=== PATIENT | female | born 1955 | race Caucasian/White ===

== ENCOUNTER 2019-11-09 12:01 | Inpatient (IN) | payer MEDICAID, OTHER ==
[~2019-11-09] VITALS: Ht 165.1 cm; Wt 108.8 kg
[2019-11-09] VITALS (12 sets, daily range): BP systolic 91–147; BP diastolic 49–86
--- NOTE | 2019-11-09 12:04 | NUR ---
PT ARRIVED PER EMS PT INTUBATED BY EMS BEING BAGGED AT THIS X. PT HAS IO IN R TIBIA W NS INFUSING. PT HAS SL IN L CHEST AREA. PT FOUND UNRESPONSIVE BY AND EMS CALLED. EMS USED ETOMIDATE AND KETAMINE TO INUBATE PT. ET TUBE 7.5, 22CM AT GUMS. 1207 PT TO MONITOR, NO PULSE CPR STARTED. 1208 EPI 1 AMP GIVEN IVP 1210 PULSE CHECK DONE PULSE PRESENT. 1214 #16 OG INSERTED 1220 TORRES #16 FR INSERTED AND CLEAR YELLOW URINE RETURNED. 1225 VS 145/74,100%BMV,93PULSE 1226 CENTRAL LINE INSERTED IN R IJ BY DR WADSWORTH STOP TIME 1235,LABS DRAWN 1236 PROPOFOL 20MCG/KG/MIN 1238 PT MOVING AROUND, 20MG BOLUS PROPOFOL GIVEN BY DR WADSWORTH 1241 PT TO VENT BY RT 1242 DR EDDY HERE TO SEE PT 1242 PROPOFOL INCREASED TO 40MCG/KG/MIN 1245 COVID SWAB AND FLU SWAB COMPLETED 1246 CXR DONE. LEVOPHED STARTED AT 0.1MCG/KG/HR=33.75MLS/HR 1247 VERSED 5MG IV GIVEN FOR SEDATION 1247 ICE PACKS PLACED UNDER ARMS AND GROIN ORDERED 1256 LEVOPHED INCREASED TO 67.5ML/HR 1300 MONITOR CHANGE NOTED, PULSE CHECK, PEA CPR STARTED AND SWITCHED TO BMV O2 SAT DECREASING TO 70'S TO 75% BMV. 1301 EPI 1 AMP GIVEN CPR CONT 1303 PULSE CHECK, +PULSE, MONITOR READS WIDE COMPLEX TACHYCARDIA 1304 EKG DONE [address] [place] HERE TO SEE PT 1333 RECTAL TEMP PROBE INSERTED 36.3'C 1338 2ND BLOOD CULTURE DRAWN 1341 EPI 1/2 AMP PUSH ORDERED 1342 SAND BAG APPLIED TO L FEMORAL ABG SITE. 1344 TPA STARTED ORDERED AT 50MG/HR. ECHO BEING DONE BY TECH 1351 EPI GTT STARTED AT 13.5ML/HR 1400 PT HAS HAD TOTAL OF 300MLS OUT OF OG 1400 PT HAS HAD TOTAL OF 3000MLS OF NS INFUSED INCLUDES 1 LITER FROM EMS 1409 PT TRANSFERED TO ICU BY JIMMY RN , ADRIANA RN, RT AND KENIA FOUNTAIN AN [employer] OR [employer] AND V/S ECOT 41, 92% SAT ON VENT, 110/57, HR-73, 24RESP. PT HAS PROPOFOL, EPI GTT, NOREPPI GTT AND TPA CONT PER PUMPS PER IJ, PT HAS ET TUBE, OG, TORRES IN PLACE. PT HAS OI AND L CHEST SL IN PLACE.
[2019-11-09] MEDS ORDERED: NS IV 1000 ML 1,000 ML ONE ×3 (12:24→14:51)
[2019-11-09 12:38] LABS: BASOPHILS % (AUTO) 0 % (0-10); EOSINOPHILS % (AUTO) 0 % (0-10); HEMATOCRIT 38 % (35-52); HEMOGLOBIN 12.1 G/DL (11.5-16.0); LYMPHOCYTES # (AUTO) 1.1 X 10^3 (1.0-4.0); LYMPHOCYTES % (AUTO) 9 % (12-44); MEAN CORPUSCULAR HEMOGLOBIN 28 PG (25-34); MEAN CORPUSCULAR HGB CONC 32 G/DL (32-36); MEAN CORPUSCULAR VOLUME 89 FL (80-99); MEAN PLATELET VOLUME 10.1 FL (7.4-10.4); MONOCYTES # (AUTO) 0.7 X 10^3 (0.0-1.0); MONOCYTES % (AUTO) 6 % (0-12); NEUTROPHILS # (AUTO) 10.7 X 10^3 (1.8-7.8); NEUTROPHILS % (AUTO) 85 % (42-75); PLATELET COUNT 231 10^3/uL (130-400); RED CELL DISTRIBUTION WIDTH 14.2 % (10.0-14.5); WHITE BLOOD COUNT 12.5 10^3/uL (4.3-11.0)
[2019-11-09] MEDS ORDERED: MIDAZOLAM 5 MG/5 ML (VERSED) VIAL ONE ×2 (12:38→14:43)
[2019-11-09] MEDS: PROPOFOL DRIP (ICU) 100 ML IV ONE ×2 (12:39→14:03)
[2019-11-09 12:48] LABS: ALBUMIN 3.2 GM/DL (3.2-4.5); POTASSIUM 4.4 MMOL/L (3.6-5.0)
[2019-11-09 12:49] LABS: CALCIUM 8.2 MG/DL (8.5-10.1)
[2019-11-09 12:51] LABS: TOTAL PROTEIN 6.5 GM/DL (6.4-8.2)
[2019-11-09 12:52] LABS: BILIRUBIN,TOTAL 0.3 MG/DL (0.1-1.0); FIBRIN DEGRADATION PRODUCTS 3.89 UG/ML (0.00-0.49); PROTHROMBIN TIME PATIENT 13.8 SEC (12.2-14.7)
[2019-11-09 12:54] LABS: CREATININE SERUM 0.95 MG/DL (0.60-1.30)
[2019-11-09 12:57] LABS: MAGNESIUM 1.8 MG/DL (1.6-2.4)
[2019-11-09 13:00] LABS: AMPHETAMINE SCREEN, URINE NEGATIVE (NEGATIVE); BARBITURATE SCREEN URINE NEGATIVE (NEGATIVE); BENZODIAZEPINES SCREEN URINE NEGATIVE (NEGATIVE); CANNABINOID SCREEN, URINE NEGATIVE (NEGATIVE); COCAINE SCREEN URINE NEGATIVE (NEGATIVE); METHADONE STAT NEGATIVE (NEGATIVE); METHAMPHETAMINE SCREEN URINE S NEGATIVE (NEGATIVE); OPIATE SCREEN URINE NEGATIVE (NEGATIVE); OXYCODONE STAT NEGATIVE (NEGATIVE); PROPOXYPHENE STAT NEGATIVE (NEGATIVE); TRICYCLIC ANTIDEPRESSANTS SCRE NEGATIVE (NEGATIVE)
[2019-11-09 13:01] LABS: ABG BASE EXCESS 5.3 MMOL/L (-2.5-2.5); ABG OXYGEN SATURATION 92 % (94-100); ABG PCO2 62 MMHG (35-45); ABG PO2 67 MMHG (79-93); ABG TCO2 33.2 MMOL/L (21.0-31.0)
[2019-11-09 13:02] LABS: ABG PH 7.32 (7.37-7.43); ALLENS TEST POSITIVE; INSPIRED O2 10 L; PATIENT TEMP 96.9; VENTILATOR NO
--- NOTE | 2019-11-09 13:03 | ED CPR ---
HPI-CPR General Chief Complaint: Code Blue Stated Complaint: RESPIRATORY ARREST Source of Information: Patient, EMS Exam Limitations: Other (patient is orotracheally intubated) History of Present Illness Date Seen by Provider: November 09, 2019 Time Seen by Provider: 12:04 Initial Comments Patient arrives ER by EMS from her fall with her spouse who woke up to find her breathing very fast and shallow and unresponsive. EMS arrived and she had a pulse but they intubated her using RSI and a 7.5 ET tube at 22 at the teeth. They're able to get good oxygen sats 100% room air. She had no fever nor history of fever. Patient gives no meaningful history or review of systems secondary to being orotracheally intubated. Has been does not think she's been sick lately. Was not a good historian and was not able to relay much of the patient's history to EMS. Shortly after arrival the patient was discovered not to have a pulse and CPR was initiated. Dr. Alvarado was involved early on in the care of the patient and she was able to discuss with the primary care doctor and discover the patient have hypothyr oidism, hypertension, diabetes, hyperlipidemia and had been following every 3 months on routine basis. Allergies and Home Medications Allergies Coded Allergies: Penicillins (Unverified Allergy, Unknown, 11/09/19) Sulfa (Sulfonamide Antibiotics) (Unverified Allergy, Unknown, 11/09/19) adhesive tape (Unverified Allergy, Unknown, 11/09/19) azithromycin (Unverified Allergy, Unknown, 11/09/19) cephalexin (Unverified Allergy, Unknown, 11/09/19) Home Medications Albuterol Sulfate 1 Puff Puff, 2 PUFF PO Q6H PRN for SHORTNESS OF BREATH, (Reported) Aspirin 325 Mg Tablet.dr, 325 MG PO Q48H, (Reported) Atenolol 100 Mg Tablet, 100 MG PO DAILY, (Reported) Duloxetine HCl 60 Mg Capsule.dr, 60 MG PO DAILY, (Reported) Enalapril Maleate 20 Mg Tablet, 20 MG PO BID, (Reported) Fluticasone/Salmeterol 1 Each Blst.w.dev, 1 PUFF PO BID, (Reported) Furosemide 20 Mg Tablet, 20 MG PO DAILY, (Reported) Metformin HCl 500 Mg Tablet, 500 MG PO BID WITH MEALS, (Reported) Pantoprazole Sodium 40 Mg Tablet.dr, 40 MG PO DAILY, (Reported) Polyethylene Glycol 3350 17 Gm Powd.pack, 17 GM PO DAILY, (Reported) Rosuvastatin Calcium 20 Mg Tablet, 20 MG PO DAILY, (Reported) Sitagliptin Phosphate 100 Mg Tablet, 100 MG PO DAILY, (Reported) Tizanidine HCl 4 Mg Tablet, 4 MG PO TID, (Reported) Patient Home Medication List Home Medication List Reviewed: Yes Review of Systems Review of Systems Constitutional: see HPI (patient is unable to contribute any meaningful review of systems secondary to being orotracheally intubated.) Past Npitfsd-Uernvq-Nfbeqt Hx Patient Social History Alcohol Use: Denies Use Recreational Drug Use: No Smoking Status: Current Everyday Smoker Physical Exam Vital Signs Vital Signs - First Documented 11/09/19 12:04 Temp 35.4 Pulse 93 B/P (MAP) 145/74 (97) Pulse Ox 100 O2 Delivery Ambu Bag Capillary Refill : Height, Weight, BMI Height: '" Weight: lbs. oz. kg; BMI Method: General Appearance: Obese, Severe Distress HEENT: PERRL/EOMI, TMs Normal, Normal ENT Inspection, Pharynx Normal, Moist Mucous Membranes, Other (copious clear, thin secretions from the oropharynx) Neck: Full Range of Motion, Normal Inspection Respiratory: Respiratory Distress (severe, orotracheally intubated with a 7.5 ET tube at 22 at the gums), Rhonci (mild to moderate bilateral), Wheezing (mild expiratory) Cardiovascular: No Edema, Other (no pulse on arrival) Gastrointestinal: No Organomegaly, Soft, Other (ventral hernia) Extremity: Normal Capillary Refill, Normal Inspection Neurologic/Psychiatric: Other (intubated. Status post RSI meds.) Skin: Damp, Pallor Focused Exam Lactate Level 11/09/19 12:20: Lactic Acid Level 1.75 Lactic Acid Level Laboratory Tests Test 11/09/19 12:20 Lactic Acid Level 1.75 MMOL/L (0.50-2.00) Procedures/Interventions Lumen: triple (16 cm 7 Tu[place]uan) Central Line Procedure: betadine prep (chlorhexidine prep), sterile drapes applied, sterile dressing applied Position: internal jugular (R) Anesthesia: Lidocaine Volume Anesthetic (ccs): 2 Complications: none Post Position: sutured, good blood return, position confirmed w/ CXR Donned sterile gear and draped the patient on usual sterile fashion. We clean the surface with chlorhexidine prep and allowed to dry. We infiltrated the skin with 2 cc of 1% lidocaine. A triple lumen catheter was prepared and flushed. Using ultrasound guidance and the introducer needle we accessed the right internal jugular on first attempt and were able to easily pass a guidewire. We did experience some mild ectopy on the monitor which went away as soon as the guidewire was withdrawn. A small pedro luis in the skin was made using an 11 blade scalpel. The needle was removed and replaced with a dilator. The dilator was removed and the central lumen of the triple lumen catheter was threaded over the guidewire. It was stitched in place 2 different points at 15 cm. The supplied dressing with Biopatch was placed. Minimal blood loss. Patient tolerated procedure well. Consent was made off of emergent need. Chest x-ray demonstrated good position in the superior vena cava just above the right atria without crossing the midline. No evidence of pneumothorax. CPR: One round of CPR initiated at 1207 for pulseless electrical activity. Epinephrine was given at 1208. At 1210. Pulse check revealed a right femoral pulse palpable. Blood pressure and EKG showed sinus tachycardia and blood pressure around 115 systolic. 1300: PEA. Removed from the ventilator and bagged with a bag valve mask. Chest compressions were initiated. At 1301 1 mg of epinephrine was administered IV. 1303 patient had return of spontaneous circulation. Levophed was maxed and epinephrine was initiated. Rhythm: Sinus Tachycardia Progress/Results/Core Measures Results/Orders Lab Results Laboratory Tests Test 11/09/19 12:20 11/09/19 12:45 11/09/19 12:50 11/09/19 13:34 Range/Units White Blood Count 12.5 H 4.3-11.0 10^3/uL Red Blood Count 4.33 L 4.35-5.85 10^6/uL Hemoglobin 12.1 11.5-16.0 G/DL Hematocrit 38 35-52 % Mean Corpuscular Volume 89 80-99 FL Mean Corpuscular Hemoglobin 28 25-34 PG Mean Corpuscular Hemoglobin Concent 32 32-36 G/DL Red Cell Distribution Width 14.2 10.0-14.5 % Platelet Count 231 130-400 10^3/uL Mean Platelet Volume 10.1 7.4-10.4 FL Neutrophils (%) (Auto) 85 H 42-75 % Lymphocytes (%) (Auto) 9 L 12-44 % Monocytes (%) (Auto) 6 0-12 % Eosinophils (%) (Auto) 0 0-10 % Basophils (%) (Auto) 0 0-10 % Neutrophils # (Auto) 10.7 H 1.8-7.8 X 10^3 Lymphocytes # (Auto) 1.1 1.0-4.0 X 10^3 Monocytes # (Auto) 0.7 0.0-1.0 X 10^3 Eosinophils # (Auto) 0.0 0.0-0.3 10^3/uL Basophils # (Auto) 0.0 0.0-0.1 10^3/uL Prothrombin Time 13.8 12.2-14.7 SEC INR Comment 1.0 0.8-1.4 Activated Partial Thromboplast Time 22 L 24-35 SEC D-Dimer 3.89 H 0.00-0.49 UG/ML Sodium Level 129 L 135-145 MMOL/L Potassium Level 4.4 3.6-5.0 MMOL/L Chloride Level 89 L 98-107 MMOL/L Carbon Dioxide Level 32 21-32 MMOL/L Anion Gap 8 5-14 MMOL/L Blood Urea Nitrogen 14 7-18 MG/DL Creatinine 0.95 0.60-1.30 MG/DL Estimat Glomerular Filtration Rate 60 BUN/Creatinine Ratio 15 Glucose Level 166 H 70-105 MG/DL Lactic Acid Level 1.75 0.50-2.00 MMOL/L Calcium Level 8.2 L 8.5-10.1 MG/DL Corrected Calcium 8.8 8.5-10.1 MG/DL Magnesium Level 1.8 1.6-2.4 MG/DL Total Bilirubin 0.3 0.1-1.0 MG/DL Aspartate Amino Transf (AST/SGOT) 28 5-34 U/L Alanine Aminotransferase (ALT/SGPT) 17 0-55 U/L Alkaline Phosphatase 104 40-136 U/L Troponin I 0.085 H <0.028 NG/ML B-Type Natriuretic Peptide 634.0 H <100.0 PG/ML Total Protein 6.5 6.4-8.2 GM/DL Albumin 3.2 3.2-4.5 GM/DL Urine Opiates Screen NEGATIVE NEGATIVE Urine Oxycodone Screen NEGATIVE NEGATIVE Urine Methadone Screen NEGATIVE NEGATIVE Urine Propoxyphene Screen NEGATIVE NEGATIVE Urine Barbiturates Screen NEGATIVE NEGATIVE Ur Tricyclic Antidepressants Screen NEGATIVE NEGATIVE Urine Phencyclidine Screen NEGATIVE NEGATIVE Urine Amphetamines Screen NEGATIVE NEGATIVE Urine Methamphetamines Screen NEGATIVE NEGATIVE Urine Benzodiazepines Screen NEGATIVE NEGATIVE Urine Cocaine Screen NEGATIVE NEGATIVE Urine Cannabinoids Screen NEGATIVE NEGATIVE Blood Gas Puncture Site LEFT RADIAL LEFT FEMORAL Blood Gas Patient Temperature 96.9 36.3 Arterial Blood pH 7.32 *L 7.26 *L 7.37-7.43 Arterial Blood Partial Pressure CO2 62 H 61 H 35-45 MMHG Arterial Blood Partial Pressure O2 67 L 52 L 79-93 MMHG Arterial Blood HCO3 31 H 27 23-27 MMOL/L Arterial Blood Total CO2 33.2 H 29.1 21.0-31.0 MMOL/L Arterial Blood Oxygen Saturation 92 L 75 L 94-100 % Arterial Blood Base Excess 5.3 H 0.8 -2.5-2.5 MMOL/L Gustavo Test POSITIVE POSITIVE Blood Gas Ventilator Setting NO YES Blood Gas Inspired Oxygen 10 L 100 Micro Results Microbiology 11/09/19 Influenza Types A,B Antigen (GENOVEVA) - Final, Complete My Orders Orders - ZACARIAS WADSWORTH Norepinephrine 4 Mg/250 Ml (Norepinephri (11/09/19 12:05) Drug Screen Stat (Urine) (11/09/19 12:24) Chest 1 View, Ap/Pa Only (11/09/19 12:32) Ns Iv 1000 Ml (Sodium Chloride 0.9%) (11/09/19 12:24) Propofol Drip (Icu) (Diprivan Drip (Icu) (11/09/19 12:26) Midazolam Injection (Versed Injection) (11/09/19 12:38) Coronavirus Sars-Cov-2 So 2018 (11/09/19 12:48) Influenza A And B Antigens (11/09/19 12:48) Ns Iv 1000 Ml (Sodium Chloride 0.9%) (11/09/19 12:54) Alteplase (Activase) (Activase Injection (11/09/19 13:08) Type And Screen (11/09/19 13:32) Arterial Blood Gas (11/09/19 13:32) Epinephrine (Omnicell Drip Kit (Epinephr (11/09/19 13:34) Ns (Ivpb) (Sodium Chloride 0.9%) (11/09/19 13:34) Ns (Ivpb) (Sodium C... W/Epinephrine 1 (11/09/19 14:00) Alteplase (Activase) (Activase Injection (11/09/19 14:00) Post Thrombolytic Adminstratio (11/09/19 13:53) Propofol Drip (Icu) (Diprivan Drip (Icu) (11/09/19 12:39) Norepinephrine 4 Mg/250 Ml (Norepinephri (11/09/19 13:22) Medications Given in ED Current Medications Medications Dose Ordered Sig/Brandee Route Start Time Stop Time Status Last Admin Dose Admin Alteplase, Recombinant 100 mg ONCE ONCE IV 11/09/19 14:00 11/09/19 14:01 DC 11/09/19 13:44 100 MG Midazolam HCl 5 mg STK-MED ONCE .ROUTE 11/09/19 12:38 11/09/19 12:45 DC 11/09/19 12:47 5 MG Sodium Chloride 1,000 ml @ ud STK-MED ONCE .ROUTE 11/09/19 12:24 11/09/19 12:32 DC 11/09/19 12:41 999 MLS/HR Sodium Chloride 1,000 ml @ ud STK-MED ONCE .ROUTE 11/09/19 12:54 11/09/19 13:02 DC 11/09/19 13:23 999 MLS/HR Vital Signs/I&O 11/09/19 11/09/19 11/09/19 12:04 14:03 14:04 Temp 35.4 Pulse 93 93 65 B/P (MAP) 145/74 (97) 145/74 101/89 Pulse Ox 100 O2 Delivery Ambu Bag Blood Pressure Mean: 97 Progress Progress Note : Time: 13:15 Progress Note After we corrected the ventilation by increasing the rate to 24 breaths per minute at 550ml tidal volume PEEP of 7 to recruit more alveoli and FiO2 of 100% the patient's respiratory demand went down sats came up to 95% to 98% and heart rate back into the 80s and 90s. We obtained another EKG shortly after the 1304 EKG. This latest EKG demonstrated sinus rhythm in the 80s or 90s without ST changes however this EKG was not saved and we do not have a copy that I can find. Strongly suspect the patient had a pulmonary embolism and TPA was given. Patient was stable at the time she transferred to the ICU on TPA drip, Levophed, epinephrine, IV fluids and was given glucagon when she reached the ICU. Initial ECG Impression Date: November 09, 2019 Initial ECG Impression Time: 12:20 Initial ECG Rate: 93 Initial ECG Rhythm: Normal Sinus Initial ECG Intervals: QT (478) Initial ECG Impression: Normal, Nonspecific Changes Initial ECG Comparisson: No Previous ECG Available Comment Normal sinus rhythm without clinically relevant ST elevation or depression. EKG : EKG Time: 13:04 Rate: 120 Rhythm: S.Tach Intervals: QT (474) ECG Comparisson: Changed ECG Impression: Normal, Nonspecific Changes Comment Sinus tachycardia with early repolarization but no clinically relevant ST elevation or depression. Diagnostic Imaging Plain Films/CT/US/NM/MRI: chest Comments [facility], [place] NAME: VINICIUS HINES [facility] REC#: [id number] PT STATUS: ADM IN : 1955 PHYSICIAN: ZACARIAS WADSWORTH MD ADMIT DATE: 11/09/19/ICU Signed Date of Exam:11/09/19 CHEST 1 VIEW, AP/PA ONLY EXAMINATION: Portable supine AP chest at 12:46 p.m. INDICATION: Central line placement. FINDINGS: The heart size is within normal limits and stable when compared to 09/28/2010. The lungs are clear. There is no evidence for failure, pneumonia, or for pleural effusion. The mediastinum is not widened. The osseous structures are intact. In the interval since the prior exam, the patient has been intubated. The ET tube tip appears to be in good position overlying the midportion of the tracheal air shadow. An NG line has also been inserted. The tip of the line is not visualized but the line does extend below the diaphragm. There has also been insertion of a central venous catheter on the right. The tip of the catheter overlies the proximal superior vena cava. There is no sign of a pneumothorax on the right, although a small pneumothorax could be present yet undetected on a supine film such as this. There are external cardiac monitoring electrodes noted. IMPRESSION: 1. There is no evidence for an acute cardiopulmonary abnormality. 2. The supportive tubes and lines seem to be in good position, although the tip of the NG line is not well visualized. If further study is desired, then an abdomen exam would be recommended. Dictated by: Dictated on workstation # [id number] Dict: 11/09/19 1304 Trans: 11/09/19 1631 [id number] Interpreted by: NADIR HART MD Electronically signed by: NADIR HART MD 11/09/19 163 Reviewed: Reviewed by Co Diagonstic Imaging: Xray Plain Films/CT/US/NM/MRI: chest Comments [facility], [place] NAME: VINICIUS HINES [facility] REC#: [id number] PT STATUS: ADM IN : 1955 PHYSICIAN: SOL GONZALES MD ADMIT DATE: 11/09/19/ICU Signed Date of Exam:11/09/19 CHEST 1 VIEW, AP/PA ONLY EXAMINATION: CHEST 1 VIEW, AP/PA ONLY. INDICATION: Hypoxia. COMPARISON: 11/09/2019 at 12:46 PM. FINDINGS: The ET tube has its tip 6 cm above the eli. Stable enteric tube and right IJ central venous catheter. Stable enlargement of the cardiac silhouette. No pleural effusion or pneumothorax. No airspace consolidations in the visualized lungs. IMPRESSION: The ET tube has its tip 6 cm above the eli. Dictated by: Dictated on workstation # [id number] Dict: 11/09/19 1535 Trans: 11/09/19 1539 [id number] Interpreted by: SAMANTHA RAY MD Electronically signed by: SAMANTHA RAY MD 11/09/19 1539 Reviewed: Reviewed by Co Diagonstic Imaging: Xray Plain Films/CT/US/NM/MRI: chest (1v) Comments [facility] [place] NAME: VINICIUS HINES [facility] REC#: [id number] PT STATUS: ADM IN : 1955 PHYSICIAN: SOL GONZALES MD ADMIT DATE: 11/09/19/ICU Signed Date of Exam:11/09/19 CHEST 1 VIEW, AP/PA ONLY INDICATION: ET tube adjustment. TECHNIQUE: Single view chest at 3:18 PM. CORRELATION STUDY: 11/09/2019. FINDINGS: The endotracheal tube tip projects over the trachea projecting just below the level of the clavicles. A gastric tube passes below the left hemidiaphragm and area imaged. The right IJ central line tip is in the high right paramediastinal region, likely at the low aspect of the internal jugular vein. Overlying monitor leads and defibrillator pads are present. Opacification of the right lung base, likely atelectasis, over a large portion of the right middle lobe. The heart size is stable. The vasculature is overall within normal limits. IMPRESSION: 1. Support lines and tubes as above. 2. Likely development of significant atelectasis of the right middle lobe. Dictated by: Dictated on workstation # [id number] Dict: 11/09/19 1537 Trans: 11/09/19 1625 [id number] Interpreted by: EMI JONES DO Electronically signed by: EMI JONES DO 11/09/19 1625 Reviewed: Reviewed by Co Critical Care Note Critical Care Start Time: 12:04 Stop Time: 14:15 Total Time (minutes) 131 minutes Progress Patient arrived with no pulse and had one round of epinephrine and CPR which got ROSC. We initiated Levophed drip got a septic workup and she had an IV in her left mammary and a right tibial IO. Central line was initiated at 1226 and concluded at 1235. Ordonez catheter and OG tube were initiated. Chest x-ray was reviewed showing good placement of ET tube and central line as well as the OG tube. Labs were drawn off the central line. Levophed was initiated at 0.1 mcg/kg/m. Blood cultures were obtained. We initiated cooling with ice packs under the armpit and groin and using a rectal central temperature probe got her down to around 36-36.4. Patient began to wake up and have some movement and groaning with deep, pulmonary suctioning of her upper extremities and lower extremity's. Propofol was initiated and a 20 mg bolus was given. Propofol initiated at 20 mcg/kg/m. After suctioning was done the patient's lung sounds improved considerably still had some mild wheezing. We elected to initiate the ventilator after obtaining flu and Covid19 swabs. Ventilator was initiated at 20 respiratory rate, PEEP 5, FiO2 of 100, tidal volume of 500. ABG was obtained. Patient was given 5 mg Versed for sedation. At 1300 patient went back into PEA and compressions were started. Epinephrine was given 1 minute later. 13 03D had return of spontaneous circulation. Levophed was increased and epinephrine was ordered. EKG demonstrated sinus tachycardia without clinically relevant ST changes. End- tidal CO2 37-42. Repeat ABG was obtained which demonstrated similar, unimproved respiratory ac idosis and hypoxia. Dr. Clay was consulted and reviewed EKGs and made recommendations. TPA was elected after discussing the case with Dr. Jenny Clay and ordered 100 mg over 2 hours. Sandbag was placed over the right femoral artery where the second ABG was obtained. 1344 echocardiogram at the bedside was obtained. 1352 epinephrine drip was initiated at 0.02 mcg/kg/m and titrated up as necessary to maintain decent blood pressure. 300 cc out of the OG of brackish down are thin secretions. 3 L normal saline have been pushed. Patient's heart rate remained paradoxically low despite poor perfusion and hypotension on 2 pressors. Patient's on atenolol 100 mg and we elected to give 3 mg of glucagon in an attempt to reverse some of this effect. Departure Communication (Admissions) Time/Spoke to Admitting Phy: 13:00 Dr. Alvarado down to the ER to see the patient. She personally consulted Dr. Gonzales. Time/Spoke to Consulting Phy: 13:32 Dr. Clay down to the ER to examine patient and EKGs. He accepts consultation. Impression Primary Impression: Acute respiratory failure Qualified Codes: J96.01 - Acute respiratory failure with hypoxia Additional Impression: Cardiopulmonary arrest Disposition: ADMITTED INPATIENT Condition: Critical Admissions Decision to Admit Reason: Admit from ER (General) Decision to Admit/Date: November 09, 2019 Time/Decision to Admit Time: 13:40 ZACARIAS WADSWORTH November 09, 2019 13:03
[2019-11-09] MEDS: NOREPINEPHRINE 4 MG/250 ML 250 ML IV ONE ×2 (13:22→14:04)
[2019-11-09] MEDS: ALTEPLASE 100 MG/VIAL (ACTIVASE) ONE ×2 (13:25→13:56)
--- NOTE | 2019-11-09 13:27 | Diagnostic Imaging Report ---
EXAMINATION: Portable supine AP chest at 12:46 p.m. INDICATION: Central line placement. FINDINGS: The heart size is within normal limits and stable when compared to 09/28/2010. The lungs are clear. There is no evidence for failure, pneumonia, or for pleural effusion. The mediastinum is not widened. The osseous structures are intact. In the interval since the prior exam, the patient has been intubated. The ET tube tip appears to be in good position overlying the midportion of the tracheal air shadow. An NG line has also been inserted. The tip of the line is not visualized but the line does extend below the diaphragm. There has also been insertion of a central venous catheter on the right. The tip of the catheter overlies the proximal superior vena cava. There is no sign of a pneumothorax on the right, although a small pneumothorax could be present yet undetected on a supine film such as this. There are external cardiac monitoring electrodes noted. IMPRESSION: 1. There is no evidence for an acute cardiopulmonary abnormality. 2. The supportive tubes and lines seem to be in good position, although the tip of the NG line is not well visualized. If further study is desired, then an abdomen exam would be recommended. Dictated by: Dictated on workstation # [id number]
[2019-11-09 13:40] LABS: ABG BASE EXCESS 0.8 MMOL/L (-2.5-2.5); ABG OXYGEN SATURATION 75 % (94-100); ABG PCO2 61 MMHG (35-45); ABG PO2 52 MMHG (79-93); ABG TCO2 29.1 MMOL/L (21.0-31.0)
[2019-11-09 13:41] LABS: ABG PH 7.26 (7.37-7.43)
[2019-11-09 13:42] LABS: ALLENS TEST POSITIVE; INSPIRED O2 100; PATIENT TEMP 36.3; VENTILATOR YES
[2019-11-09] MEDS: EPINEPHrine (OMNICELL DRIP KIT ONLY) 1 MG/ML AMP ONE ×2 (13:48→13:56)
[2019-11-09] MEDS: NS (IVPB) 250 ML ONE ×2 (13:49→13:56)
[2019-11-09] MEDS ORDERED: ALTEPLASE 100 MG/VIAL (ACTIVASE) IV ONE (14:00)
[2019-11-09] MEDS ORDERED: EPINEPHrine 1 MG INJECTION 2 MG in NS (IVPB) 248 ML IV SCH (14:00)
--- NOTE | 2019-11-09 14:00 | History & Physical-Hospitalist ---
History of Present Illness HPI/Chief Complaint Pt is a 64yoCF with a PMH of HTN, NIDDMII, COPD, JODI, CAD with 3 stents who presented to the ER as a respiratory arrest. She was intubated in the field and no history is obtainable. I spoke with EMS and her who state she started feeling poorly yesterday. Her tried to get her to come to the ER yesterday but she refused. Today she would not wake up for him and he called EMS. She was unresponsive for them. I spoke with her PCP as well who states he last saw her on 10/18 and she was well. EMS also report very poorly living conditions. Shortly after arrival to the ER she lost a pulse and was coded brief ly. ROSC was obtained but roughly an hour later she lost a pulse again and this was accompanied by profound hypoxia with sats in the 40s. CXR was unremarkable and her labs were unrevealing for infection. EKG was nonischemic. D-Dimer was elevated at 3. TPA was given for presumed PE as she was unstable. She is now being admitted to the ICU. Source: patient Date Seen 11/09/19 Time Seen by a Provider: 13:49 Attending Physician PCP Referring Physician Date of Admission Home Medications & Allergies Home Medications Reviewed patient Home Medication Reconciliation performed by pharmacy medication reconciliations wireless field technician and/or nursing. Patients Allergies have been reviewed. Allergies Allergies Coded Allergies Penicillins (Unverified Allergy, Unknown, 11/09/19) Sulfa (Sulfonamide Antibiotics) (Unverified Allergy, Unknown, 11/09/19) adhesive tape (Unverified Allergy, Unknown, 11/09/19) azithromycin (Unverified Allergy, Unknown, 11/09/19) cephalexin (Unverified Allergy, Unknown, 11/09/19) Past Pgjakss-Zqhmdm-Shxwpv Hx Past Med/Social Hx: Reviewed Nursing Past Med/Soc Hx Patient Social History Marrital Status: Employed/Student: unemployed Smoking Status: Unknown if Ever Smoked Recent Foreign Travel: No Contact w/other who traveled: No Recent Infectious Disease Expo: No Past Medical History Surgeries: Section, Coronary Stent, Orthopedic, Tonsillectomy Respiratory: COPD, Sleep Apnea Cardiac: Coronary Artery Disease, Heart Attack, High Cholesterol, Hypertension Musculoskeletal: Degenerate Disk Disease, Chronic Back Pain Endocrine: Diabetes, Non-Insulin dep Family History Reviewed Nursing Family Hx (unable to be obtained) Review of Systems ROS-Unable to Obtain: intubated/sedated Constitutional: see HPI Physical Exam Physical Exam Vital Signs Vital Signs - First Documented 11/09/19 11/09/19 11/09/19 12:04 14:30 16:25 Temp 35.4 Pulse 93 Resp 38 B/P (MAP) 145/74 (97) Pulse Ox 100 O2 Delivery Ambu Bag O2 Flow Rate 100.00 FiO2 100 Capillary Refill : Greater Than 3 Seconds Height, Weight, BMI Height: '" Weight: lbs. oz. kg; 33.00 BMI Method: General Appearance: Chronically ill, Obese, Severe Distress HEENT: Other (nearly pinpoint pupils, equally reactive; ETT/OGT in place) Neck: Other (central line in place) Respiratory: Crackles, Respiratory Distress, Wheezing, Other (intubated) Cardiovascular: No JVD, No Murmur, Tachycardia Gastrointestinal: Normal Bowel Sounds, Other (soft, obese abdomen, ventra hernia noted) Genital/Rectal: Other (an in place with clear yellow urine noted) Extremity: Normal Capillary Refill, No Pedal Edema Neurologic/Psychiatric: Other (sedated, responds to noxious stimuli only) Skin: Normal Color, Warm/Dry; No Mottled Results Results/Procedures Labs Laboratory Tests 11/09/19 12:20 11/09/19 15:35 11/09/19 19:00 11/09/19 22:45 11/10/19 02:30 11/10/19 08:45 Patient resulted labs reviewed. Imaging: Reviewed Imaging Films, Reviewed Imaging Report Imaging Date of Exam:11/09/19 CHEST 1 VIEW, AP/PA ONLY EXAMINATION: Portable supine AP chest at 12:46 p.m. INDICATION: Central line placement. FINDINGS: The heart size is within normal limits and stable when compared to 09/28/2010. The lungs are clear. There is no evidence for failure, pneumonia, or for pleural effusion. The mediastinum is not widened. The osseous structures are intact. In the interval since the prior exam, the patient has been intubated. The ET tube tip appears to be in good position overlying the midportion of the tracheal air shadow. An NG line has also been inserted. The tip of the line is not visualized but the line does extend below the diaphragm. There has also been insertion of a central venous catheter on the right. The tip of the catheter overlies the proximal superior vena cava. There is no sign of a pneumothorax on the right, although a small pneumothorax could be present yet undetected on a supine film such as this. There are external cardiac monitoring electrodes noted. IMPRESSION: 1. There is no evidence for an acute cardiopulmonary abnormality. 2. The supportive tubes and lines seem to be in good position, although the tip of the NG line is not well visualized. If further study is desired, then an abdomen exam would be recommended. Assessment/Plan Admission Diagnosis Cardiac Arrest Admission Status: Inpatient Order (span 2 midnights) Reason for Inpatient Admission: see below Assessment and Plan Cardiac Arrest Acute Respiratory Failure with profound hypoxia Elevated D-dimer COPD Intubated, pulm consulted appreciate recs Hypoxic to the 40s in the ER TPA given in ER If remains stable on arrival to the ICU will start hypothermia Currently on levophed and epi gtt Stat echo pending COVID19 pending HTN CAD Hole home meds for hypotension and TPA admin Cardiology consulted, appreciate recs NIDDMII [facility] Critical Care Critically Ill Patient Diagnosis/Problems Diagnosis/Problems (1) Cardiac arrest Status: Acute (2) Acute respiratory failure Qualifiers: Respiratory failure complication: hypoxia Qualified Codes: J96.01 - Acute respiratory failure with hypoxia (3) COPD (chronic obstructive pulmonary disease) Qualifiers: COPD type: unspecified COPD Qualified Codes: J44.9 - Chronic obstructive pulmonary disease, unspecified (4) CAD (coronary artery disease) Status: Chronic Qualifiers: Coronary Disease-Associated Artery/Lesion type: [place] artery [place] vs. transplanted heart: [place] heart Associated angina: without angina Qualified Codes: I25.10 - Atherosclerotic heart disease of [place] coronary artery without angina pectoris (5) Non-insulin dependent type 2 diabetes mellitus Status: Chronic ASHLYN EDDY MD November 09, 2019 14:00
[2019-11-09] MEDS: PROPOFOL DRIP (ICU) 100 ML IV SCH ×4 (14:03→22:04)
[2019-11-09] MEDS: NOREPINEPHRINE 4 MG/250 ML 250 ML IV SCH ×4 (14:04→21:05)
[2019-11-09] MEDS ORDERED: GLUCAGON EMERGENCY 1 MG/KIT IV ONE (14:15)
[2019-11-09] MEDS ORDERED: fentaNYL INJECTION 100 MCG/2 ML AMP IV STA (14:34)
[2019-11-09] MEDS ORDERED: LORazepam INJ 2 MG/ML (ATIVAN) VIAL IV STA (14:34)
[2019-11-09] MEDS ORDERED: ROCURONIUM 10 MG/ML 5 ML SYRINGE IV STA (14:34)
[2019-11-09] MEDS ORDERED: CALCIUM CHLORIDE 10% INJECTION 1 GM in NS (IVPB) 100 ML IV PRN (14:45)
[2019-11-09] MEDS ORDERED: SODIUM PHOSPHATE INJ 30 MM in NS (IVPB) 250 ML IV PRN (14:45)
[2019-11-09] MEDS ORDERED: ROCURONIUM 50 MG/5 ML (ZEMURON) VIAL IV PRN (14:45)
[2019-11-09] MEDS ORDERED: ARTIFICIAL TEARS OINT (LACRI-LUBE) 3.5 GM TUBE OU PRN ×2 (14:45)
[2019-11-09] MEDS ORDERED: MIDAZOLAM 5 MG/5 ML (VERSED) VIAL IVP ONE (15:00)
[2019-11-09] MEDS ORDERED: MAG SULFATE 2 GM/50 ML IV PRE-MIX BAG IV NR (15:15)
--- NOTE | 2019-11-09 15:22 | Consultation-Cardiology ---
HPI-Cardiology Cardiology Consultation: Date of Consultation 11/09/19 Time Seen by a Provider: 13:40 Date of Admission Attending Physician Radha Alvarado MD Admitting Physician Consulting Physician RAFAT MONTANA MD, MA, FACP, FACC, [facility] [place], CCDS HPI: Chief Complaint: Reason for consultation: Resp arrest and cardiac arrest HPI 64 yo woman with h/o COPD and CAD (details unknown) who had been feeling unwell since yesterday, didn't come to hospital, was unresponsive today, called EMS, needed to be intubated in the field, lost pulse twice in ER (once with profound hypoxia despite being intubated). History unobtainable from pt. History obtained from ER records and speaking to Dr Alvarado Review of Systems-Cardiology Review of Systems Constitutional: other (She is currently unable to provide any history, is unreponsive and is on [facility] vent) VEZ-Sqisea-Jspnam Hx Patient Social History Marrital Status: Employed/Student: unemployed Smoking Status: Unknown if Ever Smoked Recent Foreign Travel: No Recent Infectious Disease Expo: No Past Medical History PMH As described under Assessment. Family Medical History Family Medical History: Family history is not obtainable from the patient Allergies and Home Medications Allergies Coded Allergies: Penicillins (Unverified Allergy, Unknown, 11/09/19) Sulfa (Sulfonamide Antibiotics) (Unverified Allergy, Unknown, 11/09/19) adhesive tape (Unverified Allergy, Unknown, 11/09/19) azithromycin (Unverified Allergy, Unknown, 11/09/19) cephalexin (Unverified Allergy, Unknown, 11/09/19) Patient Home Medication List Home Medication List Reviewed: Yes Physical Exam-Cardiology Physical Exam Vital Signs/I&O 11/09/19 11/09/19 11/09/19 11/09/19 12:04 14:03 14:04 14:30 Temp 35.4 36.5 Pulse 93 93 65 88 Resp 38 B/P (MAP) 145/74 (97) 145/74 101/89 127/73 (91) Pulse Ox 100 O2 Delivery Ambu Bag Mechanical Ventilator O2 Flow Rate 100.00 11/09/19 11/09/19 11/09/19 14:31 14:45 15:00 Temp 36.6 36.7 Pulse 90 85 95 Resp 42 24 B/P (MAP) 101/49 (66) 95/59 (71) Pulse Ox 100 100 O2 Delivery Mechanical Ventilator Mechanical Ventilator O2 Flow Rate 100.00 100.00 Capillary Refill : Greater Than 3 Seconds Constitutional: other (intubated and on mech vent) Respiratory: other (scattered rhonchi ) Cardiovascular: other (regular ) Gastrointestinal: soft Extremities: No clubbing, No significant edema Skin: other (unresponisve, on mech vent) Data Review Labs Laboratory Tests 11/09/19 12:20: White Blood Count 12.5H, Red Blood Count 4.33L, Hemoglobin 12.1, Hematocrit 38, Mean Corpuscular Volume 89, Mean Corpuscular Hemoglobin 28, Mean Corpuscular Hemoglobin Concent 32, Red Cell Distribution Width 14.2, Platelet Count 231, Mean Platelet Volume 10.1, Neutrophils (%) (Auto) 85H, Lymphocytes (%) (Auto) 9L , Monocytes (%) (Auto) 6, Eosinophils (%) (Auto) 0, Basophils (%) (Auto) 0, Neutrophils # (Auto) 10.7H, Lymphocytes # (Auto) 1.1, Monocytes # (Auto) 0.7, Eosinophils # (Auto) 0.0, Basophils # (Auto) 0.0, Prothrombin Time 13.8, INR Comment 1.0, Activated Partial Thromboplast Time 22L, D-Dimer 3.89H, Sodium Level 129L, Potassium Level 4.4, Chloride Level 89L, Carbon Dioxide Level 32, Anion Gap 8, Blood Urea Nitrogen 14, Creatinine 0.95, Estimat Glomerular Filtra tion Rate 60, BUN/Creatinine Ratio 15, Glucose Level 166H, Lactic Acid Level 1. 75, Calcium Level 8.2L, Corrected Calcium 8.8, Magnesium Level 1.8, Total Bilir ubin 0.3, Aspartate Amino Transf (AST/SGOT) 28, Alanine Aminotransferase (ALT/SGPT) 17, Alkaline Phosphatase 104, Troponin I 0.085H, B-Type Natriuretic Peptide 634.0H, Total Protein 6.5, Albumin 3.2, Urine Opiates Screen NEGATIVE, Urine Oxycodone Screen NEGATIVE, Urine Methadone Screen NEGATIVE, Urine Propoxyphene Screen NEGATIVE, Urine Barbiturates Screen NEGATIVE, Ur Tricyclic Antidepressants Screen NEGATIVE, Urine Phencyclidine Screen NEGATIVE, Urine Amphetamines Screen NEGATIVE, Urine Methamphetamines Screen NEGATIVE, Urine Benzodiazepines Screen NEGATIVE, Urine Cocaine Screen NEGATIVE, Urine Cannabinoids Screen NEGATIVE 11/09/19 12:45: 11/09/19 12:50: Blood Gas Puncture Site LEFT RADIAL, Blood Gas Patient Temperature 96.9, Arterial Blood pH 7.32*L, Arterial Blood Partial Pressure CO2 62H, Arterial Blood Partial Pressure O2 67L, Arterial Blood HCO3 31H, Arterial Blood Total CO2 33.2H, Arterial Blood Oxygen Saturation 92L, Arterial Blood Base Excess 5.3H, Gustavo Test POSITIVE, Blood Gas Ventilator Setting NO, Blood Gas Inspired Oxygen 10 L 11/09/19 13:34: Blood Gas Puncture Site LEFT FEMORAL, Blood Gas Patient Temperature 36.3, Arterial Blood pH 7.26*L, Arterial Blood Partial Pressure CO2 61H, Arterial Blood Partial Pressure O2 52L, Arterial Blood HCO3 27, Arterial Blood Total CO2 29.1, Arterial Blood Oxygen Saturation 75L, Arterial Blood Base Excess 0.8, Gustavo Test POSITIVE, Blood Gas Ventilator Setting YES, Blood Gas Inspired Oxygen 100 11/09/19 14:10: Glucometer 209H Microbiology 11/09/19 Influenza Types A,B Antigen (GENOVEVA) - Final, Complete Laboratory Tests 11/09/19 12:20 A/P-Cardiology Assessment/Admission Diagnosis Ac resp arrest and cardiac arrest (PEA) in setting of profound hypoxia and hypotension, PE suspected clinically and being treated by the Hospitalist service H/o CAD (reportedly has had 3 stents, none recent) details unknown Mild troponin elevation likely due to type 2 RI due to hypoxia Hyponatremia of unclear etiology Echo of 11/09/19: LVEF approx 50%, study difficult and not suitable for wall motion analysis, cannot exclude apical hypokinesis ECG: NSR, PACs, LAFB vs old IMI Discussion and Recomendations * Discussed case with Dr Alvarado of the Hospitalist [facility] * Agree with current measures * Support BP and respiration * Try to obtain cardiac records * Prognosis guarded Clinical Quality Measures DVT/VTE Risk/Contraindication: Risk Factor Score Per Nursin RFS Level Per Nursing on Admit: 4+=Very High RAFAT MONTANA MD FACP FAC CCDS November 09, 2019 15:22
[2019-11-09] MEDS ORDERED: DULO60CA59 PO (15:39)
[2019-11-09] MEDS ORDERED: ENAL20TA PO (15:39)
[2019-11-09] MEDS ORDERED: FURO20TA4 PO (15:39)
[2019-11-09] MEDS ORDERED: PANT40TA3 PO (15:39)
[2019-11-09] MEDS ORDERED: ROSU20TA32 PO (15:39)
[2019-11-09] MEDS ORDERED: RT-ALBUINH PO (15:39)
[2019-11-09] MEDS ORDERED: TIZA4TAB4 PO (15:39)
[2019-11-09] MEDS ORDERED: METF-397 PO (15:39)
[2019-11-09] MEDS ORDERED: SITA100T12 PO (15:39)
[2019-11-09] MEDS ORDERED: FLUT1DIS26 PO (15:39)
[2019-11-09] MEDS ORDERED: ATEN100T PO (15:39)
--- NOTE | 2019-11-09 15:39 | Diagnostic Imaging Report ---
EXAMINATION: CHEST 1 VIEW, AP/PA ONLY. INDICATION: Hypoxia. COMPARISON: 11/09/2019 at 12:46 PM. FINDINGS: The ET tube has its tip 6 cm above the eli. Stable enteric tube and right IJ central venous catheter. Stable enlargement of the cardiac silhouette. No pleural effusion or pneumothorax. No airspace consolidations in the visualized lungs. IMPRESSION: The ET tube has its tip 6 cm above the eli. Dictated by: Dictated on workstation # [id number]
[2019-11-09] MEDS ORDERED: ASPI325T32 PO (15:40)
[2019-11-09] MEDS ORDERED: POLY17PO6 PO (15:40)
--- NOTE | 2019-11-09 15:40 | NUR ---
I WAS UNABLE TO SPEAK WITH THE PT AT THIS TIME- I HAD HER PCP FAX A MED LIST AND I WENT THRU THE EXT MED HISTORY TO COMPLETE THE MED REC WHEN I AM ABLE TO SPEAK WITH THE PT I WILL UPDATE THE MED REC AND NOTES NEEDED LEVOTHYROXINE 25MCG IS LISTED ON THE MED LIST FROM DR. ESTRELLA BUT [facility] HAS NOT FILLED THIS SINCE JULY 2019 #30- I DID NOT INCLUDE THIS ON THE MED REC AT THIS TIME BUT I WILL LET THE HOSPITALIST KNOW. ALL OTHER MEDICATIONS ARE LISTED ON THE MED REC OTC MEDS: ASPIRIN 325 MIRALAX Addendum: 11/19/19 at 0833 by RASHID HATCH CPhT I WAS ABLE TO TALK WITH THE PATIENT ON 11-17-2019 -UNFORTUNATELY THE PATIENT WAS NOT ABLE TO TELL ME ANYTHING ABOUT HER MEDICATIONS. DURING OUR CONVERSATION I WOULD SAY THE NAMES OF SOME OF THE MEDS SHE HAS BEEN PRESCRIBED BUT SHE WAS UNSURE WHAT SHE TAKES.
--- NOTE | 2019-11-09 15:41 | Diagnostic Imaging Report ---
INDICATION: ET tube adjustment. TECHNIQUE: Single view chest at 3:18 PM. CORRELATION STUDY: 11/09/2019. FINDINGS: The endotracheal tube tip projects over the trachea projecting just below the level of the clavicles. A gastric tube passes below the left hemidiaphragm and area imaged. The right IJ central line tip is in the high right paramediastinal region, likely at the low aspect of the internal jugular vein. Overlying monitor leads and defibrillator pads are present. Opacification of the right lung base, likely atelectasis, over a large portion of the right middle lobe. The heart size is stable. The vasculature is overall within normal limits. IMPRESSION: 1. Support lines and tubes as above. 2. Likely development of significant atelectasis of the right middle lobe. Dictated by: Dictated on workstation # [id number]
[2019-11-09] MEDS ORDERED: HEParin 1000 UNIT/ML (10ML VIAL) FOR BOLUS IV PRN (15:45)
[2019-11-09 15:47] LABS: BASOPHILS % (AUTO) 0 % (0-10); EOSINOPHILS % (AUTO) 0 % (0-10); HEMATOCRIT 36 % (35-52); HEMOGLOBIN 11.5 G/DL (11.5-16.0); LYMPHOCYTES # (AUTO) 1.1 X 10^3 (1.0-4.0); LYMPHOCYTES % (AUTO) 4 % (12-44); MEAN CORPUSCULAR HEMOGLOBIN 28 PG (25-34); MEAN CORPUSCULAR HGB CONC 32 G/DL (32-36); MEAN CORPUSCULAR VOLUME 88 FL (80-99); MEAN PLATELET VOLUME 10.1 FL (7.4-10.4); MONOCYTES # (AUTO) 1.1 X 10^3 (0.0-1.0); MONOCYTES % (AUTO) 5 % (0-12); NEUTROPHILS # (AUTO) 22.6 X 10^3 (1.8-7.8); NEUTROPHILS % (AUTO) 91 % (42-75); PLATELET COUNT 290 10^3/uL (130-400); RED CELL DISTRIBUTION WIDTH 14.4 % (10.0-14.5); WHITE BLOOD COUNT 24.8 10^3/uL (4.3-11.0)
[2019-11-09] MEDS ORDERED: inSUlin ASPART (NovoLOG) 1 UNIT/0.01 ML (CHARGE PER UNIT) SC SCH (16:00)
[2019-11-09 16:02] LABS: POTASSIUM 4.3 MMOL/L (3.6-5.0)
[2019-11-09 16:03] LABS: CALCIUM 7.9 MG/DL (8.5-10.1)
[2019-11-09 16:06] LABS: BILIRUBIN,TOTAL 0.5 MG/DL (0.1-1.0)
[2019-11-09 16:08] LABS: PHOSPHORUS 4.6 MG/DL (2.3-4.7)
[2019-11-09 16:09] LABS: CREATININE SERUM 0.98 MG/DL (0.60-1.30)
[2019-11-09 16:10] LABS: BILIRUBIN,DIRECT 0.2 MG/DL (0.0-0.3); BILIRUBIN,INDIRECT 0.3 MG/DL
[2019-11-09 16:11] LABS: MAGNESIUM 1.3 MG/DL (1.6-2.4)
--- NOTE | 2019-11-09 16:15 | NUR ---
TIME LINE NOTE: 1420: PATIENT ARRIVED FROM ED 1440: EICU CONTACTED R/T PATIENT TV SET TO 550 GETTING 120 1445: INCREASED PROPOFOL TO 60 1452: 5 VERSED GIVEN PER EICU, OBTAIN STAT CXR 1509: PER EICU ET CXR REVIEW, ETT ADVANCED BY RT 3 CM, TO 25 AT TEETH, LEVO INCREASED TO .5 1520: ORDERS FOR ARTIC SUN PER DR. EDDY 1525: BP 71/47 P 76, LEVO INCREASE TO 0.6, NOTIFIED DR EDDY. DR STATED PATIENT STABLE BP X1 HOUR THEN INITIATE ARTIC SUN. 1623: ANESTHESIA IN ROOM TO PLACE ART LINE.
[2019-11-09 16:20] LABS: LYMPHOCYTES % (MANUAL) 3 %; MICROCYTOSIS SLIGHT; MONOCYTES % (MANUAL) 5 %; NEUTROPHILS % (MANUAL) 92 %
[2019-11-09] MEDS ORDERED: MAGNESIUM 1 GM/100 ML IVPB 0 ML IV ONE (16:30)
--- NOTE | 2019-11-09 16:40 | Anesthesia-Procedure Note ---
Procedures/Interventions Procedure Start/Stop/Diagnosis Date of Procedure: November 09, 2019 Start Time: 16:15 Referring Physician: Jenny Preprocedural Diagnosis: S/P Code Brief History Called by housecalls nurse to place A-line in post code blue pt that was also in isolation for PUI. Pt sedated on vent, no family present. Brief hx from RN. Rt wrist prepped with chlorhexidine and secured on towel roll. #20g Arrow A- line catheter placed easily x1 attempt. Good blood flow and wave form on monitor. Catheter secured with op site and tape. Left pt. in care of RN with report. Stop Time: 16:30 Postprocedural Diagnosis: S/P Code Arterial Line Arterial Line Catheter: 20G Type: Radial Location: Right Procedure: prepped, draped in sterile fashion, good wave-form was obtained, patient tolerated procedure well, no immediate complications, post procedure area cleaned, post procedure dressing applied MATTHIAS DING CRNA November 09, 2019 16:40
[2019-11-09] MEDS: EPINEPHrine 1 MG INJECTION 2 MG in NS (IVPB) 248 ML IV SCH ×2 (17:00→23:17)
[2019-11-09 17:04] LABS: FIBRINOGEN 208 MG/DL (221-496); INR 1.3 (0.8-1.4); PARTIAL THROMBOPLASTIN TIME 34 SEC (24-35); PROTHROMBIN TIME PATIENT 16.5 SEC (12.2-14.7)
[2019-11-09 17:08] LABS: FIBRIN DEGRADATION PRODUCTS > 20.00 UG/ML (0.00-0.49)
[2019-11-09] MEDS: fentaNYL INJECTION 1,250 MCG in NS (IVPB) 250 ML IV SCH (17:18)
[2019-11-09] MEDS: MAGNESIUM SULFATE DRIP 500 ML IV SCH (17:18)
[2019-11-09] MEDS: LORazepam INJECTION FOR DRIP 20 MG in D5W 100 ML IVPB 90 ML IV SCH (17:23)
[2019-11-09] MEDS: ARTIFICIAL TEARS OINT (LACRI-LUBE) 3.5 GM TUBE OU SCH ×2 (18:28→19:31)
[2019-11-09] MEDS: POTASSIUM CL 10MEQ/50ML IVPB 50 ML IV SCH ×2 (18:31→23:34)
[2019-11-09 19:23] LABS: BASOPHILS % (AUTO) 0 % (0-10); EOSINOPHILS % (AUTO) 0 % (0-10); HEMATOCRIT 38 % (35-52); HEMOGLOBIN 11.9 G/DL (11.5-16.0); LYMPHOCYTES # (AUTO) 1.2 X 10^3 (1.0-4.0); LYMPHOCYTES % (AUTO) 5 % (12-44); MEAN CORPUSCULAR HEMOGLOBIN 27 PG (25-34); MEAN CORPUSCULAR HGB CONC 32 G/DL (32-36); MEAN CORPUSCULAR VOLUME 85 FL (80-99); MEAN PLATELET VOLUME 10.4 FL (7.4-10.4); MONOCYTES % (AUTO) 8 % (0-12); NEUTROPHILS # (AUTO) 21.6 X 10^3 (1.8-7.8); NEUTROPHILS % (AUTO) 87 % (42-75); PLATELET COUNT 289 10^3/uL (130-400); RED CELL DISTRIBUTION WIDTH 14.4 % (10.0-14.5); WHITE BLOOD COUNT 24.7 10^3/uL (4.3-11.0)
[2019-11-09] MEDS: ACETAMINOPHEN 325 MG TABLET GT SCH ×2 (19:31→23:49)
[2019-11-09 19:32] LABS: POTASSIUM 3.6 MMOL/L (3.6-5.0)
[2019-11-09 19:33] LABS: CALCIUM 7.7 MG/DL (8.5-10.1)
[2019-11-09 19:37] LABS: CREATININE SERUM 1.05 MG/DL (0.60-1.30); PHOSPHORUS 4.9 MG/DL (2.3-4.7)
[2019-11-09 19:40] LABS: MAGNESIUM 2.4 MG/DL (1.6-2.4)
[2019-11-09] MEDS: HEParin DRIP 25000 UNIT/500ML 500 ML IV SCH (20:00)
[2019-11-09] MEDS: RT-ALBUTEROL HFA (PROAIR HFA) 8.5 GM IH PRN (21:14)
--- NOTE | 2019-11-09 21:26 | NUR ---
Reported critical lab to teleICU, awaiting orders. Also reported that patient's heart rate is dipping down to 49. Blood pressure 103/62 and is on 0.3 of levophed. Informed to turn up levophed as needed.
[2019-11-09] MEDS ORDERED: inSUlin (REGULAR) HUMAN 1 UNIT/0.01 ML (CHARGE PER UNIT) IV ONE (21:30)
[2019-11-09] MEDS: busPIRone 15 MG (BUSPAR) TABLET GT SCH (21:36)
[2019-11-09 23:03] LABS: ALBUMIN 2.9 GM/DL (3.2-4.5)
[2019-11-09 23:04] LABS: POTASSIUM 2.8 MMOL/L (3.6-5.0)
[2019-11-09 23:06] LABS: TOTAL PROTEIN 5.9 GM/DL (6.4-8.2)
[2019-11-09 23:08] LABS: BILIRUBIN,TOTAL 0.4 MG/DL (0.1-1.0)
[2019-11-09 23:10] LABS: CREATININE SERUM 1.16 MG/DL (0.60-1.30)
--- NOTE | 2019-11-09 23:15 | NUR ---
Reported blood sugar of 447 to teleICU. Orders received for insulin drip to be initiated.
[2019-11-09] MEDS ORDERED: NORMAL SALINE 250 ML ONE (23:19)
[2019-11-09] MEDS ORDERED: inSUlin REGULAR TPN/DRIP ONLY 250 UNITS in NORMAL SALINE 250 ML IV SCH (23:30)
[2019-11-10] VITALS (33 sets, daily range): BP systolic 96–135; BP diastolic 33–67
[2019-11-10] MEDS ORDERED: inSUlin ASPART (NovoLOG) 1 UNIT/0.01 ML (CHARGE PER UNIT) SC SCH
--- NOTE | 2019-11-10 | NUR ---
Discussed with [employer] that patient hit target temp at 2215 but she seems to be decreasing, sitting at 31.7. Did troubleshooting including making sure pads placed appropriately and increasing the water temperature to be able to go as high as 42 degrees celsius. Will continue to monitor.
[2019-11-10] MEDS: POTASSIUM CL 10MEQ/50ML IVPB 50 ML IV SCH ×11 (00:33→11:29)
[2019-11-10] MEDS: NOREPINEPHRINE 4 MG/250 ML 250 ML IV SCH (02:12)
[2019-11-10] MEDS: EPINEPHrine 1 MG INJECTION 2 MG in NS (IVPB) 248 ML IV SCH ×6 (02:13→20:50)
[2019-11-10] MEDS: ARTIFICIAL TEARS OINT (LACRI-LUBE) 3.5 GM TUBE OU SCH ×4 (02:13→20:49)
[2019-11-10 02:43] LABS: ABG BASE EXCESS -1.9 MMOL/L (-2.5-2.5); ABG OXYGEN SATURATION 100 % (94-100); ABG PCO2 29 MMHG (35-45); ABG PH 7.47 (7.37-7.43); ABG PO2 246 MMHG (79-93); ABG TCO2 22.9 MMOL/L (21.0-31.0); BASOPHILS % (AUTO) 0 % (0-10); EOSINOPHILS % (AUTO) 0 % (0-10); HEMATOCRIT 35 % (35-52); HEMOGLOBIN 11.7 G/DL (11.5-16.0); LYMPHOCYTES # (AUTO) 1.1 X 10^3 (1.0-4.0); LYMPHOCYTES % (AUTO) 6 % (12-44); MEAN CORPUSCULAR HEMOGLOBIN 28 PG (25-34); MEAN CORPUSCULAR HGB CONC 33 G/DL (32-36); MEAN CORPUSCULAR VOLUME 83 FL (80-99); MEAN PLATELET VOLUME 10.3 FL (7.4-10.4); MONOCYTES # (AUTO) 0.6 X 10^3 (0.0-1.0); MONOCYTES % (AUTO) 3 % (0-12); NEUTROPHILS # (AUTO) 16.9 X 10^3 (1.8-7.8); NEUTROPHILS % (AUTO) 91 % (42-75); PLATELET COUNT 252 10^3/uL (130-400); RED CELL DISTRIBUTION WIDTH 14.2 % (10.0-14.5); WHITE BLOOD COUNT 18.6 10^3/uL (4.3-11.0)
[2019-11-10 02:44] LABS: ALLENS TEST P; INSPIRED O2 AC; PATIENT TEMP 33.4; VENTILATOR YES
[2019-11-10 02:58] LABS: INR 1.4 (0.8-1.4); PROTHROMBIN TIME PATIENT 17.3 SEC (12.2-14.7)
[2019-11-10 03:09] LABS: ALBUMIN 2.7 GM/DL (3.2-4.5); BILIRUBIN,TOTAL 0.3 MG/DL (0.1-1.0); CALCIUM 7.8 MG/DL (8.5-10.1); CREATININE SERUM 1.3 MG/DL (0.60-1.30); MAGNESIUM 3.5 MG/DL (1.6-2.4); PHOSPHORUS 1.4 MG/DL (2.3-4.7); POTASSIUM 2.9 MMOL/L (3.6-5.0); TOTAL PROTEIN 5.4 GM/DL (6.4-8.2)
[2019-11-10] MEDS: PROPOFOL DRIP (ICU) 100 ML IV SCH ×5 (03:44→23:35)
--- NOTE | 2019-11-10 05:27 | Pulmonary Consultation ---
History of Present Illness History of Present Illness Date Seen by Provider: November 10, 2019 Time Seen by Provider: 05:22 Date of Admission History of Present Illness 64yo with hx of NIDDM, COPD, JODI, CAD with 3 stents placed presented to ED secondary to acute respiratory arrest. She was intubated per EMS. Her tried to get her to come to the ER yesterday but she refused. Today she would not wake up for him and he called EMS. She was unresponsive for them. Shortly after arrival to the ER she lost a pulse and was coded briefly. ROSC was obtained but roughly an hour later she lost a pulse again and this was accompanied by profound hypoxia with sats in the 40s. CXR was unremarkable and her labs were unrevealing for infection. EKG was nonischemic. D-Dimer was elevated at 3. TPA was given for presumed PE as she was unstable. Pt was started on artic sun protocol Allergies and Home Medications Allergies Coded Allergies: Penicillins (Unverified Allergy, Unknown, 11/09/19) Sulfa (Sulfonamide Antibiotics) (Unverified Allergy, Unknown, 11/09/19) adhesive tape (Unverified Allergy, Unknown, 11/09/19) azithromycin (Unverified Allergy, Unknown, 11/09/19) cephalexin (Unverified Allergy, Unknown, 11/09/19) Home Medications Albuterol Sulfate 1 Puff Puff, 2 PUFF PO Q6H PRN for SHORTNESS OF BREATH, (Reported) Aspirin 325 Mg Tablet.dr, 325 MG PO Q48H, (Reported) Atenolol 100 Mg Tablet, 100 MG PO DAILY, (Reported) Duloxetine HCl 60 Mg Capsule.dr, 60 MG PO DAILY, (Reported) Enalapril Maleate 20 Mg Tablet, 20 MG PO BID, (Reported) Fluticasone/Salmeterol 1 Each Blst.w.dev, 1 PUFF PO BID, (Reported) Furosemide 20 Mg Tablet, 20 MG PO DAILY, (Reported) Metformin HCl 500 Mg Tablet, 500 MG PO BID WITH MEALS, (Reported) Pantoprazole Sodium 40 Mg Tablet.dr, 40 MG PO DAILY, (Reported) Polyethylene Glycol 3350 17 Gm Powd.pack, 17 GM PO DAILY, (Reported) Rosuvastatin Calcium 20 Mg Tablet, 20 MG PO DAILY, (Reported) Sitagliptin Phosphate 100 Mg Tablet, 100 MG PO DAILY, (Reported) Tizanidine HCl 4 Mg Tablet, 4 MG PO TID, (Reported) Past Trnsiyk-Vglqbk-Mdgbvi Hx Past Med/Social Hx: Reviewed Nursing Past Med/Soc Hx Patient Social History Alcohol Use: Denies Use Recreational Drug Use: No Smoking Status: Current Everyday Smoker Recent Foreign Travel: No Contact w/Someone Who Travel: No Recent Infectious Disease Expo: No Recent Hopitalizations: No Physical Abuse: No Sexual Abuse: No Seasonal Allergies Seasonal Allergies: No Past Medical History Section, Coronary Stent, Orthopedic, Tonsillectomy Respiratory: Yes COPD Coronary Artery Disease, Heart Attack, High Cholesterol, Hypertension : No Degenerate Disk Disease, Chronic Back Pain Endocrine: Yes Diabetes, Non-Insulin dep Family Medical History Reviewed Nursing Family Hx (unable to be obtained) Review of Systems Time Seen by Provider: 09:07 Sepsis Event Evaluation Height, Weight, BMI Height: '" Weight: lbs. oz. kg; 33.00 BMI Method: Exam Exam Vital Signs Date Time Temp Pulse Resp B/P (MAP) Pulse Ox O2 Delivery O2 Flow Rate FiO2 11/10/19 05:11 32.3 50 22 114/51 (72) 99 Mechanical Ventilator 70.00 11/10/19 05:00 32.3 50 120/54 (76) 99 Mechanical Ventilator 80.00 11/10/19 05:00 33.2 11/10/19 04:19 37.0 11/10/19 04:00 33.6 11/10/19 04:00 32.8 54 24 113/52 (72) 99 Mechanical Ventilator 80.00 11/10/19 04:00 Mechanical Ventilator 100 11/10/19 03:44 114/56 11/10/19 03:00 33.7 11/10/19 03:00 33.0 57 23 99/50 (66) 98 Mechanical Ventilator 80.00 11/10/19 02:28 33.4 55 24 115/52 (73) 99 Mechanical Ventilator 80.00 11/10/19 02:27 89/46 11/10/19 02:25 58 24 99 80 11/10/19 02:12 124/54 11/10/19 02:00 33.2 58 24 111/52 (71) 99 Mechanical Ventilator 100.00 11/10/19 02:00 33.4 11/10/19 01:00 32.5 11/10/19 01:00 32.7 53 23 109/50 (69) 99 Mechanical Ventilator 100.00 11/10/19 01:00 53 11/10/19 00:00 31.1 48 22 114/53 (73) 99 Mechanical Ventilator 100.00 11/10/19 00:00 Mechanical Ventilator 100 11/09/19 23:59 31.7 11/09/19 23:00 32.0 11/09/19 23:00 30.8 45 24 122/57 (78) 99 Mechanical Ventilator 100.00 11/09/19 22:15 33.0 11/09/19 22:04 138/63 11/09/19 22:00 33.4 11/09/19 22:00 31.5 43 23 132/61 (84) 99 Mechanical Ventilator 100.00 11/09/19 21:45 33.7 11/09/19 21:32 49 24 99 100 11/09/19 21:30 33.9 11/09/19 21:15 34.2 11/09/19 21:05 83/50 11/09/19 21:00 34.5 11/09/19 21:00 32.8 50 24 91/52 (65) 98 Mechanical Ventilator 100.00 11/09/19 20:45 34.7 11/09/19 20:30 35.0 11/09/19 20:15 35.1 11/09/19 20:00 33.8 58 23 100/60 (73) 99 Mechanical Ventilator 100.00 11/09/19 20:00 35.3 11/09/19 19:53 35.5 58 24 100/60 (73) 99 Mechanical Ventilator 100.00 11/09/19 19:45 35.5 11/09/19 19:45 35.5 11/09/19 19:41 Mechanical Ventilator 100 11/09/19 19:30 35.5 11/09/19 19:30 35.5 11/09/19 19:15 35.7 11/09/19 19:15 35.7 11/09/19 19:06 36.0 11/09/19 19:06 63 100/60 11/09/19 19:00 64 11/09/19 19:00 34.7 64 95/57 (70) 99 Mechanical Ventilator 100.00 11/09/19 18:57 36.1 11/09/19 18:45 36.1 11/09/19 18:44 64 99/57 11/09/19 18:38 60 24 99 100 11/09/19 18:30 36.3 11/09/19 18:19 36.4 11/09/19 18:00 35.2 72 24 147/68 (94) 99 Mechanical Ventilator 100.00 11/09/19 17:59 36.6 11/09/19 17:40 36.6 11/09/19 17:23 75 113/82 11/09/19 17:00 35.6 75 102/86 (91) 99 Mechanical Ventilator 100.00 11/09/19 16:25 78 24 98 100 11/09/19 16:16 84 20 114/72 100 Mechanical Ventilator 11/09/19 16:05 100 Mechanical Ventilator 11/09/19 16:00 36.4 73 43 120/85 (97) 97 Mechanical Ventilator 100.00 11/09/19 16:00 36.5 11/09/19 15:57 72 120/87 11/09/19 15:56 72 99/65 11/09/19 15:00 36.7 95 24 95/59 (71) 100 Mechanical Ventilator 100.00 11/09/19 14:45 36.6 85 42 101/49 (66) 100 Mechanical Ventilator 100.00 11/09/19 14:31 90 11/09/19 14:30 36.5 88 38 127/73 (91) Mechanical Ventilator 100.00 11/09/19 14:04 65 101/89 11/09/19 14:03 93 145/74 11/09/19 12:04 35.4 93 145/74 (97) 100 Ambu Bag I & O 11/10/19 07:00 Intake Total 850 ml Output Total 950 ml Balance -100 ml Height & Weight Height: '" Weight: lbs. oz. kg; 33.00 BMI Method: General Appearance: Obese, Severe Distress HEENT: PERRL/EOMI, TMs Normal, Normal ENT Inspection, Pharynx Normal, Moist Mucous Membranes, Other (copious clear, thin secretions from the oropharynx) Neck: Full Range of Motion, Normal Inspection Respiratory: Respiratory Distress (severe, orotracheally intubated with a 7.5 ET tube at 22 at the gums), Rhonci (mild to moderate bilateral), Wheezing (mild expiratory) Cardiovascular: No Edema, Other (no pulse on arrival) Capillary Refill: Greater Than 3 Seconds Extremity: Normal Capillary Refill, Normal Inspection Neurologic/Psychiatric: Other (intubated. Status post RSI meds.) Skin: Damp, Pallor Results Lab Laboratory Tests 11/09/19 12:20 11/09/19 15:35 11/09/19 19:00 11/09/19 22:45 11/10/19 02:30 Assessment/Plan Assessment/Plan s/p cardiac arrest -Hypothermia Acute respiratory failure -Continue vent -- Decrease Vt to 450 and repeat ABG in 1hr. Titrate oxygen -Currently on Propofol, fentanyl, and Ativan -COVID is neg -Influenza is negative Leukocytosis -Gracia culture -CHeck UA -Start Merrem COPDAE -Duoneb - Hypotension septic shock vs cardiogenic shock -Start Solucortef -Levophed and epi currently influsing -Echo results pending Hypokalemia, hypophos -replace HTN CAD Hole home meds for hypotension and TPA admin Cardiology consulted, appreciate recs NIDDMII GORDON MCMANUS DO November 10, 2019 05:27
[2019-11-10] MEDS ORDERED: SODIUM PHOSPHATE INJ 30 MM in NS (IVPB) 250 ML IV ONE (05:30)
[2019-11-10] MEDS: MEROPENEM 1,000 MG in WATER (STERILE) FOR INJECTION 20 ML IV SCH ×3 (06:16→22:00)
[2019-11-10] MEDS: busPIRone 15 MG (BUSPAR) TABLET GT SCH ×3 (06:16→22:01)
[2019-11-10] MEDS: ACETAMINOPHEN 325 MG TABLET GT SCH ×3 (06:16→18:09)
[2019-11-10] MEDS: HYDROCORTISONE 100 MG/2 ML (Solu-CORTEF) VIAL IV SCH ×3 (06:16→22:01)
[2019-11-10] MEDS ORDERED: LACTATED RINGERS 1,000 ML IV ONE ×2 (06:29)
[2019-11-10 06:39] LABS: ABG BASE EXCESS -2.1 MMOL/L (-2.5-2.5); ABG OXYGEN SATURATION 97 % (94-100); ABG PCO2 33 MMHG (35-45); ABG PH 7.42 (7.37-7.43); ABG PO2 68 MMHG (79-93); ABG TCO2 23.7 MMOL/L (21.0-31.0)
[2019-11-10 06:43] LABS: ALLENS TEST P; INSPIRED O2 45%; PATIENT TEMP 32.5; VENTILATOR YES
[2019-11-10 06:59] LABS: BILIRUBIN,URINE NEGATIVE (NEGATIVE); CLARITY,URINE CLEAR; COLOR,URINE YELLOW; GLUCOSE, URINE (UA) 2+ (NEGATIVE); KETONES,URINE NEGATIVE (NEGATIVE); LEUKOCYTE ESTERASE ,URINE NEGATIVE (NEGATIVE); NITRITE,URINE NEGATIVE (NEGATIVE); PROTEIN,URINE NEGATIVE (NEGATIVE)
[2019-11-10] MEDS ORDERED: LACTATED RINGERS 1,000 ML IV SCH ×2 (07:00)
[2019-11-10] MEDS: RT-ALBUTEROL/IPRATROPIUM 3 ML (DUONEB) VIAL INH SCH ×5 (07:10→22:23)
[2019-11-10 07:13] LABS: BACTERIA,URINE NEGATIVE /HPF
[2019-11-10] MEDS ORDERED: VANCOMYCIN INJECTION 0.1 MG in NS (IVPB) 250 ML IV SCH (07:15)
--- NOTE | 2019-11-10 07:25 | NUR ---
VANCOMYCIN DOSING: ADJ BW 74.4 KG (ACTUAL 100.5 KG) SCr 1.3, CrCl 52.70 LOADING DOSE: 2000 MG MAIN DOSE: 1,500 MG Q24HR VANCOMYCIN TROUGH DUE 11/12/19 @ 07:00 IF TROUGH > 20 HOLD 11/12/19 08:00 DOSE
[2019-11-10] MEDS ORDERED: VANCOMYCIN 2000 MG/NS 500 ML IVPB IV SCH ×2 (08:00)
--- NOTE | 2019-11-10 08:08 | Diagnostic Imaging Report ---
INDICATION: Respiratory distress. Comparison with 11/09/2019. FINDINGS: ET tube, NG tube and right central line remain unchanged. There has been development of some bibasilar infiltrates bilaterally. The upper lungs remain clear. No pneumothorax. No pleural effusion. Heart is not enlarged. IMPRESSION: 1. Developing bibasilar infiltrate since previous exam. 2. Tubes and lines remain in good position. Dictated by: Dictated on workstation # [id number]
[2019-11-10] MEDS ORDERED: EPINEPHrine 0.1 MG/ML 10 ML (HOSPIRA) SYR IJ ONE (08:38)
--- NOTE | 2019-11-10 08:39 | NUR ---
DR EDDY AT BEDSIDE. DISCUSSED BLOOD SUGARS AND PROTOCOL MAXED AT 20 UNITS/HR OF INSULIN INFUSION. PER DR EDDY, LEAVE AT CURRENT DOSE. SPOKE WITH EICU (WHOM STATED THEY SPOKE WITH DR CONNOLLY) TO INCREASE COOLING TEMP TO 35-36 C. ARTIC SUN MACHINE ADJUSTED TO REFLECT THIS. TEMP CURRENTLY 32.8. US IN ROOM PERFORMING PERIPHERAL DOPPLER STUDY. WILL GET LABS AFTER US. MONITORING HER CLOSELY. DR [place] IN ROOM WITH NO NEW ORDERS RECEIVED.
--- NOTE | 2019-11-10 08:48 | Progress Note - Hospitalist ---
Subjective HPI/CC On Admission Date Seen by Provider: November 10, 2019 Time Seen by Provider: 08:40 Subjective/Events-last exam Pt is intubated and sedated. No ROS possible. Focused Exam Lactate Level 11/09/19 12:20: Lactic Acid Level 1.75 11/09/19 15:35: Lactic Acid Level 1.77 11/10/19 05:49: Lactic Acid Level 6.50*H Lactic Acid Level Laboratory Tests Test 11/10/19 05:49 Lactic Acid Level 6.50 MMOL/L (0.50-2.00) *H Objective Exam Vital Signs Vital Signs Date Time Temp Pulse Resp B/P (MAP) Pulse Ox O2 Delivery O2 Flow Rate FiO2 11/10/19 07:12 47 24 95 45 11/10/19 06:00 31.9 115/50 (71) Mechanical Ventilator 45.00 Capillary Refill : Greater Than 3 Seconds General Appearance: Other (sedated, on vent, ill appearing) Neck: Supple Respiratory: Decreased Breath Sounds, Other (on vent) Cardiovascular: No Murmur, Bradycardia Gastrointestinal: Normal Bowel Sounds, Non Tender, Soft Genital/Rectal: Other (an in place) Extremity: Pedal Edema Neurologic/Psychiatric: Other (sedated, unresponsive, appears comfortable) Skin: Normal Color, Warm/Dry Results/Procedures Lab Laboratory Tests 11/09/19 12:20 11/09/19 15:35 11/09/19 19:00 11/09/19 22:45 11/10/19 02:30 Patient resulted labs reviewed. Imaging: Reviewed Imaging Films, Reviewed Imaging Report Assessment/Plan Assessment and Plan Assess & Plan/Chief Complaint Cardiac Arrest- therapeutic hypothermia Shock Acute Respiratory Failure with profound hypoxia Elevated D-dimer COPD Intubated, pulm consulted appreciate recs Continue [facility] protocol s/p TPA in the ER for presumed PE on 11/08, now on heparin Currently on levophed and epi gtt- titrate as able COVID19 negative Cultures pending Vanc and Merrem added today Lactic acid 6.5 HTN CAD Hold home meds for hypotension and TPA admin Cardiology consulted, appreciate recs NIDDMII Now on insulin gtt Critical Care Critically Ill Patient Diagnosis/Problems Diagnosis/Problems (1) Cardiac arrest Status: Acute (2) Acute respiratory failure Qualifiers: Respiratory failure complication: hypoxia Qualified Codes: J96.01 - Acute respiratory failure with hypoxia (3) COPD (chronic obstructive pulmonary disease) Qualifiers: COPD type: unspecified COPD Qualified Codes: J44.9 - Chronic obstructive pulmonary disease, unspecified (4) CAD (coronary artery disease) Status: Chronic Qualifiers: Coronary Disease-Associated Artery/Lesion type: [place] artery [place] vs. transplanted heart: [place] heart Associated angina: without angina Qualified Codes: I25.10 - Atherosclerotic heart disease of [place] coronary artery without angina pectoris (5) Non-insulin dependent type 2 diabetes mellitus Status: Chronic Clinical Quality Measures DVT/VTE Risk/Contraindication: Risk Factor Score Per Nursin RFS Level Per Nursing on Admit: 4+=Very High ASHLYN EDDY MD November 10, 2019 08:48
--- NOTE | 2019-11-10 08:58 | Diagnostic Imaging Report ---
PROCEDURE: US Venous Lower Ext Toby. TECHNIQUE: Multiple Real-time grayscale images were obtained over the lower extremities in various projections, bilaterally. Additional duplex Doppler and color Doppler images were also obtained. INDICATION: Cardiopulmonary arrest. FINDINGS: The common femoral, femoral, popliteal veins and tibial veins demonstrate normal response to compression, augmentation and Valsalva. There are no abnormal lower extremity fluid collections or masses. IMPRESSION: No evidence of deep venous thrombosis in either lower extremity. Dictated by: Dictated on workstation # [id number]
[2019-11-10 08:59] LABS: BASOPHILS % (AUTO) 0 % (0-10); EOSINOPHILS % (AUTO) 0 % (0-10); HEMATOCRIT 33 % (35-52); LYMPHOCYTES # (AUTO) 0.6 X 10^3 (1.0-4.0); LYMPHOCYTES % (AUTO) 4 % (12-44); MEAN CORPUSCULAR HEMOGLOBIN 27 PG (25-34); MEAN CORPUSCULAR HGB CONC 33 G/DL (32-36); MEAN CORPUSCULAR VOLUME 82 FL (80-99); MEAN PLATELET VOLUME 10.3 FL (7.4-10.4); MONOCYTES # (AUTO) 0.5 X 10^3 (0.0-1.0); MONOCYTES % (AUTO) 3 % (0-12); NEUTROPHILS # (AUTO) 15.6 X 10^3 (1.8-7.8); NEUTROPHILS % (AUTO) 93 % (42-75); PLATELET COUNT 237 10^3/uL (130-400); RED CELL DISTRIBUTION WIDTH 14.2 % (10.0-14.5); WHITE BLOOD COUNT 16.7 10^3/uL (4.3-11.0)
[2019-11-10 09:11] LABS: ALBUMIN 2.6 GM/DL (3.2-4.5)
[2019-11-10 09:12] LABS: POTASSIUM 3.5 MMOL/L (3.6-5.0)
[2019-11-10 09:13] LABS: CALCIUM 7.6 MG/DL (8.5-10.1)
--- NOTE | 2019-11-10 09:13 | NUR ---
SPOKE WITH PATIENTS , UPDATED ON CONDITION AND ANSWERED ALL QUESTIONS. PT IS UNCLEAR ON PT CARDIAC HISTORY. 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 FEELS THAT SHE HAS NOT HAD ANY CARDIAC PROCEDURES FOR 15+ YEARS. STATES HER PCP IS DR ETSRELLA IN [place], WILL CALL FOR RECORDS.
[2019-11-10 09:14] LABS: INR 1.3 (0.8-1.4); PROTHROMBIN TIME PATIENT 16.9 SEC (12.2-14.7); TOTAL PROTEIN 5.2 GM/DL (6.4-8.2)
[2019-11-10 09:16] LABS: BILIRUBIN,TOTAL 0.3 MG/DL (0.1-1.0)
[2019-11-10 09:17] LABS: PHOSPHORUS 1.6 MG/DL (2.3-4.7)
[2019-11-10 09:18] LABS: CREATININE SERUM 1.07 MG/DL (0.60-1.30)
[2019-11-10 09:21] LABS: MAGNESIUM 3.3 MG/DL (1.6-2.4)
--- NOTE | 2019-11-10 09:28 | NUR ---
LM WITH DR ESTRELLA NURSE AT [phone].
[2019-11-10] MEDS: PANTOPRAZOLE 40 MG (PROTONIX) TAB PO SCH (10:01)
[2019-11-10] MEDS: LACTATED RINGERS 1,000 ML IV SCH ×3 (10:01→18:10)
--- NOTE | 2019-11-10 10:08 | Progress Note - Cardiology ---
Cardiology SOAP Progress Note Subjective: Intubated and on [facility] vent Not able to provide any history Objective: I&O/Vital Signs 11/09/19 11/09/19 11/09/19 11/09/19 22:04 22:15 23:00 23:00 Temp 33.0 30.8 32.0 Pulse 45 Resp 24 B/P (MAP) 138/63 122/57 (78) Pulse Ox 99 O2 Delivery Mechanical Ventilator O2 Flow Rate 100.00 11/09/19 11/10/19 11/10/19 11/10/19 23:59 00:00 00:00 01:00 Temp 31.7 31.1 Pulse 48 53 Resp 22 B/P (MAP) 114/53 (73) Pulse Ox 99 O2 Delivery Mechanical Ventilator Mechanical Ventilator O2 Flow Rate 100.00 FiO2 100 11/10/19 11/10/19 11/10/19 11/10/19 01:00 01:00 02:00 02:00 Temp 32.7 32.5 33.4 33.2 Pulse 53 58 Resp 24 B/P (MAP) 109/50 (69) 111/52 (71) Pulse Ox 99 99 O2 Delivery Mechanical Ventilator Mechanical Ventilator O2 Flow Rate 100.00 100.00 11/10/19 11/10/19 11/10/19 11/10/19 02:12 02:25 02:27 02:28 Temp 33.4 Pulse 58 55 Resp 24 B/P (MAP) 124/54 89/46 115/52 (73) Pulse Ox 99 99 O2 Delivery Mechanical Ventilator O2 Flow Rate 80.00 FiO2 80 11/10/19 11/10/19 11/10/19 11/10/19 03:00 03:00 03:44 04:00 Temp 33.0 33.7 Pulse 57 Resp 23 B/P (MAP) 99/50 (66) 114/56 Pulse Ox 98 O2 Delivery Mechanical Ventilator Mechanical Ventilator O2 Flow Rate 80.00 FiO2 100 11/10/19 11/10/19 11/10/19 11/10/19 04:00 04:00 04:19 05:00 Temp 32.8 33.6 37.0 33.2 Pulse 54 Resp 24 B/P (MAP) 113/52 (72) Pulse Ox 99 O2 Delivery Mechanical Ventilator O2 Flow Rate 80.00 5/6/20 11/10/19 11/10/19 11/10/19 05:00 05:11 05:30 06:00 Temp 32.3 32.3 32.0 32.6 Pulse 50 50 49 Resp 22 29 B/P (MAP) 120/54 (76) 114/51 (72) 119/51 (73) Pulse Ox 99 99 97 O2 Delivery Mechanical Ventilator Mechanical Ventilator Mechanical Ventilator O2 Flow Rate 80.00 70.00 45.00 11/10/19 11/10/19 11/10/19 11/10/19 06:00 06:42 07:12 08:37 Temp 31.9 Pulse 49 47 47 57 Resp 21 24 B/P (MAP) 115/50 (71) 112/47 Pulse Ox 95 95 O2 Delivery Mechanical Ventilator O2 Flow Rate 45.00 FiO2 45 11/09/19 23:59 Intake Total 250 ml Output Total 775 ml Balance -525 ml Constitutional: other (intubated and on mech vent) Respiratory: other (scattered rhonchi ) Cardiovascular: regular rate-rhythm, systolic murmur (soft SUREKHA at card base) Gastrointestional: soft, audible bowel sounds Extremities: other (mild edema); No clubbing, No cyanosis Neurologic/Psychiatric: other (unresponsive) Skin: warm/dry; No diaphoresis, No damp Results/Procedures: Labs Laboratory Tests 11/09/19 12:20: White Blood Count 12.5H, Red Blood Count 4.33L, Hemoglobin 12.1, Hematocrit 38, Mean Corpuscular Volume 89, Mean Corpuscular Hemoglobin 28, Mean Corpuscular Hemoglobin Concent 32, Red Cell Distribution Width 14.2, Platelet Count 231, Mean Platelet Volume 10.1, Neutrophils (%) (Auto) 85H, Lymphocytes (%) (Auto) 9L , Monocytes (%) (Auto) 6, Eosinophils (%) (Auto) 0, Basophils (%) (Auto) 0, Neutrophils # (Auto) 10.7H, Lymphocytes # (Auto) 1.1, Monocytes # (Auto) 0.7, Eosinophils # (Auto) 0.0, Basophils # (Auto) 0.0, Prothrombin Time 13.8, INR Comment 1.0, Activated Partial Thromboplast Time 22L, D-Dimer 3.89H, Sodium Level 129L, Potassium Level 4.4, Chloride Level 89L, Carbon Dioxide Level 32, Anion Gap 8, Blood Urea Nitrogen 14, Creatinine 0.95, Estimat Glomerular Filtration Rate 60, BUN/Creatinine Ratio 15, Glucose Level 166H, Lactic Acid Level 1.75, Calcium Level 8.2L, Corrected Calcium 8.8, Magnesium Level 1.8, Total Bilirubin 0.3, Aspartate Amino Transf (AST/SGOT) 28, Alanine Ami notransferase (ALT/SGPT) 17, Alkaline Phosphatase 104, Troponin I 0.085H, B-Type Natriuretic Peptide 634.0H, Total Protein 6.5, Albumin 3.2, Urine Opiates Screen NEGATIVE, Urine Oxycodone Screen NEGATIVE, Urine Methadone Screen NEGATIVE, Urine Propoxyphene Screen NEGATIVE, Urine Barbiturates Screen NEGATIVE, Ur Tricyclic Antidepressants Screen NEGATIVE, Urine Phencyclidine Screen NEGATIVE, Urine Amphetamines Screen NEGATIVE, Urine Methamphetamines Screen NEGATIVE, Urine Benzodiazepines Screen NEGATIVE, Urine Cocaine Screen NEGATIVE, Urine Cannabinoids Screen NEGATIVE 11/09/19 12:45: Coronavirus (COVID-19)(PCR) Negative 11/09/19 12:50: Blood Gas Puncture Site LEFT RADIAL, Blood Gas Patient Temperature 96.9, Arterial Blood pH 7.32*L, Arterial Blood Partial Pressure CO2 62H, Arterial Blood Partial Pressure O2 67L, Arterial Blood HCO3 31H, Arterial Blood Total CO2 33.2H, Arterial Blood Oxygen Saturation 92L, Arterial Blood Base Excess 5.3H, Gustavo Test POSITIVE, Blood Gas Ventilator Setting NO, Blood Gas Inspired Oxygen 10 L 11/09/19 13:34: Blood Gas Puncture Site LEFT FEMORAL, Blood Gas Patient Temperature 36.3, Arterial Blood pH 7.26*L, Arterial Blood Partial Pressure CO2 61H, Arterial Blood Partial Pressure O2 52L, Arterial Blood HCO3 27, Arterial Blood Total CO2 29.1, Arterial Blood Oxygen Saturation 75L, Arterial Blood Base Excess 0.8, Gustavo Test POSITIVE, Blood Gas Ventilator Setting YES, Blood Gas Inspired Oxygen 100 11/09/19 14:10: Glucometer 209H 11/09/19 15:35: White Blood Count 24.8H, Red Blood Count 4.15L, Hemoglobin 11.5, Hematocrit 36, Mean Corpuscular Volume 88, Mean Corpuscular Hemoglobin 28, Mean Corpuscular Hemoglobin Concent 32, Red Cell Distribution Width 14.4, Platelet Count 290, Mean Platelet Volume 10.1, Neutrophils (%) (Auto) 91H, Lymphocytes (%) (Auto) 4L , Monocytes (%) (Auto) 5, Eosinophils (%) (Auto) 0, Basophils (%) (Auto) 0, Neutrophils # (Auto) 22.6H, Lymphocytes # (Auto) 1.1, Monocytes # (Auto) 1.1H, Eosinophils # (Auto) 0.0, Basophils # (Auto) 0.0, Neutrophils % (Manual) 92, Lymphocytes % (Manual) 3, Monocytes % (Manual) 5, Microcytosis SLIGHT, Prothrombin Time 16.5H, INR Comment 1.3, Activated Partial Thromboplast Time 34, Fibrinogen 208L, D-Dimer > 20.00*H, Sodium Level 126L, Potassium Level 4.3, Chloride Level 89L, Carbon Dioxide Level 27, Anion Gap 10, Blood Urea Nitrogen 15, Creatinine 0.98, Estimat Glomerular Filtration Rate 58, BUN/Creatinine Ratio 15, Glucose Level 310H, Lactic Acid Level 1.77, Calcium Level 7.9L, Corrected Calcium 8.7, Phosphorus Level 4.6, Magnesium Level 1.3L, Total Bilirubin 0.5, Direct Bilirubin 0.2, Indirect Bilirubin 0.3, Aspartate Amino Transf (AST/SGOT) 36H, Alanine Aminotransferase (ALT/SGPT) 19, Alkaline Phosphatase 99, Total Creatine Kinase 205H, Troponin I 0.738*H, Total Protein 6.0L, Albumin 3.0L, Triglycerides Level 335H, Amylase Level 31, Lipase 41 11/09/19 17:56: Glucometer 362H 11/09/19 19:00: White Blood Count 24.7H, Red Blood Count 4.41, Hemoglobin 11.9, Hematocrit 38, Mean Corpuscular Volume 85, Mean Corpuscular Hemoglobin 27, Mean Corpuscular Hemoglobin Concent 32, Red Cell Distribution Width 14.4, Platelet Count 289, Mean Platelet Volume 10.4, Neutrophils (%) (Auto) 87H, Lymphocytes (%) (Auto) 5L , Monocytes (%) (Auto) 8, Eosinophils (%) (Auto) 0, Basophils (%) (Auto) 0, Neutrophils # (Auto) 21.6H, Lymphocytes # (Auto) 1.2, Monocytes # (Auto) 2.0H, Eosinophils # (Auto) 0.0, Basophils # (Auto) 0.0, Activated Partial Thromboplast Time 35, Sodium Level 125*L, Potassium Level 3.6, Chloride Level 89L, Carbon Dioxide Level 20L, Anion Gap 16H, Blood Urea Nitrogen 18, Creatinine 1.05, Estimat Glomerular Filtration Rate 53, BUN/Creatinine Ratio 17, Glucose Level 390H, Calcium Level 7.7L, Phosphorus Level 4.9H, Magnesium Level 2.4 11/09/19 20:20: Glucometer 374H 11/09/19 21:04: Glucometer 434*H 11/09/19 22:44: Glucometer 435*H 11/09/19 22:45: Sodium Level 124*L, Potassium Level 2.8L, Chloride Level 88L, Carbon Dioxide Level 19L, Anion Gap 17H, Blood Urea Nitrogen 18, Creatinine 1.16, Estimat Glomerular Filtration Rate 47, BUN/Creatinine Ratio 16, Glucose Level 447*H, Calcium Level 8.0L, Corrected Calcium 8.9, Total Bilirubin 0.4, Aspartate Amino Transf (AST/SGOT) 27, Alanine Aminotransferase (ALT/SGPT) 18, Alkaline Phosp hatase 98, Total Protein 5.9L, Albumin 2.9L 11/10/19 00:29: Glucometer 451*H 11/10/19 02:00: Glucometer 428*H 11/10/19 02:30: White Blood Count 18.6H, Red Blood Count 4.24L, Hemoglobin 11.7, Hematocrit 35, Mean Corpuscular Volume 83, Mean Corpuscular Hemoglobin 28, Mean Corpuscular Hemoglobin Concent 33, Red Cell Distribution Width 14.2, Platelet Count 252, Mean Platelet Volume 10.3, Neutrophils (%) (Auto) 91H, Lymphocytes (%) (Auto) 6L , Monocytes (%) (Auto) 3, Eosinophils (%) (Auto) 0, Basophils (%) (Auto) 0, Neutrophils # (Auto) 16.9H, Lymphocytes # (Auto) 1.1, Monocytes # (Auto) 0.6, Eosinophils # (Auto) 0.0, Basophils # (Auto) 0.0, Prothrombin Time 17.3H, INR Comment 1.4, Activated Partial Thromboplast Time 72H, Blood Gas Puncture Site RT RADIAL, Blood Gas Patient Temperature 33.4, Arterial Blood pH 7.47H, Arterial Blood Partial Pressure CO2 29L, Arterial Blood Partial Pressure O2 246H, Arterial Blood HCO3 22L, Arterial Blood Total CO2 22.9, Arterial Blood Oxygen Saturation 100, Arterial Blood Base Excess -1.9, Gustavo Test P, Blood Gas Ventilator Setting YES, Blood Gas Inspired Oxygen AC, Sodium Level 124*L, Potassium Level 2.9L, Chloride Level 89L, Carbon Dioxide Level 17L, Anion Gap 18H, Blood Urea Nitrogen 18, Creatinine 1.30, Estimat Glomerular Filtration Rate 42, BUN/Creatinine Ratio 14, Glucose Level 447*H, Calcium Level 7.8L, Corrected Calcium 8.8, Phosphorus Level 1.4L, Magnesium Level 3.5H, Total Bilirubin 0.3, Aspartate Amino Transf (AST/SGOT) 25, Alanine Aminotransferase (ALT/SGPT) 16, Alkaline Phosphatase 94, Total Protein 5.4L, Albumin 2.7L 11/10/19 03:40: Glucometer 447*H 11/10/19 05:02: Glucometer 383H 11/10/19 05:49: Lactic Acid Level 6.50*H 11/10/19 05:51: Glucometer 369H 11/10/19 06:30: Urine Color YELLOW, Urine Clarity CLEAR, Urine pH 5.0, Urine Specific [place] 1.025H, Urine Protein NEGATIVE, Urine Glucose (UA) 2+H, Urine Ketones NEGATIVE, Urine Nitrite NEGATIVE, Urine Bilirubin NEGATIVE, Urine Urobilinogen 0.2, Urine Leukocyte Esterase NEGATIVE, Urine RBC (Auto) NEGATIVE, Urine RBC NONE, Urine WBC NONE, Urine Squamous Epithelial Cells NONE, Urine Crystals NONE, Urine Bacteria NEGATIVE, Urine Casts PRESENT, Urine Hyaline Casts 2-5H, Urine Mucus NEGATIVE, Urine Culture Indicated NO, Blood Gas Puncture Site RT RADIAL, Blood Gas Patient Temperature 32.5, Arterial Blood pH 7.42, Arterial Blood Partial Pressure CO2 33L, Arterial Blood Partial Pressure O2 68L, Arterial Blood HCO3 23, Arterial Blood Total CO2 23.7, Arterial Blood Oxygen Saturation 97, Arterial Blood Base Excess -2.1, Gustavo Test P, Blood Gas Ventilator Setting YES, Blood Gas Inspired Oxygen 45% 11/10/19 06:33: Glucometer 351H 11/10/19 07:45: Glucometer 329H 11/10/19 08:45: White Blood Count 16.7H, Red Blood Count 4.04L, Hemoglobin 11.0L, Hematocrit 33L , Mean Corpuscular Volume 82, Mean Corpuscular Hemoglobin 27, Mean Corpuscular Hemoglobin Concent 33, Red Cell Distribution Width 14.2, Platelet Count 237, Mean Platelet Volume 10.3, Neutrophils (%) (Auto) 93H, Lymphocytes (%) (Auto) 4L , Monocytes (%) (Auto) 3, Eosinophils (%) (Auto) 0, Basophils (%) (Auto) 0, Neutrophils # (Auto) 15.6H, Lymphocytes # (Auto) 0.6L, Monocytes # (Auto) 0.5, Eosinophils # (Auto) 0.0, Basophils # (Auto) 0.0, Prothrombin Time 16.9H, INR Comment 1.3, Activated Partial Thromboplast Time 97H, Sodium Level 124*L, Potassium Level 3.5L, Chloride Level 91L, Carbon Dioxide Level 20L, Anion Gap 13, Blood Urea Nitrogen 17, Creatinine 1.07, Estimat Glomerular Filtration Rate 52, BUN/Creatinine Ratio 16, Glucose Level 312H, Lactic Acid Level 5.66*H, Calcium Level 7.6L, Corrected Calcium 8.7, Phosphorus Level 1.6L, Magnesium Level 3.3H, Total Bilirubin 0.3, Aspartate Amino Transf (AST/SGOT) 22, Alanine Aminotransferase (ALT/SGPT) 15, Alkaline Phosphatase 81, Total Protein 5.2L, Albumin 2.6L Microbiology 11/09/19 Influenza Types A,B Antigen (GENOVEVA) - Final, Complete Laboratory Tests 11/09/19 12:20 11/09/19 15:35 11/09/19 19:00 11/09/19 22:45 11/10/19 02:30 11/10/19 08:45 A/P: Assessment: Ac resp arrest and cardiac arrest (PEA) in setting of profound hypoxia and hypotension, PE suspected clinically and being treated by the Hospitalist service Mild, acute CHF, systolic (LV systolic function at lower limit of normal to mildly impaired) and diastolic Hyponatremia of unclear etiology, current clinical hypervolemia suggests that CHF is contributing H/o CAD (reportedly has had 3 stents, none recent) details unknown Mild troponin elevation likely due to type 2 [place] due to hypoxia Echo of 11/09/19: LVEF approx 50%, study difficult and not suitable for wall motion analysis, cannot exclude apical hypokinesis ECG: NSR, PACs, LAFB vs old IMI Plan: * Low-dose diuretic today, given low urine output and clinical hypervolemia * Replenish electrolytes * Support BP and respiration * Continue to try to obtain cardiac records * Prognosis guarded RAFAT MONTANA MD FACP FAC CCDS November 10, 2019 10:08
[2019-11-10] MEDS ORDERED: FUROSEMIDE 40 MG/4 ML INJ (LASIX) IVP NR (10:15)
[2019-11-10] MEDS: LORazepam INJECTION FOR DRIP 20 MG in D5W 100 ML IVPB 90 ML IV SCH ×2 (12:40→23:38)
--- NOTE | 2019-11-10 13:11 | NUR ---
CM/SS following patient to assess for discharge needs. The patient is currently intubated and sedated. CM/SS is following with patient to assess for any discharge needs. Per an EMR note, there is a concern that the patients living conditions are poor. CM/SS contacted the patients Ricky for introductions and assisting with any questions or concerns. Ricky stated that he did not have any questions at this time. CM/SS explained this ss role as a transportation planner. He verbalized understanding. CM/SS will assess home living conditions. Will continue to follow.
[2019-11-10 14:37] LABS: BASOPHILS % (AUTO) 0 % (0-10); EOSINOPHILS % (AUTO) 0 % (0-10); HEMATOCRIT 34 % (35-52); HEMOGLOBIN 10.9 G/DL (11.5-16.0); LYMPHOCYTES # (AUTO) 0.5 X 10^3 (1.0-4.0); LYMPHOCYTES % (AUTO) 4 % (12-44); MEAN CORPUSCULAR HEMOGLOBIN 27 PG (25-34); MEAN CORPUSCULAR HGB CONC 32 G/DL (32-36); MEAN CORPUSCULAR VOLUME 83 FL (80-99); MEAN PLATELET VOLUME 10.3 FL (7.4-10.4); MONOCYTES # (AUTO) 0.7 X 10^3 (0.0-1.0); MONOCYTES % (AUTO) 5 % (0-12); NEUTROPHILS # (AUTO) 12.6 X 10^3 (1.8-7.8); NEUTROPHILS % (AUTO) 92 % (42-75); PLATELET COUNT 199 10^3/uL (130-400); RED CELL DISTRIBUTION WIDTH 14.5 % (10.0-14.5); WHITE BLOOD COUNT 13.8 10^3/uL (4.3-11.0)
[2019-11-10 14:53] LABS: ALBUMIN 2.6 GM/DL (3.2-4.5); POTASSIUM 3.9 MMOL/L (3.6-5.0)
[2019-11-10 14:54] LABS: CALCIUM 7.6 MG/DL (8.5-10.1)
[2019-11-10 14:56] LABS: TOTAL PROTEIN 5.4 GM/DL (6.4-8.2)
[2019-11-10 14:57] LABS: BILIRUBIN,TOTAL 0.2 MG/DL (0.1-1.0)
[2019-11-10 14:59] LABS: CREATININE SERUM 0.95 MG/DL (0.60-1.30); PHOSPHORUS 4.7 MG/DL (2.3-4.7)
[2019-11-10 15:02] LABS: MAGNESIUM 2.6 MG/DL (1.6-2.4)
[2019-11-10 15:13] LABS: INR 1.2 (0.8-1.4); PROTHROMBIN TIME PATIENT 15.7 SEC (12.2-14.7)
[2019-11-10] MEDS: MAGNESIUM SULFATE DRIP 500 ML IV SCH (15:20)
[2019-11-10] MEDS ORDERED: DEXTROSE 50% 50 ML (IMS) SYR IV PRN ×2 (16:15)
[2019-11-10] MEDS: inSUlin REGULAR TPN/DRIP ONLY 250 UNITS in NORMAL SALINE 250 ML IV SCH ×2 (16:46→20:46)
[2019-11-10] MEDS: fentaNYL INJECTION 1,250 MCG in NS (IVPB) 250 ML IV SCH (16:50)
--- NOTE | 2019-11-10 17:54 | NUR ---
PT TEMPERATURE DECREASING. CURRENTLY 34.9 RECTAL AND 34.3 ESOPHAGEAL. TROUBLESHOOTING DONE WITH DEJON CHEEK VIA TELEPHONE WITH ONCALESSIO RN. ADVISED TO GIVE ATLEAST 1 HR POST TROUBLESHOOTING TO RETURN TEMP TO SETTING. TEMP STILL SET AT 35.5 PER ORDER. WILL MONITOR CLOSELY.
--- NOTE | 2019-11-10 19:24 | NUR ---
SPOKE WITH SHABNAM, PTS , AND UPDATED ON DAYS EVENTS. ALL QUESTIONS ANSWERED. PT STATES HE WILL JUST CALL IN THE AM AND WOUND NOT LIKE A CALL TONIGHT. NOC RN NOTIFIED.
[2019-11-10 20:40] LABS: BASOPHILS % (AUTO) 0 % (0-10); EOSINOPHILS % (AUTO) 0 % (0-10); HEMATOCRIT 32 % (35-52); HEMOGLOBIN 10.8 G/DL (11.5-16.0); LYMPHOCYTES # (AUTO) 0.5 X 10^3 (1.0-4.0); LYMPHOCYTES % (AUTO) 4 % (12-44); MEAN CORPUSCULAR HEMOGLOBIN 28 PG (25-34); MEAN CORPUSCULAR HGB CONC 34 G/DL (32-36); MEAN CORPUSCULAR VOLUME 82 FL (80-99); MEAN PLATELET VOLUME 10.5 FL (7.4-10.4); MONOCYTES # (AUTO) 0.6 X 10^3 (0.0-1.0); MONOCYTES % (AUTO) 5 % (0-12); NEUTROPHILS # (AUTO) 12.7 X 10^3 (1.8-7.8); NEUTROPHILS % (AUTO) 92 % (42-75); PLATELET COUNT 183 10^3/uL (130-400); RED CELL DISTRIBUTION WIDTH 14.5 % (10.0-14.5); WHITE BLOOD COUNT 13.8 10^3/uL (4.3-11.0)
[2019-11-10 20:51] LABS: INR 1.2 (0.8-1.4); PROTHROMBIN TIME PATIENT 15.6 SEC (12.2-14.7)
[2019-11-10 21:01] LABS: ALBUMIN 2.6 GM/DL (3.2-4.5); BILIRUBIN,TOTAL 0.2 MG/DL (0.1-1.0); CALCIUM 7.7 MG/DL (8.5-10.1); CREATININE SERUM 0.96 MG/DL (0.60-1.30); MAGNESIUM 2.4 MG/DL (1.6-2.4); PHOSPHORUS 4.9 MG/DL (2.3-4.7); POTASSIUM 3.9 MMOL/L (3.6-5.0); TOTAL PROTEIN 5.2 GM/DL (6.4-8.2)
[2019-11-10] MEDS: HEParin DRIP 25000 UNIT/500ML 500 ML IV SCH (21:07)
--- NOTE | 2019-11-10 22:57 | NUR ---
Rewarming phase started at 2215. Patient set to warm up to 37 degrees slowly.
[2019-11-11] VITALS (31 sets, daily range): BP systolic 113–171; BP diastolic 53–87
[2019-11-11] MEDS: ACETAMINOPHEN 325 MG TABLET GT SCH (00:35)
[2019-11-11] MEDS: POTASSIUM CL 10MEQ/50ML IVPB 50 ML IV SCH (00:38)
[2019-11-11] MEDS: EPINEPHrine 1 MG INJECTION 2 MG in NS (IVPB) 248 ML IV SCH (01:21)
[2019-11-11] MEDS: LACTATED RINGERS 1,000 ML IV SCH ×4 (01:30→23:55)
[2019-11-11] MEDS: NOREPINEPHRINE 4 MG/250 ML 250 ML IV SCH (02:32)
[2019-11-11 02:36] LABS: BASOPHILS % (AUTO) 0 % (0-10); EOSINOPHILS % (AUTO) 0 % (0-10); HEMATOCRIT 31 % (35-52); HEMOGLOBIN 10.2 G/DL (11.5-16.0); LYMPHOCYTES # (AUTO) 0.5 X 10^3 (1.0-4.0); LYMPHOCYTES % (AUTO) 4 % (12-44); MEAN CORPUSCULAR HEMOGLOBIN 27 PG (25-34); MEAN CORPUSCULAR HGB CONC 33 G/DL (32-36); MEAN CORPUSCULAR VOLUME 82 FL (80-99); MEAN PLATELET VOLUME 10.8 FL (7.4-10.4); MONOCYTES # (AUTO) 0.6 X 10^3 (0.0-1.0); MONOCYTES % (AUTO) 5 % (0-12); NEUTROPHILS % (AUTO) 92 % (42-75); PLATELET COUNT 165 10^3/uL (130-400); RED CELL DISTRIBUTION WIDTH 14.7 % (10.0-14.5)
[2019-11-11 02:38] LABS: ABG BASE EXCESS 4.8 MMOL/L (-2.5-2.5); ABG OXYGEN SATURATION 95 % (94-100); ABG PCO2 42 MMHG (35-45); ABG PH 7.45 (7.37-7.43); ABG PO2 71 MMHG (79-93); ABG TCO2 30.1 MMOL/L (21.0-31.0); ALLENS TEST P; VENTILATOR YES
[2019-11-11 02:39] LABS: INSPIRED O2 AC VENT; PATIENT TEMP 36.5
[2019-11-11] MEDS: RT-ALBUTEROL/IPRATROPIUM 3 ML (DUONEB) VIAL INH SCH ×6 (02:40→22:02)
[2019-11-11 02:56] LABS: INR 1.2 (0.8-1.4); PROTHROMBIN TIME PATIENT 15.2 SEC (12.2-14.7)
[2019-11-11 02:58] LABS: ALBUMIN 2.5 GM/DL (3.2-4.5); BILIRUBIN,TOTAL 0.2 MG/DL (0.1-1.0); CALCIUM 7.7 MG/DL (8.5-10.1); CREATININE SERUM 0.94 MG/DL (0.60-1.30); MAGNESIUM 2.3 MG/DL (1.6-2.4); PHOSPHORUS 5.2 MG/DL (2.3-4.7); POTASSIUM 4.1 MMOL/L (3.6-5.0); TOTAL PROTEIN 5.1 GM/DL (6.4-8.2)
[2019-11-11] MEDS: ARTIFICIAL TEARS OINT (LACRI-LUBE) 3.5 GM TUBE OU SCH (03:00)
[2019-11-11] MEDS: PROPOFOL DRIP (ICU) 100 ML IV SCH ×2 (04:12→20:32)
--- NOTE | 2019-11-11 04:34 | Pulmonary Progress Note ---
Subjective Time Seen by a Provider: 04:29 Subjective/Events-last exam sedated on vent. Sepsis Event Evaluation Height, Weight, BMI Height: '" Weight: lbs. oz. kg; 33.00 BMI Method: Focused Exam Lactate Level 11/10/19 11:05: Lactic Acid Level 3.21*H 11/10/19 14:20: Lactic Acid Level 2.24*H 11/10/19 17:30: Lactic Acid Level 1.12 Exam Exam Vital Signs Date Time Temp Pulse Resp B/P (MAP) Pulse Ox O2 Delivery O2 Flow Rate FiO2 11/11/19 04:12 133/62 11/11/19 04:11 36.1 90 133/61 (85) 91 Mechanical Ventilator 45.00 11/11/19 04:00 36.8 11/11/19 03:45 36.8 11/11/19 03:30 36.7 11/11/19 03:15 36.6 11/11/19 03:00 36.6 11/11/19 03:00 36.0 86 24 130/60 (83) 93 Mechanical Ventilator 50.00 11/11/19 02:45 36.5 11/11/19 02:32 124/59 11/11/19 02:30 36.5 11/11/19 02:15 36.4 11/11/19 02:00 36.1 85 24 126/57 (80) 92 Mechanical Ventilator 50.00 11/11/19 02:00 36.5 11/11/19 01:45 36.1 11/11/19 01:30 35.8 11/11/19 01:20 35.9 82 23 91 Mechanical Ventilator 50.00 11/11/19 01:15 35.6 11/11/19 01:00 35.3 80 23 113/53 (73) 90 Mechanical Ventilator 45.00 11/11/19 01:00 35.5 11/11/19 01:00 80 11/11/19 00:45 35.3 11/11/19 00:30 35.3 11/11/19 00:15 35.4 11/11/19 00:00 34.4 74 24 113/57 (75) 91 Mechanical Ventilator 45.00 11/11/19 00:00 35.2 11/10/19 23:56 93 Mechanical Ventilator 45 11/10/19 23:49 34.6 73 24 116/58 (77) 93 Mechanical Ventilator 45.00 11/10/19 23:45 35.3 11/10/19 23:38 76 23 122/59 11/10/19 23:35 130/62 11/10/19 23:30 35.4 11/10/19 23:15 35.5 11/10/19 23:00 34.8 81 22 132/64 (86) 93 Mechanical Ventilator 45.00 11/10/19 23:00 35.4 11/10/19 22:45 35.5 11/10/19 22:30 35.8 11/10/19 22:23 73 24 94 40 11/10/19 22:15 35.7 11/10/19 22:00 35.5 11/10/19 22:00 35.0 75 23 131/67 (88) 94 Mechanical Ventilator 45.00 11/10/19 21:00 35.7 11/10/19 20:52 35.2 77 24 119/61 (80) 94 Mechanical Ventilator 45.00 11/10/19 20:00 93 Mechanical Ventilator 45 11/10/19 20:00 35.9 11/10/19 20:00 35.3 75 23 115/59 (77) 92 Mechanical Ventilator 45.00 11/10/19 19:00 71 11/10/19 19:00 35.1 11/10/19 19:00 35.1 71 23 118/61 (80) 93 Mechanical Ventilator 45.00 11/10/19 18:50 67 24 93 45 11/10/19 18:40 34.9 11/10/19 18:29 34.8 11/10/19 18:10 61 112/57 11/10/19 18:09 34.8 11/10/19 18:03 34.8 11/10/19 18:00 34.3 60 24 111/57 (75) 94 Mechanical Ventilator 45.00 11/10/19 17:00 35.8 62 24 121/59 (79) 94 Mechanical Ventilator 40.00 11/10/19 17:00 35.1 11/10/19 16:31 45.00 11/10/19 16:31 92 Mechanical Ventilator 45 11/10/19 16:00 35.3 11/10/19 16:00 35.8 67 23 123/57 (79) 93 Mechanical Ventilator 40.00 11/10/19 15:00 35.7 20 15:00 35.8 70 23 135/59 (84) 91 Mechanical Ventilator 40.00 11/10/19 14:14 71 24 94 40 11/10/19 14:07 35.9 11/10/19 14:00 35.8 79 23 132/61 (84) 93 Mechanical Ventilator 40.00 11/10/19 13:23 69 126/55 11/10/19 13:05 35.9 11/10/19 13:00 35.8 70 24 130/57 (81) 93 Mechanical Ventilator 40.00 11/10/19 12:40 71 24 122/51 11/10/19 12:39 70 11/10/19 12:38 35.7 11/10/19 12:07 35.7 11/10/19 12:00 35.8 73 24 130/52 (78) 93 Mechanical Ventilator 40.00 11/10/19 11:53 92 Mechanical Ventilator 40 11/10/19 11:35 35.5 11/10/19 11:00 35.5 11/10/19 11:00 35.6 70 23 118/50 (72) 93 Mechanical Ventilator 40.00 11/10/19 10:56 72 24 93 40 11/10/19 10:01 40.00 11/10/19 10:00 31.9 64 24 124/50 (74) 93 Mechanical Ventilator 45.00 11/10/19 10:00 34.2 11/10/19 09:00 32.4 11/10/19 09:00 31.9 60 24 96/33 (54) 93 Mechanical Ventilator 45.00 11/10/19 08:37 57 112/47 11/10/19 08:00 32.1 11/10/19 08:00 31.9 53 23 120/50 (73) 94 Mechanical Ventilator 45.00 11/10/19 08:00 94 Mechanical Ventilator 45 11/10/19 07:12 47 24 95 45 11/10/19 07:00 32.2 11/10/19 07:00 31.9 46 35 112/48 (69) 95 Mechanical Ventilator 45.00 11/10/19 06:42 47 11/10/19 06:00 31.9 49 21 115/50 (71) 95 Mechanical Ventilator 45.00 11/10/19 06:00 32.6 11/10/19 05:30 32.0 49 29 119/51 (73) 97 Mechanical Ventilator 45.00 11/10/19 05:11 32.3 50 22 114/51 (72) 99 Mechanical Ventilator 70.00 11/10/19 05:00 32.3 50 120/54 (76) 99 Mechanical Ventilator 80.00 11/10/19 05:00 33.2 I & O 11/11/19 07:00 Intake Total 5195 ml Output Total 2700 ml Balance 2495 ml Height & Weight Height: '" Weight: lbs. oz. kg; 33.00 BMI Method: General Appearance: Chronically ill, Obese, Severe Distress HEENT: Other (nearly pinpoint pupils, equally reactive; ETT/OGT in place) Neck: Other (central line in place) Respiratory: Crackles, Respiratory Distress, Wheezing, Other (intubated) Cardiovascular: No JVD, No Murmur, Tachycardia Capillary Refill: Greater Than 3 Seconds Extremity: Normal Capillary Refill, No Pedal Edema Neurologic/Psychiatric: Other (sedated, responds to noxious stimuli only) Skin: Normal Color, Warm/Dry; No Mottled Results Lab Laboratory Tests 11/09/19 12:20 11/09/19 15:35 11/09/19 19:00 11/09/19 22:45 11/10/19 02:30 11/10/19 08:45 11/10/19 11:05 11/10/19 14:20 11/10/19 17:30 11/10/19 20:30 11/11/19 02:25 Assessment/Plan Assessment/Plan s/p cardiac arrest -pT is now euthermic -Hold sedation and see if pt wakes up/follows commands Acute respiratory failure -Continue vent -Currently on Propofol, fentanyl, and Ativan -Hold all sedation -COVID is neg -Influenza is negative Leukocytosis -Gracia culture -CHeck UA -Start Merrem COPDAE -Duoneb - Hypotension - Now resolved -Solucortef -Echo Hypokalemia, hypophos -replace CAD [place] home meds for hypotension and TPA admin Cardiology consulted, appreciate recs NIDDMII GORDON MCMANUS DO November 11, 2019 04:34
[2019-11-11] MEDS: MEROPENEM 1,000 MG in WATER (STERILE) FOR INJECTION 20 ML IV SCH ×3 (05:54→19:48)
[2019-11-11] MEDS: HYDROCORTISONE 100 MG/2 ML (Solu-CORTEF) VIAL IV SCH ×3 (06:55→21:32)
[2019-11-11] MEDS: inSUlin ASPART (NovoLOG) 1 UNIT/0.01 ML (CHARGE PER UNIT) SC SCH ×5 (06:55→19:47)
[2019-11-11] MEDS ORDERED: VANCOMYCIN 1500 MG/NS 500 ML IVPB IV SCH ×2 (08:00)
[2019-11-11] MEDS ORDERED: ARTIFICIAL TEARS OINT (LACRI-LUBE) 3.5 GM TUBE OU PRN (08:15)
[2019-11-11] MEDS: PANTOPRAZOLE 40 MG (PROTONIX) TAB PO SCH (08:33)
[2019-11-11] MEDS: VANCOMYCIN 1500 MG/NS 500 ML IVPB IV SCH ×2 (08:33)
--- NOTE | 2019-11-11 08:40 | Diagnostic Imaging Report ---
Portable semierect AP chest 0330 hours. INDICATION: Respiratory distress. FINDINGS: The heart size is stable when compared to the prior exam of 11/10/2019. There is still atelectasis/infiltrate in the right lung base. This finding is unchanged when compared to the prior exam. However, the density in the left infrahilar region and left retrocardiac region has increased since the prior exam. The upper lungs are generally clear. The mediastinum is not widened. The osseous structures are intact. The supportive tubes and lines remain in good position. IMPRESSION: The appearance of the chest has worsened since the prior exam as there is greater involvement of the left infrahilar region and left retrocardiac area by pneumonia/atelectasis. A followup study would be recommended for continued evaluation. Dictated by: Dictated on workstation # [id number]
[2019-11-11] MEDS ORDERED: hydrALAZINE (APESOLINE) 20 MG/ML VIAL IV PRN (08:45)
--- NOTE | 2019-11-11 09:17 | Progress Note - Hospitalist ---
Subjective HPI/CC On Admission Date Seen by Provider: November 11, 2019 Time Seen by Provider: 09:11 Subjective/Events-last exam Pt remains intubated. Off sedation. Responds to pain but does not follow commands. Focused Exam Lactate Level 11/10/19 11:05: Lactic Acid Level 3.21*H 11/10/19 14:20: Lactic Acid Level 2.24*H 11/10/19 17:30: Lactic Acid Level 1.12 Objective Exam Vital Signs Vital Signs Date Time Temp Pulse Resp B/P (MAP) Pulse Ox O2 Delivery O2 Flow Rate FiO2 11/11/19 08:05 36.5 11/11/19 08:05 91 Mechanical Ventilator 45 11/11/19 06:31 98 24 11/11/19 06:00 160/73 (102) 45.00 Capillary Refill : Greater Than 3 Seconds General Appearance: Other (on vent, ill appearing) Respiratory: Rhonci, Other (on vent) Cardiovascular: Regular Rate, Rhythm, No Murmur Gastrointestinal: Normal Bowel Sounds, Non Tender, Soft Genital/Rectal: Other (an in place) Extremity: Normal Capillary Refill, No Pedal Edema Neurologic/Psychiatric: Other (does not follow commands, did move foot to physical stimulus) Results/Procedures Lab Laboratory Tests 11/10/19 11:05 11/10/19 14:20 11/10/19 17:30 11/10/19 20:30 11/11/19 02:25 Patient resulted labs reviewed. Imaging: Reviewed Imaging Films, Reviewed Imaging Report Assessment/Plan Assessment and Plan Assess & Plan/Chief Complaint Cardiac Arrest- therapeutic hypothermia Shock- ? cardiogenic Acute Respiratory Failure with profound hypoxia Elevated D-dimer, presumed PE COPD Intubated, pulm consulted appreciate recs Continue [facility] protocol- in normothermia stage s/p TPA in the ER for presumed PE on 11/08, now on heparin Currently levophed and epi gtt on hold COVID19 negative Cultures- 1 tube with coag negative staph, likely contaminant Vanc and Merrem Lactic acidosis resolved Solu-Cortef HTN CAD Hold home meds for hypotension and TPA admin Cardiology consulted, appreciate recs NIDDMII Now on insulin gtt- BS much improved from yesterdat Hyponatremia Continue LR DVT ppx: Heparin gtt Critical Care Critically Ill Patient Diagnosis/Problems Diagnosis/Problems (1) Cardiac arrest Status: Acute (2) Acute respiratory failure Qualifiers: Respiratory failure complication: hypoxia Qualified Codes: J96.01 - Acute respiratory failure with hypoxia (3) COPD (chronic obstructive pulmonary disease) Qualifiers: COPD type: unspecified COPD Qualified Codes: J44.9 - Chronic obstructive pulmonary disease, unspecified (4) CAD (coronary artery disease) Status: Chronic Qualifiers: Coronary Disease-Associated Artery/Lesion type: [place] artery [place] vs. transplanted heart: [place] heart Associated angina: without angina Qualified Codes: I25.10 - Atherosclerotic heart disease of [place] coronary artery without angina pectoris (5) Non-insulin dependent type 2 diabetes mellitus Status: Chronic Clinical Quality Measures DVT/VTE Risk/Contraindication: Risk Factor Score Per Nursin RFS Level Per Nursing on Admit: 4+=Very High ASHLYN EDDY MD November 11, 2019 09:16
[2019-11-11] MEDS: meTOprolol TARTRATE 25 MG (LOPRESSOR) TABLET PO SCH ×2 (10:02→19:47)
--- NOTE | 2019-11-11 10:11 | Progress Note - Cardiology ---
Cardiology SOAP Progress Note Subjective: On mech vent Unresponsive Objective: I&O/Vital Signs 11/10/19 11/10/19 11/10/19 11/10/19 22:15 22:23 22:30 22:45 Temp 35.7 35.8 35.5 Pulse 73 Resp 24 Pulse Ox 94 FiO2 40 11/10/19 11/10/19 11/10/19 11/10/19 23:00 23:00 23:15 23:30 Temp 35.4 34.8 35.5 35.4 Pulse 81 Resp 22 B/P (MAP) 132/64 (86) Pulse Ox 93 O2 Delivery Mechanical Ventilator O2 Flow Rate 45.00 11/10/19 11/10/19 11/10/19 11/10/19 23:35 23:38 23:45 23:49 Temp 35.3 34.6 Pulse 76 73 Resp 23 24 B/P (MAP) 130/62 122/59 116/58 (77) Pulse Ox 93 O2 Delivery Mechanical Ventilator O2 Flow Rate 45.00 11/10/19 11/11/19 11/11/19 11/11/19 23:56 00:00 00:00 00:15 Temp 35.2 34.4 35.4 Pulse 74 Resp 24 B/P (MAP) 113/57 (75) Pulse Ox 93 91 O2 Delivery Mechanical Ventilator Mechanical Ventilator O2 Flow Rate 45.00 FiO2 45 11/11/19 11/11/19 11/11/19 11/11/19 00:30 00:45 01:00 01:00 Temp 35.3 35.3 35.5 Pulse 80 11/11/19 11/11/19 11/11/19 11/11/19 01:00 01:15 01:20 01:30 Temp 35.3 35.6 35.9 35.8 Pulse 80 82 Resp 23 23 B/P (MAP) 113/53 (73) Pulse Ox 90 91 O2 Delivery Mechanical Ventilator Mechanical Ventilator O2 Flow Rate 45.00 50.00 11/11/19 11/11/19 11/11/19 11/11/19 01:45 02:00 02:00 02:15 Temp 36.1 36.5 36.1 36.4 Pulse 85 Resp 24 B/P (MAP) 126/57 (80) Pulse Ox 92 O2 Delivery Mechanical Ventilator O2 Flow Rate 50.00 11/11/19 11/11/19 11/11/19 11/11/19 02:30 02:32 02:40 02:45 Temp 36.5 36.5 Pulse 84 Resp 24 B/P (MAP) 124/59 Pulse Ox 93 FiO2 50 11/11/19 11/11/19 11/11/19 11/11/19 03:00 03:00 03:15 03:30 Temp 36.0 36.6 36.6 36.7 Pulse 86 Resp 24 B/P (MAP) 130/60 (83) Pulse Ox 93 O2 Delivery Mechanical Ventilator O2 Flow Rate 50.00 11/11/19 11/11/19 11/11/19 11/11/19 03:45 04:00 04:00 04:00 Temp 36.8 36.2 36.8 Pulse 89 B/P (MAP) 127/60 (82) Pulse Ox 91 91 O2 Delivery Mechanical Ventilator Mechanical Ventilator O2 Flow Rate 50.00 FiO2 45 11/11/19 11/11/19 11/11/19 11/11/19 04:11 04:12 04:59 05:00 Temp 36.1 37.0 36.5 Pulse 90 98 Resp 30 B/P (MAP) 133/61 (85) 133/62 159/71 (100) Pulse Ox 91 91 O2 Delivery Mechanical Ventilator Mechanical Ventilator O2 Flow Rate 45.00 45.00 11/11/19 11/11/19 11/11/19 11/11/19 06:00 06:00 06:31 06:58 Temp 36.6 37.1 Pulse 98 98 98 Resp 24 24 B/P (MAP) 160/73 (102) Pulse Ox 93 91 O2 Delivery Mechanical Ventilator O2 Flow Rate 45.00 FiO2 45 11/11/19 11/11/19 11/11/19 11/11/19 07:00 08:01 08:05 08:05 Temp 37.2 37.2 36.5 Pulse Ox 91 O2 Delivery Mechanical Ventilator FiO2 45 11/11/19 11/11/19 09:00 10:00 Temp 37.1 37.0 11/11/19 00:00 Intake Total 2225 ml Output Total 2225 ml Balance 0 ml Constitutional: other (intubated and on mech vent) Respiratory: other (scattered rhonchi ) Cardiovascular: regular rate-rhythm, systolic murmur (soft SUREKHA at card base) Gastrointestional: soft, audible bowel sounds Extremities: other (mild edema); No clubbing, No cyanosis Neurologic/Psychiatric: other (unresponsive) Skin: warm/dry; No diaphoresis, No damp Results/Procedures: Labs Laboratory Tests 11/10/19 10:26: Glucometer 267H 11/10/19 11:05: Potassium Level 4.0, Lactic Acid Level 3.21*H 11/10/19 11:49: Glucometer 223H 11/10/19 12:53: Glucometer 196H 11/10/19 14:03: Glucometer 137H 11/10/19 14:20: White Blood Count 13.8H, Red Blood Count 4.06L, Hemoglobin 10.9L, Hematocrit 34L , Mean Corpuscular Volume 83, Mean Corpuscular Hemoglobin 27, Mean Corpuscular Hemoglobin Concent 32, Red Cell Distribution Width 14.5, Platelet Count 199, Mean Platelet Volume 10.3, Neutrophils (%) (Auto) 92H, Lymphocytes (%) (Auto) 4L , Monocytes (%) (Auto) 5, Eosinophils (%) (Auto) 0, Basophils (%) (Auto) 0, Neutrophils # (Auto) 12.6H, Lymphocytes # (Auto) 0.5L, Monocytes # (Auto) 0.7, Eosinophils # (Auto) 0.0, Basophils # (Auto) 0.0, Prothrombin Time 15.7H, INR Comment 1.2, Activated Partial Thromboplast Time 46H, Sodium Level 128L, Potassium Level 3.9, Chloride Level 95L, Carbon Dioxide Level 22, Anion Gap 11, Blood Urea Nitrogen 15, Creatinine 0.95, Estimat Glomerular Filtration Rate 60, BUN/Creatinine Ratio 16, Glucose Level 124H, Lactic Acid Level 2.24*H, Calcium Level 7.6L, Corrected Calcium 8.7, Phosphorus Level 4.7, Magnesium Level 2.6H, Total Bilirubin 0.2, Aspartate Amino Transf (AST/SGOT) 23, Alanine Aminotransferase (ALT/SGPT) 14, Alkaline Phosphatase 82, Total Protein 5.4L, Albumin 2.6L 11/10/19 15:14: Glucometer 107 11/10/19 16:21: Glucometer 85 11/10/19 17:30: Potassium Level 3.5L, Lactic Acid Level 1.12 11/10/19 17:31: Glucometer 72 11/10/19 18:27: Glucometer 77 11/10/19 19:33: Glucometer 73 11/10/19 20:30: White Blood Count 13.8H, Red Blood Count 3.92L, Hemoglobin 10.8L, Hematocrit 32L , Mean Corpuscular Volume 82, Mean Corpuscular Hemoglobin 28, Mean Corpuscular Hemoglobin Concent 34, Red Cell Distribution Width 14.5, Platelet Count 183, Mean Platelet Volume 10.5H, Neutrophils (%) (Auto) 92H, Lymphocytes (%) (Auto) 4L, Monocytes (%) (Auto) 5, Eosinophils (%) (Auto) 0, Basophils (%) (Auto) 0, Neutrophils # (Auto) 12.7H, Lymphocytes # (Auto) 0.5L, Monocytes # (Auto) 0.6, Eosinophils # (Auto) 0.0, Basophils # (Auto) 0.0, Neutrophils % (Manual) , Prothrombin Time 15.6H, INR Comment 1.2, Activated Partial Thromboplast Time 56H , Sodium Level 129L, Potassium Level 3.9, Chloride Level 93L, Carbon Dioxide Level 24, Anion Gap 12, Blood Urea Nitrogen 15, Creatinine 0.96, Estimat Glomerular Filtration Rate 59, BUN/Creatinine Ratio 16, Glucose Level 74, Glucometer 77, Calcium Level 7.7L, Corrected Calcium 8.8, Phosphorus Level 4.9H, Magnesium Level 2.4, Total Bilirubin 0.2, Aspartate Amino Transf (AST/SGOT) 26, Alanine Aminotransferase (ALT/SGPT) 15, Alkaline Phosphatase 78, Total Protein 5.2L, Albumin 2.6L 11/10/19 21:59: Glucometer 71 11/10/19 22:47: Glucometer 70 11/10/19 23:44: Glucometer 83 11/11/19 00:33: Glucometer 92 11/11/19 01:17: Glucometer 96 11/11/19 02:24: Glucometer 102 11/11/19 02:25: White Blood Count 13.0H, Red Blood Count 3.72L, Hemoglobin 10.2L, Hematocrit 31L , Mean Corpuscular Volume 82, Mean Corpuscular Hemoglobin 27, Mean Corpuscular Hemoglobin Concent 33, Red Cell Distribution Width 14.7H, Platelet Count 165, Mean Platelet Volume 10.8H, Neutrophils (%) (Auto) 92H, Lymphocytes (%) (Auto) 4L, Monocytes (%) (Auto) 5, Eosinophils (%) (Auto) 0, Basophils (%) (Auto) 0, Neutrophils # (Auto) 12.0H, Lymphocytes # (Auto) 0.5L, Monocytes # (Auto) 0.6, Eosinophils # (Auto) 0.0, Basophils # (Auto) 0.0, Prothrombin Time 15.2H, INR Comment 1.2, Activated Partial Thromboplast Time 71H, Blood Gas Puncture Site RT ART LINE, Blood Gas Patient Temperature 36.5, Arterial Blood pH 7.45H, Arterial Blood Partial Pressure CO2 42, Arterial Blood Partial Pressure O2 71L, Arterial Blood HCO3 29H, Arterial Blood Total CO2 30.1, Arterial Blood Oxygen Saturation 95, Arterial Blood Base Excess 4.8H, Gustavo Test P, Blood Gas Ventilator Setting YES, Blood Gas Inspired Oxygen AC VENT, Sodium Level 127L, Potassium Level 4.1, Chloride Level 92L, Carbon Dioxide Level 25, Anion Gap 10, Blood Urea Nitrogen 15, Creatinine 0.94, Estimat Glomerular Filtration Rate 60, BUN/Creatinine Ratio 16, Glucose Level 103, Calcium Level 7.7L, Corrected Calcium 8.9, Phosphorus Level 5.2H, Magnesium Level 2.3, Total Bilirubin 0.2, Aspartate Amino Transf (AST/SGOT) 37H, Alanine Aminotransferase (ALT/SGPT) 15, Alkaline Phosphatase 75, Total Protein 5.1L, Albumin 2.5L 11/11/19 03:29: Glucometer 116H 11/11/19 04:19: Glucometer 112H 11/11/19 05:12: Glucometer 111H 11/11/19 06:37: Glucometer 110 11/11/19 08:02: Glucometer 149H 11/11/19 08:45: Activated Partial Thromboplast Time 57H Microbiology 11/09/19 Blood Culture - Preliminary, Resulted Probable Coag Negative Staph See Comments 11/09/19 Influenza Types A,B Antigen (GENOVEVA) - Final, Complete Laboratory Tests 11/09/19 12:20 11/09/19 15:35 11/09/19 19:00 11/09/19 22:45 11/10/19 02:30 11/10/19 08:45 11/10/19 11:05 11/10/19 14:20 11/10/19 17:30 11/10/19 20:30 11/11/19 02:25 A/P: Assessment: Ac resp arrest and cardiac arrest (PEA) in setting of profound hypoxia and hypotension, PE suspected clinically and being treated by the Hospitalist service Mild, acute CHF, systolic (LV systolic function at lower limit of normal to mildly impaired) and diastolic Hyponatremia of unclear etiology, current clinical hypervolemia suggests that CHF is contributing H/o CAD (reportedly has had 3 stents, none recent) details unknown Mild troponin elevation likely due to type 2 NM due to hypoxia Echo of 11/09/19: LVEF approx 50%, study difficult and not suitable for wall motion analysis, cannot exclude apical hypokinesis ECG: NSR, PACs, LAFB vs old IMI Plan: * Repeat low-dose diuretic today * Monitor electrolytes * Support BP and respiration * Add ASA, given h/o CAD and cor stents (reportedly, in 2010) * Prognosis guarded RAFAT MONTANA MD FACP FAC CCDS November 11, 2019 10:11
[2019-11-11] MEDS ORDERED: ASPIRIN 81 MG CHEW (CHILDREN'S ASA) PO NR (10:15)
[2019-11-11] MEDS ORDERED: FUROSEMIDE 40 MG/4 ML INJ (LASIX) IVP NR (10:15)
[2019-11-11 15:29] LABS: OCCULT BLOOD,GASTRIC FLUID POSITIVE (NEGATIVE)
[2019-11-11 15:45] LABS: ALBUMIN 2.9 GM/DL (3.2-4.5); BILIRUBIN,TOTAL 0.3 MG/DL (0.1-1.0); PHOSPHORUS 5.9 MG/DL (2.3-4.7); POTASSIUM 4.9 MMOL/L (3.6-5.0)
[2019-11-11] MEDS: fentaNYL INJECTION 100 MCG/2 ML AMP IVP PRN ×3 (17:24→20:11)
[2019-11-11] MEDS: HEParin DRIP 25000 UNIT/500ML 500 ML IV SCH (19:55)
[2019-11-11] MEDS: LORazepam INJ 2 MG/ML (ATIVAN) VIAL IVP PRN (20:14)
[2019-11-11] MEDS ORDERED: PROPOFOL DRIP (ICU) 100 ML IV ONE (20:22)
[2019-11-11 20:44] LABS: BASOPHILS % (AUTO) 0 % (0-10); EOSINOPHILS % (AUTO) 0 % (0-10); HEMATOCRIT 32 % (35-52); HEMOGLOBIN 10.4 G/DL (11.5-16.0); LYMPHOCYTES # (AUTO) 0.6 X 10^3 (1.0-4.0); LYMPHOCYTES % (AUTO) 3 % (12-44); MEAN CORPUSCULAR HEMOGLOBIN 28 PG (25-34); MEAN CORPUSCULAR HGB CONC 33 G/DL (32-36); MEAN CORPUSCULAR VOLUME 85 FL (80-99); MEAN PLATELET VOLUME 10.6 FL (7.4-10.4); MONOCYTES # (AUTO) 0.9 X 10^3 (0.0-1.0); MONOCYTES % (AUTO) 5 % (0-12); NEUTROPHILS # (AUTO) 15.8 X 10^3 (1.8-7.8); NEUTROPHILS % (AUTO) 92 % (42-75); PLATELET COUNT 195 10^3/uL (130-400); RED CELL DISTRIBUTION WIDTH 15.3 % (10.0-14.5); WHITE BLOOD COUNT 17.3 10^3/uL (4.3-11.0)
[2019-11-11 20:53] LABS: ALBUMIN 2.8 GM/DL (3.2-4.5); POTASSIUM 5.3 MMOL/L (3.6-5.0)
[2019-11-11 20:55] LABS: CALCIUM 7.9 MG/DL (8.5-10.1)
[2019-11-11 20:56] LABS: TOTAL PROTEIN 5.8 GM/DL (6.4-8.2)
[2019-11-11 20:58] LABS: BILIRUBIN,TOTAL 0.3 MG/DL (0.1-1.0)
[2019-11-11 20:59] LABS: BAND NEUTROPHILS 1 %; EOSINOPHILS % (MANUAL) 0 %; INR 1.1 (0.8-1.4); LYMPHOCYTES % (MANUAL) 5 %; MONOCYTES % (MANUAL) 3 %; NEUTROPHILS % (MANUAL) 90 %; PROTHROMBIN TIME PATIENT 14.2 SEC (12.2-14.7)
[2019-11-11 21:00] LABS: ANISOCYTOSIS SLIGHT; BASOPHILS % (MANUAL) 0 %; CREATININE SERUM 0.97 MG/DL (0.60-1.30); REACTIVE LYMPHOCYTES 1 %
[2019-11-12] VITALS (29 sets, daily range): BP systolic 103–170; BP diastolic 44–79
[2019-11-12] MEDS: inSUlin ASPART (NovoLOG) 1 UNIT/0.01 ML (CHARGE PER UNIT) SC SCH ×7 (00:28→23:36)
[2019-11-12] MEDS: RT-ALBUTEROL/IPRATROPIUM 3 ML (DUONEB) VIAL INH SCH ×6 (01:58→21:58)
[2019-11-12 02:39] LABS: ABG BASE EXCESS 8.1 MMOL/L (-2.5-2.5); ABG OXYGEN SATURATION 94 % (94-100); ABG PCO2 52 MMHG (35-45); ABG PH 7.42 (7.37-7.43); ABG PO2 77 MMHG (79-93); ABG TCO2 34.4 MMOL/L (21.0-31.0); ALLENS TEST POSITIVE; BASOPHILS % (AUTO) 0 % (0-10); EOSINOPHILS % (AUTO) 0 % (0-10); HEMATOCRIT 30 % (35-52); HEMOGLOBIN 9.7 G/DL (11.5-16.0); INSPIRED O2 45; LYMPHOCYTES # (AUTO) 0.6 X 10^3 (1.0-4.0); LYMPHOCYTES % (AUTO) 4 % (12-44); MEAN CORPUSCULAR HEMOGLOBIN 27 PG (25-34); MEAN CORPUSCULAR HGB CONC 32 G/DL (32-36); MEAN CORPUSCULAR VOLUME 85 FL (80-99); MEAN PLATELET VOLUME 10.2 FL (7.4-10.4); MONOCYTES # (AUTO) 0.7 X 10^3 (0.0-1.0); MONOCYTES % (AUTO) 5 % (0-12); NEUTROPHILS # (AUTO) 14.3 X 10^3 (1.8-7.8); NEUTROPHILS % (AUTO) 92 % (42-75); PLATELET COUNT 177 10^3/uL (130-400); RED CELL DISTRIBUTION WIDTH 15.1 % (10.0-14.5); VENTILATOR YES; WHITE BLOOD COUNT 15.5 10^3/uL (4.3-11.0)
[2019-11-12 02:45] LABS: ALBUMIN 2.7 GM/DL (3.2-4.5); CHLORIDE 91 MMOL/L (98-107); POTASSIUM 5.1 MMOL/L (3.6-5.0); SODIUM 130 MMOL/L (135-145)
[2019-11-12 02:46] LABS: CALCIUM 7.9 MG/DL (8.5-10.1)
[2019-11-12 02:48] LABS: GLUCOSE 141 MG/DL (70-105); TOTAL PROTEIN 5.6 GM/DL (6.4-8.2)
[2019-11-12 02:49] LABS: CARBON DIOXIDE 29 MMOL/L (21-32)
[2019-11-12 02:50] LABS: BILIRUBIN,TOTAL 0.3 MG/DL (0.1-1.0)
[2019-11-12 02:51] LABS: ALKALINE PHOSPHATASE 71 U/L (40-136); PHOSPHORUS 4.8 MG/DL (2.3-4.7)
[2019-11-12 02:52] LABS: CREATININE SERUM 0.87 MG/DL (0.60-1.30); GFR ESTIMATED > 60
[2019-11-12 02:53] LABS: BUN/CREATININE RATIO 21
[2019-11-12 02:54] LABS: ALANINE AMINOTRANSFERASE 16 U/L (0-55)
[2019-11-12] MEDS: PROPOFOL DRIP (ICU) 100 ML IV SCH ×3 (04:17→20:09)
--- NOTE | 2019-11-12 05:28 | Pulmonary Progress Note ---
Subjective Time Seen by a Provider: 05:23 Subjective/Events-last exam Pt is sedated on vent currently. Sepsis Event Evaluation Height, Weight, BMI Height: '" Weight: lbs. oz. kg; 33.00 BMI Method: Focused Exam Lactate Level 11/10/19 11:05: Lactic Acid Level 3.21*H 11/10/19 14:20: Lactic Acid Level 2.24*H 11/10/19 17:30: Lactic Acid Level 1.12 Exam Exam Vital Signs Date Time Temp Pulse Resp B/P (MAP) Pulse Ox O2 Delivery O2 Flow Rate FiO2 11/12/19 05:00 37.2 96 18 150/70 (96) 93 Mechanical Ventilator 45.00 11/12/19 05:00 37.3 11/12/19 04:00 37.2 11/12/19 04:00 37.1 94 18 145/67 (93) 92 Mechanical Ventilator 45.00 11/12/19 03:06 93 Mechanical Ventilator 45 11/12/19 03:00 37.1 93 14 151/71 (97) 92 Mechanical Ventilator 45.00 11/12/19 02:51 37.0 11/12/19 02:00 36.9 86 18 133/64 (87) 93 Mechanical Ventilator 45.00 11/12/19 01:58 87 24 93 45 11/12/19 01:44 36.9 11/12/19 01:00 86 11/12/19 01:00 36.7 11/12/19 01:00 36.7 84 18 140/69 (92) 93 Mechanical Ventilator 45.00 11/12/19 00:00 36.7 82 13 121/60 (80) 93 Mechanical Ventilator 45.00 11/11/19 23:59 36.9 11/11/19 23:21 91 Mechanical Ventilator 45 11/11/19 23:00 37.0 86 13 131/64 (86) 94 Mechanical Ventilator 45.00 11/11/19 23:00 36.9 11/11/19 22:02 88 24 94 45 11/11/19 22:00 37.1 89 12 142/68 (92) 94 Mechanical Ventilator 45.00 11/11/19 22:00 37.0 11/11/19 21:00 36.1 90 14 140/66 (90) 95 Mechanical Ventilator 45.00 11/11/19 21:00 37.1 5/7/20 20:32 147/69 11/11/19 20:00 37.0 11/11/19 20:00 91 Mechanical Ventilator 45 11/11/19 20:00 36.1 92 20 143/70 (94) 94 Mechanical Ventilator 45.00 11/11/19 19:00 36.0 93 19 149/67 (94) 97 Mechanical Ventilator 45.00 11/11/19 19:00 93 11/11/19 18:51 92 24 95 45 11/11/19 18:00 37.0 11/11/19 18:00 36.6 94 24 143/69 (93) 94 Mechanical Ventilator 45.00 11/11/19 18:00 37.0 11/11/19 17:00 36.6 101 23 170/79 (109) 92 Mechanical Ventilator 45.00 11/11/19 17:00 37.1 11/11/19 16:06 37.3 11/11/19 16:05 91 Mechanical Ventilator 45 11/11/19 16:00 36.6 98 19 164/76 (105) 91 Mechanical Ventilator 45.00 11/11/19 15:00 36.6 97 26 166/86 (112) 93 Mechanical Ventilator 45.00 11/11/19 15:00 37.2 11/11/19 14:57 96 27 92 45 11/11/19 14:00 36.6 89 23 163/71 (101) 93 Mechanical Ventilator 45.00 11/11/19 14:00 37.3 11/11/19 13:00 36.6 92 24 163/73 (103) 94 Mechanical Ventilator 45.00 11/11/19 13:00 37.3 11/11/19 12:40 90 11/11/19 12:37 94 Mechanical Ventilator 45 11/11/19 12:00 36.6 87 11 153/71 (98) 95 Mechanical Ventilator 45.00 11/11/19 12:00 37.2 11/11/19 11:00 37.2 11/11/19 11:00 36.6 91 11 171/87 (115) 95 Mechanical Ventilator 45.00 11/11/19 10:08 101 24 92 45 11/11/19 10:00 37.0 11/11/19 10:00 36.6 98 13 163/76 (105) 93 Mechanical Ventilator 45.00 11/11/19 09:00 36.6 100 155/73 (100) 91 Mechanical Ventilator 45.00 11/11/19 09:00 37.1 11/11/19 08:05 36.5 11/11/19 08:05 91 Mechanical Ventilator 45 11/11/19 08:01 37.2 11/11/19 08:00 36.6 105 24 162/72 (102) 91 Mechanical Ventilator 45.00 11/11/19 07:00 37.2 11/11/19 07:00 36.6 103 31 158/72 (100) 91 Mechanical Ventilator 45.00 11/11/19 06:58 98 11/11/19 06:31 98 24 91 45 11/11/19 06:00 37.1 11/11/19 06:00 36.6 98 24 160/73 (102) 93 Mechanical Ventilator 45.00 I & O 11/12/19 07:00 Intake Total 1120 ml Output Total 2575 ml Balance -1455 ml Height & Weight Height: '" Weight: lbs. oz. kg; 33.00 BMI Method: General Appearance: No Apparent Distress, WD/WN, Other (on vent, ill appearing) HEENT: PERRL/EOMI, TMs Normal, Other (nearly pinpoint pupils, equally reactive; ETT/OGT in place) Neck: Full Range of Motion, Supple, Other (central line in place) Respiratory: Chest Non Tender, Lungs Clear, Rhonci, Other (on vent) Cardiovascular: Regular Rate, Rhythm, No Murmur Capillary Refill: Greater Than 3 Seconds Gastrointestinal: normal bowel sounds, non tender, soft Extremity: Normal Capillary Refill, No Pedal Edema Neurologic/Psychiatric: Other (does not follow commands, did move foot to physi gerardo stimulus) Skin: Normal Color, Warm/Dry; No Mottled Results Lab Laboratory Tests 11/10/19 08:45 11/10/19 11:05 11/10/19 14:20 11/10/19 17:30 11/10/19 20:30 11/11/19 02:25 11/11/19 15:10 11/11/19 20:37 11/12/19 02:28 Assessment/Plan Assessment/Plan s/p cardiac arrest -pT is now euthermic -Sedation resumed last night secondary to increased agitation however pt never followed commands Unresponsive secondary to sedation and hypoxic encephalopathy vs other -Check CT of head with and without contrast -HOLD all sedation after head CT Acute respiratory failure -Check CT A of chest -Continue vent -Currently on Propofol gtt, fentanyl, and Ativan pushes -COVID is neg -Influenza is negative Leukocytosis -Gracia culture -CHeck UA -Start Merrem COPDAE -Duoneb - Hypotension - Now resolved -Solucortef -Echo Hypokalemia, hypophos -replace CAD Hole home meds for hypotension and TPA admin Cardiology consulted, appreciate recs NIDDMII GORDON MCMANUS DO November 12, 2019 05:28
[2019-11-12] MEDS: MEROPENEM 1,000 MG in WATER (STERILE) FOR INJECTION 20 ML IV SCH (05:45)
[2019-11-12] MEDS: LACTATED RINGERS 1,000 ML IV SCH ×3 (05:47→18:27)
--- NOTE | 2019-11-12 06:23 | Diagnostic Imaging Report ---
Indication: Respiratory failure Portable chest 3:21 AM ET tube projects over the trachea. NG tube enters the stomach. Right IJ central line tip projects over the SVC. There is left basilar atelectasis. Heart size and pulmonary vascularity are normal. There are no effusions or pneumothoraces. IMPRESSION: No appreciable change in the chest compared to the previous day. Dictated by: Dictated on workstation # [id number]
[2019-11-12] MEDS ORDERED: TROUGH ORDER-PHARMACY XX NR (07:00)
--- NOTE | 2019-11-12 07:15 | NUR ---
pt normothermic for 24 hours at 0445. artic sun removed. rectal temp 37.2.
[2019-11-12] MEDS: ASPIRIN 81 MG CHEW (CHILDREN'S ASA) PO SCH (07:45)
--- NOTE | 2019-11-12 07:45 | NUR ---
OK TO HOLD ASA PER DR EDDY.
--- NOTE | 2019-11-12 08:27 | Progress Note - Hospitalist ---
Subjective HPI/CC On Admission Date Seen by Provider: November 12, 2019 Time Seen by Provider: 08:20 Subjective/Events-last exam Pt remains intubated and sedated. No new concerns per RN. Focused Exam Lactate Level 11/10/19 11:05: Lactic Acid Level 3.21*H 11/10/19 14:20: Lactic Acid Level 2.24*H 11/10/19 17:30: Lactic Acid Level 1.12 Objective Exam Vital Signs Vital Signs Date Time Temp Pulse Resp B/P (MAP) Pulse Ox O2 Delivery O2 Flow Rate FiO2 11/12/19 08:00 37.0 94 24 136/53 (80) 91 Mechanical Ventilator 45.00 11/12/19 07:09 45 Capillary Refill : Greater Than 3 Seconds General Appearance: Obese, Other (inttubated, sedated) Respiratory: Other (on vent, bilateral breath sounds, rhonchi noted) Cardiovascular: Regular Rate, Rhythm, No Murmur Gastrointestinal: Normal Bowel Sounds, Non Tender, Soft Genital/Rectal: Other (an in place) Neurologic/Psychiatric: Other (sedated, appears comfortable) Results/Procedures Lab Laboratory Tests 11/11/19 15:10 11/11/19 20:37 11/12/19 02:28 Patient resulted labs reviewed. Imaging: Reviewed Imaging Films, Reviewed Imaging Report Assessment/Plan Assessment and Plan Assess & Plan/Chief Complaint Cardiac Arrest- therapeutic hypothermia Shock- ? cardiogenic Acute Respiratory Failure with profound hypoxia Elevated D-dimer, presumed PE COPD Intubated, pulm consulted appreciate recs Completed hypothermia protocol and rewarming s/p TPA in the ER for presumed PE on 11/08, now on heparin gtt COVID19 negative Cultures- 1 tube with coag negative staph, likely contaminant Continue Merrem Lactic acidosis resolved [facility] DC-ed last night AMS ?anoxic brain injury vs sedation Plan for CT head today then wean sedation Anemia Mild and relatively stable OG content + for occult blood Hemodynamically stable and likely due to trauma from OGT Continue heparin for now given high probability of PE HTN CAD Hold home meds for hypotension and TPA admin Cardiology consulted, appreciate recs NIDDMII BS control much better Hyponatremia Continue LR, improving DVT ppx: Heparin gtt Critical Care Critically Ill Patient Diagnosis/Problems Diagnosis/Problems (1) Cardiac arrest Status: Acute (2) Acute respiratory failure Qualifiers: Respiratory failure complication: hypoxia Qualified Codes: J96.01 - Acute respiratory failure with hypoxia (3) COPD (chronic obstructive pulmonary disease) Qualifiers: COPD type: unspecified COPD Qualified Codes: J44.9 - Chronic obstructive pulmonary disease, unspecified (4) CAD (coronary artery disease) Status: Chronic Qualifiers: Coronary Disease-Associated Artery/Lesion type: [place] artery [place] vs. transplanted heart: [place] heart Associated angina: without angina Qualified Codes: I25.10 - Atherosclerotic heart disease of [place] coronary artery without angina pectoris (5) Non-insulin dependent type 2 diabetes mellitus Status: Chronic Clinical Quality Measures DVT/VTE Risk/Contraindication: Risk Factor Score Per Nursin RFS Level Per Nursing on Admit: 4+=Very High ASHLYN EDDY MD November 12, 2019 08:27
[2019-11-12] MEDS: meTOprolol TARTRATE 25 MG (LOPRESSOR) TABLET PO SCH ×2 (08:28→20:09)
[2019-11-12] MEDS: PANTOPRAZOLE 40 MG (PROTONIX) VIAL IV SCH (08:28)
[2019-11-12] MEDS: VANCOMYCIN 1500 MG/NS 500 ML IVPB IV SCH ×2 (08:29)
--- NOTE | 2019-11-12 09:00 | NUR ---
PT HAS NOT HAD A CARDIAC PROCEDURE DONE IN ABOUT 15 YRS PER PT'S , PT'S DOES NOT KNOW THE NAME OF THE DR OR THE HOSPITAL IT WAS DONE AT.
--- NOTE | 2019-11-12 09:07 | Progress Note - Cardiology ---
Cardiology SOAP Progress Note Subjective: Unresponsive On mech vent Objective: I&O/Vital Signs 11/11/19 11/11/19 11/11/19 11/11/19 22:00 22:00 22:02 23:00 Temp 37.0 37.1 36.9 Pulse 89 88 Resp 12 24 B/P (MAP) 142/68 (92) Pulse Ox 94 94 O2 Delivery Mechanical Ventilator O2 Flow Rate 45.00 FiO2 45 11/11/19 11/11/19 11/11/19 11/12/19 23:00 23:21 23:59 00:00 Temp 37.0 36.9 36.7 Pulse 86 82 Resp 13 13 B/P (MAP) 131/64 (86) 121/60 (80) Pulse Ox 94 91 93 O2 Delivery Mechanical Ventilator Mechanical Ventilator Mechanical Ventilator O2 Flow Rate 45.00 45.00 FiO2 45 11/12/19 11/12/19 11/12/19 11/12/19 01:00 01:00 01:00 01:44 Temp 36.7 36.7 36.9 Pulse 84 86 Resp 18 B/P (MAP) 140/69 (92) Pulse Ox 93 O2 Delivery Mechanical Ventilator O2 Flow Rate 45.00 11/12/19 11/12/19 11/12/19 11/12/19 01:58 02:00 02:51 03:00 Temp 36.9 37.0 37.1 Pulse 87 86 93 Resp 24 18 14 B/P (MAP) 133/64 (87) 151/71 (97) Pulse Ox 93 93 92 O2 Delivery Mechanical Ventilator Mechanical Ventilator O2 Flow Rate 45.00 45.00 FiO2 45 11/12/19 11/12/19 11/12/19 11/12/19 03:06 04:00 04:00 05:00 Temp 37.1 37.2 37.3 Pulse 94 Resp 18 B/P (MAP) 145/67 (93) Pulse Ox 93 92 O2 Delivery Mechanical Ventilator Mechanical Ventilator O2 Flow Rate 45.00 FiO2 45 11/12/19 11/12/19 11/12/19 11/12/19 05:00 05:54 06:00 07:00 Temp 37.2 37.2 37.2 Pulse 96 92 92 Resp 18 17 B/P (MAP) 150/70 (96) 139/63 (88) Pulse Ox 93 94 O2 Delivery Mechanical Ventilator Mechanical Ventilator O2 Flow Rate 45.00 45.00 11/12/19 11/12/19 11/12/19 11/12/19 07:00 07:09 07:31 07:44 Temp 37.2 37.2 Pulse 92 91 93 Resp 16 24 B/P (MAP) 157/74 (101) 149/58 Pulse Ox 93 93 O2 Delivery Mechanical Ventilator O2 Flow Rate 45.00 FiO2 45 11/12/19 08:00 Temp 37.0 Pulse 94 Resp 24 B/P (MAP) 136/53 (80) Pulse Ox 91 O2 Delivery Mechanical Ventilator O2 Flow Rate 45.00 11/12/19 00:00 Intake Total 1000 ml Output Total 2250 ml Balance -1250 ml Constitutional: other (intubated and on mech vent) Respiratory: other (scattered rhonchi ) Cardiovascular: regular rate-rhythm, systolic murmur (soft SUREKHA at card base) Gastrointestional: soft, audible bowel sounds Extremities: other (mild edema); No clubbing, No cyanosis Neurologic/Psychiatric: other (unresponsive) Skin: warm/dry; No diaphoresis, No damp Results/Procedures: Labs Laboratory Tests 11/11/19 11:28: Glucometer 182H 11/11/19 15:10: Hemoglobin 11.0L, Hematocrit 33L, Activated Partial Thromboplast Time 52H, Gastric Fluid Occult Blood POSITIVEH, Sodium Level 129L, Potassium Level 4.9, Chloride Level 90L, Carbon Dioxide Level 29, Anion Gap 10, Blood Urea Nitrogen 15, Creatinine 1.00, Estimat Glomerular Filtration Rate 56, BUN/Creatinine Ratio 15, Glucose Level 128H, Calcium Level 8.0L, Corrected Calcium 8.9, Phosphorus Level 5.9H, Magnesium Level 2.0, Total Bilirubin 0.3, Aspartate Amino Transf (AST/SGOT) 59H, Alanine Aminotransferase (ALT/SGPT) 19, Alkaline Phosphatase 87, Total Protein 6.0L, Albumin 2.9L, Triglycerides Level 97 11/11/19 19:47: Glucometer 144H 11/11/19 20:37: Hemoglobin 10.4L, Hematocrit 32L, Activated Partial Thromboplast Time 57H, Sodium Level 129L, Potassium Level 5.3H, Chloride Level 90L, Carbon Dioxide Level 29, Anion Gap 10, Blood Urea Nitrogen 16, Creatinine 0.97, Estimat Glomerular Filtration Rate 58, BUN/Creatinine Ratio 16, Glucose Level 135H, Calcium Level 7.9L, Corrected Calcium 8.9, Phosphorus Level 6.0H, Magnesium Level 2.0, Total Bilirubin 0.3, Aspartate Amino Transf (AST/SGOT) 54H, Alanine Aminotransferase (ALT/SGPT) 17, Alkaline Phosphatase 77, Total Protein 5.8L, Albumin 2.8L, Triglycerides Level 102, White Blood Count 17.3H, Red Blood Count 3.78L, Mean Corpuscular Volume 85, Mean Corpuscular Hemoglobin 28, Mean Corpuscular Hemoglobin Concent 33, Red Cell Distribution Width 15.3H, Platelet Count 195, Mean Platelet Volume 10.6H, Neutrophils (%) (Auto) 92H, Lymphocytes (%) (Auto) 3L, Monocytes (%) (Auto) 5, Eosinophils (%) (Auto) 0, Basophils (%) (Auto) 0, Neutrophils # (Auto) 15.8H, Lymphocytes # (Auto) 0.6L, Monocytes # (Auto) 0.9, Eosinophils # (Auto) 0.0, Basophils # (Auto) 0.0, Neutrophils % (Manual) 90, Lymphocytes % (Manual) 5, Monocytes % (Manual) 3, Eosinophils % (Manual) 0, Basophils % (Manual) 0, Band Neutrophils 1, Reactive Lymphocytes 1, Anisocytosis SLIGHT, Prothrombin Time 14.2, INR Comment 1.1 11/11/19 23:29: Glucometer 135H 11/12/19 02:28: White Blood Count 15.5H, Red Blood Count 3.54L, Hemoglobin 9.7L, Hematocrit 30L, Mean Corpuscular Volume 85, Mean Corpuscular Hemoglobin 27, Mean Corpuscular Hemoglobin Concent 32, Red Cell Distribution Width 15.1H, Platelet Count 177, Mean Platelet Volume 10.2, Neutrophils (%) (Auto) 92H, Lymphocytes (%) (Auto) 4L , Monocytes (%) (Auto) 5, Eosinophils (%) (Auto) 0, Basophils (%) (Auto) 0, Neutrophils # (Auto) 14.3H, Lymphocytes # (Auto) 0.6L, Monocytes # (Auto) 0.7, Eosinophils # (Auto) 0.0, Basophils # (Auto) 0.0, Activated Partial Thromboplast Time 113H, Blood Gas Puncture Site RIGHT RADIAL ART MADIE, Blood Gas Patient Temperature 37.0, Arterial Blood pH 7.42, Arterial Blood Partial Pressure CO2 52H, Arterial Blood Partial Pressure O2 77L, Arterial Blood HCO3 33H, Arterial Blood Total CO2 34.4H, Arterial Blood Oxygen Saturation 94, Arterial Blood Base Excess 8.1H, Gustavo Test POSITIVE, Blood Gas Ventilator Setting YES, Blood Gas Inspired Oxygen 45, Sodium Level 130L, Potassium Level 5.1H, Chloride Level 91L, Carbon Dioxide Level 29, Anion Gap 10, Blood Urea Nitrogen 18, Creatinine 0.87, Estimat Glomerular Filtration Rate > 60, BUN/Creatinine Ratio 21, Glucose Level 141H, Calcium Level 7.9L, Corrected Calcium 8.9, Phosphorus Level 4.8H, Magnes ium Level 2.0, Total Bilirubin 0.3, Aspartate Amino Transf (AST/SGOT) 50H, Rodney ine Aminotransferase (ALT/SGPT) 16, Alkaline Phosphatase 71, Total Protein 5.6L, Albumin 2.7L, Vancomycin Level Trough 17.0 11/12/19 06:35: Vancomycin Level Trough 14.3 11/12/19 08:27: Glucometer 108 Microbiology 11/10/19 MRSA Screen - Final, Complete MRSA not isolated 11/09/19 Blood Culture - Preliminary, Resulted Staphylococcus hominis See Comments Laboratory Tests 11/10/19 11:05 11/10/19 14:20 11/10/19 17:30 11/10/19 20:30 11/11/19 02:25 11/11/19 15:10 11/11/19 20:37 11/12/19 02:28 A/P: Assessment: Ac resp arrest and cardiac arrest (PEA) in setting of profound hypoxia and hypotension, PE suspected clinically and being treated by the Hospitalist service Mild, acute CHF, systolic (LV systolic function at lower limit of normal to mildly impaired) and diastolic Hyponatremia of unclear etiology, current clinical hypervolemia suggests that CHF is contributing H/o CAD (reportedly has had 3 stents, none recent) details unknown Mild troponin elevation likely due to type 2 AL due to hypoxia Echo of 11/09/19: LVEF approx 50%, study difficult and not suitable for wall motion analysis, cannot exclude apical hypokinesis ECG: NSR, PACs, LAFB vs old IMI Plan: * Repeat low-dose diuretic again today * Monitor electrolytes * Support BP and respiration * Continue efforts to get old cardiac records * Prognosis guarded RAFAT MONTANA MD FACP FAC CCDS November 12, 2019 09:07
[2019-11-12] MEDS ORDERED: FUROSEMIDE 40 MG/4 ML INJ (LASIX) IVP NR (09:17)
[2019-11-12] MEDS: HEParin DRIP 25000 UNIT/500ML 500 ML IV SCH (09:32)
--- NOTE | 2019-11-12 11:49 | NUR ---
CM/SS following. They are attempting to wean patient off today. CM/SS spoke with physician who stated she could be a possible candidate for [place] next week. Will continue to follow.
[2019-11-12] MEDS ORDERED: HOLD METFORMIN - RECEIVED CONTRAST 20 ML VIAL IV SCH (12:15)
[2019-11-12] MEDS ORDERED: CATHETER FLUSH 10 ML SYR IV PRN (12:15)
[2019-11-12] MEDS ORDERED: IOHEXOL 350 MG/ML 100 ML (OMNIPAQUE 350) VIAL IV ONE (12:15)
[2019-11-12] MEDS ORDERED: NS 100 ML (IVPB) BAG IV ONE (12:15)
--- NOTE | 2019-11-12 12:43 | Diagnostic Imaging Report ---
PROCEDURE: CT head with and without contrast. TECHNIQUE: Multiple contiguous axial images were obtained through the brain before and after the administration of intravenous contrast. Auto Exposure Controls were utilized during the CT exam to meet ALARA standards for radiation dose reduction. INDICATION: Unresponsiveness. FINDINGS: The ventricles and sulci are within normal limits. There is no hydrocephalus. There is no midline shift. There is no mass, hemorrhage or extra-axial fluid collection. There are no abnormal areas of contrast enhancement. The calvarium is intact. There is fluid in the maxillary sinuses and sphenoid sinuses. Mastoid air cells are clear. IMPRESSION: No acute intracranial abnormality. Sinusitis. Dictated by: Dictated on workstation # [id number]
--- NOTE | 2019-11-12 12:50 | NUR ---
PT BACK FROM CT, SEDATION TURNED OFF PER DR CONNOLLY.
--- NOTE | 2019-11-12 13:04 | Diagnostic Imaging Report ---
EXAMINATION: CT angiography of the chest. TECHNIQUE: Contrast enhanced thin section helical images were obtained through the chest with intravenous contrast timed for the optimal opacification of the arterial structures per CTA protocol. Post-processing, reconstructions and interpretation of angiographic images of the vessels was performed. 3D MIP reconstructions were performed and reviewed. All CT scans use one or more of the following dose optimizing techniques: automated exposure control, MA and/or KvP adjustment based on a patient size and exam type, or iterative reconstruction. HISTORY: Cardiac arrest. COMPARISON: 04/07/2008. FINDINGS: There is no pulmonary embolism. There are small bilateral pleural effusions with bibasilar atelectasis. The patient is intubated and a gastric tube is present. There are patchy areas of groundglass. There is a small left pneumothorax. The groundglass is mild in severity. Heart size is normal. There are moderate coronary artery calcifications. No pericardial effusion. Aorta is normal in caliber. There is no axillary or supraclavicular lymphadenopathy. There is no mediastinal lymphadenopathy. Limited views of the upper abdomen show bilateral adrenal nodules which are calcified on the right. These are indeterminate on this scan but likely represent adenomas. They have increased in size from 2007. There are no suspicious osseus lesions. There is a nondisplaced superior sternal fracture. An apparent fracture in the lower portion of the sternum is likely motion artifact. No rib fractures are seen. IMPRESSION: 1. No pulmonary embolism. 2. Small bilateral pleural effusions with right lower lobe collapse and atelectasis of the left lower lobe. 3. Scattered areas of groundglass which are mild in severity, suggestive of inflammatory or infectious process. 4. Small left pneumothorax and nondisplaced sternal fracture. No rib fractures are seen. Dictated by: Dictated on workstation # [id number]
--- NOTE | 2019-11-12 13:10 | NUR ---
CT HEAD AND CTA RESULTS GIVEN TO DR CONNOLLY.
[2019-11-12] MEDS: MEROPENEM 500 MG/SWFI 10 ML IV PUSH IV SCH ×4 (13:32→20:08)
--- NOTE | 2019-11-12 14:22 | NUR ---
VINICIUS HINES admitted to room CU1-1, with an admitting diagnosis of HTN, HYPOXIA, on 11/09/19 from ER via WC, accompanied by STAFF.VINICIUS HINES introduced to surroundings, call light, bed controls, phone, TV, temperature control, lights, meal times, smoking policy, visitor policy, side rail policy, bathrooms and showers. Patient Rights given to patient in the handbook. VINICIUS HINES verbalizes understanding that [facility] is not responsible for the loss or damage to any personal effects or valuables that are kept in the patients posession during their hospitalization. The following Patient Care Plans were discussed with the PT: Discharge Planning, FLUID VOLUME EXCESS,KNOWLEDGE DEFICIT HTN, and NUTRITION MORE THAN BODY REQUIREMENTS. VINICIUS HINES verbalizes understanding of Interdisciplinary Patient Education. Patient and family were informed about the Rapid Response Team and its purpose. Addendum: 11/12/19 at 1513 by SAHIL LONDON RN WRONG PT.
[2019-11-12 18:32] LABS: BASOPHILS % (AUTO) 0 % (0-10); EOSINOPHILS % (AUTO) 0 % (0-10); HEMATOCRIT 28 % (35-52); HEMOGLOBIN 8.9 G/DL (11.5-16.0); LYMPHOCYTES # (AUTO) 0.9 X 10^3 (1.0-4.0); LYMPHOCYTES % (AUTO) 7 % (12-44); MEAN CORPUSCULAR HEMOGLOBIN 27 PG (25-34); MEAN CORPUSCULAR HGB CONC 32 G/DL (32-36); MEAN CORPUSCULAR VOLUME 86 FL (80-99); MEAN PLATELET VOLUME 10.5 FL (7.4-10.4); MONOCYTES # (AUTO) 0.8 X 10^3 (0.0-1.0); MONOCYTES % (AUTO) 6 % (0-12); NEUTROPHILS # (AUTO) 11.6 X 10^3 (1.8-7.8); NEUTROPHILS % (AUTO) 87 % (42-75); PLATELET COUNT 162 10^3/uL (130-400); WHITE BLOOD COUNT 13.2 10^3/uL (4.3-11.0)
[2019-11-12 18:46] LABS: INR 1.1 (0.8-1.4); PROTHROMBIN TIME PATIENT 14.5 SEC (12.2-14.7)
[2019-11-12 18:50] LABS: ALANINE AMINOTRANSFERASE 18 U/L (0-55); ALBUMIN 2.6 GM/DL (3.2-4.5); ALKALINE PHOSPHATASE 62 U/L (40-136); BILIRUBIN,TOTAL 0.4 MG/DL (0.1-1.0); BUN/CREATININE RATIO 20; CARBON DIOXIDE 29 MMOL/L (21-32); CHLORIDE 88 MMOL/L (98-107); CREATININE SERUM 0.79 MG/DL (0.60-1.30); GFR ESTIMATED > 60; GLUCOSE 125 MG/DL (70-105); MAGNESIUM 1.6 MG/DL (1.6-2.4); PHOSPHORUS 2.8 MG/DL (2.3-4.7); POTASSIUM 3.7 MMOL/L (3.6-5.0); SODIUM 129 MMOL/L (135-145); TOTAL PROTEIN 5.4 GM/DL (6.4-8.2)
[2019-11-12] MEDS: fentaNYL INJECTION 100 MCG/2 ML AMP IVP PRN ×2 (20:09→23:30)
[2019-11-13] VITALS (30 sets, daily range): BP systolic 94–142; BP diastolic 42–56
[2019-11-13] MEDS: LORazepam INJ 2 MG/ML (ATIVAN) VIAL IVP PRN (00:24)
[2019-11-13] MEDS: HEParin DRIP 25000 UNIT/500ML 500 ML IV SCH (01:34)
[2019-11-13] MEDS: LACTATED RINGERS 1,000 ML IV SCH (01:40)
[2019-11-13] MEDS: MEROPENEM 500 MG/SWFI 10 ML IV PUSH IV SCH ×8 (01:40→21:11)
[2019-11-13] MEDS: fentaNYL INJECTION 100 MCG/2 ML AMP IVP PRN ×4 (01:47→23:29)
[2019-11-13] MEDS: RT-ALBUTEROL/IPRATROPIUM 3 ML (DUONEB) VIAL INH SCH ×6 (02:12→22:17)
[2019-11-13 03:01] LABS: ABG BASE EXCESS 10.2 MMOL/L (-2.5-2.5); ABG OXYGEN SATURATION 99 % (94-100); ABG PCO2 43 MMHG (35-45); ABG PH 7.51 (7.37-7.43); ABG PO2 101 MMHG (79-93); ABG TCO2 35.1 MMOL/L (21.0-31.0); BASOPHILS % (AUTO) 0 % (0-10); EOSINOPHILS % (AUTO) 0 % (0-10); HEMATOCRIT 26 % (35-52); HEMOGLOBIN 8.4 G/DL (11.5-16.0); LYMPHOCYTES # (AUTO) 0.9 X 10^3 (1.0-4.0); LYMPHOCYTES % (AUTO) 8 % (12-44); MEAN CORPUSCULAR HEMOGLOBIN 28 PG (25-34); MEAN CORPUSCULAR HGB CONC 32 G/DL (32-36); MEAN CORPUSCULAR VOLUME 86 FL (80-99); MEAN PLATELET VOLUME 10.6 FL (7.4-10.4); MONOCYTES # (AUTO) 0.7 X 10^3 (0.0-1.0); MONOCYTES % (AUTO) 6 % (0-12); NEUTROPHILS # (AUTO) 9.6 X 10^3 (1.8-7.8); NEUTROPHILS % (AUTO) 85 % (42-75); PLATELET COUNT 164 10^3/uL (130-400); WHITE BLOOD COUNT 11.2 10^3/uL (4.3-11.0)
[2019-11-13 03:04] LABS: ALLENS TEST POSITIVE; INSPIRED O2 40; PATIENT TEMP 37.7; VENTILATOR YES
[2019-11-13 03:20] LABS: INR 1.1 (0.8-1.4); PROTHROMBIN TIME PATIENT 14.5 SEC (12.2-14.7)
[2019-11-13 03:28] LABS: ALANINE AMINOTRANSFERASE 18 U/L (0-55); ALBUMIN 2.4 GM/DL (3.2-4.5); ALKALINE PHOSPHATASE 58 U/L (40-136); BILIRUBIN,TOTAL 0.4 MG/DL (0.1-1.0); BUN/CREATININE RATIO 18; CALCIUM 7.9 MG/DL (8.5-10.1); CARBON DIOXIDE 27 MMOL/L (21-32); CHLORIDE 92 MMOL/L (98-107); CREATININE SERUM 0.78 MG/DL (0.60-1.30); GFR ESTIMATED > 60; GLUCOSE 104 MG/DL (70-105); MAGNESIUM 1.6 MG/DL (1.6-2.4); PHOSPHORUS 2.3 MG/DL (2.3-4.7); POTASSIUM 3.6 MMOL/L (3.6-5.0); SODIUM 131 MMOL/L (135-145); TRIGLYCERIDES 115 MG/DL (<150)
[2019-11-13] MEDS: PROPOFOL DRIP (ICU) 100 ML IV SCH (03:33)
[2019-11-13] MEDS: MAGNESIUM 1 GM/100 ML IVPB 100 ML IV SCH ×2 (03:41→04:31)
[2019-11-13] MEDS: POTASSIUM CL 10MEQ/50ML IVPB 50 ML IV SCH ×2 (03:41→04:31)
[2019-11-13] MEDS: inSUlin ASPART (NovoLOG) 1 UNIT/0.01 ML (CHARGE PER UNIT) SC SCH ×5 (03:42→20:00)
[2019-11-13] MEDS ORDERED: POTASSIUM PHOSPHATE INJ 30 MM in NS (IVPB) 250 ML IV ONE (05:00)
--- NOTE | 2019-11-13 05:10 | Pulmonary Progress Note ---
Subjective Time Seen by a Provider: 05:05 Subjective/Events-last exam Sedated on vent Sepsis Event Evaluation Height, Weight, BMI Height: '" Weight: lbs. oz. kg; 33.00 BMI Method: Focused Exam Lactate Level 11/10/19 11:05: Lactic Acid Level 3.21*H 11/10/19 14:20: Lactic Acid Level 2.24*H 11/10/19 17:30: Lactic Acid Level 1.12 Exam Exam Vital Signs Date Time Temp Pulse Resp B/P (MAP) Pulse Ox O2 Delivery O2 Flow Rate FiO2 11/13/19 04:00 91 Mechanical Ventilator 30 11/13/19 03:19 Mechanical Ventilator 30.00 11/13/19 03:00 37.7 89 19 126/51 (76) 97 Mechanical Ventilator 40.00 11/13/19 02:12 90 24 98 40 11/13/19 02:00 37.7 87 24 125/53 (77) 97 Mechanical Ventilator 40.00 11/13/19 01:00 93 11/13/19 01:00 37.7 90 19 121/49 (73) 98 Mechanical Ventilator 40.00 11/13/19 00:00 97 Mechanical Ventilator 40 11/13/19 00:00 37.8 92 15 103/51 (68) 97 Mechanical Ventilator 40.00 11/12/19 23:00 37.9 91 24 119/50 (73) 98 Mechanical Ventilator 40.00 11/12/19 22:00 37.9 87 24 103/44 (63) 98 Mechanical Ventilator 40.00 11/12/19 22:00 87 24 98 40 11/12/19 21:00 37.9 99 24 110/46 (67) 97 Mechanical Ventilator 40.00 11/12/19 20:00 97 Mechanical Ventilator 40 11/12/19 20:00 38.0 99 24 115/46 (69) 96 Mechanical Ventilator 40.00 11/12/19 19:00 38.0 106 24 104/44 (64) 94 Mechanical Ventilator 40.00 11/12/19 19:00 107 11/12/19 18:03 99 24 95 40 11/12/19 18:00 37.8 100 23 105/45 (65) 95 Mechanical Ventilator 40.00 11/12/19 17:00 36.1 101 23 170/79 (109) 92 Mechanical Ventilator 40.00 11/12/19 16:33 95 Mechanical Ventilator 40 11/12/19 16:00 36.2 98 19 164/76 (105) 91 Mechanical Ventilator 40.00 11/12/19 15:00 37.3 99 24 114/46 (68) 95 Mechanical Ventilator 40.00 11/12/19 14:49 Mechanical Ventilator 40.00 11/12/19 14:40 101 25 97 45 11/12/19 14:00 37.2 92 23 126/56 (79) 97 Mechanical Ventilator 45.00 11/12/19 13:00 37.2 94 23 124/56 (78) 96 Mechanical Ventilator 45.00 11/12/19 12:36 88 11/12/19 12:00 96 Mechanical Ventilator 45 11/12/19 12:00 37.2 94 23 118/64 (82) 95 Mechanical Ventilator 45.00 11/12/19 11:00 37.2 87 23 126/52 (76) 97 Mechanical Ventilator 45.00 11/12/19 10:25 84 24 98 45 11/12/19 10:00 36.9 80 23 123/49 (73) 93 Mechanical Ventilator 45.00 11/12/19 09:00 36.9 89 23 130/51 (77) 91 Mechanical Ventilator 45.00 11/12/19 08:00 90 Mechanical Ventilator 45 11/12/19 08:00 37.0 94 24 136/53 (80) 91 Mechanical Ventilator 45.00 11/12/19 07:44 93 149/58 11/12/19 07:31 37.2 11/12/19 07:09 91 24 93 45 11/12/19 07:00 37.2 92 16 157/74 (101) 93 Mechanical Ventilator 45.00 11/12/19 07:00 92 11/12/19 06:00 37.2 92 17 139/63 (88) 94 Mechanical Ventilator 45.00 11/12/19 05:54 37.2 I & O 11/13/19 07:00 Intake Total 3145 ml Output Total 2880 ml Balance 265 ml Height & Weight Height: '" Weight: lbs. oz. kg; 33.00 BMI Method: General Appearance: Obese, Other (inttubated, sedated) HEENT: PERRL/EOMI, TMs Normal, Other (nearly pinpoint pupils, equally reactive; ETT/OGT in place) Neck: Full Range of Motion, Supple, Other (central line in place) Respiratory: Other (on vent, bilateral breath sounds, rhonchi noted) Cardiovascular: Regular Rate, Rhythm, No Murmur Capillary Refill: Greater Than 3 Seconds Gastrointestinal: normal bowel sounds, non tender, soft Extremity: Normal Capillary Refill, No Pedal Edema Neurologic/Psychiatric: Other (sedated, appears comfortable) Skin: Normal Color, Warm/Dry; No Mottled Results Lab Laboratory Tests 11/11/19 15:10 11/11/19 20:37 11/12/19 02:28 11/12/19 18:25 11/13/19 02:50 Assessment/Plan Assessment/Plan s/p cardiac arrest -pT is now euthermic -Sedation resumed last night secondary to increased agitation however pt never followed commands Unresponsive secondary to sedation and hypoxic encephalopathy vs other -Decrease sedation -Check ammonia level -Pt does withdrawal to painful stimuli -She does not follow commands Acute respiratory failure -Start TF with Jevity 1.5 at 15cc/hr -Continue vent -Currently on Propofol gtt, fentanyl, and Ativan pushes -COVID is neg -Influenza is negative Probable PE on admission - s/p TPA -Currently on Hep -Change to lovenox BID -Will plan on treating with anticogulation for at least 3mo if pt survives. PTX per CT -- is very small and appears to be stable despite being on vent. -Continue to monitor Sternal fracture Leukocytosis -Gracia culture -Continue Merrem for now COPDAE -Duoneb - Hypotension - Now resolved Hypokalemia, hypophos -replace CAD [place] home meds for hypotension and TPA admin Cardiology consulted, appreciate recs NIDDMII GORDON MCMANUS DO November 13, 2019 05:10
[2019-11-13] MEDS: ENOXAPARIN 100 MG/1 ML (LOVENOX) SYR SC SCH ×2 (05:38→15:42)
[2019-11-13 06:20] LABS: ABG BASE EXCESS 8.9 MMOL/L (-2.5-2.5); ABG OXYGEN SATURATION 94 % (94-100); ABG PCO2 48 MMHG (35-45); ABG PH 7.46 (7.37-7.43); ABG PO2 70 MMHG (79-93); ABG TCO2 34.5 MMOL/L (21.0-31.0)
[2019-11-13 06:25] LABS: ALLENS TEST POSITIVE; INSPIRED O2 30; PATIENT TEMP 37.7; VENTILATOR YES
[2019-11-13] MEDS: meTOprolol TARTRATE 25 MG (LOPRESSOR) TABLET PO SCH ×2 (08:15→21:11)
[2019-11-13] MEDS: ASPIRIN 81 MG CHEW (CHILDREN'S ASA) PO SCH (08:15)
[2019-11-13] MEDS: PANTOPRAZOLE 40 MG (PROTONIX) VIAL IV SCH (08:15)
--- NOTE | 2019-11-13 09:17 | Progress Note - Hospitalist ---
Subjective HPI/CC On Admission Date Seen by Provider: November 13, 2019 Time Seen by Provider: 09:13 Subjective/Events-last exam Pt remains intubated. Off sedation since yesterday. Focused Exam Lactate Level 11/10/19 11:05: Lactic Acid Level 3.21*H 11/10/19 14:20: Lactic Acid Level 2.24*H 11/10/19 17:30: Lactic Acid Level 1.12 Objective Exam Vital Signs Vital Signs Date Time Temp Pulse Resp B/P (MAP) Pulse Ox O2 Delivery O2 Flow Rate FiO2 11/13/19 08:00 95 Mechanical Ventilator 30 11/13/19 06:44 93 23 11/13/19 06:00 37.7 108/44 (65) 30.00 Capillary Refill : Greater Than 3 Seconds General Appearance: Chronically ill, Obese, Other Respiratory: Other (intubatred) Cardiovascular: Regular Rate, Rhythm, No Murmur Gastrointestinal: Normal Bowel Sounds, Non Tender, Soft Extremity: Normal Capillary Refill, Pedal Edema Neurologic/Psychiatric: Other (does not follow commands, appears comfortable) Results/Procedures Lab Laboratory Tests 11/12/19 18:25 11/13/19 02:50 Patient resulted labs reviewed. Imaging: Reviewed Imaging Films, Reviewed Imaging Report Assessment/Plan Assessment and Plan Assess & Plan/Chief Complaint Cardiac Arrest- therapeutic hypothermia Shock- ? cardiogenic Acute Respiratory Failure with profound hypoxia Elevated D-dimer, presumed PE COPD Small left pneumothorax and sternal and rib fracture Intubated, pulm consulted appreciate recs Completed hypothermia protocol and rewarming s/p TPA in the ER for presumed PE on 11/08, now on Lovenox BID COVID19 negative Cultures- 1 tube with coag negative staph, likely contaminant Continue Merrem Lactic acidosis resolved Lasix X1 today AMS ?anoxic brain injury vs sedation CT head negative Anemia Mild and relatively stable OG content + for occult blood Hemodynamically stable and likely due to trauma from OGT Continue Lovenox for now given high probability of PE Hgb trending down but remains HDS so will just trend HTN CAD Hold home meds for hypotension and TPA admin Cardiology consulted, appreciate recs NIDDMII BS control much better Hyponatremia Continue LR, improving DVT ppx: Lovenox Critical Care Critically Ill Patient Diagnosis/Problems Diagnosis/Problems (1) Cardiac arrest Status: Acute (2) Acute respiratory failure Qualifiers: Respiratory failure complication: hypoxia Qualified Codes: J96.01 - Acute respiratory failure with hypoxia (3) COPD (chronic obstructive pulmonary disease) Qualifiers: COPD type: unspecified COPD Qualified Codes: J44.9 - Chronic obstructive pulmonary disease, unspecified (4) CAD (coronary artery disease) Status: Chronic Qualifiers: Coronary Disease-Associated Artery/Lesion type: [place] artery [place] vs. transplanted heart: [place] heart Associated angina: without angina Qualified Codes: I25.10 - Atherosclerotic heart disease of [place] coronary artery without angina pectoris (5) Non-insulin dependent type 2 diabetes mellitus Status: Chronic Clinical Quality Measures DVT/VTE Risk/Contraindication: Risk Factor Score Per Nursin RFS Level Per Nursing on Admit: 4+=Very High ASHLYN EDDY MD November 13, 2019 09:17
--- NOTE | 2019-11-13 09:18 | Diagnostic Imaging Report ---
Clinical indication: Patient post code, follow-up. Patient on ventilator ICU management. Exam: Portable chest x-ray upright view. Comparisons: Portable chest x-ray dated 11/12/2019. Findings: Cardiac silhouette is within normal limits for portable projection. There is no significant pulmonary vascular congestion. There is stable groundglass opacification involving both lower lung field regions which may represent atelectasis versus infiltrates. There is no definite pleural effusion. No pneumothorax. ET tube again seen in good stable position. Right IJ central line seen in stable good position in the proximal superior vena cava region. Feeding tube is again noted, but its distal portion incompletely imaged, but is below level of the diaphragm. The remainder of this exam shows no significant interval change compared to the prior study of comparison. IMPRESSION: 1: Stable chest x-ray exam with continued bibasilar atelectasis versus infiltrate. 2: Stable lines and tubes, as described above. Dictated by: Dictated on workstation # [id number]
[2019-11-13] MEDS ORDERED: FUROSEMIDE 40 MG/4 ML INJ (LASIX) IVP NR (09:45)
--- NOTE | 2019-11-13 12:24 | Physical Therapy Progress Note ---
Therapy Progress Note Pt currently on the ventilator and non-responsive. Will attempt therapy again Friday. STEFANY ALMODOVAR PT November 13, 2019 12:24
--- NOTE | 2019-11-13 13:04 | Progress Note - Cardiology ---
Cardiology SOAP Progress Note Subjective: Unresponsive On mech vent Objective: I&O/Vital Signs 11/13/19 11/13/19 11/13/19 11/13/19 02:00 02:12 03:00 03:19 Temp 37.7 37.7 Pulse 87 90 89 Resp 19 B/P (MAP) 125/53 (77) 126/51 (76) Pulse Ox 97 98 97 O2 Delivery Mechanical Ventilator Mechanical Ventilator Mechanical Ventilator O2 Flow Rate 40.00 40.00 30.00 FiO2 40 11/13/19 11/13/19 11/13/19 11/13/19 04:00 04:00 05:00 06:00 Temp 37.7 37.7 37.7 Pulse 89 92 93 Resp 23 B/P (MAP) 128/46 (73) 112/45 (67) 108/44 (65) Pulse Ox 93 91 93 94 O2 Delivery Mechanical Ventilator Mechanical Ventilator Mechanical Ventilator Mechanical Ventilator O2 Flow Rate 30.00 30.00 30.00 FiO2 30 11/13/19 11/13/19 11/13/19 11/13/19 06:43 06:44 07:00 08:00 Temp 37.8 Pulse 96 93 99 Resp 28 B/P (MAP) 125/50 (75) Pulse Ox 94 94 95 O2 Delivery Mechanical Ventilator Mechanical Ventilator O2 Flow Rate 30.00 FiO2 30 30 11/13/19 11/13/19 11/13/19 11/13/19 08:00 09:00 10:00 10:14 Temp 37.8 37.9 38.0 Pulse 99 98 85 86 Resp 22 B/P (MAP) 114/45 (68) 115/45 (68) 111/43 (65) Pulse Ox 94 95 95 95 O2 Delivery Mechanical Ventilator Mechanical Ventilator Mechanical Ventilator O2 Flow Rate 30.00 30.00 30.00 FiO2 30 11/13/19 11/13/19 11/13/19 11:00 12:00 12:00 Temp 38.1 38.0 Pulse 89 93 Resp 22 B/P (MAP) 112/46 (68) 118/48 (71) Pulse Ox 95 95 94 O2 Delivery Mechanical Ventilator Mechanical Ventilator Mechanical Ventilator O2 Flow Rate 30.00 30.00 FiO2 30 11/13/19 00:00 Intake Total 2020 ml Output Total 2430 ml Balance -410 ml Constitutional: other (intubated and on mech vent) Respiratory: other (scattered rhonchi ) Cardiovascular: regular rate-rhythm, systolic murmur (soft SUREKHA at card base) Gastrointestional: soft, audible bowel sounds Extremities: other (mild edema); No clubbing, No cyanosis Neurologic/Psychiatric: other (unresponsive) Skin: warm/dry; No diaphoresis, No damp Results/Procedures: Labs Laboratory Tests 11/12/19 15:24: Glucometer 133H 11/12/19 15:25: Activated Partial Thromboplast Time 77H 11/12/19 18:25: White Blood Count 13.2H, Red Blood Count 3.25L, Hemoglobin 8.9L, Hematocrit 28L, Mean Corpuscular Volume 86, Mean Corpuscular Hemoglobin 27, Mean Corpuscular Hemoglobin Concent 32, Red Cell Distribution Width 15.0H, Platelet Count 162, Mean Platelet Volume 10.5H, Neutrophils (%) (Auto) 87H, Lymphocytes (%) (Auto) 7L, Monocytes (%) (Auto) 6, Eosinophils (%) (Auto) 0, Basophils (%) (Auto) 0, Neutrophils # (Auto) 11.6H, Lymphocytes # (Auto) 0.9L, Monocytes # (Auto) 0.8, Eosinophils # (Auto) 0.0, Basophils # (Auto) 0.0, Prothrombin Time 14.5, INR Comment 1.1, Sodium Level 129L, Potassium Level 3.7, Chloride Level 88L, Carbon Dioxide Level 29, Anion Gap 12, Blood Urea Nitrogen 16, Creatinine 0.79, Estimat Glomerular Filtration Rate > 60, BUN/Creatinine Ratio 20, Glucose Level 125H, Calcium Level 8.0L, Corrected Calcium 9.1, Phosphorus Level 2.8, Magnesium Level 1.6, Total Bilirubin 0.4, Aspartate Amino Transf (AST/SGOT) 78H, Alanine Aminotransferase (ALT/SGPT) 18, Alkaline Phosphatase 62, Total Protein 5.4L, Albumin 2.6L 11/12/19 20:26: Glucometer 115H 11/12/19 23:35: Glucometer 104 11/13/19 02:50: White Blood Count 11.2H, Red Blood Count 3.05L, Hemoglobin 8.4L, Hematocrit 26L, Mean Corpuscular Volume 86, Mean Corpuscular Hemoglobin 28, Mean Corpuscular Hemoglobin Concent 32, Red Cell Distribution Width 15.0H, Platelet Count 164, Mean Platelet Volume 10.6H, Neutrophils (%) (Auto) 85H, Lymphocytes (%) (Auto) 8L, Monocytes (%) (Auto) 6, Eosinophils (%) (Auto) 0, Basophils (%) (Auto) 0, Neutrophils # (Auto) 9.6H, Lymphocytes # (Auto) 0.9L, Monocytes # (Auto) 0.7, Eosinophils # (Auto) 0.0, Basophils # (Auto) 0.0, Prothrombin Time 14.5, INR Comment 1.1, Activated Partial Thromboplast Time 65H, Blood Gas Puncture Site RIGHT ART LINE, Blood Gas Patient Temperature 37.7, Arterial Blood pH 7.51H, Arterial Blood Partial Pressure CO2 43, Arterial Blood Partial Pressure O2 101H, Arterial Blood HCO3 34H, Arterial Blood Total CO2 35.1H, Arterial Blood Oxygen Saturation 99, Arterial Blood Base Excess 10.2H, Gustavo Test POSITIVE, Blood Gas Ventilator Setting YES, Blood Gas Inspired Oxygen 40, Sodium Level 131L, Potassium Level 3.6, Chloride Level 92L, Carbon Dioxide Level 27, Anion Gap 12, Blood Urea Nitrogen 14, Creatinine 0.78, Estimat Glomerular Filtration Rate > 60, BUN/Creatinine Ratio 18, Glucose Level 104, Calcium Level 7.9L, Corrected Calcium 9.2, Phosphorus Level 2.3, Magnesium Level 1.6, Total Bilirubin 0.4, Aspartate Amino Transf (AST/SGOT) 92H, Alanine Aminotransferase (ALT/SGPT) 18, Alkaline Phosphatase 58, Total Protein 5.0L, Albumin 2.4L, Triglycerides Level 115 11/13/19 06:05: Blood Gas Puncture Site RIGHT RADIAL, Blood Gas Patient Temperature 37.7, Arterial Blood pH 7.46H, Arterial Blood Partial Pressure CO2 48H, Arterial Blood Partial Pressure O2 70L, Arterial Blood HCO3 33H, Arterial Blood Total CO2 34.5H , Arterial Blood Oxygen Saturation 94, Arterial Blood Base Excess 8.9H, Gustavo Test POSITIVE, Blood Gas Ventilator Setting YES, Blood Gas Inspired Oxygen 30, Ammonia 24 11/13/19 08:27: Glucometer 122H 11/13/19 11:11: Glucometer 125H Microbiology 11/10/19 MRSA Screen - Final, Complete MRSA not isolated 11/09/19 Blood Culture - Final, Complete Staphylococcus hominis Laboratory Tests 11/11/19 15:10 11/11/19 20:37 11/12/19 02:28 11/12/19 18:25 11/13/19 02:50 A/P: Assessment: Ac resp arrest and cardiac arrest (PEA) in setting of profound hypoxia and hypotension, PE suspected clinically and being treated by the Hospitalist service Mild, acute CHF, systolic (LV systolic function at lower limit of normal to mildly impaired) and diastolic Hyponatremia of unclear etiology, current clinical hypervolemia suggests that CHF is contributing H/o CAD (reportedly has had 3 stents, none recent) details unknown Mild troponin elevation likely due to type 2 NC due to hypoxia Echo of 11/09/19: LVEF approx 50%, study difficult and not suitable for wall m otion analysis, cannot exclude apical hypokinesis ECG: NSR, PACs, LAFB vs old IMI Plan: * Diuretics as needed * Monitor electrolytes * Support BP and respiration * No success in obtaining old cardiac records * ASA due a h/o cor stents * Prognosis guarded RAFAT MONTANA MD FACP FAC CCDS November 13, 2019 13:04
[2019-11-13 17:30] LABS: BASOPHILS % (AUTO) 0 % (0-10); EOSINOPHILS # (AUTO) 0.1 10^3/uL (0.0-0.3); EOSINOPHILS % (AUTO) 1 % (0-10); HEMATOCRIT 26 % (35-52); HEMOGLOBIN 8.5 G/DL (11.5-16.0); LYMPHOCYTES # (AUTO) 0.8 X 10^3 (1.0-4.0); LYMPHOCYTES % (AUTO) 8 % (12-44); MEAN CORPUSCULAR HEMOGLOBIN 28 PG (25-34); MEAN CORPUSCULAR HGB CONC 33 G/DL (32-36); MEAN CORPUSCULAR VOLUME 86 FL (80-99); MONOCYTES # (AUTO) 0.9 X 10^3 (0.0-1.0); MONOCYTES % (AUTO) 9 % (0-12); NEUTROPHILS # (AUTO) 8.8 X 10^3 (1.8-7.8); NEUTROPHILS % (AUTO) 83 % (42-75); PLATELET COUNT 168 10^3/uL (130-400); RED CELL DISTRIBUTION WIDTH 15.4 % (10.0-14.5); WHITE BLOOD COUNT 10.6 10^3/uL (4.3-11.0)
[2019-11-13 17:41] LABS: INR 1.1 (0.8-1.4); PROTHROMBIN TIME PATIENT 15.1 SEC (12.2-14.7)
[2019-11-13 17:50] LABS: ALANINE AMINOTRANSFERASE 20 U/L (0-55); ALBUMIN 2.5 GM/DL (3.2-4.5); ALKALINE PHOSPHATASE 70 U/L (40-136); BILIRUBIN,TOTAL 0.4 MG/DL (0.1-1.0); BUN/CREATININE RATIO 16; CALCIUM 8.1 MG/DL (8.5-10.1); CARBON DIOXIDE 30 MMOL/L (21-32); CHLORIDE 89 MMOL/L (98-107); GFR ESTIMATED > 60; GLUCOSE 134 MG/DL (70-105); MAGNESIUM 1.7 MG/DL (1.6-2.4); PHOSPHORUS 3.4 MG/DL (2.3-4.7); POTASSIUM 3.6 MMOL/L (3.6-5.0); SODIUM 130 MMOL/L (135-145); TOTAL PROTEIN 5.5 GM/DL (6.4-8.2); TRIGLYCERIDES 123 MG/DL (<150)
[2019-11-14] VITALS (30 sets, daily range): BP systolic 108–169; BP diastolic 44–83
[2019-11-14] MEDS: fentaNYL INJECTION 100 MCG/2 ML AMP IVP PRN ×7 (01:44→21:47)
[2019-11-14] MEDS: MEROPENEM 500 MG/SWFI 10 ML IV PUSH IV SCH ×8 (01:44→19:20)
[2019-11-14] MEDS: RT-ALBUTEROL/IPRATROPIUM 3 ML (DUONEB) VIAL INH SCH ×6 (02:28→21:57)
[2019-11-14 03:13] LABS: BASOPHILS % (AUTO) 0 % (0-10); EOSINOPHILS # (AUTO) 0.1 10^3/uL (0.0-0.3); EOSINOPHILS % (AUTO) 1 % (0-10); HEMATOCRIT 26 % (35-52); HEMOGLOBIN 8.5 G/DL (11.5-16.0); LYMPHOCYTES # (AUTO) 0.9 X 10^3 (1.0-4.0); LYMPHOCYTES % (AUTO) 9 % (12-44); MEAN CORPUSCULAR HEMOGLOBIN 28 PG (25-34); MEAN CORPUSCULAR HGB CONC 32 G/DL (32-36); MEAN CORPUSCULAR VOLUME 86 FL (80-99); MEAN PLATELET VOLUME 10.2 FL (7.4-10.4); MONOCYTES % (AUTO) 10 % (0-12); NEUTROPHILS # (AUTO) 7.9 X 10^3 (1.8-7.8); NEUTROPHILS % (AUTO) 81 % (42-75); PLATELET COUNT 173 10^3/uL (130-400); RED CELL DISTRIBUTION WIDTH 15.5 % (10.0-14.5); WHITE BLOOD COUNT 9.7 10^3/uL (4.3-11.0)
[2019-11-14 03:14] LABS: ABG BASE EXCESS 11.2 MMOL/L (-2.5-2.5); ABG OXYGEN SATURATION 91 % (94-100); ABG PCO2 49 MMHG (35-45); ABG PH 7.47 (7.37-7.43); ABG PO2 67 MMHG (79-93); ABG TCO2 36.9 MMOL/L (21.0-31.0)
[2019-11-14 03:15] LABS: ALLENS TEST POSITIVE; INSPIRED O2 30; PATIENT TEMP 37.6; VENTILATOR YES
[2019-11-14 03:21] LABS: CHLORIDE 89 MMOL/L (98-107); POTASSIUM 3.8 MMOL/L (3.6-5.0); SODIUM 131 MMOL/L (135-145)
[2019-11-14 03:23] LABS: CALCIUM 8.2 MG/DL (8.5-10.1); GLUCOSE 132 MG/DL (70-105)
[2019-11-14 03:25] LABS: CARBON DIOXIDE 31 MMOL/L (21-32)
[2019-11-14 03:27] LABS: CREATININE SERUM 0.74 MG/DL (0.60-1.30); GFR ESTIMATED > 60; PHOSPHORUS 3.3 MG/DL (2.3-4.7)
[2019-11-14 03:28] LABS: BUN/CREATININE RATIO 15
[2019-11-14 03:29] LABS: MAGNESIUM 1.8 MG/DL (1.6-2.4)
[2019-11-14] MEDS: LACTATED RINGERS 1,000 ML IV SCH ×3 (04:14→22:52)
[2019-11-14] MEDS: inSUlin ASPART (NovoLOG) 1 UNIT/0.01 ML (CHARGE PER UNIT) SC SCH ×7 (04:14→23:30)
[2019-11-14] MEDS: ENOXAPARIN 100 MG/1 ML (LOVENOX) SYR SC SCH ×2 (04:39→16:52)
--- NOTE | 2019-11-14 06:17 | Pulmonary Progress Note ---
Subjective Time Seen by a Provider: 06:14 Subjective/Events-last exam Pt is sedated on vent. Sepsis Event Evaluation Height, Weight, BMI Height: '" Weight: lbs. oz. kg; 33.00 BMI Method: Exam Exam Vital Signs Date Time Temp Pulse Resp B/P (MAP) Pulse Ox O2 Delivery O2 Flow Rate FiO2 11/14/19 04:00 37.4 87 22 120/47 (71) 94 Mechanical Ventilator 30.00 11/14/19 03:00 37.6 89 22 123/50 (74) 93 Mechanical Ventilator 30.00 11/14/19 02:29 85 26 96 30 11/14/19 02:00 37.7 82 19 126/52 (76) 94 Mechanical Ventilator 30.00 11/14/19 01:00 37.8 87 24 116/49 (71) 94 Mechanical Ventilator 30.00 11/14/19 01:00 87 11/14/19 00:00 37.8 88 22 116/49 (71) 93 Mechanical Ventilator 30.00 11/13/19 23:59 95 Mechanical Ventilator 30 11/13/19 23:00 38.0 88 25 122/46 (71) 93 Mechanical Ventilator 30.00 11/13/19 22:30 Mechanical Ventilator 30.00 11/13/19 22:18 88 26 99 30 11/13/19 22:00 38.2 88 21 115/45 (68) 98 Mechanical Ventilator 40.00 11/13/19 21:00 38.3 103 32 142/53 (82) 95 Mechanical Ventilator 40.00 11/13/19 20:00 95 Mechanical Ventilator 40 11/13/19 20:00 38.1 101 26 118/45 (69) 95 Mechanical Ventilator 40.00 11/13/19 19:00 104 11/13/19 19:00 38.1 104 28 116/45 (68) 94 Mechanical Ventilator 40.00 11/13/19 18:06 98 26 94 30 11/13/19 18:00 38.1 101 26 105/42 (63) 94 Mechanical Ventilator 40.00 11/13/19 17:00 38.1 97 28 113/43 (66) 89 Mechanical Ventilator 40.00 11/13/19 16:29 Mechanical Ventilator 40.00 11/13/19 16:00 38.1 97 28 108/44 (65) 89 Mechanical Ventilator 30.00 11/13/19 16:00 95 Mechanical Ventilator 30 11/13/19 15:00 38.1 91 27 142/56 (84) 93 Mechanical Ventilator 30.00 11/13/19 14:01 95 24 94 30 11/13/19 14:00 38.1 96 25 124/49 (74) 94 Mechanical Ventilator 30.00 11/13/19 13:00 38.1 92 23 116/46 (69) 94 Mechanical Ventilator 30.00 11/13/19 12:41 94 11/13/19 12:00 38.0 93 22 118/48 (71) 94 Mechanical Ventilator 30.00 11/13/19 12:00 95 Mechanical Ventilator 30 11/13/19 11:00 38.1 89 22 112/46 (68) 95 Mechanical Ventilator 30.00 11/13/19 10:14 86 22 95 30 11/13/19 10:00 38.0 85 22 111/43 (65) 95 Mechanical Ventilator 30.00 11/13/19 09:00 37.9 98 24 115/45 (68) 95 Mechanical Ventilator 30.00 11/13/19 08:00 37.8 99 22 114/45 (68) 94 Mechanical Ventilator 30.00 11/13/19 08:00 95 Mechanical Ventilator 30 11/13/19 07:00 37.8 99 28 125/50 (75) 94 Mechanical Ventilator 30.00 11/13/19 06:44 93 23 94 30 11/13/19 06:43 96 I & O 11/14/19 07:00 Intake Total 1030 ml Output Total 2650 ml Balance -1620 ml Height & Weight Height: '" Weight: lbs. oz. kg; 33.00 BMI Method: General Appearance: Chronically ill, Obese, Other HEENT: PERRL/EOMI, TMs Normal, Other (nearly pinpoint pupils, equally reactive; ETT/OGT in place) Neck: Full Range of Motion, Supple, Other (central line in place) Respiratory: Other (intubatred) Cardiovascular: Regular Rate, Rhythm, No Murmur Capillary Refill: Greater Than 3 Seconds Gastrointestinal: normal bowel sounds, non tender, soft Extremity: Normal Capillary Refill, Pedal Edema Neurologic/Psychiatric: Other (does not follow commands, appears comfortable) Skin: Normal Color, Warm/Dry; No Mottled Results Lab Laboratory Tests 11/12/19 18:25 5/9/20 02:50 11/13/19 17:23 11/14/19 03:00 Assessment/Plan Assessment/Plan s/p cardiac arrest -pT is now euthermic -Sedation resumed last night secondary to increased agitation however pt never followed commands Unresponsive secondary to sedation and hypoxic encephalopathy vs other -Decrease sedation -Check ammonia level -Pt does withdrawal to painful stimuli -She does not follow commands Acute respiratory failure -Start TF with Jevity 1.5 at 15cc/hr -Continue vent -Currently on Propofol gtt, fentanyl, and Ativan pushes -COVID is neg -Influenza is negative Probable PE on admission - s/p TPA -Currently on Hep -Change to lovenox BID -Will plan on treating with anticogulation for at least 3mo if pt survives. PTX per CT -- is very small and appears to be stable despite being on vent. -Continue to monitor Sternal fracture Leukocytosis -Gracia culture -Continue Merrem for now COPDAE -Duoneb - Hypotension - Now resolved Hypokalemia, hypophos -replace CAD [place] home meds for hypotension and TPA admin Cardiology consulted, appreciate recs NIDDMII GORDON MCMANUS DO November 14, 2019 06:17
--- NOTE | 2019-11-14 06:21 | Pulmonary Progress Note ---
Subjective Time Seen by a Provider: 06:18 Subjective/Events-last exam Pt is unresponsive on vent. Sepsis Event Evaluation Height, Weight, BMI Height: '" Weight: lbs. oz. kg; 33.00 BMI Method: Exam Exam Vital Signs Date Time Temp Pulse Resp B/P (MAP) Pulse Ox O2 Delivery O2 Flow Rate FiO2 11/14/19 04:00 37.4 87 22 120/47 (71) 94 Mechanical Ventilator 30.00 11/14/19 03:00 37.6 89 22 123/50 (74) 93 Mechanical Ventilator 30.00 11/14/19 02:29 85 26 96 30 11/14/19 02:00 37.7 82 19 126/52 (76) 94 Mechanical Ventilator 30.00 11/14/19 01:00 37.8 87 24 116/49 (71) 94 Mechanical Ventilator 30.00 11/14/19 01:00 87 11/14/19 00:00 37.8 88 22 116/49 (71) 93 Mechanical Ventilator 30.00 11/13/19 23:59 95 Mechanical Ventilator 30 11/13/19 23:00 38.0 88 25 122/46 (71) 93 Mechanical Ventilator 30.00 11/13/19 22:30 Mechanical Ventilator 30.00 11/13/19 22:18 88 26 99 30 11/13/19 22:00 38.2 88 21 115/45 (68) 98 Mechanical Ventilator 40.00 11/13/19 21:00 38.3 103 32 142/53 (82) 95 Mechanical Ventilator 40.00 11/13/19 20:00 95 Mechanical Ventilator 40 11/13/19 20:00 38.1 101 26 118/45 (69) 95 Mechanical Ventilator 40.00 11/13/19 19:00 104 11/13/19 19:00 38.1 104 28 116/45 (68) 94 Mechanical Ventilator 40.00 11/13/19 18:06 98 26 94 30 11/13/19 18:00 38.1 101 26 105/42 (63) 94 Mechanical Ventilator 40.00 11/13/19 17:00 38.1 97 28 113/43 (66) 89 Mechanical Ventilator 40.00 11/13/19 16:29 Mechanical Ventilator 40.00 11/13/19 16:00 38.1 97 28 108/44 (65) 89 Mechanical Ventilator 30.00 11/13/19 16:00 95 Mechanical Ventilator 30 11/13/19 15:00 38.1 91 27 142/56 (84) 93 Mechanical Ventilator 30.00 11/13/19 14:01 95 24 94 30 11/13/19 14:00 38.1 96 25 124/49 (74) 94 Mechanical Ventilator 30.00 11/13/19 13:00 38.1 92 23 116/46 (69) 94 Mechanical Ventilator 30.00 11/13/19 12:41 94 11/13/19 12:00 38.0 93 22 118/48 (71) 94 Mechanical Ventilator 30.00 11/13/19 12:00 95 Mechanical Ventilator 30 11/13/19 11:00 38.1 89 22 112/46 (68) 95 Mechanical Ventilator 30.00 11/13/19 10:14 86 22 95 30 11/13/19 10:00 38.0 85 22 111/43 (65) 95 Mechanical Ventilator 30.00 11/13/19 09:00 37.9 98 24 115/45 (68) 95 Mechanical Ventilator 30.00 11/13/19 08:00 37.8 99 22 114/45 (68) 94 Mechanical Ventilator 30.00 11/13/19 08:00 95 Mechanical Ventilator 30 11/13/19 07:00 37.8 99 28 125/50 (75) 94 Mechanical Ventilator 30.00 11/13/19 06:44 93 23 94 30 11/13/19 06:43 96 I & O 11/14/19 07:00 Intake Total 1030 ml Output Total 2650 ml Balance -1620 ml Height & Weight Height: '" Weight: lbs. oz. kg; 33.00 BMI Method: General Appearance: Chronically ill, Obese, Other HEENT: PERRL/EOMI, TMs Normal, Other (nearly pinpoint pupils, equally reactive; ETT/OGT in place) Neck: Full Range of Motion, Supple, Other (central line in place) Respiratory: Other (intubatred) Cardiovascular: Regular Rate, Rhythm, No Murmur Capillary Refill: Greater Than 3 Seconds Gastrointestinal: normal bowel sounds, non tender, soft Extremity: Normal Capillary Refill, Pedal Edema Neurologic/Psychiatric: Other (does not follow commands, appears comfortable) Skin: Normal Color, Warm/Dry; No Mottled Results Lab Laboratory Tests 11/12/19 18:25 11/13/19 02:50 11/13/19 17:23 11/14/19 03:00 Assessment/Plan Assessment/Plan s/p cardiac arrest -pT is now euthermic -Sedation resumed last night secondary to increased agitation however pt never followed commands Unresponsive secondary to sedation and hypoxic encephalopathy vs other -Decrease sedation -Pt does withdrawal to painful stimuli -She does not follow commands Acute respiratory failure -Start TF with Jevity 1.5 at 15cc/hr -Continue vent -Currently on Propofol gtt, fentanyl, and Ativan pushes -COVID is neg -Influenza is negative Probable PE on admission - s/p TPA -Currently on Hep -Change to lovenox BID -Will plan on treating with anticogulation for at least 3mo if pt survives. PTX per CT -- is very small and appears to be stable despite being on vent. -Continue to monitor Sternal fracture Leukocytosis -Gracia culture -Continue Merrem for now COPDAE -Duoneb - Hypotension - Now resolved Hypokalemia, hypophos -replace CAD [place] home meds for hypotension and TPA admin Cardiology consulted, appreciate recs NIDDMII GORDON MCMANUS DO November 14, 2019 06:21
[2019-11-14 07:57] LABS: ABG BASE EXCESS 9.6 MMOL/L (-2.5-2.5); ABG OXYGEN SATURATION 91 % (94-100); ABG PCO2 47 MMHG (35-45); ABG PH 7.47 (7.37-7.43); ABG PO2 71 MMHG (79-93)
[2019-11-14 07:58] LABS: ALLENS TEST ARTLINE; INSPIRED O2 30%; PATIENT TEMP 37.3; VENTILATOR YES
--- NOTE | 2019-11-14 08:18 | Diagnostic Imaging Report ---
Portable erect AP chest at 342 hours. INDICATION: Respiratory distress. FINDINGS: The heart is stable in size when compared to the prior exam of 11/13/2019. The atelectasis/infiltrate involving both lung bases seen on the prior study is again evident and perhaps slightly greater. The upper lungs remain clear. The mediastinum is not widened. The osseous structures are intact. The supportive tubes and lines seem unchanged in position. IMPRESSION: The overall appearance of the chest has not changed significantly since the prior exam. However, there may be slightly greater involvement of both lung bases by atelectasis/infiltrate. A followup study would be recommended for continued evaluation. Dictated by: Dictated on workstation # [id number]
[2019-11-14] MEDS: ASPIRIN 81 MG CHEW (CHILDREN'S ASA) PO SCH (08:26)
[2019-11-14] MEDS: meTOprolol TARTRATE 25 MG (LOPRESSOR) TABLET PO SCH ×2 (08:26→19:43)
[2019-11-14] MEDS: PANTOPRAZOLE 40 MG (PROTONIX) VIAL IV SCH (08:26)
--- NOTE | 2019-11-14 09:45 | NUR ---
Pt placed on PS mode per RT. By 955, pt HR, BP and RR all increased to an above normal range. Dr. Gonzales notified and pt placed back on AC mode.
--- NOTE | 2019-11-14 10:42 | Progress Note - Hospitalist ---
Subjective HPI/CC On Admission Date Seen by Provider: November 14, 2019 Time Seen by Provider: 10:38 Subjective/Events-last exam Pt remains intubated. Now responsive but slowed responses. Objective Exam Vital Signs Vital Signs Date Time Temp Pulse Resp B/P (MAP) Pulse Ox O2 Delivery O2 Flow Rate FiO2 11/14/19 10:03 110 36 94 30 11/14/19 08:00 Mechanical Ventilator 11/14/19 06:00 37.7 108/44 (65) 30.00 Capillary Refill : Greater Than 3 Seconds General Appearance: Chronically ill, Obese Respiratory: Lungs Clear, Other (on vent) Cardiovascular: Regular Rate, Rhythm, No Murmur Gastrointestinal: Normal Bowel Sounds, Non Tender, Soft Genital/Rectal: Other (an in place) Neurologic/Psychiatric: Other (alert, follows commands but slowed) Results/Procedures Lab Laboratory Tests 11/13/19 17:23 11/14/19 03:00 Patient resulted labs reviewed. Imaging: Reviewed Imaging Films, Reviewed Imaging Report Assessment/Plan Assessment and Plan Assess & Plan/Chief Complaint Cardiac Arrest- therapeutic hypothermia Shock- ? cardiogenic Acute Respiratory Failure with profound hypoxia Elevated D-dimer, presumed PE COPD Small left pneumothorax and sternal and rib fracture Intubated, pulm consulted appreciate recs Attempted weaning trial today but did not tolerate well Discussed with Dr Gonzales, hopeful able to wean vent tomorrow Completed hypothermia protocol and rewarming s/p TPA in the ER for presumed PE on 11/08, now on Lovenox BID COVID19 negative Cultures- 1 tube with coag negative staph, likely contaminant Continue Merrem Lactic acidosis resolved AMS- improving Mentation improving, able to follow commands today Anemia Mild and relatively stable- 8.5 today again OG content + for occult blood Hemodynamically stable and likely due to trauma from OGT Continue Lovenox for now given high probability of PE HTN CAD Hold home meds for hypotension and TPA admin Cardiology consulted, appreciate recs NIDDMII BS control much better Hyponatremia Continue LR, improving DVT ppx: Lovenox Critical Care Critically Ill Patient Diagnosis/Problems Diagnosis/Problems (1) Cardiac arrest Status: Acute (2) Acute respiratory failure Qualifiers: Respiratory failure complication: hypoxia Qualified Codes: J96.01 - Acute respiratory failure with hypoxia (3) COPD (chronic obstructive pulmonary disease) Qualifiers: COPD type: unspecified COPD Qualified Codes: J44.9 - Chronic obstructive pulmonary disease, unspecified (4) CAD (coronary artery disease) Status: Chronic Qualifiers: Coronary Disease-Associated Artery/Lesion type: [place] artery [place] vs. transplanted heart: [place] heart Associated angina: without angina Qualified Codes: I25.10 - Atherosclerotic heart disease of [place] coronary artery without angina pectoris (5) Non-insulin dependent type 2 diabetes mellitus Status: Chronic Clinical Quality Measures DVT/VTE Risk/Contraindication: Risk Factor Score Per Nursin RFS Level Per Nursing on Admit: 4+=Very High ASHLYN EDDY MD November 14, 2019 10:42
--- NOTE | 2019-11-14 16:04 | Progress Note - Cardiology ---
Cardiology SO Progress Note Objective: I&O/Vital Signs 11/14/19 11/14/19 11/14/19 11/14/19 05:00 06:00 06:48 06:48 Temp 37.7 37.7 Pulse 92 93 93 94 Resp 20 23 26 B/P (MAP) 112/45 (67) 108/44 (65) Pulse Ox 93 94 94 O2 Delivery Mechanical Ventilator Mechanical Ventilator O2 Flow Rate 30.00 30.00 FiO2 30 11/14/19 11/14/19 11/14/19 11/14/19 07:00 08:00 08:00 09:00 Temp 37.8 37.4 37.3 Pulse 89 93 87 Resp 22 25 22 B/P (MAP) 140/53 (82) 129/54 (79) 125/51 (75) Pulse Ox 95 95 95 96 O2 Delivery Mechanical Ventilator Mechanical Ventilator Mechanical Ventilator Mechanical Ventilator O2 Flow Rate 30.00 30.00 30.00 FiO2 30 11/14/19 11/14/19 11/14/19 11/14/19 10:00 10:03 11:00 11:00 Temp 37.3 37.4 Pulse 100 110 86 Resp 26 36 22 B/P (MAP) 150/59 (89) 130/53 (78) Pulse Ox 95 94 96 94 O2 Delivery Mechanical Ventilator Mechanical Ventilator Mechanical Ventilator O2 Flow Rate 30.00 30.00 FiO2 30 30 11/14/19 11/14/19 11/14/19 11/14/19 12:00 12:58 13:00 14:00 Temp 37.3 37.3 37.3 Pulse 90 89 90 96 Resp 22 25 B/P (MAP) 166/83 (110) 144/55 (84) 151/61 (91) Pulse Ox 95 96 98 O2 Delivery Mechanical Ventilator Mechanical Ventilator Mechanical Ventilator O2 Flow Rate 30.00 30.00 30.00 11/14/19 11/14/19 14:29 15:00 Temp 37.3 Pulse 96 92 Resp 24 23 B/P (MAP) 149/61 (90) Pulse Ox 94 96 O2 Delivery Mechanical Ventilator O2 Flow Rate 30.00 FiO2 30 11/14/19 00:00 Intake Total 670 ml Output Total 2175 ml Balance -1505 ml Constitutional: other (intubated and on mech vent) Respiratory: other (scattered rhonchi ) Cardiovascular: regular rate-rhythm, systolic murmur (soft SUREKHA at card base) Gastrointestional: soft, audible bowel sounds Extremities: other (mild edema); No clubbing, No cyanosis Neurologic/Psychiatric: other (unresponsive) Skin: warm/dry; No diaphoresis, No damp Results/Procedures: Labs Laboratory Tests 11/13/19 17:23: White Blood Count 10.6, Red Blood Count 3.04L, Hemoglobin 8.5L, Hematocrit 26L, Mean Corpuscular Volume 86, Mean Corpuscular Hemoglobin 28, Mean Corpuscular Hemoglobin Concent 33, Red Cell Distribution Width 15.4H, Platelet Count 168, Mean Platelet Volume 10.0, Neutrophils (%) (Auto) 83H, Lymphocytes (%) (Auto) 8L , Monocytes (%) (Auto) 9, Eosinophils (%) (Auto) 1, Basophils (%) (Auto) 0, Neutrophils # (Auto) 8.8H, Lymphocytes # (Auto) 0.8L, Monocytes # (Auto) 0.9, Eosinophils # (Auto) 0.1, Basophils # (Auto) 0.0, Prothrombin Time 15.1H, INR Comment 1.1, Sodium Level 130L, Potassium Level 3.6, Chloride Level 89L, Carbon Dioxide Level 30, Anion Gap 11, Blood Urea Nitrogen 13, Creatinine 0.80, Estimat Glomerular Filtration Rate > 60, BUN/Creatinine Ratio 16, Glucose Level 134H, Calcium Level 8.1L, Corrected Calcium 9.3, Phosphorus Level 3.4, Magnesium Level 1.7, Total Bilirubin 0.4, Aspartate Amino Transf (AST/SGOT) 88H, Alanine Aminotransferase (ALT/SGPT) 20, Alkaline Phosphatase 70, Total Protein 5.5L, Albumin 2.5L, Triglycerides Level 123 11/13/19 21:07: Glucometer 126H 11/13/19 23:35: Glucometer 133H 11/14/19 03:00: White Blood Count 9.7, Red Blood Count 3.05L, Hemoglobin 8.5L, Hematocrit 26L, Mean Corpuscular Volume 86, Mean Corpuscular Hemoglobin 28, Mean Corpuscular Hemoglobin Concent 32, Red Cell Distribution Width 15.5H, Platelet Count 173, Mean Platelet Volume 10.2, Neutrophils (%) (Auto) 81H, Lymphocytes (%) (Auto) 9L , Monocytes (%) (Auto) 10, Eosinophils (%) (Auto) 1, Basophils (%) (Auto) 0, Neutrophils # (Auto) 7.9H, Lymphocytes # (Auto) 0.9L, Monocytes # (Auto) 1.0, Eosinophils # (Auto) 0.1, Basophils # (Auto) 0.0, Sodium Level 131L, Potassium Level 3.8, Chloride Level 89L, Carbon Dioxide Level 31, Anion Gap 11, Blood Urea Nitrogen 11, Creatinine 0.74, Estimat Glomerular Filtration Rate > 60, BUN/Creatinine Ratio 15, Glucose Level 132H, Calcium Level 8.2L, Phosphorus Level 3.3, Magnesium Level 1.8, Activated Partial Thromboplast Time 41H, Blood G as Puncture Site RIGHT RADIAL ART MADIE, Blood Gas Patient Temperature 37.6, Arterial Blood pH 7.47H, Arterial Blood Partial Pressure CO2 49H, Arterial Blood Partial Pressure O2 67L, Arterial Blood HCO3 35H, Arterial Blood Total CO2 36.9H , Arterial Blood Oxygen Saturation 91L, Arterial Blood Base Excess 11.2H, Gustavo Test POSITIVE, Blood Gas Ventilator Setting YES, Blood Gas Inspired Oxygen 30 11/14/19 07:41: Glucometer 155H 11/14/19 07:48: Blood Gas Puncture Site RT RADIAL, Blood Gas Patient Temperature 37.3, Arterial Blood pH 7.47H, Arterial Blood Partial Pressure CO2 47H, Arterial Blood Partial Pressure O2 71L, Arterial Blood HCO3 34H, Arterial Blood Total CO2 35.0H, Arterial Blood Oxygen Saturation 91L, Arterial Blood Base Excess 9.6H, Gustavo Test ARTLINE, Blood Gas Ventilator Setting YES, Blood Gas Inspired Oxygen 30% 11/14/19 11:41: Glucometer 131H 11/14/19 15:48: Glucometer 140H Microbiology 11/10/19 MRSA Screen - Final, Complete MRSA not isolated 11/09/19 Blood Culture - Final, Complete Staphylococcus hominis A/P: Assessment: Ac resp arrest and cardiac arrest (PEA) in setting of profound hypoxia and hypotension, PE suspected clinically and being treated by the Hospitalist service Mild, acute CHF, systolic (LV systolic function at lower limit of normal to mildly impaired) and diastolic Hyponatremia of unclear etiology, current clinical hypervolemia suggests that CHF is contributing H/o CAD (reportedly has had 3 stents, none recent) details unknown Mild troponin elevation likely due to type 2 [place] due to hypoxia Echo of 11/09/19: LVEF approx 50%, study difficult and not suitable for wall motio n analysis, cannot exclude apical hypokinesis ECG: NSR, PACs, LAFB vs old IMI Plan: * Diuretics as needed * Monitor electrolytes * Support BP and respiration * Continue efforts obtaining old cardiac records * ASA due a h/o cor stents * Prognosis guarded RAFAT MONTANA MD FACP FAC CCDS November 14, 2019 16:04
[2019-11-14] MEDS ORDERED: FUROSEMIDE 40 MG/4 ML INJ (LASIX) IVP NR (16:15)
[2019-11-15] VITALS (31 sets, daily range): BP systolic 138–228; BP diastolic 51–82
[2019-11-15 02:34] LABS: ABG BASE EXCESS 12.2 MMOL/L (-2.5-2.5); ABG OXYGEN SATURATION 91 % (94-100); ABG PCO2 51 MMHG (35-45); ABG PH 7.47 (7.37-7.43); ABG PO2 68 MMHG (79-93); ABG TCO2 38.1 MMOL/L (21.0-31.0)
[2019-11-15 02:37] LABS: ALLENS TEST POSITIVE; INSPIRED O2 30; PATIENT TEMP 37.5; VENTILATOR YES
[2019-11-15] MEDS: RT-ALBUTEROL/IPRATROPIUM 3 ML (DUONEB) VIAL INH SCH ×6 (02:37→22:09)
[2019-11-15 02:39] LABS: BASOPHILS % (AUTO) 0 % (0-10); EOSINOPHILS # (AUTO) 0.1 10^3/uL (0.0-0.3); EOSINOPHILS % (AUTO) 1 % (0-10); HEMATOCRIT 28 % (35-52); LYMPHOCYTES # (AUTO) 0.8 X 10^3 (1.0-4.0); LYMPHOCYTES % (AUTO) 8 % (12-44); MEAN CORPUSCULAR HEMOGLOBIN 27 PG (25-34); MEAN CORPUSCULAR HGB CONC 32 G/DL (32-36); MEAN CORPUSCULAR VOLUME 86 FL (80-99); MEAN PLATELET VOLUME 10.4 FL (7.4-10.4); MONOCYTES % (AUTO) 10 % (0-12); NEUTROPHILS # (AUTO) 8.1 X 10^3 (1.8-7.8); NEUTROPHILS % (AUTO) 81 % (42-75); PLATELET COUNT 188 10^3/uL (130-400)
[2019-11-15 02:44] LABS: CHLORIDE 88 MMOL/L (98-107); POTASSIUM 3.8 MMOL/L (3.6-5.0); SODIUM 130 MMOL/L (135-145)
[2019-11-15 02:46] LABS: CALCIUM 8.8 MG/DL (8.5-10.1); GLUCOSE 127 MG/DL (70-105)
[2019-11-15 02:48] LABS: CARBON DIOXIDE 31 MMOL/L (21-32)
[2019-11-15 02:50] LABS: CREATININE SERUM 0.71 MG/DL (0.60-1.30); GFR ESTIMATED > 60; PHOSPHORUS 2.9 MG/DL (2.3-4.7)
[2019-11-15 02:51] LABS: BUN/CREATININE RATIO 14
[2019-11-15 02:52] LABS: MAGNESIUM 1.7 MG/DL (1.6-2.4)
[2019-11-15] MEDS: inSUlin ASPART (NovoLOG) 1 UNIT/0.01 ML (CHARGE PER UNIT) SC SCH ×5 (02:59→19:55)
[2019-11-15] MEDS: MAGNESIUM 1 GM/100 ML IVPB 100 ML IV SCH (04:01)
--- NOTE | 2019-11-15 05:04 | Pulmonary Progress Note ---
Subjective Time Seen by a Provider: 05:01 Subjective/Events-last exam Pt is awake on vent. Sepsis Event Evaluation Height, Weight, BMI Height: '" Weight: lbs. oz. kg; 33.00 BMI Method: Exam Exam Vital Signs Date Time Temp Pulse Resp B/P (MAP) Pulse Ox O2 Delivery O2 Flow Rate FiO2 11/15/19 04:00 37.6 100 26 145/53 (83) 95 Mechanical Ventilator 30.00 11/15/19 03:20 95 Mechanical Ventilator 30 11/15/19 03:00 37.5 94 22 164/62 (96) 96 Mechanical Ventilator 30.00 11/15/19 02:38 99 28 96 30 11/15/19 02:00 37.5 97 24 151/59 (89) 96 Mechanical Ventilator 30.00 11/15/19 01:00 37.5 101 28 155/59 (91) 94 Mechanical Ventilator 30.00 11/15/19 01:00 101 11/15/19 00:00 37.5 94 24 139/55 (83) 94 Mechanical Ventilator 30.00 11/14/19 23:33 95 Mechanical Ventilator 30 11/14/19 23:00 37.5 96 25 154/57 (89) 95 Mechanical Ventilator 30.00 11/14/19 22:00 37.5 86 21 135/52 (79) 97 Mechanical Ventilator 30.00 11/14/19 21:58 86 22 96 30 11/14/19 21:00 37.5 82 23 127/51 (76) 96 Mechanical Ventilator 30.00 11/14/19 20:00 37.4 90 18 143/52 (82) 97 Mechanical Ventilator 30.00 11/14/19 20:00 95 Mechanical Ventilator 30 11/14/19 19:00 37.3 96 28 135/62 (86) 96 Mechanical Ventilator 30.00 11/14/19 19:00 107 11/14/19 18:00 37.3 93 24 138/59 (85) 97 Mechanical Ventilator 30.00 11/14/19 17:52 93 24 97 30 11/14/19 17:00 37.3 108 37 169/66 (100) 93 Mechanical Ventilator 30.00 11/14/19 16:00 37.3 101 27 166/65 (98) 100 Mechanical Ventilator 30.00 11/14/19 16:00 95 Mechanical Ventilator 30 11/14/19 15:00 37.3 92 23 149/61 (90) 96 Mechanical Ventilator 30.00 11/14/19 14:29 96 24 94 30 11/14/19 14:00 37.3 96 25 151/61 (91) 98 Mechanical Ventilator 30.00 11/14/19 13:00 37.3 90 22 144/55 (84) 96 Mechanical Ventilator 30.00 11/14/19 12:58 89 11/14/19 12:00 37.3 90 20 166/83 (110) 95 Mechanical Ventilator 30.00 11/14/19 11:00 37.4 86 22 130/53 (78) 94 Mechanical Ventilator 30.00 11/14/19 11:00 96 Mechanical Ventilator 30 11/14/19 10:03 110 36 94 30 11/14/19 10:00 37.3 100 26 150/59 (89) 95 Mechanical Ventilator 30.00 11/14/19 09:00 37.3 87 22 125/51 (75) 96 Mechanical Ventilator 30.00 11/14/19 08:00 37.4 93 25 129/54 (79) 95 Mechanical Ventilator 30.00 11/14/19 08:00 95 Mechanical Ventilator 30 11/14/19 07:00 37.8 89 22 140/53 (82) 95 Mechanical Ventilator 30.00 11/14/19 06:48 94 11/14/19 06:48 93 26 94 30 11/14/19 06:00 37.7 93 23 108/44 (65) 94 Mechanical Ventilator 30.00 I & O 11/15/19 07:00 Intake Total 1800 ml Output Total 2125 ml Balance -325 ml Height & Weight Height: '" Weight: lbs. oz. kg; 33.00 BMI Method: General Appearance: Chronically ill, Obese HEENT: PERRL/EOMI, TMs Normal, Other (nearly pinpoint pupils, equally reactive; ETT/OGT in place) Neck: Full Range of Motion, Supple, Other (central line in place) Respiratory: Lungs Clear, Other (on vent) Cardiovascular: Regular Rate, Rhythm, No Murmur Capillary Refill: Greater Than 3 Seconds Gastrointestinal: normal bowel sounds, non tender, soft Extremity: Normal Capillary Refill, Pedal Edema Neurologic/Psychiatric: Other (alert, follows commands but slowed) Skin: Normal Color, Warm/Dry; No Mottled Results Lab Laboratory Tests 11/13/19 17:23 11/14/19 03:00 11/15/19 02:26 Assessment/Plan Assessment/Plan s/p cardiac arrest -s/p theraputic hypothermia -Sedation resumed last night secondary to increased agitation however pt never followed commands Unresponsive secondary to sedation and hypoxic encephalopathy vs other Pt is now following commands Acute respiratory failure -TF with Jevity 1.5 at 15cc/hr -- Hold during weaning -Check BNP, PCT -Restart Merrem -CXR shows RLL increasing infiltrate. RN is suctioning copious amounts of sputum -Repeat SPutum culture -Continue vent -Weaning trial today -Check weaning parameters -COVID is neg -Influenza is negative Probable PE on admission - s/p TPA -Currently on Hep -lovenox BID -Will plan on treating with anticogulation for at least 3mo PTX per CT -- is very small and appears to be stable despite being on vent. -Continue to monitor Sternal fracture Leukocytosis -Gracia culture -Continue Merrem for now COPDAE -Duoneb - Hypotension - Now resolved Hypokalemia, hypophos -replace CAD Hole home meds for hypotension and TPA admin Cardiology consulted, appreciate recs NIDDMII GORDON MCMANUS DO November 15, 2019 05:04
[2019-11-15] MEDS ORDERED: MEROPENEM 500 MG VIAL (MERREM) IV ONE (05:05)
[2019-11-15] MEDS ORDERED: WATER (STERILE) FOR INJECTION 10 ML ONE (05:05)
[2019-11-15] MEDS: MEROPENEM 500 MG in WATER (STERILE) FOR INJECTION 10 ML IV SCH ×4 (05:14→22:53)
[2019-11-15] MEDS: ENOXAPARIN 100 MG/1 ML (LOVENOX) SYR SC SCH ×2 (05:14→16:50)
[2019-11-15 06:04] LABS: ABG BASE EXCESS 11.7 MMOL/L (-2.5-2.5); ABG OXYGEN SATURATION 90 % (94-100); ABG PCO2 47 MMHG (35-45); ABG PO2 143 MMHG (79-93); ABG TCO2 37.1 MMOL/L (21.0-31.0)
[2019-11-15 06:05] LABS: ALLENS TEST POSITIVE; INSPIRED O2 30; PATIENT TEMP 37.7; VENTILATOR YES
--- NOTE | 2019-11-15 06:49 | Diagnostic Imaging Report ---
Indication: Intubated, CODE BLUE. Comparison: 11/14/2019. Findings: Single view of the chest demonstrates increasing infiltrates in both bases. The heart is prominent without overt pulmonary edema. There are stable trace bilateral pleural effusions. There is no pneumothorax. Support lines appear to be in good position. Impression: Increasing basilar infiltrates. Dictated by: Dictated on workstation # [id number]
[2019-11-15 07:06] LABS: ABG BASE EXCESS 11.8 MMOL/L (-2.5-2.5); ABG OXYGEN SATURATION 87 % (94-100); ABG PCO2 53 MMHG (35-45); ABG PH 7.46 (7.37-7.43); ABG PO2 59 MMHG (79-93); ABG TCO2 37.9 MMOL/L (21.0-31.0)
[2019-11-15 07:07] LABS: ALLENS TEST POSITIVE
[2019-11-15 07:08] LABS: INSPIRED O2 30%; PATIENT TEMP 37.5; VENTILATOR YES
--- NOTE | 2019-11-15 07:20 | NUR ---
ABG RESULTS GIVEN TO DR CONNOLLY.
--- NOTE | 2019-11-15 07:59 | NUR ---
PT EXTUBATED BY RT PER DR CONNOLLY. PLACED ON BIPAP AT 40%. PT'S UPDATED.
[2019-11-15] MEDS: PANTOPRAZOLE 40 MG (PROTONIX) VIAL IV SCH (08:13)
[2019-11-15] MEDS: FUROSEMIDE 40 MG/4 ML INJ (LASIX) IVP SCH (08:14)
--- NOTE | 2019-11-15 08:42 | Progress Note - Cardiology ---
Cardiology SOAP Progress Note Subjective: Extubated and on Bi-pap. Opens eyes to touch and voice. Objective: I&O/Vital Signs 11/15/19 11/15/19 11/15/19 11/15/19 21:00 22:00 22:09 23:00 Temp 37.1 37.2 37.2 Pulse 95 98 99 98 Resp 26 32 30 24 B/P (MAP) 158/57 (90) 168/61 (96) 145/51 (82) Pulse Ox 94 92 92 91 O2 Delivery NIV Bilevel NIV Bilevel NIV Bilevel O2 Flow Rate 30.00 30.00 30.00 30.00 11/16/19 11/16/19 11/16/19 11/16/19 00:00 00:00 01:00 01:00 Temp 37.3 37.4 Pulse 101 89 93 Resp 29 15 B/P (MAP) 165/59 (94) 163/57 (92) Pulse Ox 93 95 O2 Delivery NIV Bilevel NIV Bilevel NIV Bilevel O2 Flow Rate 30.00 30.00 FiO2 30 11/16/19 11/16/19 11/16/19 11/16/19 01:58 02:00 03:00 04:00 Temp 37.6 37.5 Pulse 98 93 98 Resp 33 20 23 B/P (MAP) 134/50 (78) 142/51 (81) Pulse Ox 93 93 92 O2 Delivery NIV Bilevel NIV Bilevel NIV Bilevel O2 Flow Rate 30.00 30.00 30.00 FiO2 25 11/16/19 11/16/19 11/16/19 11/16/19 04:00 05:00 06:00 06:28 Temp 37.5 37.5 37.5 Pulse 97 90 100 Resp 27 23 25 B/P (MAP) 147/57 (87) 127/51 (76) 141/56 (84) Pulse Ox 92 97 97 93 O2 Delivery NIV Bilevel NIV Bilevel NIV Bilevel Nasal Cannula O2 Flow Rate 25.00 25.00 25.00 4.00 11/16/19 11/16/19 11/16/19 11/16/19 06:38 07:00 07:00 08:00 Temp 37.4 37.3 Pulse 102 99 98 Resp 30 26 B/P (MAP) 152/62 (92) 166/65 (98) Pulse Ox 94 94 O2 Delivery Nasal Cannula Nasal Cannula Nasal Cannula O2 Flow Rate 4.00 4.00 4.00 11/16/19 08:00 Pulse Ox 93 O2 Delivery Nasal Cannula O2 Flow Rate 4.00 11/16/19 00:00 Intake Total 1020 ml Output Total 790 ml Balance 230 ml Constitutional: other (Extubated and on Bi-pap) Respiratory: other (scattered rhonchi ) Cardiovascular: regular rate-rhythm, systolic murmur (soft SUREKHA at card base) Gastrointestional: soft, distended, audible bowel sounds Extremities: other (mild edema); No clubbing, No cyanosis Neurologic/Psychiatric: other (opens eye to voice and touch) Skin: warm/dry; No diaphoresis, No damp, No rash on exposed areas, No ulcerations on exposed areas Results/Procedures: Labs Laboratory Tests 11/15/19 11:26: Glucometer 129H 11/15/19 15:23: Glucometer 121H 11/15/19 19:54: Glucometer 131H 11/16/19 00:45: Glucometer 103 11/16/19 03:16: White Blood Count 7.5, Red Blood Count 3.32L, Hemoglobin 9.0L, Hematocrit 29L, Mean Corpuscular Volume 86, Mean Corpuscular Hemoglobin 27, Mean Corpuscular Hemoglobin Concent 31L, Red Cell Distribution Width 15.4H, Platelet Count 225, Mean Platelet Volume 10.1, Neutrophils (%) (Auto) 76H, Lymphocytes (%) (Auto) 10L, Monocytes (%) (Auto) 12, Eosinophils (%) (Auto) 2, Basophils (%) (Auto) 0, Neutrophils # (Auto) 5.7, Lymphocytes # (Auto) 0.7L, Monocytes # (Auto) 0.9, Eosinophils # (Auto) 0.1, Basophils # (Auto) 0.0, Blood Gas Puncture Site RIGHT ARTLINE, Blood Gas Patient Temperature 37.6, Arterial Blood pH 7.49H, Arterial Blood Partial Pressure CO2 38, Arterial Blood Partial Pressure O2 132H, Arterial Blood HCO3 29H, Arterial Blood Total CO2 30.0, Arterial Blood Oxygen Saturation 96, Arterial Blood Base Excess 5.5H, Gustavo Test POSITIVE, Blood Gas Ventilator Setting YES, Blood Gas Inspired Oxygen 30, Sodium Level 133L, Potassium Level 3.7, Chloride Level 89L, Carbon Dioxide Level 31, Anion Gap 13, Blood Urea Nitrogen 11, Creatinine 0.70, Estimat Glomerular Filtration Rate > 60, BUN/Creatinine Ratio 16, Glucose Level 104, Calcium Level 8.8, Phosphorus Level 3.2, Magnesium Level 1.8 11/16/19 08:04: Glucometer 99 Microbiology 11/15/19 Gram Stain - Final, Resulted 11/15/19 Sputum Culture - Preliminary, Resulted YEAST 11/09/19 Blood Culture - Final, Complete Staphylococcus hominis A/P: Assessment: Ac resp arrest and cardiac arrest (PEA) in setting of profound hypoxia and hypotension, PE suspected clinically and being treated by the Hospitalist service Mild, acute CHF, systolic (LV systolic function at lower limit of normal to mildly impaired) and diastolic Hyponatremia of unclear etiology, current clinical hypervolemia suggests that CHF is contributing H/o CAD (reportedly has had 3 stents, none recent) -cardiac cath report of Apr [address] Malcolm shows stenting to the mid-RCA with a 3.0 x 18 mm stent (exact details unknown) - cardiac cath report from Aug by Dr. Escalante at [facility] - showed widely patent previously placed stent to the mid- RCA (Mar [address] Levine, with a 3.5 x 22 Taxus stent placed proximally to the previous mid-RCA stent place in 2001) and at stening was placed to the OM -1 (exact details unavailable) Mild troponin elevation likely due to type 2 AL due to hypoxia Echo of 11/09/19: LVEF approx 50%, study difficult and not suitable for wall motion analysis, cannot exclude apical hypokinesis ECG: NSR, PACs, LAFB vs old IMI Plan: * Diuretics as needed * Monitor electrolytes * Support BP and respiration * Reviewed available records of coronary stent placement at [facility] * Continue ASA due a h/o cor stents * Management of anemia per medical services * Prognosis guarded JOSE ALBERTO GOODEN November 15, 2019 08:42
--- NOTE | 2019-11-15 09:37 | Physical Therapy Evaluation ---
PT Evaluation-General Medical Diagnosis Admission Date November 09, 2019 at 14:04 Medical Diagnosis: ARF/code blue x 2 Onset Date: November 09, 2019 Therapy Diagnosis Therapy Diagnosis: severe weakness/debility Precautions Precautions/Isolations: Aspiration, Fall Prevention, Pressure Ulcer Weight Bear Status Right Lower Extremity: Right Weight Bearing/Tolerated Left Lower Extremity: Left Weight Bearing/Tolerated Referral Physician: Jenny Reason for Referral: Evaluation/Treatment Medical History Pertinent Medical History: CAD, COPD, HTN, [place] Additional Medical History 3 stents prior Current History EMS secondary to found unresponsive at home by family/s/p code Blue x 2/intubated x 6 days Reviewed History: Yes Social History Home: Single Level Current Living Status: Spouse Prior Prior Level of Function SCALE: Activities may be completed with or without assistive devices. 9-Soqnqzlnob-niipxno completes the activity by him/herself with no assistance from a helper. 5-Set-up or Clean-up Assistance-helper sets up or cleans up; patient completes activity. [place] assists only prior to or following the activity. 4-Supervision or Touching Assistance-helper provides verbal cues and/or touching/steadying and/or contact guard assistance as patient completes activity. Assistance may be provided throughout the activity or intermittently. 3-Partial/Moderate Assistance-helper does LESS THAN HALF the effort. [place] lifts, holds or supports trunk or limbs, but provides less than half the effort. 2-Substantial/Maximal Assistance-helper does MORE THAN HALF the effort. [place] l ifts or holds trunk or limbs and provides more than half the effort. 1-Jtvcnvpcc-efncos does ALL the effort. Patient does none of the effort to complete the activity. Or, the assistance of 2 or more helpers is required for the patient to complete the activity. If activity was not attempted, code reason: 7-Patient Refused. 9-Not Applicable-not attempted and the patient did not perform the activity before the current illness, exacerbation or injury. 10-Not Attempted due to Environmental Limitations-(lack of equipment, weather restraints, etc.). 88-Not Attempted due to Medical Conditions or Safety Concerns. Bed Mobility: 5 Transfers (B,C,W/C): 5 Gait: 5 Indoor Mobility (Ambulation): Independent PT Evaluation-Current Subjective Patient extubated on this date. Currently on BiPap. Pain Numeric Pain Scale: 0-No Pain Location: No Pain Reported Objective Patient Orientation: Eyes Open, Listless Attachments: Oxygen, Ordonez Catheter, IV ROM/Strength ROM Lower Extremities bilateral LE WFL Strength Lower Extremities Trace bilateral LE Integumentary/Posture Integumentary refer to nursing notes Bladder Incontinence: Ordonez Cath Posture unable to assess Neuromuscular (Tone, Coordination, Reflexes) severe weakness/unable to assess Sensory Vision: Unable to Assess Hearing: Functional Transfers Patient will require [place] Lift for transfers due to severe weakness/debility (nursing notified) Gait Does the Patient Walk?: No and Walking Goal IS indicated Assessment/Needs 64 y.o. female, extubated on this date, will benefit from skilled PT to address functional strength and mobility to improve current LOF. Patient is currently too weak for OOB activity. Will require a Clara Lift for transfers for safety of patient and staff. Rehab Potential: Guarded PT Short Term Goals Short Term Goals Time Frame: December 04, 2019 Roll Left & Right: 2 Sit to lyin Lying to sitting on side of be: 2 Sit to stand: 2 Chair/xsj-wy-aeaky transfer: 2 PT [facility] Specialist Goals [facility] Specialist Goals PT Shelter Goals Time Frame: Dec 18, 2019 Roll Left & Right (QC): 4 Sit to Lying (QC): 4 Lying-Sitting on Side/Bed(QC): 4 Sit to Stand (QC): 4 Chair/Prf-cr-[place]ig Xfer(QC): 4 Toilet Transfer (QC): 4 Does the Patient Walk: No and Walking Goal IS indicated Walk 10 feet (QC): 3 PT Plan Problem List Problem List: Activity Tolerance, Functional Strength, Safety, Balance, Gait, Transfer, Bed Mobility Treatment/Plan Treatment Plan: Continue Plan of Care Treatment Plan: Bed Mobility, Education, Functional Activity Narendra, Functional Strength, Gait, Safety, Therapeutic Exercise, Transfers Treatment Duration: Dec 18, 2019 Frequency: 6 times per week Estimated Hrs Per Day: .25 hour per day (to .5) Discharge Recommendations Therapy Discharge Recommendati: Other, See Comments ([facility] facility) Time/GCodes Time In: 825 Time Out: 841 Total Billed Treatment Time: 16 Total Billed Treatment 1 visit EVMod 16 min MARA CELIS PT November 15, 2019 09:37
--- NOTE | 2019-11-15 09:49 | Progress Note - Cardiology ---
Cardiology SOAP Progress Note Subjective: Does not answer questions Does not report cp or palp or syncope or other symptoms Objective: I&O/Vital Signs 11/14/19 11/14/19 11/14/19 11/14/19 21:58 22:00 23:00 23:33 Temp 37.5 37.5 Pulse 86 86 96 Resp 25 B/P (MAP) 135/52 (79) 154/57 (89) Pulse Ox 96 97 95 95 O2 Delivery Mechanical Ventilator Mechanical Ventilator Mechanical Ventilator O2 Flow Rate 30.00 30.00 FiO2 30 30 11/15/19 11/15/19 11/15/19 11/15/19 00:00 01:00 01:00 02:00 Temp 37.5 37.5 37.5 Pulse 94 101 101 97 Resp 24 B/P (MAP) 139/55 (83) 155/59 (91) 151/59 (89) Pulse Ox 94 94 96 O2 Delivery Mechanical Ventilator Mechanical Ventilator Mechanical Ventilator O2 Flow Rate 30.00 30.00 30.00 11/15/19 11/15/19 11/15/19 11/15/19 02:38 03:00 03:20 04:00 Temp 37.5 37.6 Pulse 99 94 100 Resp 26 B/P (MAP) 164/62 (96) 145/53 (83) Pulse Ox 96 96 95 95 O2 Delivery Mechanical Ventilator Mechanical Ventilator Mechanical Ventilator O2 Flow Rate 30.00 30.00 FiO2 30 30 11/15/19 11/15/19 11/15/19 11/15/19 05:00 06:00 06:09 07:00 Temp 37.7 37.7 Pulse 101 98 113 112 Resp 28 32 B/P (MAP) 152/57 (88) 153/65 (94) Pulse Ox 95 96 94 O2 Delivery Mechanical Ventilator Mechanical Ventilator O2 Flow Rate 30.00 30.00 FiO2 30 11/15/19 11/15/19 11/15/19 07:00 08:00 08:04 Temp 37.6 37.6 Pulse 107 129 113 Resp 35 31 B/P (MAP) 138/53 (81) 228/82 (130) Pulse Ox 95 93 97 O2 Delivery Mechanical Ventilator NIV Bilevel O2 Flow Rate 30.00 40.00 40.00 11/15/19 00:00 Intake Total 1480 ml Output Total 1850 ml Balance -370 ml Constitutional: other (Extubated and on Bi-pap; doesn't answer questions and orientation cannot be determined) Respiratory: other (scattered rhonchi ) Cardiovascular: regular rate-rhythm, systolic murmur (soft SUREKHA at card base) Gastrointestional: soft, distended, audible bowel sounds Extremities: other (mild edema); No clubbing, No cyanosis Neurologic/Psychiatric: other (opens eye to voice and touch; does not answer quetions) Skin: warm/dry; No diaphoresis, No damp, No rash on exposed areas, No ulcerations on exposed areas Results/Procedures: Labs Laboratory Tests 11/14/19 11:41: Glucometer 131H 11/14/19 15:48: Glucometer 140H 11/14/19 19:44: Glucometer 125H 11/14/19 23:28: Glucometer 156H 11/15/19 02:26: White Blood Count 10.0, Red Blood Count 3.30L, Hemoglobin 9.0L, Hematocrit 28L, Mean Corpuscular Volume 86, Mean Corpuscular Hemoglobin 27, Mean Corpuscular Hemoglobin Concent 32, Red Cell Distribution Width 15.0H, Platelet Count 188, Mean Platelet Volume 10.4, Neutrophils (%) (Auto) 81H, Lymphocytes (%) (Auto) 8L , Monocytes (%) (Auto) 10, Eosinophils (%) (Auto) 1, Basophils (%) (Auto) 0, Ne utrophils # (Auto) 8.1H, Lymphocytes # (Auto) 0.8L, Monocytes # (Auto) 1.0, Eosinophils # (Auto) 0.1, Basophils # (Auto) 0.0, Sodium Level 130L, Potassium Level 3.8, Chloride Level 88L, Carbon Dioxide Level 31, Anion Gap 11, Blood Urea Nitrogen 10, Creatinine 0.71, Estimat Glomerular Filtration Rate > 60, BUN/Creatinine Ratio 14, Glucose Level 127H, Calcium Level 8.8, Phosphorus Level 2.9, Magnesium Level 1.7, B-Type Natriuretic Peptide 498.6H, Procalcitonin 0.10H 11/15/19 02:28: Blood Gas Puncture Site RIGHT RADIAL, Blood Gas Patient Temperature 37.5, Arterial Blood pH 7.47H, Arterial Blood Partial Pressure CO2 51H, Arterial Blood Partial Pressure O2 68L, Arterial Blood HCO3 37H, Arterial Blood Total CO2 38.1H , Arterial Blood Oxygen Saturation 91L, Arterial Blood Base Excess 12.2H, Gustavo Test POSITIVE, Blood Gas Ventilator Setting YES, Blood Gas Inspired Oxygen 30 11/15/19 05:58: Blood Gas Puncture Site RIGHT ART LINE, Blood Gas Patient Temperature 37.7, Arterial Blood pH 7.50H, Arterial Blood Partial Pressure CO2 47H, Arterial Blood Partial Pressure O2 143H, Arterial Blood HCO3 36H, Arterial Blood Total CO2 37.1H, Arterial Blood Oxygen Saturation 90L, Arterial Blood Base Excess 11.7H, Gustavo Test POSITIVE, Blood Gas Ventilator Setting YES, Blood Gas Inspired Oxygen 30 11/15/19 07:01: Blood Gas Puncture Site RIGHT RADIAL, Blood Gas Patient Temperature 37.5, Arterial Blood pH 7.46H, Arterial Blood Partial Pressure CO2 53H, Arterial Blood Partial Pressure O2 59L, Arterial Blood HCO3 36H, Arterial Blood Total CO2 37.9H , Arterial Blood Oxygen Saturation 87L, Arterial Blood Base Excess 11.8H, Gustavo Test POSITIVE, Blood Gas Ventilator Setting YES, Blood Gas Inspired Oxygen 30% 11/15/19 08:12: Glucometer 147H Microbiology 11/10/19 MRSA Screen - Final, Complete MRSA not isolated 11/09/19 Blood Culture - Final, Complete Staphylococcus hominis Laboratory Tests 11/13/19 17:23 11/14/19 03:00 11/15/19 02:26 A/P: Assessment: Ac resp arrest and cardiac arrest (PEA) in setting of profound hypoxia and hypotension, PE suspected clinically and being treated by the Hospitalist service Mild, acute CHF, systolic (LV systolic function at lower limit of normal to mildly impaired) and diastolic Hyponatremia of unclear etiology, current clinical hypervolemia suggests that CHF is contributing H/o CAD (reportedly has had 3 stents, none recent) -cardiac cath report of Apr [address] Malcolm shows stenting to the mid-RCA with a 3.0 x 18 mm stent (exact details unknown) - cardiac cath report from Aug by Dr. Escalante at [facility] - showed widely patent previously placed stent to the mid- RCA (Mar [address] Levine, a 3.5 x 22 Taxus stent placed proximally to the previous mid-RCA stent place in 2001) and a stent was placed to the OM -1 (exact details unavailable) Mild troponin elevation likely due to type 2 PR due to hypoxia Echo of 11/09/19: LVEF approx 50%, study difficult and not suitable for wall motion analysis, cannot exclude apical hypokinesis ECG: NSR, PACs, LAFB vs old IMI Plan: * Diuretics as needed * Monitor electrolytes * Support BP and respiration * Reviewed available records of coronary stent placement at [facility] (summarize above) * Continue ASA due a h/o cor stents * Management of anemia per medical services * Further recs based on hosp course RAFAT MONTANA MD FACP FACC CCDS November 15, 2019 09:49
[2019-11-15] MEDS: ASPIRIN 81 MG CHEW (CHILDREN'S ASA) PO SCH (09:54)
[2019-11-15] MEDS: SPIRONOLACTONE 25 MG (ALDACTONE) TAB PO SCH (09:54)
[2019-11-15] MEDS: meTOprolol TARTRATE 25 MG (LOPRESSOR) TABLET PO SCH ×2 (09:55→19:55)
--- NOTE | 2019-11-15 09:55 | NUR ---
PT ON BIPAP, UNABLE TO SAFELY TAKE PO MEDS. DR ESCOBAR NOTIFIED.
--- NOTE | 2019-11-15 09:57 | Speech Therapy Progress Note ---
Therapy Progress Note ST attempted to complete Bedside Dysphagia Evaluation this am. Patient is currently on Bi-Pap and reported by nurse to be too weak to participate at this time. ST will follow up this afternoon. NORMAN MUNOZ November 15, 2019 09:56
--- NOTE | 2019-11-15 13:02 | Progress Note - Hospitalist ---
Subjective HPI/CC On Admission Date Seen by Provider: November 15, 2019 Time Seen by Provider: 09:15 Subjective/Events-last exam She was extubated this morning. She is awake and alert. She is wearing BiPAP at this time. She is able to follow commands squeezing fingers with both hands, able to wiggle toes on both feet, and able to lift her head off the bed. Objective Exam Vital Signs Vital Signs Date Time Temp Pulse Resp B/P (MAP) Pulse Ox O2 Delivery O2 Flow Rate FiO2 11/15/19 12:15 97 11/15/19 12:00 37.4 27 150/62 (91) 92 NIV Bilevel 30.00 11/15/19 08:00 40 Capillary Refill : Greater Than 3 Seconds General Appearance: No Apparent Distress, Obese Neck: Normal Inspection, Supple Respiratory: Lungs Clear, Normal Breath Sounds, No Respiratory Distress, Other (wearing BiPAP) Cardiovascular: No Murmur, Tachycardia (regular rhythm) Gastrointestinal: Normal Bowel Sounds, Non Tender, Soft Extremity: Normal Inspection, Pedal Edema Neurologic/Psychiatric: Alert, Motor Weakness Skin: Warm/Dry, Pallor Results/Procedures Lab Laboratory Tests 11/15/19 02:26 Patient resulted labs reviewed. Imaging: Reviewed Imaging Report Assessment/Plan Assessment and Plan Assess & Plan/Chief Complaint s/p cardiac arrest Acute respiratory failure with hypoxia Elevated d-dimer, presumed pulmonary embolism COPD Small left pneumothorax and sternal and rib fracture extubated this morning Pulmonology consulted, appreciate assistance s/p hypothermia protocol and rewarming s/p TPA in the ER for presumed PE on 11/08, now on Lovenox BID COVID19 negative Continue Merrem Normocytic anemia hemoglobin improving, 9 this morning OG content + for occult blood Hemodynamically stable and likely due to trauma from OGT Continue Lovenox for now given high probability of PE HTN CAD Hold home meds for hypotension and TPA admin Cardiology consulted, appreciate recs T2DM with hyperglycemia sliding scale insulin Hyponatremia Stable, 130 Debility PT/OT Acute rehab evaluation DVT prophylaxis: Already receiving therapeutic anticoagulation Shock, resolved Lactic acidosis, resolved Altered mental status, resolved Critical Care Critically Ill Patient Diagnosis/Problems Diagnosis/Problems (1) Cardiac arrest Status: Acute (2) Acute respiratory failure Status: Acute Qualifiers: Respiratory failure complication: hypoxia Qualified Codes: J96.01 - Acute respiratory failure with hypoxia (3) Debility Status: Acute Clinical Quality Measures DVT/VTE Risk/Contraindication: Risk Factor Score Per Nursin RFS Level Per Nursing on Admit: 4+=Very High CLARIBEL ESCOBAR MD November 15, 2019 13:02
--- NOTE | 2019-11-15 13:29 | NUR ---
IRF Evaluation Order received to evaluate patient for the ARU. Chart review complete and it appears patient was extubated this morning, 11/15/19. Will continue to follow patient's progress with therapies as it relates to evaluation for admission to inpatient rehab. It is noted patient's primary insurance provider is [place] Medicaid; therefore, if accepted, authorization will need to be obtained prior to admission. Thank you for this referral.
--- NOTE | 2019-11-15 15:09 | Occupational Therapy Eval ---
OT Evaluation-General/PLF Medical Diagnosis Admission Date November 09, 2019 at 14:04 Medical Diagnosis: ARF/code blue x 2 Onset Date: November 09, 2019 Therapy Diagnosis Therapy Diagnosis: Weakness Precautions Precautions/Isolations: Aspiration, Fall Prevention, Pressure Ulcer Weight Bear Status Weight Bearing Restriction: Weight Bearing/Tolerated Referral Physician: Jenny Referral Reason: Activity Tolerance, Self Care, Evaluation/Treatment, Strengthening/ROM Referral Comments Pt. on bipap Medical History Pertinent Medical History: CAD, COPD, HTN, [place] Additional Medical History 3 stents, on ventilator support but extubated this a.m. Reviewed History: Yes Social History Home: Single Level Current Living Status: Spouse ADL-Prior Level of Function SCALE: Activities may be completed with or without assistive devices. 0-Vmyrpfjpjy-[id number] completes the activity by him/herself with no assistance from a helper. 5-Set-up or Clean-up Assistance-helper sets up or cleans up; patient completes activity. [place] assists only prior to or following the activity. 4-Supervision or Touching Assistance-helper provides verbal cues and/or touching/steadying and/or contact guard assistance as patient completes activity. Assistance may be provided throughout the activity or intermittently. 3-Partial/Moderate Assistance-helper does LESS THAN HALF the effort. [place] lifts, holds or supports trunk or limbs, but provides less than half the effort. 2-Substantial/Maximal Assistance-helper does MORE THAN HALF the effort. [place] lifts or holds trunk or limbs and provides more than half the effort. 3-Lsdyavuls-lvanfp does ALL the effort. Patient does none of the effort to complete the activity. Or, the assistance of 2 or more helpers is required for the patient to complete the activity. If activity was not attempted, code reason: 7-Patient Refused. 9-Not Applicable-not attempted and the patient did not perform the activity before the current illness, exacerbation or injury. 10-Not Attempted due to Environmental Limitations-(lack of equipment, weather restraints, etc.). 88-Not Attempted due to Medical Conditions or Safety Concerns. OT Current Status Subjective Pt. is able to open eyes and mouth words. Pt. is able to shake head yes or no. Pt. is able to follow some cues of UE ROM. Appearance Pt. in bed on bipap machine. OT checked with nursing to make sure okay to see pt. Mental Status/Objective Attachments: IV, Oxygen, Telemetry Other Treatments Pt. is able to mouth "hospital" when OT asks if she knows where she is. Pt. is able to nod "yes" when she is asked if she lives in [place]. Pt. is unable to provide any more information. Pt. is able to "wiggle" fingers on bilateral hands when prompted. She is also able to supinate/pronate bilateral forearms sl ightly. She is able to extend elbows when they are flexed for her. OT provides pt. with warm washcloth and brings hands together. OT prompts her to wash her hands. Pt. slightly attempts to, but is unable. OT does this for her and encourages pt. to feel the cloth. OT provided gentle retrograde massage to both hands. Pt. shakes head "no" when OT asks her if she would like to lay on other side. RT comes into room to assess pt. and bipap machine. All needs are met. Education OT Patient Education: Correct positioning, Exercise program Teaching Recipient: Patient Teaching Methods: Discussion Response to Teaching: Unable to Return Demonstration, Reinforcement Needed OT Short Term Goals Short Term Goals Time Frame: November 29, 2019 Eatin Oral hygiene: 3 Toileting hygiene: 2 Upper body dressin OT Detention Goals Detention Goals Time Frame: Dec 13, 2019 Eating (QC): 4 Oral Hygiene (QC): 4 Toileting Hygiene (QC): 3 Shower/Bathe Self (QC): 3 Upper Body Dressing (QC): 4 Lower Body Dressing (QC): 3 On/Off Footwear (QC): 3 Additional Goals: 1-Demonstrate ADL Tasks, 2-Verbalize Understanding, 3- ImproveStrength/Narendra 1=Demonstrate adherence to instructed precautions during ADL tasks. 2=Patient will verbalize/demonstrate understanding of assistive devices/modifications for ADL. 3=Patient will improve strength/tolerance for activity to enable patient to perform ADL's. OT Education/Plan Problem List/Assessment Assessment: Decreased Activ Tolerance, Decreased UE Strength, Dependent Transfers, Edema, Impaired Bed Mobility, Impaired Cognition, Impaired Coordination, Impaired Funct Balance, Impaired I ADL's, Impaired Self-Care Skills, Restricted Funct UE ROM Discharge Recommendations Plan/Recommendations: Continue POC Therapy Discharge Recommendati: 24 Hour Supervision Treatment Plan/Plan of Care Treatment,Training & Education: Yes Patient would benefit from OT for education, treatment and training to promote independence in ADL's, mobility, safety and/or upper extremity function for ADL's. Plan of Care: ADL Retraining, Functional Mobility, UE Funct Exercise/Act Treatment Duration: Dec 13, 2019 Frequency: 5 times per week Estimated Hrs Per Day: .25 hour per day Agreement: Yes Rehab Potential: Guarded Time/GCodes Start Time: 14:45 Stop Time: 15:03 Total Time Billed (hr/min): 18 Billed Treatment Time 1, MALACHI JUNIOR OT November 15, 2019 15:09
[2019-11-15] MEDS: LACTATED RINGERS 1,000 ML IV SCH (15:53)
[2019-11-15] MEDS: fentaNYL INJECTION 100 MCG/2 ML AMP IVP PRN (20:14)
[2019-11-16] VITALS (28 sets, daily range): BP systolic 127–188; BP diastolic 50–84
[2019-11-16] MEDS: fentaNYL INJECTION 100 MCG/2 ML AMP IVP PRN (00:33)
[2019-11-16] MEDS: inSUlin ASPART (NovoLOG) 1 UNIT/0.01 ML (CHARGE PER UNIT) SC SCH ×6 (00:46→20:56)
[2019-11-16] MEDS: RT-ALBUTEROL/IPRATROPIUM 3 ML (DUONEB) VIAL INH SCH ×6 (01:58→21:28)
[2019-11-16 03:29] LABS: BASOPHILS % (AUTO) 0 % (0-10); EOSINOPHILS # (AUTO) 0.1 10^3/uL (0.0-0.3); EOSINOPHILS % (AUTO) 2 % (0-10); HEMATOCRIT 29 % (35-52); LYMPHOCYTES # (AUTO) 0.7 X 10^3 (1.0-4.0); LYMPHOCYTES % (AUTO) 10 % (12-44); MEAN CORPUSCULAR HEMOGLOBIN 27 PG (25-34); MEAN CORPUSCULAR HGB CONC 31 G/DL (32-36); MEAN CORPUSCULAR VOLUME 86 FL (80-99); MEAN PLATELET VOLUME 10.1 FL (7.4-10.4); MONOCYTES # (AUTO) 0.9 X 10^3 (0.0-1.0); MONOCYTES % (AUTO) 12 % (0-12); NEUTROPHILS # (AUTO) 5.7 X 10^3 (1.8-7.8); NEUTROPHILS % (AUTO) 76 % (42-75); PLATELET COUNT 225 10^3/uL (130-400); RED CELL DISTRIBUTION WIDTH 15.4 % (10.0-14.5); WHITE BLOOD COUNT 7.5 10^3/uL (4.3-11.0)
[2019-11-16 03:31] LABS: ABG BASE EXCESS 5.5 MMOL/L (-2.5-2.5); ABG OXYGEN SATURATION 96 % (94-100); ABG PCO2 38 MMHG (35-45); ABG PH 7.49 (7.37-7.43); ABG PO2 132 MMHG (79-93)
[2019-11-16 03:32] LABS: ALLENS TEST POSITIVE; INSPIRED O2 30; PATIENT TEMP 37.6; VENTILATOR YES
[2019-11-16 03:38] LABS: CHLORIDE 89 MMOL/L (98-107); POTASSIUM 3.7 MMOL/L (3.6-5.0); SODIUM 133 MMOL/L (135-145)
[2019-11-16 03:39] LABS: CALCIUM 8.8 MG/DL (8.5-10.1); GLUCOSE 104 MG/DL (70-105)
[2019-11-16 03:41] LABS: CARBON DIOXIDE 31 MMOL/L (21-32)
[2019-11-16 03:43] LABS: GFR ESTIMATED > 60; PHOSPHORUS 3.2 MG/DL (2.3-4.7)
[2019-11-16 03:44] LABS: BUN/CREATININE RATIO 16
[2019-11-16 03:46] LABS: MAGNESIUM 1.8 MG/DL (1.6-2.4)
[2019-11-16] MEDS: MEROPENEM 500 MG in WATER (STERILE) FOR INJECTION 10 ML IV SCH ×4 (05:03→22:27)
[2019-11-16] MEDS: ENOXAPARIN 100 MG/1 ML (LOVENOX) SYR SC SCH ×2 (05:04→16:53)
--- NOTE | 2019-11-16 05:51 | Pulmonary Progress Note ---
Subjective Time Seen by a Provider: 05:48 Subjective/Events-last exam Pt was extubated yesterday. Sepsis Event Evaluation Height, Weight, BMI Height: '" Weight: lbs. oz. kg; 33.00 BMI Method: Exam Exam Vital Signs Date Time Temp Pulse Resp B/P (MAP) Pulse Ox O2 Delivery O2 Flow Rate FiO2 11/16/19 04:00 37.5 97 27 147/57 (87) 92 NIV Bilevel 25.00 11/16/19 04:00 NIV Bilevel 25 11/16/19 03:00 37.5 98 23 142/51 (81) 92 NIV Bilevel 30.00 11/16/19 02:00 37.6 93 20 134/50 (78) 93 NIV Bilevel 30.00 11/16/19 01:58 98 33 93 30.00 11/16/19 01:00 93 11/16/19 01:00 37.4 89 15 163/57 (92) 95 NIV Bilevel 30.00 11/16/19 00:00 37.3 101 29 165/59 (94) 93 NIV Bilevel 30.00 11/16/19 00:00 NIV Bilevel 30 11/15/19 23:00 37.2 98 24 145/51 (82) 91 NIV Bilevel 30.00 11/15/19 22:09 99 30 92 30.00 11/15/19 22:00 37.2 98 32 168/61 (96) 92 NIV Bilevel 30.00 11/15/19 21:00 37.1 95 26 158/57 (90) 94 NIV Bilevel 30.00 11/15/19 20:00 37.1 98 30 156/62 (93) 92 NIV Bilevel 30.00 11/15/19 19:59 NIV Bilevel 30 11/15/19 19:52 37.1 11/15/19 19:00 37.1 101 30 148/59 (88) 92 NIV Bilevel 30.00 11/15/19 19:00 99 11/15/19 18:38 93 32 92 30.00 11/15/19 18:00 37.1 98 31 151/56 (87) 90 NIV Bilevel 30.00 11/15/19 17:00 37.2 100 30 169/64 (99) 92 NIV Bilevel 30.00 11/15/19 16:00 37.2 90 29 160/59 (92) 94 NIV Bilevel 30.00 11/15/19 15:42 NIV Bilevel 30 11/15/19 15:00 37.2 96 30 164/61 (95) 93 NIV Bilevel 30.00 11/15/19 14:03 96 29 94 30.00 11/15/19 14:00 37.2 95 26 153/62 (92) 94 NIV Bilevel 30.00 11/15/19 13:00 37.4 97 29 148/60 (89) 93 NIV Bilevel 30.00 11/15/19 12:15 97 11/15/19 12:00 37.4 95 27 150/62 (91) 92 NIV Bilevel 30.00 11/15/19 12:00 NIV Bilevel 30 11/15/19 11:30 37.5 11/15/19 11:00 37.4 92 21 155/54 (87) 89 NIV Bilevel 30.00 11/15/19 10:29 NIV Bilevel 30.00 11/15/19 10:22 93 25 99 40.00 94 11/15/19 10:00 37.4 100 26 144/51 (82) 100 NIV Bilevel 40.00 11/15/19 09:00 37.6 101 26 139/54 (82) 100 NIV Bilevel 40.00 11/15/19 08:04 113 31 97 40.00 11/15/19 08:00 37.6 129 35 228/82 (130) 93 NIV Bilevel 40.00 11/15/19 08:00 NIV Bilevel 40 11/15/19 07:00 37.6 107 26 138/53 (81) 95 Mechanical Ventilator 30.00 11/15/19 07:00 112 11/15/19 06:09 113 32 94 30 11/15/19 06:00 37.7 98 28 153/65 (94) 96 Mechanical Ventilator 30.00 I & O 11/16/19 07:00 Intake Total 1230 ml Output Total 1915 ml Balance -685 ml Height & Weight Height: '" Weight: lbs. oz. kg; 33.00 BMI Method: General Appearance: No Apparent Distress, Obese HEENT: PERRL/EOMI, TMs Normal, Normal ENT Inspection, Pharynx Normal, Moist Mucous Membranes, Other (copious clear, thin secretions from the oropharynx) Neck: Normal Inspection, Supple Respiratory: Lungs Clear, Normal Breath Sounds, No Respiratory Distress, Other (wearing BiPAP) Cardiovascular: No Murmur, Tachycardia (regular rhythm) Capillary Refill: Greater Than 3 Seconds Gastrointestinal: normal bowel sounds, non tender, soft Extremity: Normal Inspection, Pedal Edema Neurologic/Psychiatric: Alert, Motor Weakness Skin: Warm/Dry, Pallor Results Lab Laboratory Tests 11/15/19 02:26 11/16/19 03:16 Assessment/Plan Assessment/Plan s/p cardiac arrest -s/p theraputic hypothermia Unresponsive secondary to sedation and hypoxic encephalopathy vs other Pt is now following commands Acute respiratory failure - Merrem -Extubated yesterday -COVID is neg -Influenza is negative -trail off BiPAP to regular NC Probable PE on admission - s/p TPA -Currently on Hep -lovenox BID -Will plan on treating with anticogulation for at least 3mo PTX per CT -- is very small and appears to be stable despite being on vent. -Continue to monitor Sternal fracture Leukocytosis -Gracia culture -Continue Merrem for now COPDAE -Duoneb - Hypotension - Now resolved Hypokalemia, hypophos -replace CAD [place] home meds for hypotension and TPA admin Cardiology consulted, appreciate recs NIDDMII GORDON MCMANUS DO November 16, 2019 05:50
--- NOTE | 2019-11-16 06:52 | Diagnostic Imaging Report ---
INDICATION: Extubated patient. COMPARISON: 11/15/2019 FINDINGS: Single frontal radiograph view of the chest was obtained and demonstrates interval extubation and removal of gastric tube. Lungs show persistent patchy bibasilar airspace disease. There does appear to have been slight interval improvement in aeration when compared to prior exam. Small effusions cannot be excluded. There is no pneumothorax. Cardiac silhouette and pulmonary vasculature are within normal limits. Right internal jugular central venous catheter is stable with tip likely at the junction of the subclavian and internal jugular vein. IMPRESSION: 1. Lines and tubes as above. 2. Persistent, although improved bibasilar infiltrates, right greater than left. Dictated by: Dictated on workstation # [id number]
[2019-11-16] MEDS: PANTOPRAZOLE 40 MG (PROTONIX) VIAL IV SCH (08:03)
[2019-11-16] MEDS: FUROSEMIDE 40 MG/4 ML INJ (LASIX) IVP SCH (08:03)
[2019-11-16] MEDS: ASPIRIN 81 MG CHEW (CHILDREN'S ASA) PO SCH (08:05)
[2019-11-16] MEDS: SPIRONOLACTONE 25 MG (ALDACTONE) TAB PO SCH (08:05)
[2019-11-16] MEDS: meTOprolol TARTRATE 25 MG (LOPRESSOR) TABLET PO SCH ×2 (08:05→20:56)
--- NOTE | 2019-11-16 08:58 | Progress Note - Cardiology ---
Cardiology SOAP Progress Note Subjective: Sitting up in bed. On O2 via NC this morning. States she feels "sore all over". No c/o CP. Feels her breathing is good today. No c/o palpitations. Objective: I&O/Vital Signs 11/17/19 11/17/19 11/17/19 11/17/19 21:00 21:53 22:00 22:41 Pulse 84 87 84 Resp 19 28 25 B/P (MAP) 160/87 (111) 147/79 (101) Pulse Ox 96 95 98 93 O2 Delivery Nasal Cannula Nasal Cannula Nasal Cannula O2 Flow Rate 4.00 2.00 4.00 30.00 11/17/19 11/17/19 11/17/19 11/18/19 22:47 23:00 23:59 00:00 Pulse 80 80 68 Resp 25 21 22 B/P (MAP) 124/72 (89) 117/60 (79) Pulse Ox 94 96 95 97 O2 Delivery NIV Bilevel NIV Bilevel NIV Bilevel NIV Bilevel O2 Flow Rate 30.00 30.00 30.00 FiO2 30 11/18/19 11/18/19 11/18/19 11/18/19 00:00 01:00 01:00 01:00 Temp 36.7 Pulse 76 76 Resp 18 B/P (MAP) 143/68 (93) Pulse Ox 95 O2 Delivery Nasal Cannula Nasal Cannula O2 Flow Rate 2.00 2.00 11/18/19 11/18/19 11/18/19 11/18/19 01:14 01:30 02:00 02:43 Pulse 74 73 Resp 23 23 B/P (MAP) 130/63 (85) 136/60 (85) Pulse Ox 97 97 92 O2 Delivery Nasal Cannula Nasal Cannula Nasal Cannula Nasal Cannula O2 Flow Rate 5.00 4.00 2.00 2.00 11/18/19 11/18/19 11/18/19 11/18/19 03:00 04:00 04:00 05:00 Pulse 80 80 80 Resp 16 25 25 B/P (MAP) 135/70 (91) 132/65 (87) 132/63 (86) Pulse Ox 92 96 94 93 O2 Delivery Nasal Cannula Nasal Cannula Nasal Cannula Nasal Cannula O2 Flow Rate 4.00 4.00 4.00 4.00 11/18/19 11/18/19 11/18/19 06:00 06:40 07:39 Pulse 81 Resp 27 B/P (MAP) 133/65 (87) Pulse Ox 92 99 O2 Delivery Nasal Cannula Nasal Cannula Nasal Cannula O2 Flow Rate 4.00 4.00 6.00 11/18/19 00:00 Intake Total 550 ml Output Total 2550 ml Balance -2000 ml Constitutional: AAO x 3 Respiratory: other (scattered rhonchi ) Cardiovascular: regular rate-rhythm, tachycardia, systolic murmur (soft SUREKHA at card base) Gastrointestional: soft, distended, audible bowel sounds Extremities: other (mild edema); No clubbing, No cyanosis Neurologic/Psychiatric: grossly intact (moves all extremities) Skin: warm/dry; No diaphoresis, No damp, No rash on exposed areas, No ulcerations on exposed areas Results/Procedures: Labs Laboratory Tests 11/17/19 10:33: Glucometer 172H 11/17/19 15:35: Glucometer 119H 11/17/19 18:17: Triglycerides Level 218H 11/17/19 22:21: Glucometer 134H 11/18/19 03:00: White Blood Count 7.3, Red Blood Count 3.47L, Hemoglobin 9.3L, Hematocrit 31L, Mean Corpuscular Volume 88, Mean Corpuscular Hemoglobin 27, Mean Corpuscular Hemoglobin Concent 30L, Red Cell Distribution Width 15.2H, Platelet Count 272, Mean Platelet Volume 10.1, Neutrophils (%) (Auto) 74, Lymphocytes (%) (Auto) 13, Monocytes (%) (Auto) 10, Eosinophils (%) (Auto) 2, Basophils (%) (Auto) 0, Neutrophils # (Auto) 5.4, Lymphocytes # (Auto) 0.9L, Monocytes # (Auto) 0.8, Eosinophils # (Auto) 0.2, Basophils # (Auto) 0.0, Sodium Level 133L, Potassium Level 3.7, Chloride Level 87L, Carbon Dioxide Level 38H, Anion Gap 8, Blood Urea Nitrogen 11, Creatinine 0.69, Estimat Glomerular Filtration Rate > 60, BUN/Creatinine Ratio 16, Glucose Level 116H, Calcium Level 8.7, Phosphorus Level 3.3, Magnesium Level 1.7, Procalcitonin 0.08 Microbiology 11/15/19 Gram Stain - Final, Complete 11/15/19 Sputum Culture - Final, Complete YEAST 11/09/19 Blood Culture - Final, Complete Staphylococcus hominis Procedures NAME: VINICIUS HINES [facility] REC#: [id number] PT STATUS: ADM IN : 1955 PHYSICIAN: GORDON CONNOLLY DO ADMIT DATE: 11/09/19/ICU Draft Date of Exam:11/16/19 CHEST 1 VIEW, AP/PA ONLY INDICATION: Extubated patient. COMPARISON: 11/15/2019 FINDINGS: Single frontal radiograph view of the chest was obtained and demonstrates interval extubation and removal of gastric tube. Lungs show persistent patchy bibasilar airspace disease. There does appear to have been slight interval improvement in aeration when compared to prior exam. Small effusions cannot be excluded. There is no pneumothorax. Cardiac silhouette and pulmonary vasculature are within normal limits. Right internal jugular central venous catheter is stable with tip likely at the junction of the subclavian and internal jugular vein. IMPRESSION: 1. Lines and tubes as above. 2. Persistent, although improved bibasilar infiltrates, right greater than left. Dictated on workstation # [id number] Dict: 11/16/19 0649 Trans: 11/16/19 0651 [id number] [id number] Interpreted by: CHANG GONZALES MD Electronically signed by: A/P: Assessment: Ac resp arrest and cardiac arrest (PEA) in setting of profound hypoxia and hypotension, PE suspected clinically and being treated by the Hospitalist service Mild, acute CHF, systolic (LV systolic function at lower limit of normal to mildly impaired) and diastolic Hyponatremia of unclear etiology, current clinical hypervolemia suggests that CHF is contributing H/o CAD (reportedly has had 3 stents, none recent) -cardiac cath report of Apr [address] Malcolm shows stenting to the mid-RCA with a 3.0 x 18 mm stent (ex act details unknown) - cardiac cath report from Aug by Dr. Escalante at [facility] - showed widely patent previously placed stent to the mid- RCA (Mar [address] Levine, a 3.5 x 22 Taxus stent placed proximally to the pre vious mid-RCA stent place in 2001) and a stent was placed to the OM -1 (exact details unavailable) Mild troponin elevation likely due to type 2 [place] due to hypoxia Echo of 11/09/19: LVEF approx 50%, study difficult and not suitable for wall motion analysis, cannot exclude apical hypokinesis ECG: NSR, PACs, LAFB vs old IMI Plan: * Diuretics as needed * Monitor electrolytes * Adjust BB regimen for BP and HR * Continue ASA due a h/o cor stents * Management of anemia per medical services * Further recs based on hosp course JOSE ALBERTO GOODEN AUGER MACHINE OFFBEARER November 16, 2019 08:58
--- NOTE | 2019-11-16 09:39 | ST Dysphagia Evaluation ---
Speech Evaluation-General Medical Diagnosis ARF/code blue x 2 Onset Date: November 09, 2019 Therapy Diagnosis Therapy Diagnosis: Oropharyngeal Dysphagia Precautions Precautions: Aspiration Referral Referring Physician: Dr. Gonzales Medical History Pertinent Medical History: CAD, COPD, HTN, [place] Reviewed History: Yes Social History Current Living Status: Spouse Speech PLF/Current-Dysphagia Prior Level of Function Patient lived at home with her where she was independent for her daily needs. Subjective Patient was alert and cooperative with the Bedside Dysphagia Evaluation. Cognitive Status Patient Orientation: Person, Place, Situation Oral Motor Skills Dentition: Edentalous Ability to Follow Directions: Good Patient was NPO pending BDE. Oral Expression Ability: No Impairment Voice Voice Phonatory-Based Quality: Breathy, Weak Voice Pitch: Normal Voice Loudness: Mildly Soft/Quiet Face Facial Symmetry: Symmetrical Oral-Facial Assessment Oral-Facial Dentition: Normal Labial Seal Description: Normal Smile: Normal Puff Cheeks: Reduced Strength Lingual Protrusion: Normal Lingual ROM: Normal Lingual Strength: Normal Pharynx Velopharyngeal Move.: Normal Volitional Dry Swallow: Yes Voluntary Cough: Yes Can Clear Throat Volitionally: Yes Dysphagia Evaluation Consistencies Presented: Thin Liquid, Mechanical Soft, Pureed Patient was not given regular consistency due to edentulous status. Oral phase is within normal limits for all consistencies presented. Pharyngeal phase is within normal limits for all consistencies presented. Dietary Recommendations: Mechanical Soft Liquid Recommendations: Thin Swallowing Precautions: Alternate Liquids/Solids, Double Swallow, Decreased Bolus 1/2 Tsp, Liquids from Straw, Small Bites and Sips, Sitting Upright 90 Degrees, Sitting 90 Degrees 30 Post Intake Dysphagia Evaluation Summary Patient is a pleasant 64 year old female who was admitted to the hospital via ED. Patient was intubated in the field. She was extubated yesterday and orders were received for a Bedside Dysphagia Evaluation. The patient was too weak after extubation to participate. She was able to complete the BDE without difficulty this morning. She is alert and oriented. She demonstrated ability to follow directions and verbally participate. The patient was given thin liquids at 1/2 tsp x2 and small sips via straw x2 without difficulty. Patient was also given trials of 1/2 tsp puree and mechanical soft without s/s of aspiration. Patient's nurse was informed of the recommended diet level of Dysphagia II and thin liquids. This information was also discussed with the patient and written on the white board in her room. Barriers to Learning Patient's recent medical status, however this appears to be resolving.- Speech Short Term Goals Short Term Goals Short Term Goals 1) Patient will tolerate least restrictive diet level without s/s of aspiration at 90%. 2) Patient/caregiver will utilize compensatory strategies as trained at 90-100% with minimal cues. Speech Custodial Goals Custodial Goals Patient will maintain adequate nutrition/hydration via safe, effective swallow function. Speech-Plan Patient/Family Goals Patient/Family Goals: Patient plans on returning home upon hospital discharge. Treatment Plan Speech Therapy Treatment Plan: Continue Plan of Care Frequency: 3 times per week Estimated Hrs Per Day: .25 hour per day Rehab Potential: Guarded Barriers to Learning: Patient's recent medical status, however this appears to be resolving.- Pt/Family Agrees to Plan: Yes Safety Risks/Education Teaching Recipient: Patient Teaching Methods: Demonstration, Discussion Response to Teaching: Verbalize Understanding, Return Demonstration Education Topics Provided: Safety of oral intake and diet level Time Speech Therapy Time In: 09:20 Speech Therapy Time Out: 09:35 Total Billed Time: 15 Billed Treatment Time 1AJ [address] ST November 16, 2019 09:39
--- NOTE | 2019-11-16 10:28 | NUR ---
RD ASSESSMENT PMHx: HTN; DM; COPD; JODI; CAD; hypercholesterolemia; PT INTERACTION: Pt was awake and pleasant during nutrition assessment. Pt states current appetite since extubation has been good. Note PO intake of about 25% of breakfast, per visual assessment. Pt states following a regular diet at home, and has no issues with chewing/swallowing food. Pt states no recent issues with nausea, vomiting, constipation, or diarrhea. Pt states unsure of last BM. Note no BM has been recorded, and pt not currently on bowel regimen per chart review. Pt states recent wt loss, but unsure of amount/timeframe. Note unable to determine recent wt hx, per chart review. Pt states current DM management is "sometimes good when I think about it." Note unable to determine recent HbA1c, per chart review. ABNORMAL NUTRITION-RELATED LAB VALUES LOW: Na 133; Cl 89 HIGH: Est. kcal needs: 5146-6744 kcal | 15-18 kcal/kg Est. Pro needs: 84-105 g Pro | 0.8-1.0 g Pro/kg PES STATEMENT: Inadequate oral intake (NI-2.1) related to loss of appetite as evidenced by pt interview | avg PO intake 25% x1meal INTERVENTION: Continue with current diet order of DYS2 Mechanically Altered diet. Pt may benefit from nutrition supplementation if PO intake remains low. Offered dietary education on DM management, but pt declined at this time. Will attempt to offer again prior to discharge. Will continue to follow and reassess as pt needs, intake, and status change. MONITOR/EVALUATE: PO Intake; Plan of Care; Hydration Status; Weight Status; Lab Values Tristen Rocha, MS, RD, LD
--- NOTE | 2019-11-16 11:03 | Progress Note - Cardiology ---
Cardiology SOAP Progress Note Objective: I&O/Vital Signs 11/15/19 11/16/19 11/16/19 11/16/19 23:00 00:00 00:00 01:00 Temp 37.2 37.3 37.4 Pulse 98 101 89 Resp 24 29 15 B/P (MAP) 145/51 (82) 165/59 (94) 163/57 (92) Pulse Ox 91 93 95 O2 Delivery NIV Bilevel NIV Bilevel NIV Bilevel NIV Bilevel O2 Flow Rate 30.00 30.00 30.00 FiO2 30 11/16/19 11/16/19 11/16/19 11/16/19 01:00 01:58 02:00 03:00 Temp 37.6 37.5 Pulse 93 98 93 98 Resp 33 20 23 B/P (MAP) 134/50 (78) 142/51 (81) Pulse Ox 93 93 92 O2 Delivery NIV Bilevel NIV Bilevel O2 Flow Rate 30.00 30.00 30.00 11/16/19 11/16/19 11/16/19 11/16/19 04:00 04:00 05:00 06:00 Temp 37.5 37.5 37.5 Pulse 97 90 100 Resp 27 23 25 B/P (MAP) 147/57 (87) 127/51 (76) 141/56 (84) Pulse Ox 92 97 97 O2 Delivery NIV Bilevel NIV Bilevel NIV Bilevel NIV Bilevel O2 Flow Rate 25.00 25.00 25.00 FiO2 25 11/16/19 11/16/19 11/16/19 11/16/19 06:28 06:38 07:00 07:00 Temp 37.4 Pulse 102 99 Resp 30 B/P (MAP) 152/62 (92) Pulse Ox 93 94 O2 Delivery Nasal Cannula Nasal Cannula Nasal Cannula O2 Flow Rate 4.00 4.00 4.00 11/16/19 11/16/19 11/16/19 11/16/19 08:00 08:00 09:00 10:00 Temp 37.3 37.4 37.4 Pulse 98 100 101 Resp 26 28 30 B/P (MAP) 166/65 (98) 160/70 (100) 166/69 (101) Pulse Ox 94 93 93 94 O2 Delivery Nasal Cannula Nasal Cannula Nasal Cannula Nasal Cannula O2 Flow Rate 4.00 4.00 4.00 4.00 11/16/19 10:50 O2 Delivery Nasal Cannula O2 Flow Rate 2.00 11/16/19 00:00 Intake Total 1020 ml Output Total 790 ml Balance 230 ml Constitutional: AAO x 3 Respiratory: other (scattered rhonchi ) Cardiovascular: regular rate-rhythm, tachycardia, systolic murmur (soft SUREKHA at card base) Gastrointestional: soft, distended, audible bowel sounds Extremities: other (mild edema); No clubbing, No cyanosis Neurologic/Psychiatric: alert, oriented x 3, other (moves all limbs); No grossly intact Skin: warm/dry; No diaphoresis, No damp, No rash on exposed areas, No ulcerations on exposed areas Results/Procedures: Labs Laboratory Tests 11/15/19 11:26: Glucometer 129H 11/15/19 15:23: Glucometer 121H 11/15/19 19:54: Glucometer 131H 11/16/19 00:45: Glucometer 103 11/16/19 03:16: White Blood Count 7.5, Red Blood Count 3.32L, Hemoglobin 9.0L, Hematocrit 29L, Mean Corpuscular Volume 86, Mean Corpuscular Hemoglobin 27, Mean Corpuscular Hemoglobin Concent 31L, Red Cell Distribution Width 15.4H, Platelet Count 225, Mean Platelet Volume 10.1, Neutrophils (%) (Auto) 76H, Lymphocytes (%) (Auto) 10L, Monocytes (%) (Auto) 12, Eosinophils (%) (Auto) 2, Basophils (%) (Auto) 0, Neutrophils # (Auto) 5.7, Lymphocytes # (Auto) 0.7L, Monocytes # (Auto) 0.9, Eosinophils # (Auto) 0.1, Basophils # (Auto) 0.0, Blood Gas Puncture Site RIGHT ARTLINE, Blood Gas Patient Temperature 37.6, Arterial Blood pH 7.49H, Arterial Blood Partial Pressure CO2 38, Arterial Blood Partial Pressure O2 132H, Arterial Blood HCO3 29H, Arterial Blood Total CO2 30.0, Arterial Blood Oxygen Saturation 96, Arterial Blood Base Excess 5.5H, Gustavo Test POSITIVE, Blood Gas Ventilator Setting YES, Blood Gas Inspired Oxygen 30, Sodium Level 133L, Potassium Level 3.7, Chloride Level 89L, Carbon Dioxide Level 31, Anion Gap 13, Blood Urea Nitrogen 11, Creatinine 0.70, Estimat Glomerular Filtration Rate > 60, BUN/Creatinine Ratio 16, Glucose Level 104, Calcium Level 8.8, Phosphorus Level 3.2, Magnesium Level 1.8 11/16/19 08:04: Glucometer 99 Microbiology 11/15/19 Gram Stain - Final, Resulted 11/15/19 Sputum Culture - Preliminary, Resulted YEAST 11/09/19 Blood Culture - Final, Complete Staphylococcus hominis Laboratory Tests 11/15/19 02:26 11/16/19 03:16 A/P: Assessment: Ac resp arrest and cardiac arrest (PEA) in setting of profound hypoxia and hypotension, PE suspected clinically and being treated by the Hospitalist service Mild, acute CHF, systolic (LV systolic function at lower limit of normal to mildly impaired) and diastolic Hyponatremia of unclear etiology, current clinical hypervolemia suggests that CHF is contributing H/o CAD (reportedly has had 3 stents, none recent) -cardiac cath report of Apr [address] Malcolm shows stenting to the mid-RCA with a 3.0 x 18 mm stent (exact details unknown) - cardiac cath report from Aug by Dr. Escalante at [facility] - showed widely patent previously placed stent to the mid- RCA (Mar [address] Levine, a 3.5 x 22 Taxus stent placed proximally to the previous mid-RCA stent place in 2001) and a stent was placed to the OM -1 (exact details unavailable) Mild troponin elevation likely due to type 2 [place] due to hypoxia Echo of 11/09/19: LVEF approx 50%, study difficult and not suitable for wall motion analysis, cannot exclude apical hypokinesis ECG: NSR, PACs, LAFB vs old IMI Plan: * Diuretics as needed * Monitor electrolytes * Adjust BB regimen for BP and HR * Continue ASA due a h/o cor stents * Management of anemia per medical services * I reviewed her CV issues with her today RAFAT MONTANA MD FACP FAC CCDS November 16, 2019 11:03
[2019-11-16] MEDS ORDERED: FUROSEMIDE 20 MG (LASIX) TAB PO ONE (11:15)
--- NOTE | 2019-11-16 11:31 | Physical Therapy Daily Note ---
PT Daily Note-Current Subjective Patient is more alert today and agrees to PT. Mental Status Patient Orientation: Person, Time, Situation Attachments: Oxygen, Ordonez Catheter, IV Transfers SCALE: Activities may be completed with or without assistive devices. 1-Eplbfcypzw-osguolq completes the activity by him/herself with no assistance from a helper. 5-Set-up or Clean-up Assistance-helper sets up or cleans up; patient completes activity. [place] assists only prior to or following the activity. 4-Supervision or Touching Assistance-helper provides verbal cues and/or touching/steadying and/or contact guard assistance as patient completes activity. Assistance may be provided throughout the activity or intermittently. 3-Partial/Moderate Assistance-helper does LESS THAN HALF the effort. [place] lifts, holds or supports trunk or limbs, but provides less than half the effort. 2-Substantial/Maximal Assistance-helper does MORE THAN HALF the effort. [place] lifts or holds trunk or limbs and provides more than half the effort. 7-Oisfzlzcl-rowpls does ALL the effort. Patient does none of the effort to complete the activity. Or, the assistance of 2 or more helpers is required for the patient to complete the activity. If activity was not attempted, code reason: 7-Patient Refused. 9-Not Applicable-not attempted and the patient did not perform the activity before the current illness, exacerbation or injury. 10-Not Attempted due to Environmental Limitations-(lack of equipment, weather restraints, etc.). 88-Not Attempted due to Medical Conditions or Safety Concerns. Roll Left & Right (QC): 1 Sit to Lying (QC): 1 Lying to Sitting/Side of Bed(Q: 1 patient sat EOB x 10 min with SBA to CGA with SAO2 decreasing to 88% on 3L NC Patient is dependent assist x 2 with bed mobility Weight Bearing Right Lower Extremity: Right Weight Bearing/Tolerated Left Lower Extremity: Left Weight Bearing/Tolerated Exercises Supine Ex: Ankle pumps, Heel Slides, Straight leg raise, Hip abd/add Supine Reps: 10 (AAROM) Seated Therapy Exercises: Long arc quads Seated Reps: 15 (AROM) Assessment Patient fatigues quickly with minimal activity, however, is progressing with treatment plan. Patient repositioned to side lying right with pillow placement behind back after treatment. PT Short Term Goals Short Term Goals Time Frame: December 04, 2019 Roll Left & Right: 2 Sit to lyin Lying to sitting on side of be: 2 Sit to stand: 2 Chair/nxy-ya-ukuao transfer: 2 PT Accountant Assistant Goals Accountant Assistant Goals PT Accountant Assistant Goals Time Frame: Dec 18, 2019 Roll Left & Right (QC): 4 Sit to Lying (QC): 4 Lying-Sitting on Side/Bed(QC): 4 Sit to Stand (QC): 4 Chair/Eee-by-Lzene Xfer(QC): 4 Toilet Transfer (QC): 4 Does the Patient Walk: No and Walking Goal IS indicated Walk 10 feet (QC): 3 PT Plan Treatment/Plan Treatment Plan: Continue Plan of Care Treatment Plan: Bed Mobility, Education, Functional Activity Narendra, Functional Strength, Gait, Safety, Therapeutic Exercise, Transfers Treatment Duration: Dec 18, 2019 Frequency: 6 times per week Estimated Hrs Per Day: .25 hour per day (to .5) Patient and/or Family Agrees t: Yes Time/GCodes Time In: 1105 Time Out: 1122 Total Billed Treatment Time: 17 Total Billed Treatment 1 visit EX 17 min MARA CELIS PT November 16, 2019 11:31
--- NOTE | 2019-11-16 13:49 | Occupational Ther Daily Note ---
OT Current Status-Daily Note Subjective Pt. reports that she is sore in bilateral UE with movement at elbow/shoulder level. Pt. does not report pain level. Pt. repositioned to comfort level after PROM/AROM exercises. Appearance Pt. in bed. Pt. awake and does not have bipap on. Mental Status/Objective Patient Orientation: Person Attachments: Ordonez Catheter, IV, Oxygen, Telemetry ADL-Treatment Therapy Code Descriptions/Definitions Functional [place] Measure: 0=Not Assessed/NA 4=Minimal Assistance 1=Total Assistance 5=Supervision or Setup 2=Maximal Assistance 6=Modified [place] 3=Moderate Assistance 7=Complete IndependenceSCALE: Activities may be completed with or without assistive devices. 6-Ztfxxaywad-ermudcd completes the activity by him/herself with no assistance from a helper. 5-Set-up or Clean-up Assistance-helper sets up or cleans up; patient completes activity. [place] assists only prior to or following the activity. 4-Supervision or Touching Assistance-helper provides verbal cues and/or touching/steadying and/or contact guard assistance as patient completes activity. Assistance may be provided throughout the activity or intermittently. 3-Partial/Moderate Assistance-helper does LESS THAN HALF the effort. [place] lifts, holds or supports trunk or limbs, but provides less than half the effort. 2-Substantial/Maximal Assistance-helper does MORE THAN HALF the effort. [place] lifts or holds trunk or limbs and provides more than half the effort. 2-Imwrwwphl-cdvrvg does ALL the effort. Patient does none of the effort to com plete the activity. Or, the assistance of 2 or more helpers is required for the patient to complete the activity. If activity was not attempted, code reason: 7-Patient Refused. 9-Not Applicable-not attempted and the patient did not perform the activity before the current illness, exacerbation or injury. 10-Not Attempted due to Environmental Limitations-(lack of equipment, weather restraints, etc.). 88-Not Attempted due to Medical Conditions or Safety Concerns. Pt. able to follow commands. Pt. does close eyes throughout treatment, and requires cues to open. Pt. reports that she is very tired. OT provided pt. with warm washcloth and assisted her to face. Pt. unable to bring to face. OT provides gentle assist and pt. attempts to wash face. Pt. does not have hand strength and so OT cleanses face for her. OT provided gentle PROM to all joints in bilateral UE. Pt. encouraged to complete AROM. Pt. able to make fists and open back up. Slight wrist extension and supination/pronation in forearm noted. Pt. able to flex elbows but is limited at shoulder level. OT noted edema in bilateral hands. Provided gentle retrograde massage with lotion to bilateral hands. Pt. declines repositioning in bed. All needs are met. Education OT Patient Education: Correct positioning, Exercise program, Progress toward Goal/Update tx plan, Purpose of tx/functional activities, Reviewed precautions, Rehab process Teaching Recipient: Patient Teaching Methods: Demonstration, Discussion Response to Teaching: Verbalize Understanding, Return Demonstration, Reinforcement Needed OT Short Term Goals Short Term Goals Time Frame: November 29, 2019 Eatin Oral hygiene: 3 Toileting hygiene: 2 Upper body dressin OT Director Of Customer Acquisition Goals Director Of Customer Acquisition Goals Time Frame: Dec 13, 2019 Eating (QC): 4 Oral Hygiene (QC): 4 Toileting Hygiene (QC): 3 Shower/Bathe Self (QC): 3 Upper Body Dressing (QC): 4 Lower Body Dressing (QC): 3 On/Off Footwear (QC): 3 Additional Goals: 1-Demonstrate ADL Tasks, 2-Verbalize Understanding, 3- ImproveStrength/Narendra 1=Demonstrate adherence to instructed precautions during ADL tasks. 2=Patient will verbalize/demonstrate understanding of assistive devices/modifications for ADL. 3=Patient will improve strength/tolerance for activity to enable patient to perform ADL's. OT Education/Plan Problem List/Assessment Assessment: Decreased Activ Tolerance, Decreased UE Strength, Edema, Impaired Coordination, Impaired I ADL's, Impaired Self-Care Skills, Restricted Funct UE ROM Discharge Recommendations Plan/Recommendations: Continue POC Therapy Discharge Recommendati: Post Acute OT Treatment Plan/Plan of Care Treatment,Training & Education: Yes Patient would benefit from OT for education, treatment and training to promote independence in ADL's, mobility, safety and/or upper extremity function for ADL's. Plan of Care: ADL Retraining, Functional Mobility, UE Funct Exercise/Act Treatment Duration: Dec 13, 2019 Frequency: 5 times per week Estimated Hrs Per Day: .25 hour per day Agreement: Yes Rehab Potential: Fair Time/GCodes Start Time: 08:25 Stop Time: 08:45 Total Time Billed (hr/min): 20 Billed Treatment Time 1, Ex MALACHI FAROOQ OT November 16, 2019 13:49
--- NOTE | 2019-11-16 14:22 | Progress Note - Hospitalist ---
Subjective HPI/CC On Admission Date Seen by Provider: November 16, 2019 Time Seen by Provider: 10:10 Subjective/Events-last exam She is sitting in bed awake and alert. She remains weak. She denies any fevers or chills. She denies any chest pain or shortness of breath. She denies any abdominal pain, nausea, or vomiting. She has no other complaints or concerns. Objective Exam Vital Signs Vital Signs Date Time Temp Pulse Resp B/P (MAP) Pulse Ox O2 Delivery O2 Flow Rate FiO2 11/16/19 13:00 37.4 105 28 149/64 (92) 90 Nasal Cannula 2.00 11/16/19 04:00 25 Capillary Refill : Greater Than 3 Seconds General Appearance: No Apparent Distress, Obese Respiratory: Lungs Clear, Normal Breath Sounds, Other (tachypnea) Cardiovascular: Regular Rate, Rhythm, No Murmur Gastrointestinal: Normal Bowel Sounds, Non Tender, Soft Extremity: Normal Inspection, Non Tender, Pedal Edema Neurologic/Psychiatric: Alert, Motor Weakness, Other (flat affect) Skin: Normal Color, Warm/Dry Results/Procedures Lab Laboratory Tests 11/16/19 03:16 Patient resulted labs reviewed. Imaging: Reviewed Imaging Report Assessment/Plan Assessment and Plan Assess & Plan/Chief Complaint s/p cardiac arrest Acute respiratory failure with hypoxia Elevated d-dimer, presumed pulmonary embolism COPD Small left pneumothorax and sternal and rib fracture extubated 11/14 Pulmonology consulted, appreciate assistance s/p hypothermia protocol and rewarming s/p TPA in the ER for presumed PE on 11/08, now on Lovenox BID COVID19 negative Continue Merrem Normocytic anemia hemoglobin stable, 9 this morning OG content + for occult blood Hemodynamically stable and likely due to trauma from OGT Continue Lovenox for now given high probability of PE HTN CAD continue metoprolol, Lasix, and spironolactone Resume JOSH inhibitor Cardiology consulted, appreciate recs T2DM with hyperglycemia sliding scale insulin Hyponatremia improving, 133 Debility PT/OT Likely transfer to acute rehab tomorrow if stable DVT prophylaxis: Already receiving therapeutic anticoagulation Shock, resolved Lactic acidosis, resolved Altered mental status, resolved Critical Care Critically Ill Patient Diagnosis/Problems Diagnosis/Problems (1) Cardiac arrest Status: Acute (2) Acute respiratory failure Status: Acute Qualifiers: Respiratory failure complication: hypoxia Qualified Codes: J96.01 - Acute respiratory failure with hypoxia (3) Debility Status: Acute Clinical Quality Measures DVT/VTE Risk/Contraindication: Risk Factor Score Per Nursin RFS Level Per Nursing on Admit: 4+=Very High CLARIBEL ESCOBAR MD November 16, 2019 14:22
[2019-11-16] MEDS ORDERED: lisINopril 40 MG (PRINIVIL) TABLET PO ONE (14:30)
[2019-11-17] VITALS (26 sets, daily range): BP systolic 124–164; BP diastolic 46–87
[2019-11-17] MEDS: fentaNYL INJECTION 100 MCG/2 ML AMP IVP PRN (00:47)
[2019-11-17] MEDS: LACTATED RINGERS 1,000 ML IV SCH (00:50)
[2019-11-17] MEDS: RT-ALBUTEROL/IPRATROPIUM 3 ML (DUONEB) VIAL INH SCH ×6 (01:49→21:52)
[2019-11-17 03:56] LABS: BASOPHILS % (AUTO) 0 % (0-10); EOSINOPHILS # (AUTO) 0.2 10^3/uL (0.0-0.3); EOSINOPHILS % (AUTO) 2 % (0-10); HEMATOCRIT 30 % (35-52); HEMOGLOBIN 9.3 G/DL (11.5-16.0); LYMPHOCYTES # (AUTO) 0.9 X 10^3 (1.0-4.0); LYMPHOCYTES % (AUTO) 11 % (12-44); MEAN CORPUSCULAR HEMOGLOBIN 27 PG (25-34); MEAN CORPUSCULAR HGB CONC 31 G/DL (32-36); MEAN CORPUSCULAR VOLUME 87 FL (80-99); MEAN PLATELET VOLUME 10.3 FL (7.4-10.4); MONOCYTES # (AUTO) 0.8 X 10^3 (0.0-1.0); MONOCYTES % (AUTO) 11 % (0-12); NEUTROPHILS % (AUTO) 76 % (42-75); PLATELET COUNT 230 10^3/uL (130-400); RED CELL DISTRIBUTION WIDTH 15.1 % (10.0-14.5); WHITE BLOOD COUNT 7.9 10^3/uL (4.3-11.0)
[2019-11-17 03:57] LABS: ABG BASE EXCESS 14.9 MMOL/L (-2.5-2.5); ABG OXYGEN SATURATION 95 % (94-100); ABG PCO2 58 MMHG (35-45); ABG PH 7.45 (7.37-7.43); ABG PO2 80 MMHG (79-93); ABG TCO2 41.5 MMOL/L (21.0-31.0)
[2019-11-17 03:59] LABS: ALLENS TEST POSITIVE; INSPIRED O2 35; PATIENT TEMP 37.5; VENTILATOR NO
[2019-11-17 04:04] LABS: CHLORIDE 88 MMOL/L (98-107); POTASSIUM 3.6 MMOL/L (3.6-5.0); SODIUM 132 MMOL/L (135-145)
[2019-11-17 04:05] LABS: CALCIUM 8.5 MG/DL (8.5-10.1)
[2019-11-17 04:06] LABS: GLUCOSE 121 MG/DL (70-105)
[2019-11-17 04:07] LABS: CARBON DIOXIDE 35 MMOL/L (21-32)
[2019-11-17 04:09] LABS: PHOSPHORUS 3.5 MG/DL (2.3-4.7)
[2019-11-17 04:10] LABS: CREATININE SERUM 0.73 MG/DL (0.60-1.30); GFR ESTIMATED > 60
[2019-11-17 04:11] LABS: BUN/CREATININE RATIO 15
[2019-11-17 04:12] LABS: MAGNESIUM 1.7 MG/DL (1.6-2.4)
[2019-11-17] MEDS: MEROPENEM 500 MG in WATER (STERILE) FOR INJECTION 10 ML IV SCH ×2 (05:21→12:02)
[2019-11-17] MEDS: MAGNESIUM 1 GM/100 ML IVPB 100 ML IV SCH ×3 (05:23→06:21)
[2019-11-17] MEDS: POTASSIUM CL 10MEQ/50ML IVPB 50 ML IV SCH ×3 (05:25→06:20)
[2019-11-17] MEDS: ENOXAPARIN 100 MG/1 ML (LOVENOX) SYR SC SCH ×2 (05:27→18:12)
[2019-11-17] MEDS: KCL 20 MEQ TAB (K-DUR) PO SCH (05:45)
[2019-11-17] MEDS: inSUlin ASPART (NovoLOG) 1 UNIT/0.01 ML (CHARGE PER UNIT) SC SCH ×4 (05:45→22:21)
--- NOTE | 2019-11-17 05:49 | Pulmonary Progress Note ---
Subjective Time Seen by a Provider: 05:48 Sepsis Event Evaluation Height, Weight, BMI Height: '" Weight: lbs. oz. kg; 33.00 BMI Method: Exam Exam Vital Signs Date Time Temp Pulse Resp B/P (MAP) Pulse Ox O2 Delivery O2 Flow Rate FiO2 11/17/19 04:40 93 NIV Bilevel 30.00 11/17/19 04:00 94 NIV Bilevel 3.00 35 11/17/19 04:00 37.5 80 24 149/60 (89) 96 NIV Bilevel 30.00 11/17/19 03:00 37.6 80 23 127/46 (73) 94 NIV Bilevel 30.00 11/17/19 02:00 37.6 81 22 158/58 (91) 88 NIV Bilevel 35.00 11/17/19 02:00 37.6 84 27 152/62 (92) 92 NIV Bilevel 30.00 11/17/19 01:49 80 22 94 35.00 11/17/19 01:30 37.5 79 15 164/61 (95) 88 NIV Bilevel 35.00 11/17/19 01:00 84 11/17/19 00:00 37.6 83 29 148/58 (88) 92 NIV Bilevel 30.00 11/17/19 00:00 91 Nasal Cannula 3.00 11/16/19 23:00 37.6 82 27 154/61 (92) 95 NIV Bilevel 30.00 11/16/19 22:27 92 NIV Bilevel 30.00 11/16/19 22:00 37.5 70 22 130/51 (77) 96 NIV Bilevel 35.00 11/16/19 21:28 85 27 95 35.00 11/16/19 21:13 37.5 96 28 149/60 (89) 92 NIV Bilevel 35.00 11/16/19 21:00 37.4 97 28 174/73 (106) 91 Nasal Cannula 3.00 11/16/19 20:00 91 Nasal Cannula 3.00 11/16/19 20:00 37.6 103 32 176/80 (112) 93 Nasal Cannula 3.00 11/16/19 19:30 37.5 97 27 163/66 (98) 91 Nasal Cannula 3.00 11/16/19 19:00 98 11/16/19 19:00 37.5 98 28 157/65 (95) 91 Nasal Cannula 2.00 11/16/19 18:01 90 Nasal Cannula 2.00 11/16/19 18:00 37.4 101 29 164/67 (99) 91 Nasal Cannula 2.00 11/16/19 17:00 37.3 101 32 176/72 (106) 90 Nasal Cannula 2.00 11/16/19 16:00 93 Nasal Cannula 2.00 11/16/19 16:00 37.3 80 17 183/70 (107) 89 Nasal Cannula 2.00 11/16/19 15:19 90 Nasal Cannula 2.00 11/16/19 15:00 37.4 105 32 188/84 (118) 90 Nasal Cannula 2.00 11/16/19 14:00 37.3 101 29 163/66 (98) 90 Nasal Cannula 2.00 11/16/19 13:00 37.4 105 28 149/64 (92) 90 Nasal Cannula 2.00 11/16/19 12:34 100 11/16/19 12:00 93 Nasal Cannula 2.00 11/16/19 12:00 37.2 102 32 160/66 (97) 89 Nasal Cannula 2.00 11/16/19 11:00 37.4 102 30 143/60 (87) 92 Nasal Cannula 2.00 11/16/19 10:50 Nasal Cannula 2.00 11/16/19 10:49 95 Nasal Cannula 4.00 11/16/19 10:00 37.4 101 30 166/69 (101) 94 Nasal Cannula 4.00 11/16/19 09:00 37.4 100 28 160/70 (100) 93 Nasal Cannula 4.00 11/16/19 08:00 93 Nasal Cannula 4.00 11/16/19 08:00 37.3 98 26 166/65 (98) 94 Nasal Cannula 4.00 11/16/19 07:00 99 11/16/19 07:00 37.4 102 30 152/62 (92) 94 Nasal Cannula 4.00 11/16/19 06:38 Nasal Cannula 4.00 11/16/19 06:28 93 Nasal Cannula 4.00 11/16/19 06:00 37.5 100 25 141/56 (84) 97 NIV Bilevel 25.00 I & O 11/17/19 07:00 Intake Total 1030 ml Output Total 2950 ml Balance -1920 ml Height & Weight Height: '" Weight: lbs. oz. kg; 33.00 BMI Method: General Appearance: No Apparent Distress, Obese HEENT: PERRL/EOMI, TMs Normal, Normal ENT Inspection, Pharynx Normal, Moist Mucous Membranes, Other Neck: Normal Inspection, Supple Respiratory: Lungs Clear, Normal Breath Sounds, Other (tachypnea) Cardiovascular: Regular Rate, Rhythm, No Murmur Capillary Refill: Less Than 3 Seconds Gastrointestinal: normal bowel sounds, non tender, soft Extremity: Normal Inspection, Non Tender, Pedal Edema Neurologic/Psychiatric: Alert, Motor Weakness, Other (flat affect) Skin: Normal Color, Warm/Dry Results Lab Laboratory Tests 11/16/19 03:16 11/17/19 03:42 Assessment/Plan Assessment/Plan s/p cardiac arrest -s/p theraputic hypothermia Unresponsive secondary to sedation and hypoxic encephalopathy vs other Pt is now following commands Acute respiratory failure - Merrem -Extubated yesterday -COVID is neg -Influenza is negative -trail off BiPAP to regular NC Probable PE on admission - s/p TPA -Currently on Hep -lovenox BID -Will plan on treating with anticogulation for at least 3mo PTX per CT -- is very small and appears to be stable despite being on vent. -Continue to monitor Sternal fracture Leukocytosis -Gracia culture -Continue Merrem for now COPDAE -Duoneb - Hypotension - Now resolved Hypokalemia, hypophos -replace CAD Hole home meds for hypotension and TPA admin Cardiology consulted, appreciate recs NIDDMII GORDON MCMANUS DO November 17, 2019 05:49
--- NOTE | 2019-11-17 06:30 | NUR ---
ART line removed per Dr. Gonzales's order. Pressure held, no complaints or concerns. Temperature probed also removed to ensure patient can move and partake in physical therapy.
--- NOTE | 2019-11-17 07:27 | Diagnostic Imaging Report ---
INDICATION: Follow-up of bilateral pulmonary infiltrates. FINDINGS: The lungs are well-aerated. There continues to be bibasilar infiltrates more severe on the right. There has been slight improvement in aeration in the right lung base. Heart is upper limits of normal. No evidence of pulmonary edema. Right central line remains in good position. IMPRESSION: 1. Persistent basilar infiltrates more prominent on the right though there is some improvement in aeration right lung base today. Dictated by: Dictated on workstation # [id number]
--- NOTE | 2019-11-17 08:33 | Progress Note - Cardiology ---
Cardiology SOAP Progress Note Subjective: Lying in bed. States she feels tired this morning. She states she feels her breathing is good this morning. Occ productive cough. No c/o CP or palpitations. Objective: I&O/Vital Signs 11/17/19 11/17/19 11/17/19 11/17/19 21:00 21:53 22:00 22:41 Pulse 84 87 84 Resp 19 28 25 B/P (MAP) 160/87 (111) 147/79 (101) Pulse Ox 96 95 98 93 O2 Delivery Nasal Cannula Nasal Cannula Nasal Cannula O2 Flow Rate 4.00 2.00 4.00 30.00 11/17/19 11/17/19 11/17/19 11/18/19 22:47 23:00 23:59 00:00 Pulse 80 80 68 Resp 25 21 22 B/P (MAP) 124/72 (89) 117/60 (79) Pulse Ox 94 96 95 97 O2 Delivery NIV Bilevel NIV Bilevel NIV Bilevel NIV Bilevel O2 Flow Rate 30.00 30.00 30.00 FiO2 30 11/18/19 11/18/19 11/18/19 11/18/19 00:00 01:00 01:00 01:00 Temp 36.7 Pulse 76 76 Resp 18 B/P (MAP) 143/68 (93) Pulse Ox 95 O2 Delivery Nasal Cannula Nasal Cannula O2 Flow Rate 2.00 2.00 11/18/19 11/18/19 11/18/19 11/18/19 01:14 01:30 02:00 02:43 Pulse 74 73 Resp 23 23 B/P (MAP) 130/63 (85) 136/60 (85) Pulse Ox 97 97 92 O2 Delivery Nasal Cannula Nasal Cannula Nasal Cannula Nasal Cannula O2 Flow Rate 5.00 4.00 2.00 2.00 11/18/19 11/18/19 11/18/19 11/18/19 03:00 04:00 04:00 05:00 Pulse 80 80 80 Resp 16 25 25 B/P (MAP) 135/70 (91) 132/65 (87) 132/63 (86) Pulse Ox 92 96 94 93 O2 Delivery Nasal Cannula Nasal Cannula Nasal Cannula Nasal Cannula O2 Flow Rate 4.00 4.00 4.00 4.00 11/18/19 11/18/19 11/18/19 06:00 06:40 07:39 Pulse 81 Resp 27 B/P (MAP) 133/65 (87) Pulse Ox 92 99 O2 Delivery Nasal Cannula Nasal Cannula Nasal Cannula O2 Flow Rate 4.00 4.00 6.00 11/18/19 00:00 Intake Total 550 ml Output Total 2550 ml Balance -2000 ml Constitutional: AAO x 3 Respiratory: other (scattered rhonchi ) Cardiovascular: regular rate-rhythm, tachycardia, systolic murmur (soft SUREKHA at card base) Gastrointestional: soft, distended, audible bowel sounds Extremities: other (mild edema); No clubbing, No cyanosis Neurologic/Psychiatric: alert, oriented x 3, other (moves all limbs); No grossly intact Skin: warm/dry; No rash on exposed areas, No ulcerations on exposed areas Results/Procedures: Labs Laboratory Tests 11/17/19 10:33: Glucometer 172H 11/17/19 15:35: Glucometer 119H 11/17/19 18:17: Triglycerides Level 218H 11/17/19 22:21: Glucometer 134H 11/18/19 03:00: White Blood Count 7.3, Red Blood Count 3.47L, Hemoglobin 9.3L, Hematocrit 31L, Mean Corpuscular Volume 88, Mean Corpuscular Hemoglobin 27, Mean Corpuscular Hemoglobin Concent 30L, Red Cell Distribution Width 15.2H, Platelet Count 272, Mean Platelet Volume 10.1, Neutrophils (%) (Auto) 74, Lymphocytes (%) (Auto) 13, Monocytes (%) (Auto) 10, Eosinophils (%) (Auto) 2, Basophils (%) (Auto) 0, Neutrophils # (Auto) 5.4, Lymphocytes # (Auto) 0.9L, Monocytes # (Auto) 0.8, Eosinophils # (Auto) 0.2, Basophils # (Auto) 0.0, Sodium Level 133L, Potassium Level 3.7, Chloride Level 87L, Carbon Dioxide Level 38H, Anion Gap 8, Blood Urea Nitrogen 11, Creatinine 0.69, Estimat Glomerular Filtration Rate > 60, BUN/Creatinine Ratio 16, Glucose Level 116H, Calcium Level 8.7, Phosphorus Level 3.3, Magnesium Level 1.7, Procalcitonin 0.08 Microbiology 11/15/19 Gram Stain - Final, Complete 11/15/19 Sputum Culture - Final, Complete YEAST 11/09/19 Blood Culture - Final, Complete Staphylococcus hominis Procedures NAME: [facility] REC#: [id number] PT STATUS: ADM IN : 1955 PHYSICIAN: GORDON CONNOLLY DO ADMIT DATE: 11/09/19/ICU Draft Date of Exam:11/17/19 CHEST 1 VIEW, AP/PA ONLY INDICATION: Follow-up of bilateral pulmonary infiltrates. FINDINGS: The lungs are well-aerated. There continues to be bibasilar infiltrates more severe on the right. There has been slight improvement in aeration in the right lung base. Heart is upper limits of normal. No evidence of pulmonary edema. Right central line remains in good position. IMPRESSION: 1. Persistent basilar infiltrates more prominent on the right though there is some improvement in aeration right lung base today. Dictated on workstation # [id number] Dict: 11/17/19 0724 Trans: 11/17/19 0727 [facility] [id number] Interpreted by: ELIAS RAY MD Electronically signed by: A/P: Assessment: Ac resp arrest and cardiac arrest (PEA) in setting of profound hypoxia and hypotension, PE suspected clinically and being treated by the Hospitalist service Mild, acute CHF, systolic (LV systolic function at lower limit of normal to mildly impaired) and diastolic Hyponatremia of unclear etiology, current clinical hypervolemia suggests that CHF is contributing - improved H/o CAD (reportedly has had 3 stents, none recent) -cardiac cath report of Apr [address] Malcolm shows stenting to the mid-RCA with a 3.0 x 18 mm stent (exact details unknown) - cardiac cath report from Aug by Dr. Escalante at [facility] - showed widely patent previously placed stent to the mid- RCA (Mar [address] Levine, a 3.5 x 22 Taxus stent placed proximally to the previous mid-RCA stent place in 2001) and a stent was placed to the OM -1 (exact details unavailable) Mild troponin elevation likely due to type 2 [place] due to hypoxia Echo of 11/09/19: LVEF approx 50%, study difficult and not suitable for wall motion analysis, cannot exclude apical hypokinesis ECG: NSR, PACs, LAFB vs old IMI Plan: * Diuretics as needed * Monitor electrolytes * Adjust BB regimen for BP and HR * Continue ASA due a h/o cor stents * Management of anemia per medical services * I reviewed her CV issues with her today JOSE ALBERTO GOODEN November 17, 2019 08:33
[2019-11-17] MEDS ORDERED: FUROSEMIDE 20 MG (LASIX) TAB PO SCH (09:00)
[2019-11-17] MEDS: meTOprolol TARTRATE 25 MG (LOPRESSOR) TABLET PO SCH ×2 (09:40→22:20)
[2019-11-17] MEDS: FUROSEMIDE 40 MG/4 ML INJ (LASIX) IVP SCH (09:40)
[2019-11-17] MEDS: PANTOPRAZOLE 40 MG (PROTONIX) VIAL IV SCH (09:40)
[2019-11-17] MEDS: lisINopril 40 MG (PRINIVIL) TABLET PO SCH (09:40)
[2019-11-17] MEDS: SPIRONOLACTONE 25 MG (ALDACTONE) TAB PO SCH (09:41)
[2019-11-17] MEDS: ASPIRIN 81 MG CHEW (CHILDREN'S ASA) PO SCH (09:41)
--- NOTE | 2019-11-17 10:19 | Progress Note - Cardiology ---
Cardiology SOAP Progress Note Subjective: No cp or palp or syncope No shortness of breath at rest No n/v/d No focal weakness Gen malaise and weakness present Objective: I&O/Vital Signs 11/16/19 11/16/19 11/17/19 11/17/19 22:27 23:00 00:00 00:00 Temp 37.6 37.6 Pulse 82 83 Resp 27 29 B/P (MAP) 154/61 (92) 148/58 (88) Pulse Ox 92 95 91 92 O2 Delivery NIV Bilevel NIV Bilevel Nasal Cannula NIV Bilevel O2 Flow Rate 30.00 30.00 3.00 30.00 11/17/19 11/17/19 11/17/19 11/17/19 01:00 01:30 01:49 02:00 Temp 37.5 37.6 Pulse 84 79 80 81 Resp 15 22 22 B/P (MAP) 164/61 (95) 158/58 (91) Pulse Ox 88 94 88 O2 Delivery NIV Bilevel NIV Bilevel O2 Flow Rate 35.00 35.00 35.00 11/17/19 11/17/19 11/17/19 11/17/19 03:00 04:00 04:00 04:40 Temp 37.6 37.5 Pulse 80 80 Resp 23 24 B/P (MAP) 127/46 (73) 149/60 (89) Pulse Ox 94 96 94 93 O2 Delivery NIV Bilevel NIV Bilevel NIV Bilevel NIV Bilevel O2 Flow Rate 35.00 35.00 3.00 30.00 FiO2 35 11/17/19 11/17/19 11/17/19 11/17/19 05:00 06:00 06:48 06:50 Temp 37.4 37.4 Pulse 87 93 93 Resp 28 30 B/P (MAP) 160/64 (96) 164/66 (98) Pulse Ox 92 91 91 O2 Delivery NIV Bilevel Nasal Cannula Nasal Cannula O2 Flow Rate 35.00 4.00 2.00 11/17/19 11/17/19 11/17/19 11/17/19 07:00 08:00 08:00 09:00 Temp 37.2 36.5 Pulse 90 89 85 Resp 28 24 23 B/P (MAP) 133/71 (91) 141/79 (99) 138/78 (98) Pulse Ox 90 95 96 O2 Delivery Nasal Cannula Nasal Cannula Nasal Cannula O2 Flow Rate 4.00 4.00 4.00 11/17/19 00:00 Intake Total 950 ml Output Total 1525 ml Balance -575 ml Constitutional: AAO x 3 Respiratory: other (scattered rhonchi ) Cardiovascular: regular rate-rhythm, tachycardia, systolic murmur (soft SUREKHA at card base) Gastrointestional: soft, distended, audible bowel sounds Extremities: other (mild edema); No clubbing, No cyanosis Neurologic/Psychiatric: alert, oriented x 3, other (moves all limbs); No grossly intact Skin: warm/dry; No rash on exposed areas, No ulcerations on exposed areas Results/Procedures: Labs Laboratory Tests 11/16/19 11:21: Glucometer 169H 11/16/19 16:46: Glucometer 112H 11/16/19 20:47: Glucometer 124H 11/17/19 03:42: White Blood Count 7.9, Red Blood Count 3.42L, Hemoglobin 9.3L, Hematocrit 30L, Mean Corpuscular Volume 87, Mean Corpuscular Hemoglobin 27, Mean Corpuscular Hemoglobin Concent 31L, Red Cell Distribution Width 15.1H, Platelet Count 230, Mean Platelet Volume 10.3, Neutrophils (%) (Auto) 76H, Lymphocytes (%) (Auto) 11L, Monocytes (%) (Auto) 11, Eosinophils (%) (Auto) 2, Basophils (%) (Auto) 0, Neutrophils # (Auto) 6.0, Lymphocytes # (Auto) 0.9L, Monocytes # (Auto) 0.8, Eosinophils # (Auto) 0.2, Basophils # (Auto) 0.0, Sodium Level 132L, Potassium Level 3.6, Chloride Level 88L, Carbon Dioxide Level 35H, Anion Gap 9, Blood Urea Nitrogen 11, Creatinine 0.73, Estimat Glomerular Filtration Rate > 60, BUN/Creatinine Ratio 15, Glucose Level 121H, Calcium Level 8.5, Phosphorus Level 3.5, Magnesium Level 1.7 11/17/19 03:46: Blood Gas Puncture Site RIGHT ARTLINE, Blood Gas Patient Temperature 37.5, Arterial Blood pH 7.45H, Arterial Blood Partial Pressure CO2 58H, Arterial Blood Partial Pressure O2 80, Arterial Blood HCO3 40H, Arterial Blood Total CO2 41.5H, Arterial Blood Oxygen Saturation 95, Arterial Blood Base Excess 14.9H, Gustavo Test POSITIVE, Blood Gas Ventilator Setting NO, Blood Gas Inspired Oxygen 35 Microbiology 11/15/19 Gram Stain - Final, Complete 11/15/19 Sputum Culture - Final, Complete YEAST 11/09/19 Blood Culture - Final, Complete Staphylococcus hominis Laboratory Tests 11/16/19 03:16 11/17/19 03:42 A/P: Assessment: Ac resp arrest and cardiac arrest (PEA) in setting of profound hypoxia and hypotension, PE suspected clinically and being treated by the Hospitalist service Mild, acute CHF, systolic (LV systolic function at lower limit of normal to mildly impaired) and diastolic Hyponatremia of unclear etiology, current clinical hypervolemia suggests that CHF is contributing - improved H/o CAD (reportedly has had 3 stents, none recent) -cardiac cath report of Apr [address] Malcolm shows stenting to the mid-RCA with a 3.0 x 18 mm stent (exact details unknown) - cardiac cath report from Aug by Dr. Escalante at [facility] - showed widely patent previously placed stent to the mid- RCA (Mar [address] Levine, a 3.5 x 22 Taxus stent placed proximally to the previous mid-RCA stent place in 2001) and a stent was placed to the OM -1 (exact details unavailable) Mild troponin elevation likely due to type 2 [place] due to hypoxia Echo of 11/09/19: LVEF approx 50%, study difficult and not suitable for wall motion analysis, cannot exclude apical hypokinesis ECG: NSR, PACs, LAFB vs old IMI Plan: * Low dose diuretics * Monitor electrolytes * Continue bb * Continue ASA due a h/o cor stents * Management of anemia per Medical services * I reviewed her CV issues with her today and answered questions RAFAT MONTANA MD FACP FAC CCDS November 17, 2019 10:19
--- NOTE | 2019-11-17 10:57 | Physical Therapy Daily Note ---
PT Daily Note-Current Subjective Patient sitting on EOB pre tx, with nursing, agrees to PT, has no complaints of pain. Appearance Patient in bed post tx, has nurse call, phone, tray, all needs met. SCD's on. Mental Status Patient Orientation: Person, Confused Attachments: Oxygen, Ordonez Catheter, IV patient very slow to respond with speech Transfers SCALE: Activities may be completed with or without assistive devices. 4-Sbzmnowmdr-qbxoicy completes the activity by him/herself with no assistance from a helper. 5-Set-up or Clean-up Assistance-helper sets up or cleans up; patient completes activity. [place] assists only prior to or following the activity. 4-Supervision or Touching Assistance-helper provides verbal cues and/or touching/steadying and/or contact guard assistance as patient completes activity. Assistance may be provided throughout the activity or intermittently. 3-Partial/Moderate Assistance-helper does LESS THAN HALF the effort. [place] lifts, holds or supports trunk or limbs, but provides less than half the effort. 2-Substantial/Maximal Assistance-helper does MORE THAN HALF the effort. [place] lifts or holds trunk or limbs and provides more than half the effort. 6-Pzbtjsqwh-znxkvp does ALL the effort. Patient does none of the effort to complete the activity. Or, the assistance of 2 or more helpers is required for the patient to complete the activity. If activity was not attempted, code reason: 7-Patient Refused. 9-Not Applicable-not attempted and the patient did not perform the activity before the current illness, exacerbation or injury. 10-Not Attempted due to Environmental Limitations-(lack of equipment, weather restraints, etc.). 88-Not Attempted due to Medical Conditions or Safety Concerns. Roll Left & Right (QC): 2 Sit to Lying (QC): 1 Sit to Stand (QC): 2 Patient stood twice at the edge of the bed with therapist assist. Patient was not able to sidestep due to LE weakness. She was able to stand about 1 min the first time and only about 10 seconds the next. Weight Bearing Right Lower Extremity: Right Weight Bearing/Tolerated Left Lower Extremity: Left Weight Bearing/Tolerated Treatments bed mobility, standing Assessment Current Status: Fair Progress Patient was able to stand but not for very long, not able to take steps at this time, max assist for most mobility. PT Short Term Goals Short Term Goals Time Frame: December 04, 2019 Roll Left & Right: 2 Sit to lyin Lying to sitting on side of be: 2 Sit to stand: 2 Chair/wqi-nq-tcett transfer: 2 PT Windows Security Engineer Goals Residential Goals PT Windows Security Engineer Goals Time Frame: Dec 18, 2019 Roll Left & Right (QC): 4 Sit to Lying (QC): 4 Lying-Sitting on Side/Bed(QC): 4 Sit to Stand (QC): 4 Chair/Exk-zq-Iojem Xfer(QC): 4 Toilet Transfer (QC): 4 Does the Patient Walk: No and Walking Goal IS indicated Walk 10 feet (QC): 3 PT Plan Problem List Problem List: Activity Tolerance, Functional Strength, Safety, Balance, Gait, Transfer, Bed Mobility, ROM Treatment/Plan Treatment Plan: Continue Plan of Care Treatment Plan: Bed Mobility, Education, Functional Activity Narendra, Functional Strength, Gait, Safety, Therapeutic Exercise, Transfers Treatment Duration: Dec 18, 2019 Frequency: 6 times per week Estimated Hrs Per Day: .25 hour per day (to .5) Patient and/or Family Agrees t: Yes Safety Risks/Education Patient Education: Correct Positioning, Safety Issues Teaching Recipient: Patient Teaching Methods: Demonstration, Discussion Response to Teaching: Reinforcement Needed Time/GCodes Time In: 1030 Time Out: 1040 Total Billed Treatment Time: 10 Total Billed Treatment 1 visit FA AUBREY BALL PT November 17, 2019 10:57
[2019-11-17] MEDS ORDERED: WATER (STERILE) FOR INJECTION 10 ML ONE (11:49)
[2019-11-17] MEDS ORDERED: MEROPENEM 500 MG VIAL (MERREM) IV ONE (11:49)
--- NOTE | 2019-11-17 12:33 | Progress Note - Hospitalist ---
Subjective HPI/CC On Admission Date Seen by Provider: November 17, 2019 Time Seen by Provider: 08:50 Subjective/Events-last exam She reports no complaints or concerns today. She remains weak. She denies any fevers or chills. She denies any chest pain or shortness of breath. She denies any abdominal pain, nausea, or vomiting. Objective Exam Vital Signs Vital Signs Date Time Temp Pulse Resp B/P (MAP) Pulse Ox O2 Delivery O2 Flow Rate FiO2 11/17/19 12:21 98 Nasal Cannula 3.50 11/17/19 12:00 36.5 11/17/19 09:00 85 23 138/78 (98) 11/17/19 04:00 35 Capillary Refill : Less Than 3 Seconds General Appearance: No Apparent Distress, Obese Respiratory: Lungs Clear, Normal Breath Sounds, No Respiratory Distress Cardiovascular: Regular Rate, Rhythm, No Murmur Gastrointestinal: Normal Bowel Sounds, Non Tender, Soft Extremity: Normal Inspection, Non Tender, Pedal Edema Neurologic/Psychiatric: Alert, No Motor/Sensory Deficits, Normal Mood/Affect, Disoriented Skin: Normal Color, Warm/Dry Results/Procedures Lab Laboratory Tests 11/17/19 03:42 Patient resulted labs reviewed. Imaging: Reviewed Imaging Report Assessment/Plan Assessment and Plan Assess & Plan/Chief Complaint s/p cardiac arrest Acute respiratory failure with hypoxia Elevated d-dimer, presumed pulmonary embolism COPD Small left pneumothorax and sternal and rib fracture extubated 11/14 Pulmonology consulted, appreciate assistance s/p hypothermia protocol and rewarming s/p TPA in the ER for presumed PE on 11/08, now on Lovenox BID COVID19 negative Procalcitonin 0.1 on 11/14 Remains on Merrem, consider discontinuing Normocytic anemia hemoglobin stable, 9.3 this morning OG content + for occult blood Hemodynamically stable and likely due to trauma from OGT Continue Lovenox for now given high probability of PE HTN CAD continue metoprolol, Lasix, and spironolactone Continue JOSH inhibitor Cardiology consulted, appreciate recs T2DM with hyperglycemia sliding scale insulin Hyponatremia Stable, 132 Debility PT/OT Awaiting insurance approval for acute rehabilitation DVT prophylaxis: Already receiving therapeutic anticoagulation Shock, resolved Lactic acidosis, resolved Altered mental status, resolved Diagnosis/Problems Diagnosis/Problems (1) Cardiac arrest Status: Acute (2) Acute respiratory failure Status: Acute Qualifiers: Respiratory failure complication: hypoxia Qualified Codes: J96.01 - Acute respiratory failure with hypoxia (3) Debility Status: Acute Clinical Quality Measures DVT/VTE Risk/Contraindication: Risk Factor Score Per Nursin RFS Level Per Nursing on Admit: 4+=Very High CLARIBEL ESCOBAR MD November 17, 2019 12:33
--- NOTE | 2019-11-17 14:06 | Speech Therapy Daily Note ---
Speech Daily Progress Note Subjective Date Seen by Provider: November 17, 2019 Time Seen by Provider: 00:15 Patient is alert and oriented. Patient has been eating current diet level well without difficulty. Objective Patient utilized compensatory strategies as trained for safe oral intake including alternating food/drink at 2:1, small bites/sips with 80% given min to mod cuing. Assessment Assessment Current Status: Good Progress Treatment Plan Continue Plan of Care Speech Short Term Goals Short Term Goals Short Term Goals 1) Patient will tolerate least restrictive diet level without s/s of aspiration at 90%. 2) Patient/caregiver will utilize compensatory strategies as trained at 90-100% with minimal cues. Speech Long-Term Goals Long-Term Goals Patient will maintain adequate nutrition/hydration via safe, effective swallow function. Speech-Plan Patient/Family Goals Patient/Family Goals: Patient plans on returning to her home upon hospital discharge. Treatment Plan Speech Therapy Treatment Plan: Continue Plan of Care Treatment Duration: November 17, 2019 Frequency: 3 times per week Estimated Hrs Per Day: .25 hour per day Rehab Potential: Fair Barriers to Learning: Patient's recent medical status Pt/Family Agrees to Plan: Yes Safety Risks/Education Teaching Recipient: Patient Teaching Methods: Demonstration, Discussion Response to Teaching: Verbalize Understanding, Return Demonstration Education Topics Provided: Continued safety with all oral intake. Time Speech Therapy Time In: 08:00 Speech Therapy Time Out: 08:15 Total Billed Time: 15 Billed Treatment Time MehdiARMANDO BETHANIA ST November 17, 2019 14:06
--- NOTE | 2019-11-17 15:42 | Occupational Ther Daily Note ---
OT Current Status-Daily Note Subjective No pain reported. Appearance Pt. sitting on side of bed when therapy entered room. Nursing with pt. and assisting her at that time. Mental Status/Objective Patient Orientation: Person, Place Attachments: IV ADL-Treatment Therapy Code Descriptions/Definitions Functional [place] Measure: 0=Not Assessed/NA 4=Minimal Assistance 1=Total Assistance 5=Supervision or Setup 2=Maximal Assistance 6=Modified [place] 3=Moderate Assistance 7=Complete IndependenceSCALE: Activities may be completed with or without assistive devices. 9-Mrwjtjcjvl-ugddise completes the activity by him/herself with no assistance from a helper. 5-Set-up or Clean-up Assistance-helper sets up or cleans up; patient completes activity. [place] assists only prior to or following the activity. 4-Supervision or Touching Assistance-helper provides verbal cues and/or touching/steadying and/or contact guard assistance as patient completes activity. Assistance may be provided throughout the activity or intermittently. 3-Partial/Moderate Assistance-helper does LESS THAN HALF the effort. [place] lifts, holds or supports trunk or limbs, but provides less than half the effort. 2-Substantial/Maximal Assistance-helper does MORE THAN HALF the effort. [place] lifts or holds trunk or limbs and provides more than half the effort. 7-Jzupldkbq-qdskkb does ALL the effort. Patient does none of the effort to complete the activity. Or, the assistance of 2 or more helpers is required for the patient to complete the activity. If activity was not attempted, code reason: 7-Patient Refused. 9-Not Applicable-not attempted and the patient did not perform the activity before the current illness, exacerbation or injury. 10-Not Attempted due to Environmental Limitations-(lack of equipment, weather restraints, etc.). 88-Not Attempted due to Medical Conditions or Safety Concerns. Oral Hygiene (QC): 7 (Pt. states that she does not have teeth when OT offers to assist her to brush teeth.) On/Off Footwear: 1 Pt. unable to reach feet while seated on side of bed. Attempted to blow nose, but unable to fully get hands to nose. Pt. stood with max x 2 but unable to take steps. Pt. transferred sit-supine with max x 2. Bed mobility x 2. All needs met. Education OT Patient Education: Correct positioning, Modified ADL techniques, Progress toward Goal/Update tx plan, Purpose of tx/functional activities, Reviewed precautions, Rehab process, Transfer techniques Teaching Recipient: Patient Teaching Methods: Demonstration, Discussion Response to Teaching: Verbalize Understanding, Return Demonstration, Reinforcement Needed OT Short Term Goals Short Term Goals Time Frame: November 29, 2019 Eatin Oral hygiene: 3 Toileting hygiene: 2 Upper body dressin OT Ironer Hand Goals Long-Term Goals Time Frame: Dec 13, 2019 Eating (QC): 4 Oral Hygiene (QC): 4 Toileting Hygiene (QC): 3 Shower/Bathe Self (QC): 3 Upper Body Dressing (QC): 4 Lower Body Dressing (QC): 3 On/Off Footwear (QC): 3 Additional Goals: 1-Demonstrate ADL Tasks, 2-Verbalize Understanding, 3- ImproveStrength/Narendra 1=Demonstrate adherence to instructed precautions during ADL tasks. 2=Patient will verbalize/demonstrate understanding of assistive devices/modific ations for ADL. 3=Patient will improve strength/tolerance for activity to enable patient to perform ADL's. OT Education/Plan Problem List/Assessment Assessment: Decreased Activ Tolerance, Decreased UE Strength, Dependent Transfers, Edema, Impaired Bed Mobility, Impaired Coordination, Impaired Funct Balance, Impaired I ADL's, Impaired Self-Care Skills, Restricted Funct UE ROM Discharge Recommendations Plan/Recommendations: Continue POC Therapy Discharge Recommendati: Post Acute OT Treatment Plan/Plan of Care Treatment,Training & Education: Yes Patient would benefit from OT for education, treatment and training to promote independence in ADL's, mobility, safety and/or upper extremity function for ADL's. Plan of Care: ADL Retraining, Functional Mobility, UE Funct Exercise/Act Treatment Duration: Dec 13, 2019 Frequency: 5 times per week Estimated Hrs Per Day: .25 hour per day Agreement: Yes Rehab Potential: Fair Time/GCodes Start Time: 11:40 Stop Time: 11:50 Total Time Billed (hr/min): 10 Billed Treatment Time 1, MALACHI CASILLAS OT November 17, 2019 15:42
[2019-11-18] VITALS (16 sets, daily range): BP systolic 117–160; BP diastolic 60–87
[2019-11-18] MEDS: fentaNYL INJECTION 100 MCG/2 ML AMP IVP PRN ×3 (01:06→12:14)
[2019-11-18] MEDS: LACTATED RINGERS 1,000 ML IV SCH (02:22)
[2019-11-18] MEDS: RT-ALBUTEROL/IPRATROPIUM 3 ML (DUONEB) VIAL INH SCH ×6 (02:42→22:10)
[2019-11-18 03:28] LABS: BASOPHILS % (AUTO) 0 % (0-10); EOSINOPHILS # (AUTO) 0.2 10^3/uL (0.0-0.3); EOSINOPHILS % (AUTO) 2 % (0-10); HEMATOCRIT 31 % (35-52); HEMOGLOBIN 9.3 G/DL (11.5-16.0); LYMPHOCYTES # (AUTO) 0.9 X 10^3 (1.0-4.0); LYMPHOCYTES % (AUTO) 13 % (12-44); MEAN CORPUSCULAR HEMOGLOBIN 27 PG (25-34); MEAN CORPUSCULAR HGB CONC 30 G/DL (32-36); MEAN CORPUSCULAR VOLUME 88 FL (80-99); MEAN PLATELET VOLUME 10.1 FL (7.4-10.4); MONOCYTES # (AUTO) 0.8 X 10^3 (0.0-1.0); MONOCYTES % (AUTO) 10 % (0-12); NEUTROPHILS # (AUTO) 5.4 X 10^3 (1.8-7.8); NEUTROPHILS % (AUTO) 74 % (42-75); PLATELET COUNT 272 10^3/uL (130-400); RED CELL DISTRIBUTION WIDTH 15.2 % (10.0-14.5); WHITE BLOOD COUNT 7.3 10^3/uL (4.3-11.0)
[2019-11-18 03:42] LABS: CHLORIDE 87 MMOL/L (98-107); POTASSIUM 3.7 MMOL/L (3.6-5.0); SODIUM 133 MMOL/L (135-145)
[2019-11-18 03:43] LABS: CALCIUM 8.7 MG/DL (8.5-10.1); GLUCOSE 116 MG/DL (70-105)
[2019-11-18 03:45] LABS: CARBON DIOXIDE 38 MMOL/L (21-32)
[2019-11-18 03:47] LABS: CREATININE SERUM 0.69 MG/DL (0.60-1.30); GFR ESTIMATED > 60; PHOSPHORUS 3.3 MG/DL (2.3-4.7)
[2019-11-18 03:48] LABS: BUN/CREATININE RATIO 16
[2019-11-18 03:50] LABS: MAGNESIUM 1.7 MG/DL (1.6-2.4)
[2019-11-18] MEDS: ENOXAPARIN 100 MG/1 ML (LOVENOX) SYR SC SCH ×2 (05:40→16:59)
[2019-11-18] MEDS: MAGNESIUM 1 GM/100 ML IVPB 100 ML IV SCH ×3 (05:40→06:43)
[2019-11-18] MEDS: inSUlin ASPART (NovoLOG) 1 UNIT/0.01 ML (CHARGE PER UNIT) SC SCH ×4 (06:11→21:10)
[2019-11-18] MEDS: KCL 20 MEQ TAB (K-DUR) PO SCH (06:11)
[2019-11-18] MEDS: POTASSIUM CL 10MEQ/50ML IVPB 50 ML IV SCH ×4 (06:11→09:34)
--- NOTE | 2019-11-18 06:34 | Pulmonary Progress Note ---
Subjective Time Seen by a Provider: 06:33 Subjective/Events-last exam Pt appears to be doing better. Sepsis Event Evaluation Height, Weight, BMI Height: '" Weight: lbs. oz. kg; 33.00 BMI Method: Exam Exam Vital Signs Date Time Temp Pulse Resp B/P (MAP) Pulse Ox O2 Delivery O2 Flow Rate FiO2 11/18/19 06:00 81 27 133/65 (87) 92 Nasal Cannula 4.00 11/18/19 05:00 80 25 132/63 (86) 93 Nasal Cannula 4.00 11/18/19 04:00 94 Nasal Cannula 4.00 11/18/19 04:00 80 25 132/65 (87) 96 Nasal Cannula 4.00 11/18/19 03:00 80 16 135/70 (91) 92 Nasal Cannula 4.00 11/18/19 02:43 92 Nasal Cannula 2.00 11/18/19 02:00 73 23 136/60 (85) 97 Nasal Cannula 2.00 11/18/19 01:30 74 23 130/63 (85) 97 Nasal Cannula 4.00 11/18/19 01:14 Nasal Cannula 5.00 11/18/19 01:00 Nasal Cannula 2.00 11/18/19 01:00 76 18 143/68 (93) 95 Nasal Cannula 2.00 11/18/19 01:00 76 11/18/19 00:00 36.7 11/18/19 00:00 68 22 117/60 (79) 97 NIV Bilevel 30.00 11/17/19 23:59 95 NIV Bilevel 30 11/17/19 23:00 80 21 124/72 (89) 96 NIV Bilevel 30.00 11/17/19 22:47 80 25 94 NIV Bilevel 30.00 11/17/19 22:41 84 25 93 30.00 11/17/19 22:00 87 28 147/79 (101) 98 Nasal Cannula 4.00 11/17/19 21:53 95 Nasal Cannula 2.00 11/17/19 21:00 84 19 160/87 (111) 96 Nasal Cannula 4.00 11/17/19 20:00 83 29 142/69 (93) 96 Nasal Cannula 4.00 11/17/19 20:00 36.5 11/17/19 20:00 94 Nasal Cannula 2.00 11/17/19 19:00 82 11 157/79 (105) 97 Nasal Cannula 4.00 11/17/19 19:00 82 11/17/19 18:56 97 Nasal Cannula 2.00 11/17/19 18:00 86 22 150/81 (104) 96 Nasal Cannula 4.00 11/17/19 17:00 84 27 143/68 (93) 94 Nasal Cannula 4.00 11/17/19 16:00 80 25 146/79 (101) 93 Nasal Cannula 4.00 11/17/19 16:00 94 Nasal Cannula 2.00 11/17/19 16:00 36.4 11/17/19 15:00 79 21 147/76 (99) 94 Nasal Cannula 4.00 11/17/19 14:30 96 Nasal Cannula 2.00 11/17/19 14:00 72 21 124/63 (83) 93 Nasal Cannula 4.00 11/17/19 13:00 73 27 132/72 (92) 94 Nasal Cannula 4.00 11/17/19 12:58 74 11/17/19 12:21 98 Nasal Cannula 3.50 11/17/19 12:00 36.5 11/17/19 12:00 71 28 134/66 (88) 100 Nasal Cannula 4.00 11/17/19 11:00 75 25 128/66 (86) 100 Nasal Cannula 4.00 11/17/19 10:00 94 25 145/76 (99) 92 Nasal Cannula 4.00 11/17/19 09:00 85 23 138/78 (98) 96 Nasal Cannula 4.00 11/17/19 08:00 36.5 11/17/19 08:00 89 24 141/79 (99) 95 Nasal Cannula 4.00 11/17/19 08:00 93 Nasal Cannula 5.00 11/17/19 07:00 37.2 90 28 133/71 (91) 90 Nasal Cannula 4.00 11/17/19 06:50 91 Nasal Cannula 2.00 11/17/19 06:48 93 I & O 11/18/19 07:00 Intake Total 860 ml Output Total 2950 ml Balance -2090 ml Height & Weight Height: '" Weight: lbs. oz. kg; 33.00 BMI Method: General Appearance: No Apparent Distress, Obese HEENT: PERRL/EOMI, TMs Normal, Normal ENT Inspection, Pharynx Normal, Moist Mucous Membranes, Other Neck: Normal Inspection, Supple Respiratory: Lungs Clear, Normal Breath Sounds, No Respiratory Distress Cardiovascular: Regular Rate, Rhythm, No Murmur Capillary Refill: Less Than 3 Seconds Gastrointestinal: normal bowel sounds, non tender, soft Extremity: Normal Inspection, Non Tender, Pedal Edema Neurologic/Psychiatric: Alert, No Motor/Sensory Deficits, Normal Mood/Affect, Disoriented Skin: Normal Color, Warm/Dry Results Lab Laboratory Tests 11/17/19 03:42 11/18/19 03:00 Assessment/Plan Assessment/Plan s/p cardiac arrest -s/p theraputic hypothermia Probable PE on admission - s/p TPA -Currently on Hep -lovenox BID -Will plan on treating with anticogulation for at least 3mo PTX per CT -- is very small and appears to be stable despite being on vent. -Continue to monitor Sternal fracture Leukocytosis -Gracia culture -Continue Merrem for now COPDAE -Duoneb - Hypokalemia -replace CAD Hole home meds for hypotension and TPA admin Cardiology consulted, appreciate recs NIDDMII GORDON MCMANUS DO November 18, 2019 06:34
--- NOTE | 2019-11-18 08:29 | Progress Note - Cardiology ---
Cardiology SOAP Progress Note Subjective: Sitting up in the recliner at the bedside. C/O left hand being swollen. No c/o CP or palpitations. She feels her breathing is good today. Objective: I&O/Vital Signs 11/21/19 11/21/19 11/22/19 11/22/19 20:35 22:23 00:00 02:36 Temp 36.3 Pulse 67 Resp 20 B/P (MAP) 107/62 (77) Pulse Ox 96 99 95 O2 Delivery Nasal Cannula Nasal Cannula Nasal Cannula Nasal Cannula O2 Flow Rate 4.00 4.00 4.00 4.00 11/22/19 11/22/19 04:15 07:29 Temp 36.0 36.4 Pulse 73 75 Resp 18 20 B/P (MAP) 107/55 (72) 91/47 (62) Pulse Ox 97 96 O2 Delivery Nasal Cannula Nasal Cannula O2 Flow Rate 4.00 4.00 11/22/19 00:00 Intake Total 2100 ml Balance 2100 ml Constitutional: AAO x 3 Respiratory: other (scattered rhonchi ; diminished breath sounds R>L) Cardiovascular: regular rate-rhythm, tachycardia, systolic murmur (soft SUREKHA at card base) Gastrointestional: soft, distended, audible bowel sounds Extremities: other (mild edema); No clubbing, No cyanosis Neurologic/Psychiatric: alert, oriented x 3, other (moves all limbs); No grossly intact Skin: warm/dry; No rash on exposed areas, No ulcerations on exposed areas Results/Procedures: Labs Laboratory Tests 11/21/19 11:11: Glucometer 171H 11/21/19 16:39: Glucometer 131H 11/21/19 20:25: Glucometer 154H 11/22/19 05:05: Sodium Level 128L, Potassium Level 4.7, Chloride Level 87L, Carbon Dioxide Level 33H, Anion Gap 8, Blood Urea Nitrogen 15, Creatinine 0.94, Estimat Glomerular Filtration Rate 60, BUN/Creatinine Ratio 16, Glucose Level 154H, Calcium Level 8.4L, Magnesium Level 1.9 11/22/19 05:10: Hemoglobin 8.9L, Hematocrit 29L, B-Type Natriuretic Peptide 105.0H Microbiology 11/15/19 Gram Stain - Final, Complete 11/15/19 Sputum Culture - Final, Complete YEAST 11/09/19 Blood Culture - Final, Complete Staphylococcus hominis A/P: Assessment: Ac resp arrest and cardiac arrest (PEA) in setting of profound hypoxia and hypotension, PE suspected clinically and being treated by the Hospitalist service Mild, acute CHF, systolic (LV systolic function at lower limit of normal to mildly impaired) and diastolic - improved Hyponatremia of unclear etiology, current clinical hypervolemia suggests that CHF is contributing - improved H/o CAD (reportedly has had 3 stents, none recent) -cardiac cath report of Apr [address] Malcolm shows stenting to the mid-RCA with a 3.0 x 18 mm stent (exact details unknown) - cardiac cath report from Aug by Dr. Escalante at [facility] - showed widely patent previously placed stent to the mid- RCA (Mar [address] Levine, a 3.5 x 22 Taxus stent placed proximally to the previous mid-RCA stent place in 2001) and a stent was placed to the OM -1 (exact details unavailable) Mild troponin elevation likely due to type 2 OK due to hypoxia Echo of 11/09/19: LVEF approx 50%, study difficult and not suitable for wall motion analysis, cannot exclude apical hypokinesis ECG: NSR, PACs, LAFB vs old IMI Plan: * Continue low dose diuretics * Monitor electrolytes * Continue bb * Continue ASA due a h/o cor stents * Management of anemia per Medical services * I reviewed her CV issues with her today and answered questions JOSE ALBERTO GOODEN November 18, 2019 08:29
--- NOTE | 2019-11-18 08:42 | Diagnostic Imaging Report ---
INDICATION: Pulmonary infiltrates, follow-up. Time of exam 3:39 AM Correlation is made with prior chest one day earlier. The heart size is stable. Right IJ line has tip overlying the upper SVC. Airspace infiltrate in the right base persists. There appears to be some infiltrate in the left base as well, unchanged. Mid and upper lung marin are clear. The pulmonary vascularity is normal. No significant effusion is seen. IMPRESSION: Stable bibasal infiltrates when compared with the examination one day earlier. Dictated by: Dictated on workstation # [id number]
[2019-11-18] MEDS: SPIRONOLACTONE 25 MG (ALDACTONE) TAB PO SCH (09:21)
[2019-11-18] MEDS: FUROSEMIDE 40 MG/4 ML INJ (LASIX) IVP SCH (09:21)
[2019-11-18] MEDS: lisINopril 40 MG (PRINIVIL) TABLET PO SCH (09:21)
[2019-11-18] MEDS: meTOprolol TARTRATE 25 MG (LOPRESSOR) TABLET PO SCH ×2 (09:21→21:24)
[2019-11-18] MEDS: PANTOPRAZOLE 40 MG (PROTONIX) VIAL IV SCH (09:21)
[2019-11-18] MEDS: ASPIRIN 81 MG CHEW (CHILDREN'S ASA) PO SCH (09:21)
--- NOTE | 2019-11-18 10:00 | NUR ---
Pastoral care visit.
--- NOTE | 2019-11-18 11:02 | Physical Therapy Daily Note ---
PT Daily Note-Current Subjective Pt. seated in bedside chair upon arrival, agrees to PT. Mental Status Attachments: Central Line, Oxygen, Ordonez Catheter Transfers SCALE: Activities may be completed with or without assistive devices. 7-Vzbsjuuqul-tmiqott completes the activity by him/herself with no assistance from a helper. 5-Set-up or Clean-up Assistance-helper sets up or cleans up; patient completes activity. [place] assists only prior to or following the activity. 4-Supervision or Touching Assistance-helper provides verbal cues and/or touching/steadying and/or contact guard assistance as patient completes activity. Assistance may be provided throughout the activity or intermittently. 3-Partial/Moderate Assistance-helper does LESS THAN HALF the effort. [place] lifts, holds or supports trunk or limbs, but provides less than half the effort. 2-Substantial/Maximal Assistance-helper does MORE THAN HALF the effort. [place] lifts or holds trunk or limbs and provides more than half the effort. 9-Ycbirsiwl-ybmlls does ALL the effort. Patient does none of the effort to complete the activity. Or, the assistance of 2 or more helpers is required for the patient to complete the activity. If activity was not attempted, code reason: 7-Patient Refused. 9-Not Applicable-not attempted and the patient did not perform the activity before the current illness, exacerbation or injury. 10-Not Attempted due to Environmental Limitations-(lack of equipment, weather restraints, etc.). 88-Not Attempted due to Medical Conditions or Safety Concerns. Sit to Stand (QC): 3 Weight Bearing Right Lower Extremity: Right Weight Bearing/Tolerated Left Lower Extremity: Left Weight Bearing/Tolerated Gait Training Does the Patient Walk?: No and Walking Goal IS indicated Exercises Seated Therapy Exercises: Ankle pumps, Long arc quads, Hip flexion, Hip abd/add Seated Reps: 20 Treatments transfers, LE exercises Assessment Current Status: Good Progress, Fair Progress Pt. needed mod A to stand and stood at edge of chair x 1'. Pt. unable to march in place while holding onto FWW. She became very SOB while standing and took several minutes to recover breathing. Cues needed to stand fully upright but patient remained kyphotic posture. Pt. in bedside chair post session with call light and all needs met. PT Short Term Goals Short Term Goals Time Frame: December 04, 2019 Roll Left & Right: 2 Sit to lyin Lying to sitting on side of be: 2 Sit to stand: 2 Chair/giw-xr-wlryf transfer: 2 PT Plumbing Mechanic Goals Shelter Goals PT Plumbing Mechanic Goals Time Frame: Dec 18, 2019 Roll Left & Right (QC): 4 Sit to Lying (QC): 4 Lying-Sitting on Side/Bed(QC): 4 Sit to Stand (QC): 4 Chair/Kkd-zn-Ybvjc Xfer(QC): 4 Toilet Transfer (QC): 4 Does the Patient Walk: No and Walking Goal IS indicated Walk 10 feet (QC): 3 PT Plan Treatment/Plan Treatment Plan: Continue Plan of Care Treatment Plan: Bed Mobility, Education, Functional Activity Narendra, Functional Strength, Gait, Safety, Therapeutic Exercise, Transfers Treatment Duration: Dec 18, 2019 Frequency: 6 times per week Estimated Hrs Per Day: .25 hour per day (to .5) Patient and/or Family Agrees t: Yes Time/GCodes Time In: 924 Time Out: 948 Total Billed Treatment Time: 24 Total Billed Treatment 1, FA 16', Ex 8' AVNI GONZALES PT November 18, 2019 11:02
--- NOTE | 2019-11-18 11:15 | NUR ---
THIS NURSE SPOKE WITH DR ESCOBAR. DR ESCOBAR SAID PT CAN GO TO FOURTH FLOOR. HOUSE SUP UPDATED.
--- NOTE | 2019-11-18 11:45 | Occupational Ther Daily Note ---
OT Current Status-Daily Note Subjective No pain reported. Appearance Pt. sitting up in chair. Agrees to work with therapy. Mental Status/Objective Patient Orientation: Person ADL-Treatment Therapy Code Descriptions/Definitions Functional [place] Measure: 0=Not Assessed/NA 4=Minimal Assistance 1=Total Assistance 5=Supervision or Setup 2=Maximal Assistance 6=Modified [place] 3=Moderate Assistance 7=Complete IndependenceSCALE: Activities may be completed with or without assistive devices. 1-Zedqgcnhwg-bqjakdr completes the activity by him/herself with no assistance from a helper. 5-Set-up or Clean-up Assistance-helper sets up or cleans up; patient completes activity. [place] assists only prior to or following the activity. 4-Supervision or Touching Assistance-helper provides verbal cues and/or touch ing/steadying and/or contact guard assistance as patient completes activity. Assistance may be provided throughout the activity or intermittently. 3-Partial/Moderate Assistance-helper does LESS THAN HALF the effort. [place] lifts, holds or supports trunk or limbs, but provides less than half the effort. 2-Substantial/Maximal Assistance-helper does MORE THAN HALF the effort. [place] lifts or holds trunk or limbs and provides more than half the effort. 3-Ivcoljeif-tvzkmn does ALL the effort. Patient does none of the effort to complete the activity. Or, the assistance of 2 or more helpers is required for the patient to complete the activity. If activity was not attempted, code reason: 7-Patient Refused. 9-Not Applicable-not attempted and the patient did not perform the activity before the current illness, exacerbation or injury. 10-Not Attempted due to Environmental Limitations-(lack of equipment, weather restraints, etc.). 88-Not Attempted due to Medical Conditions or Safety Concerns. Eating (QC): 4 (SBA to feed self with built up handle and spoon. Pt. eating applesauce and drinking juice from straw.) Oral Hygiene (QC): 3 (Min assist. OT rinsed pt's dentures, but pt. able to place into mouth.) Pt. up in chair. Breakfast tray is in front of her and she states that she just wants her applesauce. OT removed tray and placed applesauce in better position. Pt. able to feed self with built up foam handle. Pt. requested more juice. OT obtained small container, and pt. given straw. Pt. attempted to puncture container, but did not have strength to do so. OT did this for her and pt. able to bring to mouth to drink. OT washed pt's hair with dry shampoo cap. Pt. able to bring brush to head and brush most of hair, with exception of very top. OT did this for her. Pt. issued yellow theraband and therapy sponge for strengthening. Pt. completed 20 bilateral hand squeezes with sponge, and 10 pectoral exercises with yellow band. Pt. up in chair and all needs were met. Education OT Patient Education: Correct positioning, Exercise program, Modified ADL techniques, Progress toward Goal/Update tx plan, Purpose of tx/functional activities, Reviewed precautions, Rehab process, Transfer techniques Teaching Recipient: Patient Teaching Methods: Demonstration, Discussion Response to Teaching: Verbalize Understanding, Return Demonstration OT Short Term Goals Short Term Goals Time Frame: November 29, 2019 Eatin Oral hygiene: 3 Toileting hygiene: 2 Upper body dressin OT Skilled Nursing Goals Automotive Quality Engineer Goals Time Frame: Dec 13, 2019 Eating (QC): 4 Oral Hygiene (QC): 4 Toileting Hygiene (QC): 3 Shower/Bathe Self (QC): 3 Upper Body Dressing (QC): 4 Lower Body Dressing (QC): 3 On/Off Footwear (QC): 3 Additional Goals: 1-Demonstrate ADL Tasks, 2-Verbalize Understanding, 3- ImproveStrength/Narendra 1=Demonstrate adherence to instructed precautions during ADL tasks. 2=Patient will verbalize/demonstrate understanding of assistive devices/modifications for ADL. 3=Patient will improve strength/tolerance for activity to enable patient to perform ADL's. OT Education/Plan Problem List/Assessment Assessment: Decreased Activ Tolerance, Decreased UE Strength, Dependent Transfers, Edema, Impaired Funct Balance, Impaired I ADL's, Impaired Self-Care Skills, Restricted Funct UE ROM Discharge Recommendations Plan/Recommendations: Continue POC Therapy Discharge Recommendati: Post Acute OT Treatment Plan/Plan of Care Treatment,Training & Education: Yes Patient would benefit from OT for education, treatment and training to promote independence in ADL's, mobility, safety and/or upper extremity function for ADL's. Plan of Care: ADL Retraining, Functional Mobility, UE Funct Exercise/Act Treatment Duration: Dec 13, 2019 Frequency: 5 times per week Estimated Hrs Per Day: .25 hour per day Agreement: Yes Rehab Potential: Fair Time/GCodes Start Time: 08:44 Stop Time: 09:00 Total Time Billed (hr/min): 16 Billed Treatment Time 1, ADL MALACHI FAROOQ OT November 18, 2019 11:45
--- NOTE | 2019-11-18 12:32 | Progress Note - Hospitalist ---
Subjective HPI/CC On Admission Date Seen by Provider: November 18, 2019 Time Seen by Provider: 09:05 Subjective/Events-last exam She is sitting in her bedside chair. She has no complaints or concerns. She denies any fevers or chills. She denies any chest pain or shortness of breath. She denies any abdominal pain, nausea, or vomiting. She is eating and drinking well. She is working with physical therapy. Objective Exam Vital Signs Vital Signs Date Time Temp Pulse Resp B/P (MAP) Pulse Ox O2 Delivery O2 Flow Rate FiO2 11/18/19 11:03 Nasal Cannula 2.00 11/18/19 10:09 97 11/18/19 08:00 36.6 11/18/19 06:35 75 11/18/19 06:00 27 11/17/19 23:59 30 Capillary Refill : Less Than 3 Seconds General Appearance: No Apparent Distress, Obese Respiratory: Lungs Clear, Normal Breath Sounds, No Respiratory Distress Cardiovascular: Regular Rate, Rhythm, No Edema, No Murmur Gastrointestinal: Normal Bowel Sounds, Non Tender, Soft Extremity: Normal Inspection, Non Tender, No Pedal Edema Neurologic/Psychiatric: Alert, Oriented x3, No Motor/Sensory Deficits, Normal Mood/Affect Skin: Normal Color, Warm/Dry Results/Procedures Lab Laboratory Tests 11/18/19 03:00 Patient resulted labs reviewed. Imaging: Reviewed Imaging Report Assessment/Plan Assessment and Plan Assess & Plan/Chief Complaint s/p cardiac arrest Acute respiratory failure with hypoxia Elevated d-dimer, presumed pulmonary embolism COPD Small left pneumothorax and sternal and rib fracture extubated 11/14 Pulmonology consulted, appreciate assistance s/p hypothermia protocol and rewarming s/p TPA in the ER for presumed PE on 11/08, now on Lovenox BID COVID19 negative Procalcitonin normalized, antibiotics discontinued Normocytic anemia hemoglobin stable, 9.3 Continue Lovenox for PE HTN CAD continue metoprolol, Lasix, and spironolactone Continue JOSH inhibitor Cardiology consulted, appreciate recs T2DM with hyperglycemia sliding scale insulin Hyponatremia Stable, 133 Debility PT/OT Awaiting insurance approval for acute rehabilitation DVT prophylaxis: Already receiving therapeutic anticoagulation Shock, resolved Lactic acidosis, resolved Altered mental status, resolved Diagnosis/Problems Diagnosis/Problems (1) Cardiac arrest Status: Acute (2) Acute respiratory failure Status: Acute Qualifiers: Respiratory failure complication: hypoxia Qualified Codes: J96.01 - Acute respiratory failure with hypoxia (3) Debility Status: Acute Clinical Quality Measures DVT/VTE Risk/Contraindication: Risk Factor Score Per Nursin RFS Level Per Nursing on Admit: 4+=Very High CLARIBEL ESCOBAR MD November 18, 2019 12:32
--- NOTE | 2019-11-18 15:42 | NUR ---
THIS NURSE CALLED REPORT TO [facility] ON FOURTH FLOOR. PT TAKEN DOWN VIA WHEELCHAIR WITH BELONGINGS.
--- NOTE | 2019-11-18 16:17 | NUR ---
PATIENT TO ROOM 412 VIA WHEELCHAIR ACCOMPANIED BY ICU RNS. BARRIER CREAM APPLIED TO PATIENT'S BOTTOM, PATIENT IS RESTING COMFORTABLY IN BED WITH 2 L NC. PATIENT IS WATCHING TV. PATIENT DENIES ANY FURTHER NEEDS AT THIS TIME. WILL CONTINUE TO MONITOR.
[2019-11-19] VITALS (7 sets, daily range): BP systolic 96–142; BP diastolic 58–75
[2019-11-19] MEDS: RT-ALBUTEROL/IPRATROPIUM 3 ML (DUONEB) VIAL INH SCH ×6 (02:35→22:10)
[2019-11-19] MEDS: ENOXAPARIN 100 MG/1 ML (LOVENOX) SYR SC SCH (04:26)
[2019-11-19 04:41] LABS: BASOPHILS % (AUTO) 0 % (0-10); EOSINOPHILS # (AUTO) 0.1 10^3/uL (0.0-0.3); EOSINOPHILS % (AUTO) 2 % (0-10); HEMATOCRIT 31 % (35-52); HEMOGLOBIN 9.6 G/DL (11.5-16.0); LYMPHOCYTES # (AUTO) 1.3 X 10^3 (1.0-4.0); LYMPHOCYTES % (AUTO) 15 % (12-44); MEAN CORPUSCULAR HEMOGLOBIN 27 PG (25-34); MEAN CORPUSCULAR HGB CONC 31 G/DL (32-36); MEAN CORPUSCULAR VOLUME 88 FL (80-99); MEAN PLATELET VOLUME 9.9 FL (7.4-10.4); MONOCYTES # (AUTO) 0.7 X 10^3 (0.0-1.0); MONOCYTES % (AUTO) 8 % (0-12); NEUTROPHILS # (AUTO) 6.4 X 10^3 (1.8-7.8); NEUTROPHILS % (AUTO) 76 % (42-75); PLATELET COUNT 288 10^3/uL (130-400); RED CELL DISTRIBUTION WIDTH 14.9 % (10.0-14.5); WHITE BLOOD COUNT 8.5 10^3/uL (4.3-11.0)
[2019-11-19 04:55] LABS: BUN/CREATININE RATIO 14; CALCIUM 8.6 MG/DL (8.5-10.1); CARBON DIOXIDE 36 MMOL/L (21-32); CHLORIDE 85 MMOL/L (98-107); CREATININE SERUM 0.71 MG/DL (0.60-1.30); GFR ESTIMATED > 60; GLUCOSE 120 MG/DL (70-105); MAGNESIUM 1.8 MG/DL (1.6-2.4); PHOSPHORUS 3.1 MG/DL (2.3-4.7); POTASSIUM 3.7 MMOL/L (3.6-5.0); SODIUM 131 MMOL/L (135-145)
[2019-11-19] MEDS: POTASSIUM CL 10MEQ/50ML IVPB 50 ML IV SCH (04:57)
[2019-11-19] MEDS: MAGNESIUM 1 GM/100 ML IVPB 100 ML IV SCH (04:57)
[2019-11-19] MEDS: KCL 20 MEQ TAB (K-DUR) PO SCH (04:58)
[2019-11-19] MEDS: inSUlin ASPART (NovoLOG) 1 UNIT/0.01 ML (CHARGE PER UNIT) SC SCH ×4 (06:00→20:53)
--- NOTE | 2019-11-19 06:05 | Diagnostic Imaging Report ---
Indication: Cardiopulmonary arrest Portable chest 3:42 AM There is atelectasis and/or consolidation in the right lower lung. There is minimal left basilar atelectasis. Right jugular central line tip projects over the right innominate vein. There is no pneumothorax. IMPRESSION: Increased consolidation right lower chest could be pneumonia versus atelectasis. There is minimal left basilar atelectasis. Right basilar consolidation appears slightly worse compared to the previous day. Dictated by: Dictated on workstation # [id number]
[2019-11-19] MEDS: lisINopril 40 MG (PRINIVIL) TABLET PO SCH (07:55)
[2019-11-19] MEDS: meTOprolol TARTRATE 25 MG (LOPRESSOR) TABLET PO SCH ×2 (07:55→20:49)
[2019-11-19] MEDS: ASPIRIN 81 MG CHEW (CHILDREN'S ASA) PO SCH (07:55)
[2019-11-19] MEDS: PANTOPRAZOLE 40 MG (PROTONIX) VIAL IV SCH (07:55)
[2019-11-19] MEDS: FUROSEMIDE 40 MG/4 ML INJ (LASIX) IVP SCH (07:55)
[2019-11-19] MEDS: SPIRONOLACTONE 25 MG (ALDACTONE) TAB PO SCH (07:56)
--- NOTE | 2019-11-19 11:41 | Physical Therapy Daily Note ---
PT Daily Note-Current Subjective Patient agrees to PT. Pain Numeric Pain Scale: 5-Moderate Pain Location: Right, Left, Soft Tissue Location Body Site: Side Pain Description: Acute Mental Status Patient Orientation: Normal For Age Attachments: Oxygen Transfers SCALE: Activities may be completed with or without assistive devices. 2-Bdgygpgpdn-nkcqwkv completes the activity by him/herself with no assistance from a helper. 5-Set-up or Clean-up Assistance-helper sets up or cleans up; patient completes activity. [place] assists only prior to or following the activity. 4-Supervision or Touching Assistance-helper provides verbal cues and/or touc [place]/steadying and/or contact guard assistance as patient completes activity. Assistance may be provided throughout the activity or intermittently. 3-Partial/Moderate Assistance-helper does LESS THAN HALF the effort. [place] lifts, holds or supports trunk or limbs, but provides less than half the effort. 2-Substantial/Maximal Assistance-helper does MORE THAN HALF the effort. [place] lifts or holds trunk or limbs and provides more than half the effort. 7-Zgswsqhbl-wbclxn does ALL the effort. Patient does none of the effort to complete the activity. Or, the assistance of 2 or more helpers is required for the patient to complete the activity. If activity was not attempted, code reason: 7-Patient Refused. 9-Not Applicable-not attempted and the patient did not perform the activity before the current illness, exacerbation or injury. 10-Not Attempted due to Environmental Limitations-(lack of equipment, weather restraints, etc.). 88-Not Attempted due to Medical Conditions or Safety Concerns. Sit to Stand (QC): 4 sit to stand x 3 sets SBA to CGA to FWW with standing x 2 min each time Weight Bearing Right Lower Extremity: Right Weight Bearing/Tolerated Left Lower Extremity: Left Weight Bearing/Tolerated Exercises Seated Therapy Exercises: Ankle pumps, Long arc quads Seated Reps: 10 Assessment Education with patient on hugging pillow to deep breathe and to cough. Patient performed this task without difficulty. Patient displays increase SOA with minimal activity on 6L O2 NC. PT to increase activity as tolerated by patient. Patient remains up in recliner with needs met. PT Short Term Goals Short Term Goals Time Frame: December 04, 2019 Roll Left & Right: 2 Sit to lyin Lying to sitting on side of be: 2 Sit to stand: 2 Chair/ent-da-xnkhl transfer: 2 PT [facility] Goals Hat Binder Goals PT Hat Binder Goals Time Frame: Dec 18, 2019 Roll Left & Right (QC): 4 Sit to Lying (QC): 4 Lying-Sitting on Side/Bed(QC): 4 Sit to Stand (QC): 4 Chair/Lsh-bm-Nmowh Xfer(QC): 4 Toilet Transfer (QC): 4 Does the Patient Walk: No and Walking Goal IS indicated Walk 10 feet (QC): 3 PT Plan Treatment/Plan Treatment Plan: Continue Plan of Care Treatment Plan: Bed Mobility, Education, Functional Activity Narendra, Functional Strength, Gait, Safety, Therapeutic Exercise, Transfers Treatment Duration: Dec 18, 2019 Frequency: 6 times per week Estimated Hrs Per Day: .25 hour per day (to .5) Patient and/or Family Agrees t: Yes Time/GCodes Time In: 1123 Time Out: 1134 Total Billed Treatment Time: 11 Total Billed Treatment 1 visit EX 11 min MARA CELIS PT November 19, 2019 11:41
--- NOTE | 2019-11-19 12:47 | Progress Note - Hospitalist ---
Subjective HPI/CC On Admission Date Seen by Provider: November 19, 2019 Time Seen by Provider: 09:55 Subjective/Events-last exam She reports no complaints or concerns this morning. She denies any fevers or chills. She denies any chest pain or shortness of breath. She denies any abdominal pain, nausea, vomiting. Objective Exam Vital Signs Vital Signs Date Time Temp Pulse Resp B/P (MAP) Pulse Ox O2 Delivery O2 Flow Rate FiO2 11/19/19 11:08 36.4 70 20 115/66 (82) 98 Nasal Cannula 4.00 11/17/19 23:59 30 Capillary Refill : Less Than 3 Seconds General Appearance: No Apparent Distress, Obese Neck: Normal Inspection, Supple Respiratory: Lungs Clear, Normal Breath Sounds, No Respiratory Distress Cardiovascular: Regular Rate, Rhythm, No Edema, No Murmur Gastrointestinal: Normal Bowel Sounds, Non Tender, Soft Extremity: Normal Inspection, Non Tender, Pedal Edema Neurologic/Psychiatric: Alert, Oriented x3, Normal Mood/Affect, Motor Weakness Skin: Normal Color, Warm/Dry Results/Procedures Lab Laboratory Tests 11/19/19 04:30 Patient resulted labs reviewed. Imaging: Reviewed Imaging Report Assessment/Plan Assessment and Plan Assess & Plan/Chief Complaint s/p cardiac arrest Acute respiratory failure with hypoxia Elevated d-dimer, presumed pulmonary embolism COPD Small left pneumothorax and sternal and rib fracture extubated 11/14 Pulmonology consulted, appreciate assistance s/p hypothermia protocol and rewarming s/p TPA in the ER for presumed PE on 11/08 COVID19 negative Procalcitonin normalized, antibiotics discontinued Transition from Lovenox to Eliquis Normocytic anemia hemoglobin stable, 9.6 Continue Lovenox for PE HTN CAD continue metoprolol, Lasix, and spironolactone Continue JOSH inhibitor Cardiology consulted, appreciate recs T2DM with hyperglycemia sliding scale insulin Hyponatremia Stable, 131 Debility PT/OT Awaiting insurance approval for acute rehabilitation DVT prophylaxis: Already receiving therapeutic anticoagulation Shock, resolved Lactic acidosis, resolved Altered mental status, resolved Diagnosis/Problems Diagnosis/Problems (1) Cardiac arrest Status: Acute (2) Acute respiratory failure Status: Acute Qualifiers: Respiratory failure complication: hypoxia Qualified Codes: J96.01 - Acute respiratory failure with hypoxia (3) Debility Status: Acute Clinical Quality Measures DVT/VTE Risk/Contraindication: Risk Factor Score Per Nursin RFS Level Per Nursing on Admit: 4+=Very High CLARIBEL ESCOBAR MD November 19, 2019 12:47
[2019-11-19] MEDS ORDERED: APIXABAN 5 MG (ELIQUIS) TABLET PO ONE (13:00)
--- NOTE | 2019-11-19 13:17 | Progress Note - Cardiology ---
Cardiology SOAP Progress Note Subjective: No cp Shortness of breath with activity, none at rest No palp or syncope Gen weakness No focal weakness Objective: I&O/Vital Signs 11/19/19 11/19/19 11/19/19 11/19/19 02:35 04:00 06:41 07:00 Temp 36.4 Pulse 78 78 Resp 22 B/P (MAP) 131/71 (91) Pulse Ox 90 91 91 O2 Delivery Nasal Cannula Nasal Cannula Nasal Cannula O2 Flow Rate 3.00 2.50 4.00 11/19/19 11/19/19 11/19/19 11/19/19 07:21 08:01 10:39 11:08 Temp 36.6 36.4 Pulse 76 70 Resp 20 20 B/P (MAP) 125/72 (89) 115/66 (82) Pulse Ox 93 90 98 O2 Delivery Nasal Cannula Nasal Cannula Nasal Cannula Nasal Cannula O2 Flow Rate 4.00 3.00 4.00 4.00 11/19/19 00:00 Intake Total 1085 ml Output Total 1225 ml Balance -140 ml Constitutional: AAO x 3 Respiratory: other (scattered rhonchi ; diminished breath sounds R>L) Cardiovascular: regular rate-rhythm, tachycardia, systolic murmur (soft SUREKHA at card base) Gastrointestional: soft, distended, audible bowel sounds Extremities: other (mild edema); No clubbing, No cyanosis Neurologic/Psychiatric: alert, oriented x 3, other (moves all limbs); No grossly intact Skin: warm/dry; No rash on exposed areas, No ulcerations on exposed areas Results/Procedures: Labs Laboratory Tests 11/18/19 16:45: Glucometer 124H 11/18/19 20:02: Glucometer 117H 11/19/19 04:30: White Blood Count 8.5, Red Blood Count 3.57L, Hemoglobin 9.6L, Hematocrit 31L, Mean Corpuscular Volume 88, Mean Corpuscular Hemoglobin 27, Mean Corpuscular Hemoglobin Concent 31L, Red Cell Distribution Width 14.9H, Platelet Count 288, Mean Platelet Volume 9.9, Neutrophils (%) (Auto) 76H, Lymphocytes (%) (Auto) 15, Monocytes (%) (Auto) 8, Eosinophils (%) (Auto) 2, Basophils (%) (Auto) 0, Neutrophils # (Auto) 6.4, Lymphocytes # (Auto) 1.3, Monocytes # (Auto) 0.7, Eosinophils # (Auto) 0.1, Basophils # (Auto) 0.0, Sodium Level 131L, Potassium Level 3.7, Chloride Level 85L, Carbon Dioxide Level 36H, Anion Gap 10, Blood Urea Nitrogen 10, Creatinine 0.71, Estimat Glomerular Filtration Rate > 60, BUN/Creatinine Ratio 14, Glucose Level 120H, Calcium Level 8.6, Phosphorus Level 3.1, Magnesium Level 1.8 11/19/19 11:07: Glucometer 138H Microbiology 11/15/19 Gram Stain - Final, Complete 11/15/19 Sputum Culture - Final, Complete YEAST 11/09/19 Blood Culture - Final, Complete Staphylococcus hominis Laboratory Tests 11/18/19 03:00 11/19/19 04:30 A/P: Assessment: Ac resp arrest and cardiac arrest (PEA) in setting of profound hypoxia and hypotension, PE suspected clinically and being treated by the Hospitalist service Mild, acute CHF, systolic (LV systolic function at lower limit of normal to mildly impaired) and diastolic - improved Hyponatremia of unclear etiology, probably partly related to CHF - improved H/o CAD (reportedly has had 3 stents, none recent) -cardiac cath report of Apr [address] Malcolm shows stenting to the mid-RCA with a 3.0 x 18 mm stent (exact details unknown) - cardiac cath report from Aug by Dr. Escalante at [facility] - showed widely patent previously placed stent to the mid- RCA (Mar [address] Levine, a 3.5 x 22 Taxus stent placed proximally to the previous mid-RCA stent place in 2001) and a stent was placed to the OM -1 (exact details unavailable) Mild troponin elevation likely due to type 2 UT due to hypoxia Echo of 11/09/19: LVEF approx 50%, study difficult and not suitable for wall motion analysis, cannot exclude apical hypokinesis ECG: NSR, PACs, LAFB vs old IMI Plan: * Continue low dose diuretics * Monitor electrolytes * Continue bb * Continue ASA due a h/o cor stents * Management of anemia per Medical services * Outpt cardiac f/u advised after discharge RAFAT MONTANA MD FACP [facility] November 19, 2019 13:17
--- NOTE | 2019-11-19 13:42 | NUR ---
"RD ASSESSMENT PMHx: HTN; DM; COPD; JODI; CAD; hypercholesterolemia PT INTERACTION: Pt was awake and pleasant during nutrition follow-up. Pt states her appetite is getting better since last assessment. Note avg PO intake of 36% x3d, per chart review. Pt states no issues with nausea, vomiting, constipation, or diarrhea since last assessment. Pt states she has not had a BM since admit. Note pt not currently on bowel regimen per chart review. ABNORMAL NUTRITION-RELATED LAB VALUES LOW: Na 131; Cl 85 HIGH: glu 120 Est. kcal needs: 6252-6488 kcal | 15-18 kcal/kg Est. Pro needs: 82-103 g Pro | 0.8-1.0 g Pro/kg PES STATEMENT: Inadequate oral intake (NI-2.1) related to loss of appetite as evidenced by pt interview | avg PO intake 36% x3d INTERVENTION: Continue with current diet order of DYS2 Mechanically Altered diet. Add Glucerna (vary) to meals TID, for increased kcal intake. Provides 220 kcal and 10 g Pro per serving. Will continue to follow and reassess as pt needs, intake, and status change. MONITOR/EVALUATE: PO Intake; Plan of Care; Hydration Status; Weight Status; Lab Values Tristen Rocha, MS, RD, LD"
[2019-11-19] MEDS: fentaNYL INJECTION 100 MCG/2 ML AMP IVP PRN ×2 (14:00→22:37)
--- NOTE | 2019-11-19 14:35 | Occupational Ther Daily Note ---
OT Current Status-Daily Note Subjective Pt resting in bed, agrees to therapy. Pt reports rib pain, RN present to provide pain medication. ADL-Treatment Therapy Code Descriptions/Definitions Functional [place] Measure: 0=Not Assessed/NA 4=Minimal Assistance 1=Total Assistance 5=Supervision or Setup 2=Maximal Assistance 6=Modified [place] 3=Moderate Assistance 7=Complete IndependenceSCALE: Activities may be completed with or without assistive devices. 9-Rzrjytqxhz-pgzzsfp completes the activity by him/herself with no assistance from a helper. 5-Set-up or Clean-up Assistance-helper sets up or cleans up; patient completes activity. [place] assists only prior to or following the activity. 4-Supervision or Touching Assistance-helper provides verbal cues and/or touching/steadying and/or contact guard assistance as patient completes activity. Assistance may be provided throughout the activity or intermittently. 3-Partial/Moderate Assistance-helper does LESS THAN HALF the effort. [place] lifts, holds or supports trunk or limbs, but provides less than half the effort. 2-Substantial/Maximal Assistance-helper does MORE THAN HALF the effort. [place] lifts or holds trunk or limbs and provides more than half the effort. 1-Rldmmgwov-mqxppe does ALL the effort. Patient does none of the effort to complete the activity. Or, the assistance of 2 or more helpers is required for the patient to complete the activity. If activity was not attempted, code reason: 7-Patient Refused. 9-Not Applicable-not attempted and the patient did not perform the activity before the current illness, exacerbation or injury. 10-Not Attempted due to Environmental Limitations-(lack of equipment, weather restraints, etc.). 88-Not Attempted due to Medical Conditions or Safety Concerns. Other Treatment Pt participated in bilateral UE ROM exercises to increase strength and activity tolerance needed for functional task completion. Pt completed AAROM at shoulders and AROM at other joints x10 reps. Pt fatigues quickly and requires rest breaks between exercises. Bilateral hand supervisor travel trailer exercises with mild resistance therapy foam to increase supervisor travel trailer strength. Assisted pt to reposition in bed per request. Pt resting in bed with needs met after session. OT Short Term Goals Short Term Goals Time Frame: November 29, 2019 Eatin Oral hygiene: 3 Toileting hygiene: 2 Upper body dressin OT [facility] Goals Lemon Picker Goals Time Frame: Dec 13, 2019 Eating (QC): 4 Oral Hygiene (QC): 4 Toileting Hygiene (QC): 3 Shower/Bathe Self (QC): 3 Upper Body Dressing (QC): 4 Lower Body Dressing (QC): 3 On/Off Footwear (QC): 3 Additional Goals: 1-Demonstrate ADL Tasks, 2-Verbalize Understanding, 3- ImproveStrength/Narendra 1=Demonstrate adherence to instructed precautions during ADL tasks. 2=Patient will verbalize/demonstrate understanding of assistive devices/modifications for ADL. 3=Patient will improve strength/tolerance for activity to enable patient to perform ADL's. OT Education/Plan Discharge Recommendations Plan/Recommendations: Continue POC Treatment Plan/Plan of Care Patient would benefit from OT for education, treatment and training to promote independence in ADL's, mobility, safety and/or upper extremity function for ADL's. Plan of Care: ADL Retraining, Functional Mobility, UE Funct Exercise/Act Treatment Duration: Dec 13, 2019 Frequency: 5 times per week Estimated Hrs Per Day: .25 hour per day Agreement: Yes Rehab Potential: Fair Time/GCodes Start Time: 14:00 Stop Time: 14:15 Total Time Billed (hr/min): 15 Billed Treatment Time 1 visit, EX(15minutes) CAROLINE MALCOLM OT November 19, 2019 14:35
[2019-11-19] MEDS: APIXABAN 5 MG (ELIQUIS) TABLET PO SCH (20:50)
[2019-11-19] MEDS: RT-ALBUTEROL HFA (PROAIR HFA) 8.5 GM IH PRN (23:43)
[2019-11-20 00:30] VITALS: BP 96/58
[2019-11-20] MEDS: RT-ALBUTEROL/IPRATROPIUM 3 ML (DUONEB) VIAL INH SCH ×6 (02:28→22:30)
[2019-11-20 03:40] VITALS: BP 118/66
[2019-11-20 05:36] LABS: BASOPHILS % (AUTO) 1 % (0-10); EOSINOPHILS # (AUTO) 0.1 10^3/uL (0.0-0.3); EOSINOPHILS % (AUTO) 2 % (0-10); HEMATOCRIT 29 % (35-52); HEMOGLOBIN 8.9 G/DL (11.5-16.0); LYMPHOCYTES % (AUTO) 15 % (12-44); MEAN CORPUSCULAR HEMOGLOBIN 27 PG (25-34); MEAN CORPUSCULAR HGB CONC 31 G/DL (32-36); MEAN CORPUSCULAR VOLUME 88 FL (80-99); MEAN PLATELET VOLUME 9.8 FL (7.4-10.4); MONOCYTES # (AUTO) 0.7 X 10^3 (0.0-1.0); MONOCYTES % (AUTO) 10 % (0-12); NEUTROPHILS % (AUTO) 73 % (42-75); PLATELET COUNT 302 10^3/uL (130-400); RED CELL DISTRIBUTION WIDTH 14.9 % (10.0-14.5); WHITE BLOOD COUNT 6.8 10^3/uL (4.3-11.0)
[2019-11-20 05:39] LABS: CHLORIDE 87 MMOL/L (98-107); POTASSIUM 3.4 MMOL/L (3.6-5.0); SODIUM 132 MMOL/L (135-145)
[2019-11-20 05:40] LABS: CALCIUM 8.4 MG/DL (8.5-10.1)
[2019-11-20 05:41] LABS: GLUCOSE 116 MG/DL (70-105)
[2019-11-20 05:43] LABS: CARBON DIOXIDE 37 MMOL/L (21-32)
[2019-11-20 05:45] LABS: CREATININE SERUM 0.68 MG/DL (0.60-1.30); GFR ESTIMATED > 60; PHOSPHORUS 3.4 MG/DL (2.3-4.7)
[2019-11-20 05:46] LABS: BUN/CREATININE RATIO 13
[2019-11-20 05:47] LABS: MAGNESIUM 1.8 MG/DL (1.6-2.4)
[2019-11-20] MEDS: MAGNESIUM 1 GM/100 ML IVPB 100 ML IV SCH (06:00)
[2019-11-20] MEDS: POTASSIUM CL 10MEQ/50ML IVPB 50 ML IV SCH (06:00)
[2019-11-20] MEDS: inSUlin ASPART (NovoLOG) 1 UNIT/0.01 ML (CHARGE PER UNIT) SC SCH ×4 (06:01→21:04)
[2019-11-20] MEDS: KCL 20 MEQ TAB (K-DUR) PO SCH (06:27)
[2019-11-20] MEDS ORDERED: KCL 20 MEQ TAB (K-DUR) PO ONE (06:30)
[2019-11-20 07:50] VITALS: BP 116/67
[2019-11-20] MEDS: FUROSEMIDE 40 MG/4 ML INJ (LASIX) IVP SCH (08:13)
[2019-11-20] MEDS: PANTOPRAZOLE 40 MG (PROTONIX) TAB PO SCH (08:16)
[2019-11-20] MEDS: ASPIRIN 81 MG CHEW (CHILDREN'S ASA) PO SCH (08:16)
[2019-11-20] MEDS: meTOprolol TARTRATE 25 MG (LOPRESSOR) TABLET PO SCH ×2 (08:16→20:38)
[2019-11-20] MEDS: APIXABAN 5 MG (ELIQUIS) TABLET PO SCH ×2 (08:16→20:37)
[2019-11-20] MEDS: SPIRONOLACTONE 25 MG (ALDACTONE) TAB PO SCH (08:16)
[2019-11-20] MEDS: lisINopril 40 MG (PRINIVIL) TABLET PO SCH (08:16)
[2019-11-20] MEDS: RT-ALBUTEROL HFA (PROAIR HFA) 8.5 GM IH PRN (09:57)
--- NOTE | 2019-11-20 10:08 | NUR ---
PT WORKED WITH PT AND AMBULATED FROM CHAIR TO WALL NEAR BATHROOM, APPROX 5-6 FEET, TWICE. AFTERWARDS PT C/O WHEEZING AND REQUESTED PRN ALB INH. THIS RN ADMIN INH AND LUNGS SOUNDS UPPER POSTERIOR HAD A FAINT WHEEZE BILAT
--- NOTE | 2019-11-20 10:17 | Physical Therapy Daily Note ---
PT Daily Note-Current Subjective Patient in recliner pre tx, agrees to PT, states she has 10/10 pain and nurse is aware. Appearance Patient in recliner post tx with nurse call, phone, tray, all needs met. Mental Status Patient Orientation: Person, Place, Situation Attachments: Oxygen, Ordonez Catheter Transfers SCALE: Activities may be completed with or without assistive devices. 7-Vanxmvyeya-erfkezq completes the activity by him/herself with no assistance from a helper. 5-Set-up or Clean-up Assistance-helper sets up or cleans up; patient completes activity. [place] assists only prior to or following the activity. 4-Supervision or Touching Assistance-helper provides verbal cues and/or touching/steadying and/or contact guard assistance as patient completes activity. Assistance may be provided throughout the activity or intermittently. 3-Partial/Moderate Assistance-helper does LESS THAN HALF the effort. [place] lifts, holds or supports trunk or limbs, but provides less than half the effort. 2-Substantial/Maximal Assistance-helper does MORE THAN HALF the effort. [place] lifts or holds trunk or limbs and provides more than half the effort. 3-Lzmmcsqoe-lsivkw does ALL the effort. Patient does none of the effort to complete the activity. Or, the assistance of 2 or more helpers is required for the patient to complete the activity. If activity was not attempted, code reason: 7-Patient Refused. 9-Not Applicable-not attempted and the patient did not perform the activity before the current illness, exacerbation or injury. 10-Not Attempted due to Environmental Limitations-(lack of equipment, weather restraints, etc.). 88-Not Attempted due to Medical Conditions or Safety Concerns. Sit to Stand (QC): 4 Chair/Psb-vz-Ghtor Xfer(QC): 4 Weight Bearing Right Lower Extremity: Right Weight Bearing/Tolerated Left Lower Extremity: Left Weight Bearing/Tolerated Gait Training Distance: 15'x2 Walk 10 feet (QC): 4 Gait Persons Needed: 1 Gait Assistive Device: FWW Patient ambulates twice forward and back about 7-8'. Ambulation was slow and steady but she has labored breathing, cues for purse lip breathing, recovered with a short rest. Exercises Seated Therapy Exercises: Ankle pumps, Long arc quads Seated Reps: 20 Treatments transfers, ambulation, functional strengthening Assessment Current Status: Fair Progress improving ambulation PT Short Term Goals Short Term Goals Time Frame: December 04, 2019 Roll Left & Right: 2 Sit to lyin Lying to sitting on side of be: 2 Sit to stand: 2 Chair/kyg-lz-owggd transfer: 2 PT [facility] Goals Labor Relations Manager Goals PT [facility] Goals Time Frame: Dec 18, 2019 Roll Left & Right (QC): 4 Sit to Lying (QC): 4 Lying-Sitting on Side/Bed(QC): 4 Sit to Stand (QC): 4 Chair/Rvc-da-Yrbjx Xfer(QC): 4 Toilet Transfer (QC): 4 Does the Patient Walk: No and Walking Goal IS indicated Walk 10 feet (QC): 3 PT Plan Problem List Problem List: Activity Tolerance, Functional Strength, Safety, Balance, Gait, Transfer, Bed Mobility, ROM Treatment/Plan Treatment Plan: Continue Plan of Care Treatment Plan: Bed Mobility, Education, Functional Activity Narendra, Functional Strength, Gait, Safety, Therapeutic Exercise, Transfers Treatment Duration: Dec 18, 2019 Frequency: 6 times per week Estimated Hrs Per Day: .25 hour per day (to .5) Patient and/or Family Agrees t: Yes Safety Risks/Education Patient Education: Gait Training, Transfer Techniques, Correct Positioning, Safety Issues Teaching Recipient: Patient Teaching Methods: Demonstration, Discussion Response to Teaching: Reinforcement Needed Time/GCodes Time In: 0943 Time Out: 0956 Total Billed Treatment Time: 13 Total Billed Treatment 1 visit FA AUBREY MANDEL PT November 20, 2019 10:16
--- NOTE | 2019-11-20 10:57 | Progress Note - Hospitalist ---
Subjective HPI/CC On Admission Date Seen by Provider: November 20, 2019 Time Seen by Provider: 10:15 Subjective/Events-last exam She is sitting in her bedside chair. She is requesting a regular diet. She reports that she walked with physical therapy to the wall and back to the chair 2 times today. She still has her Ordonez catheter in place. She is willing to try using the bedside commode. She denies any fevers or chills. She denies any chest pain or shortness of breath. She denies any abdominal pain, nausea, or vomiting. She has been coughing up some sputum after breathing treatments. Objective Exam Vital Signs Vital Signs Date Time Temp Pulse Resp B/P (MAP) Pulse Ox O2 Delivery O2 Flow Rate FiO2 11/20/19 10:38 91 Nasal Cannula 3.00 11/20/19 07:50 36.3 78 18 116/67 (83) 11/17/19 23:59 30 Capillary Refill : Less Than 3 Seconds General Appearance: No Apparent Distress, Chronically ill, Obese Respiratory: Lungs Clear, Normal Breath Sounds, No Respiratory Distress Cardiovascular: Regular Rate, Rhythm, No Murmur Gastrointestinal: Normal Bowel Sounds, Non Tender, Soft Extremity: Normal Inspection, Non Tender, Pedal Edema Neurologic/Psychiatric: Alert, Oriented x3, No Motor/Sensory Deficits, Normal Mood/Affect Skin: Normal Color, Warm/Dry Results/Procedures Lab Laboratory Tests 11/20/19 05:20 Patient resulted labs reviewed. Imaging: Reviewed Imaging Report Assessment/Plan Assessment and Plan Assess & Plan/Chief Complaint s/p cardiac arrest Acute respiratory failure with hypoxia Elevated d-dimer, presumed pulmonary embolism COPD Small left pneumothorax and sternal and rib fracture extubated 11/14 Pulmonology consulted, appreciate assistance s/p hypothermia protocol and rewarming s/p TPA in the ER for presumed PE on 11/08 COVID19 negative Procalcitonin normalized, antibiotics discontinued Continue Eliquis Normocytic anemia hemoglobin stable, 8.9 Continue Lovenox for PE HTN CAD continue metoprolol, Lasix, and spironolactone Continue JOSH inhibitor Cardiology consulted, appreciate recs T2DM with hyperglycemia sliding scale insulin Hyponatremia Hypokalemia Continue to monitor and replace electrolytes as needed Debility PT/OT Awaiting insurance approval for acute rehabilitation DVT prophylaxis: Already receiving therapeutic anticoagulation Shock, resolved Lactic acidosis, resolved Altered mental status, resolved Diagnosis/Problems Diagnosis/Problems (1) Cardiac arrest Status: Acute (2) Acute respiratory failure Status: Acute Qualifiers: Respiratory failure complication: hypoxia Qualified Codes: J96.01 - Acute respiratory failure with hypoxia (3) Debility Status: Acute Clinical Quality Measures DVT/VTE Risk/Contraindication: Risk Factor Score Per Nursin RFS Level Per Nursing on Admit: 4+=Very High CLARIBEL ESCOBAR MD November 20, 2019 10:57
--- NOTE | 2019-11-20 11:10 | Cardiology Progress Note ---
Subjective Date Seen by Provider: November 20, 2019 Time Seen by Provider: 11:08 Subjective/Events-last exam Patient is sitting in a chair, comfortable, mild dyspnea, no chest pain Review of Systems General: No Chills, No Night Sweats; Fatigue; No Malaise, No Appetite, No Other HEENT: No Head Aches, No Visual Changes, No Eye Pain, No Ear Pain, No Dysphasia, No Sinus Congestion, No Post Nasal Drip, No Sore Throat, No Other Pulmonary: No Dyspnea, No Cough, No Pleuritic Chest Pain, No Other Cardiovascular: Edema; No: Chest Pain, Palpitations, Orthopnea, Paroxysmal Noc. Dyspnea, Lt Headedness, Other Objective-Cardiology Exam Last Set of Vital Signs Vital Signs 11/17/19 11/20/19 11/20/19 23:59 07:50 10:38 Temp 36.3 Pulse 78 Resp 18 B/P (MAP) 116/67 (83) Pulse Ox 91 O2 Delivery Nasal Cannula O2 Flow Rate 3.00 FiO2 30 Capillary Refill : Less Than 3 Seconds I&O Intake and Output 11/20/19 00:00 Intake Total 1380 ml Output Total 1650 ml Balance -270 ml Intake Oral 1380 ml Output Urine Total 1650 ml General: Alert, Oriented X3, Cooperative HEENT: Atraumatic, PERRLA Neck: Supple, No JVD, No Thyromegaly Lungs: Clear to Auscultation, Normal Air Movement Heart: Regular Rate, Normal S1, Normal S2, No Murmurs Abdomen: Normal Bowel Sounds, Soft, No Tenderness, No Hepatosplenomegaly, No Masses Extremities: No Clubbing, No Cyanosis, Normal Pulses, No Tenderness/Swelling, Other (Mild edema) Skin: No Rashes, No Breakdown, No Significant Lesion Neuro: Normal Gait, Normal Speech, Strength at 5/5 X4 Ext, Normal Tone, Sensation Intact Psych/Mental Status: Mental Status NL, Mood NL Results Lab Laboratory Tests 11/20/19 05:20 A/P-Cardiology Admission Diagnosis Type II myocardial infarction Acute respiratory failure Hypertension Assessment/Plan Ac resp arrest and cardiac arrest (PEA) in setting of profound hypoxia and hypotension, PE suspected clinically and being treated by the Hospitalist service, clinically better. Continue to monitor Mild, acute CHF, systolic (LV systolic function at lower limit of normal to mildly impaired) and diastolic - improved Hyponatremia of unclear etiology, probably partly related to CHF - improved H/o CAD (reportedly has had 3 stents, none recent) -cardiac cath report of Apr [address] Malcolm shows stenting to the mid-RCA with a 3.0 x 18 mm stent (exact details unknown) - cardiac cath report from Aug by Dr. Escalante at [facility] - showed widely patent previously placed stent to the mid- RCA (Mar [address] Levine, a 3.5 x 22 Taxus stent placed proximally to the previous mid-RCA stent place in 2001) and a stent was placed to the OM -1 (exact details unavailable) Mild troponin elevation likely due to type 2 [place] due to hypoxia Echo of 11/09/19: LVEF approx 50%, study difficult and not suitable for wall motion analysis, cannot exclude apical hypokinesis ECG: NSR, PACs, LAFB vs old IMI Clinical Quality Measures DVT/VTE Risk/Contraindication: Risk Factor Score Per Nursin RFS Level Per Nursing on Admit: 4+=Very High BANDAR TSAI MD November 20, 2019 11:10
[2019-11-20 12:04] VITALS: BP 108/68
[2019-11-20 16:00] VITALS: BP 104/64
[2019-11-20] MEDS: fentaNYL INJECTION 100 MCG/2 ML AMP IVP PRN (17:08)
--- NOTE | 2019-11-20 17:59 | NUR ---
PT COMPLAINING OF PAIN AT A 9 TO BACK AND LEGS. FENTANYL IV ADMIN BY THIS RN. DR ESCOBAR CONTACTED D/T PT HAVING NO ORAL PAIN MEDS ORDERED AT THIS TIME. DR ESCOBAR ORDERED TO D/C FENTANYL, START 650 MG TYLENOL Q4H PRN MINIMAL PAIN, OXYCODONE IR 5 MG MODERATE PAIN AND OXYCODONE IR 10 MG SEVERE PAIN, ALONG WITH SCHEDULED GABAPENTIN 100 MG BID. PT MADE AWARE.
[2019-11-20] MEDS ORDERED: ACETAMINOPHEN 325 MG TABLET PO PRN (18:00)
[2019-11-20 20:00] VITALS: BP 106/52
[2019-11-20] MEDS: GABAPENTIN 100 MG (NEURONTIN) CAP PO SCH (20:38)
[2019-11-21 00:03] VITALS: BP 103/57
[2019-11-21] MEDS: RT-ALBUTEROL/IPRATROPIUM 3 ML (DUONEB) VIAL INH SCH ×6 (01:57→22:22)
[2019-11-21 04:00] VITALS: BP 111/68
--- NOTE | 2019-11-21 04:54 | Pulmonary Progress Note ---
Subjective Time Seen by a Provider: 04:52 Sepsis Event Evaluation Height, Weight, BMI Height: '" Weight: lbs. oz. kg; 33.00 BMI Method: Exam Exam Vital Signs Date Time Temp Pulse Resp B/P (MAP) Pulse Ox O2 Delivery O2 Flow Rate FiO2 11/21/19 01:57 91 Nasal Cannula 4.00 11/21/19 00:03 Nasal Cannula 3.00 11/20/19 22:30 91 Nasal Cannula 4.00 11/20/19 20:40 Nasal Cannula 4.00 11/20/19 20:00 36.9 78 20 106/52 (70) 96 Nasal Cannula 3.00 11/20/19 18:57 91 Nasal Cannula 4.00 11/20/19 16:00 36.4 75 14 104/64 (77) 98 Nasal Cannula 3.00 11/20/19 14:51 93 Nasal Cannula 3.00 11/20/19 12:04 36.2 80 18 108/68 (81) 98 Nasal Cannula 3.00 11/20/19 10:38 91 Nasal Cannula 3.00 11/20/19 08:00 98 Nasal Cannula 3.00 11/20/19 07:50 36.3 78 18 116/67 (83) 99 Nasal Cannula 3.00 11/20/19 06:55 88 Nasal Cannula 3.00 I & O 11/21/19 07:00 Intake Total 1340 ml Output Total 775 ml Balance 565 ml Height & Weight Height: '" Weight: lbs. oz. kg; 33.00 BMI Method: General Appearance: No Apparent Distress, Chronically ill, Obese HEENT: PERRL/EOMI, TMs Normal, Normal ENT Inspection, Pharynx Normal, Moist M ucous Membranes, Other Neck: Normal Inspection, Supple Respiratory: Lungs Clear, Normal Breath Sounds, No Respiratory Distress Cardiovascular: Regular Rate, Rhythm, No Murmur Capillary Refill: Less Than 3 Seconds Gastrointestinal: normal bowel sounds, non tender, soft Extremity: Normal Inspection, Non Tender, Pedal Edema Neurologic/Psychiatric: Alert, Oriented x3, No Motor/Sensory Deficits, Normal Mood/Affect Skin: Normal Color, Warm/Dry Results Lab Laboratory Tests 11/20/19 05:20 Assessment/Plan Assessment/Plan s/p cardiac arrest -s/p theraputic hypothermia Probable PE on admission - s/p TPA -Eliquis -Will plan on treating with anticogulation for at least 3mo PTX per CT -- is very small and appears to be stable despite being on vent. -Continue to monitor Sternal fracture Leukocytosis -Gracia culture COPDAE -Duoneb - CAD Hole home meds for hypotension and TPA admin Cardiology consulted, appreciate recs NIDDMII GORDON MCMANUS DO November 21, 2019 04:54
[2019-11-21] MEDS: inSUlin ASPART (NovoLOG) 1 UNIT/0.01 ML (CHARGE PER UNIT) SC SCH ×5 (06:12→20:44)
[2019-11-21 06:35] LABS: BUN/CREATININE RATIO 13; CALCIUM 8.5 MG/DL (8.5-10.1); CARBON DIOXIDE 34 MMOL/L (21-32); CHLORIDE 86 MMOL/L (98-107); CREATININE SERUM 0.76 MG/DL (0.60-1.30); GFR ESTIMATED > 60; GLUCOSE 130 MG/DL (70-105); MAGNESIUM 1.6 MG/DL (1.6-2.4); SODIUM 129 MMOL/L (135-145)
[2019-11-21] MEDS: POTASSIUM CL 10MEQ/50ML IVPB 50 ML IV SCH (06:42)
[2019-11-21] MEDS: KCL 20 MEQ TAB (K-DUR) PO SCH (06:42)
[2019-11-21] MEDS ORDERED: MAGNESIUM 1 GM/100 ML IVPB 100 ML IV ONE (06:45)
[2019-11-21] MEDS: MAGNESIUM 1 GM/100 ML IVPB 100 ML IV SCH ×3 (06:46→08:52)
[2019-11-21 08:16] VITALS: BP 102/50
[2019-11-21] MEDS: lisINopril 40 MG (PRINIVIL) TABLET PO SCH (08:49)
[2019-11-21] MEDS: SPIRONOLACTONE 25 MG (ALDACTONE) TAB PO SCH (08:49)
[2019-11-21] MEDS: FUROSEMIDE 40 MG/4 ML INJ (LASIX) IVP SCH (08:49)
[2019-11-21] MEDS: PANTOPRAZOLE 40 MG (PROTONIX) TAB PO SCH (08:49)
[2019-11-21] MEDS: GABAPENTIN 100 MG (NEURONTIN) CAP PO SCH ×2 (08:49→20:44)
[2019-11-21] MEDS: meTOprolol TARTRATE 25 MG (LOPRESSOR) TABLET PO SCH ×2 (08:49→20:44)
[2019-11-21] MEDS: APIXABAN 5 MG (ELIQUIS) TABLET PO SCH ×2 (08:50→20:44)
[2019-11-21] MEDS: ASPIRIN 81 MG CHEW (CHILDREN'S ASA) PO SCH (08:50)
--- NOTE | 2019-11-21 08:52 | NUR ---
TWO BAGS OF MAG GIVEN THIS AM. FIRST BY [employer]YWALL CONTRACTOR SECOND BY ME
--- NOTE | 2019-11-21 08:59 | Diagnostic Imaging Report ---
INDICATION: Shortness of air. TECHNIQUE: Single view chest 5:40 AM. CORRELATION STUDY: 11/19/2019 FINDINGS: Right IJ central line unchanged with tip in the high right paramediastinal region. Heart size and mediastinum are stable. Vasculature appearing slightly less congested. Continued combination of effusion along with consolidation both lung bases persisting. Overall findings may be very slightly improved. IMPRESSION: 1. Overall suggested less congestion. There is persistent but slightly improved severity bilateral pleural effusion along with bibasilar areas of consolidation. Dictated by: Dictated on workstation # [id number]
[2019-11-21 12:04] VITALS: BP 115/71
--- NOTE | 2019-11-21 13:10 | Progress Note - Hospitalist ---
Subjective HPI/CC On Admission Date Seen by Provider: November 21, 2019 Time Seen by Provider: 09:30 Subjective/Events-last exam she reports having some trouble breathing. She is cough and sputum. She denies any fevers. She denies any chest pain. She denies any abdominal pain, nausea, or vomiting. Objective Exam Vital Signs Vital Signs Date Time Temp Pulse Resp B/P (MAP) Pulse Ox O2 Delivery O2 Flow Rate FiO2 11/21/19 12:04 36.4 86 20 115/71 (86) 94 Nasal Cannula 3.00 11/17/19 23:59 30 Capillary Refill : Less Than 3 SecondsLess Than 3 Seconds General Appearance: No Apparent Distress, Obese Respiratory: Lungs Clear, Normal Breath Sounds, No Respiratory Distress Cardiovascular: Regular Rate, Rhythm, No Murmur Gastrointestinal: Normal Bowel Sounds, Non Tender, Soft Extremity: Normal Inspection, Non Tender, Pedal Edema Neurologic/Psychiatric: Alert, Oriented x3, No Motor/Sensory Deficits, Normal Mood/Affect Skin: Normal Color, Warm/Dry Results/Procedures Lab Laboratory Tests 11/21/19 06:09 Patient resulted labs reviewed. Imaging: Reviewed Imaging Report Assessment/Plan Assessment and Plan Assess & Plan/Chief Complaint s/p cardiac arrest Acute respiratory failure with hypoxia Elevated d-dimer, presumed pulmonary embolism COPD Small left pneumothorax and sternal and rib fracture extubated 11/14 Pulmonology consulted, appreciate assistance s/p hypothermia protocol and rewarming s/p TPA in the ER for presumed PE on 11/08 COVID19 negative Procalcitonin normalized, antibiotics discontinued Continue Eliquis Obesity Likely obesity hypoventilation syndrome BMI 39 ABGs revealed metabolic alkalosis with CO2 retention Would benefit from sleep study as outpatient Normocytic anemia hemoglobin stable Continue Lovenox for PE HTN CAD continue metoprolol, Lasix, and spironolactone Continue JOSH inhibitor Cardiology consulted, appreciate recs T2DM with hyperglycemia sliding scale insulin Hyponatremia Hypokalemia hypomagnesemia Continue to monitor and replace electrolytes as needed Debility critical illness myopathy PT/OT Awaiting insurance approval for acute rehabilitation DVT prophylaxis: Already receiving therapeutic anticoagulation Shock, resolved Lactic acidosis, resolved Altered mental status, resolved Diagnosis/Problems Diagnosis/Problems (1) Cardiac arrest Status: Acute (2) Acute on chronic respiratory failure with hypoxia and hypercapnia Status: Acute (3) Critical illness myopathy Status: Acute (4) Debility Status: Acute Clinical Quality Measures DVT/VTE Risk/Contraindication: Risk Factor Score Per Nursin RFS Level Per Nursing on Admit: 4+=Very High CLARIBEL ESCOBAR MD November 21, 2019 13:10
[2019-11-21] MEDS: MICONAZOLE 2% POWDER (DESENEX AF) 90 GM TOP SCH ×2 (15:28→20:44)
[2019-11-21 16:00] VITALS: BP 104/52
[2019-11-21 20:00] VITALS: BP 106/54
[2019-11-22] VITALS: BP 107/62
[2019-11-22] MEDS: RT-ALBUTEROL/IPRATROPIUM 3 ML (DUONEB) VIAL INH SCH ×6 (02:35→21:49)
[2019-11-22 04:15] VITALS: BP 107/55
[2019-11-22 05:30] LABS: HEMOGLOBIN 8.9 G/DL (11.5-16.0)
[2019-11-22 05:50] LABS: POTASSIUM 4.7 MMOL/L (3.6-5.0)
[2019-11-22 05:52] LABS: CALCIUM 8.4 MG/DL (8.5-10.1)
[2019-11-22 05:56] LABS: CREATININE SERUM 0.94 MG/DL (0.60-1.30)
[2019-11-22 05:58] LABS: MAGNESIUM 1.9 MG/DL (1.6-2.4)
[2019-11-22] MEDS: POTASSIUM CL 10MEQ/50ML IVPB 50 ML IV SCH (05:59)
[2019-11-22] MEDS: KCL 20 MEQ TAB (K-DUR) PO SCH (06:00)
[2019-11-22] MEDS ORDERED: KCL 20 MEQ TAB (K-DUR) PO SCH (06:00)
[2019-11-22] MEDS ORDERED: MAGNESIUM 1 GM/100 ML IVPB 100 ML IV SCH (06:00)
[2019-11-22] MEDS ORDERED: POTASSIUM CL 10MEQ/50ML IVPB 50 ML IV SCH (06:00)
[2019-11-22] MEDS: inSUlin ASPART (NovoLOG) 1 UNIT/0.01 ML (CHARGE PER UNIT) SC SCH ×4 (06:01→21:17)
[2019-11-22] MEDS: MAGNESIUM 1 GM/100 ML IVPB 100 ML IV SCH (06:06)
[2019-11-22 07:29] VITALS: BP 91/47
--- NOTE | 2019-11-22 08:10 | NUR ---
Very lethargic at time of morning assessment. this RN had to rub patients arm and say name very loud multiple times for patient to wake up and acknowledge that there was someone in the room. Patient woke up enough to take morning pills and told this RN good morning but fell right back a sleep after administration of medication. Patient would not eat breakfast at this time. Doctor Clay's CLINICAL PHARMACY TECHNICIAN in room with this RN at time of assessment and aware of status. Doctor cynthia aware of patients status as well. It is suspected that lethargic status is due to over admission of pain medications the night prior.
[2019-11-22] MEDS: APIXABAN 5 MG (ELIQUIS) TABLET PO SCH ×2 (08:18→21:33)
[2019-11-22] MEDS: SPIRONOLACTONE 25 MG (ALDACTONE) TAB PO SCH (08:18)
[2019-11-22] MEDS: GABAPENTIN 100 MG (NEURONTIN) CAP PO SCH ×2 (08:18→21:33)
[2019-11-22] MEDS: PANTOPRAZOLE 40 MG (PROTONIX) TAB PO SCH (08:18)
[2019-11-22] MEDS: FUROSEMIDE 40 MG/4 ML INJ (LASIX) IVP SCH ×2 (08:19→18:04)
[2019-11-22] MEDS: MICONAZOLE 2% POWDER (DESENEX AF) 90 GM TOP SCH ×2 (08:19→21:34)
[2019-11-22] MEDS: meTOprolol TARTRATE 25 MG (LOPRESSOR) TABLET PO SCH ×2 (08:19→21:33)
[2019-11-22] MEDS: lisINopril 40 MG (PRINIVIL) TABLET PO SCH (08:19)
[2019-11-22] MEDS: ASPIRIN 81 MG CHEW (CHILDREN'S ASA) PO SCH (08:19)
--- NOTE | 2019-11-22 08:43 | Progress Note - Cardiology ---
Cardiology SOAP Progress Note Subjective: Lying in bed. Drowsy this morning. Opens eyes and nods head in response to questions. Nurse at the bedside states she was c/o gen pain overnight for which she was medicated. No c/o CP. Objective: I&O/Vital Signs 11/23/19 11/23/19 11/23/19 11/24/19 21:19 21:20 21:30 00:00 Temp 36.6 Pulse 81 73 Resp 20 B/P (MAP) 107/63 (78) 87/40 (56) Pulse Ox 90 96 O2 Delivery Nasal Cannula Nasal Cannula Nasal Cannula O2 Flow Rate 6.00 5.00 6.00 11/24/19 11/24/19 11/24/19 11/24/19 01:16 01:44 04:00 06:38 Temp 36.4 Pulse 71 Resp 20 B/P (MAP) 98/64 (75) 94/46 (62) Pulse Ox 93 95 88 O2 Delivery Nasal Cannula Nasal Cannula Nasal Cannula O2 Flow Rate 6.00 6.00 4.00 11/24/19 08:00 Temp 35.9 Pulse 87 Resp 20 B/P (MAP) 90/58 (69) Pulse Ox 91 O2 Delivery Nasal Cannula O2 Flow Rate 4.00 11/24/19 00:00 Intake Total 918 ml Output Total 300 ml Balance 618 ml Constitutional: AAO x 3 (Drowsy), well-developed, well-nourished Respiratory: other (scattered rhonchi ; diminished breath sounds R>L) Cardiovascular: regular rate-rhythm, systolic murmur (soft SUREKHA at card base) Gastrointestional: soft, distended, audible bowel sounds Extremities: other (bilat pitting edema); No clubbing, No cyanosis Neurologic/Psychiatric: other (moves all limbs); No grossly intact Skin: warm/dry; No rash on exposed areas, No ulcerations on exposed areas Results/Procedures: Labs Laboratory Tests 11/23/19 11:01: Glucometer 166H 11/23/19 16:29: Glucometer 168H 11/23/19 20:08: Glucometer 199H 11/24/19 04:55: White Blood Count 7.8, Red Blood Count 2.93L, Hemoglobin 8.1L, Hematocrit 26L, Mean Corpuscular Volume 90, Mean Corpuscular Hemoglobin 28, Mean Corpuscular Hemoglobin Concent 31L, Red Cell Distribution Width 15.3H, Platelet Count 342, Mean Platelet Volume 10.8H, Neutrophils (%) (Auto) 74, Lymphocytes (%) (Auto) 14, Monocytes (%) (Auto) 10, Eosinophils (%) (Auto) 2, Basophils (%) (Auto) 1, Neutrophils # (Auto) 5.8, Lymphocytes # (Auto) 1.1, Monocytes # (Auto) 0.8, Eosinophils # (Auto) 0.1, Basophils # (Auto) 0.0, Sodium Level 129L, Potassium Level 4.3, Chloride Level 86L, Carbon Dioxide Level 35H, Anion Gap 8, Blood Urea Nitrogen 15, Creatinine 0.95, Estimat Glomerular Filtration Rate 60, BUN/Creatinine Ratio 16, Glucose Level 148H, Calcium Level 8.5, Corrected Calcium 9.4, Magnesium Level 1.8, Total Bilirubin 0.4, Aspartate Amino Transf (AST/SGOT) 44H, Alanine Aminotransferase (ALT/SGPT) 20, Alkaline Phosphatase 65, B-Type Natriuretic Peptide 113.3H, Total Protein 6.1L, Albumin 2.9L 11/24/19 05:03: Glucometer 174H Microbiology 11/15/19 Gram Stain - Final, Complete 11/15/19 Sputum Culture - Final, Complete YEAST 11/09/19 Blood Culture - Final, Complete Staphylococcus hominis A/P: Assessment: Ac resp arrest and cardiac arrest (PEA) in setting of profound hypoxia and hypotension, PE suspected clinically and being treated by the Hospitalist service Mild, acute CHF, systolic (LV systolic function at lower limit of normal to mildly impaired) and diastolic - improved Hyponatremia of unclear etiology, probably partly related to CHF - worsening H/o CAD (reportedly has had 3 stents, none recent) -cardiac cath report of Apr [address] Malcolm shows stenting to the mid-RCA with a 3.0 x 18 mm stent (exact details unknown) - cardiac cath report from Aug by Dr. Escalante at [facility] - showed widely patent previously placed stent to the mid- RCA (Mar [address] Levine, a 3.5 x 22 Taxus stent placed proximally to the previous mid-RCA stent place in 2001) and a stent was placed to the OM -1 (exact details unavailable) Mild troponin elevation likely due to type 2 [place] due to hypoxia Echo of 11/09/19: LVEF approx 50%, study difficult and not suitable for wall motion analysis, cannot exclude apical hypokinesis ECG: NSR, PACs, LAFB vs old IMI Plan: * Continue low dose diuretics * Monitor electrolytes closely * Worsening LE swelling, hyponatremia and weight gain - give additional Lasix today * Worsening hyponatremia - consider SIADH * Stop Aldactone d/t electrolyte abnormalities * Continue ASA due a h/o cor stents * Management of anemia per Medical services JOSE ALBERTO GOODENP November 22, 2019 08:43
[2019-11-22] MEDS ORDERED: FUROSEMIDE 40 MG/4 ML INJ (LASIX) IVP NR (08:47)
[2019-11-22] MEDS ORDERED: FUROSEMIDE 40 MG/4 ML INJ (LASIX) IVP ONE (09:15)
--- NOTE | 2019-11-22 09:42 | Progress Note - Cardiology ---
Cardiology SOAP Progress Note Subjective: Does not respond to questions Appear somnolent though does waken Objective: I&O/Vital Signs 11/21/19 11/22/19 11/22/19 11/22/19 22:23 00:00 02:36 04:15 Temp 36.3 36.0 Pulse 67 73 Resp 20 18 B/P (MAP) 107/62 (77) 107/55 (72) Pulse Ox 96 99 95 97 O2 Delivery Nasal Cannula Nasal Cannula Nasal Cannula Nasal Cannula O2 Flow Rate 4.00 4.00 4.00 4.00 11/22/19 07:29 Temp 36.4 Pulse 75 Resp 20 B/P (MAP) 91/47 (62) Pulse Ox 96 O2 Delivery Nasal Cannula O2 Flow Rate 4.00 11/22/19 00:00 Intake Total 2100 ml Balance 2100 ml Constitutional: AAO x 3 (Drowsy), well-developed, well-nourished Respiratory: other (scattered rhonchi ; diminished breath sounds R>L) Cardiovascular: regular rate-rhythm, systolic murmur (soft SUREKHA at card base) Gastrointestional: soft, distended, audible bowel sounds Extremities: other (bilat pitting edema); No clubbing, No cyanosis Neurologic/Psychiatric: other (moves all limbs); No grossly intact Skin: warm/dry; No rash on exposed areas, No ulcerations on exposed areas Results/Procedures: Labs Laboratory Tests 11/21/19 11:11: Glucometer 171H 11/21/19 16:39: Glucometer 131H 11/21/19 20:25: Glucometer 154H 11/22/19 05:05: Sodium Level 128L, Potassium Level 4.7, Chloride Level 87L, Carbon Dioxide Level 33H, Anion Gap 8, Blood Urea Nitrogen 15, Creatinine 0.94, Estimat Glomerular Filtration Rate 60, BUN/Creatinine Ratio 16, Glucose Level 154H, Calcium Level 8.4L, Magnesium Level 1.9 11/22/19 05:10: Hemoglobin 8.9L, Hematocrit 29L, B-Type Natriuretic Peptide 105.0H Microbiology 11/15/19 Gram Stain - Final, Complete 11/15/19 Sputum Culture - Final, Complete YEAST 11/09/19 Blood Culture - Final, Complete Staphylococcus hominis Laboratory Tests 11/21/19 06:09 11/22/19 05:05 11/22/19 05:10 A/P: Assessment: Ac resp arrest and cardiac arrest (PEA) in setting of profound hypoxia and hypotension, PE suspected clinically and being treated by the Hospitalist service Acute CHF, systolic (LV systolic function at lower limit of normal to mildly impaired) and diastolic Hyponatremia of unclear etiology, probably partly related to CHF - worsening H/o CAD (reportedly has had 3 stents, none recent) -cardiac cath report of Apr [address] Malcolm shows stenting to the mid-RCA with a 3.0 x 18 mm stent (exact details unknown) - cardiac cath report from Aug by Dr. Escalante at [facility] - showed widely patent previously placed stent to the mid- RCA (Mar [address] Levine, a 3.5 x 22 Taxus stent placed proximally to the previous mid-RCA stent place in 2001) and a stent was placed to the OM -1 (exact details unavailable) Mild troponin elevation likely due to type 2 [place] due to hypoxia Echo of 11/09/19: LVEF approx 50%, study difficult and not suitable for wall motion analysis, cannot exclude apical hypokinesis ECG: NSR, PACs, LAFB vs old IMI Plan: * iv diuretics today * Hold spironolactone (due to hyponatremia) * Monitor electrolytes closely * Worsening LE swelling, hyponatremia and weight gain - give additional Lasix today * Continue ASA due a h/o cor stents * Management of anemia per Medical services * Discussed her case with RAFAT Chaves MD [facility] November 22, 2019 09:41
--- NOTE | 2019-11-22 10:46 | Progress Note - Hospitalist ---
Subjective HPI/CC On Admission Date Seen by Provider: November 22, 2019 Time Seen by Provider: 10:41 Subjective/Events-last exam Pt was quite sleepy when I rounded at 830AM. Returned now and more alert and talking. Only complaint is that she needs to go to the bathroom. BRACELET [employer] BROOCH MAKER in room to assist. Objective Exam Vital Signs Vital Signs Date Time Temp Pulse Resp B/P (MAP) Pulse Ox O2 Delivery O2 Flow Rate FiO2 11/22/19 09:54 92 Nasal Cannula 6.00 11/22/19 07:29 36.4 75 20 91/47 (62) 11/17/19 23:59 30 Capillary Refill : Less Than 3 SecondsLess Than 3 Seconds General Appearance: No Apparent Distress, Chronically ill Respiratory: Lungs Clear, No Respiratory Distress Cardiovascular: Regular Rate, Rhythm, No Murmur Neurologic/Psychiatric: Alert, Oriented x3 Results/Procedures Lab Laboratory Tests 11/22/19 05:05 11/22/19 05:10 Patient resulted labs reviewed. Imaging: Reviewed Imaging Report Assessment/Plan Assessment and Plan Assess & Plan/Chief Complaint s/p cardiac arrest Acute respiratory failure with hypoxia, resolved Elevated d-dimer, presumed pulmonary embolism COPD Small left pneumothorax and sternal and rib fracture extubated 11/14 Pulmonology consulted, appreciate assistance s/p hypothermia protocol and rewarming s/p TPA in the ER for presumed PE on 11/08 COVID19 negative Procalcitonin normalized, antibiotics discontinued Continue Eliquis - Drowsy this AM, appears to have received 10mg Oxycodone at 0115 this morning, will decrease dose Obesity Likely obesity hypoventilation syndrome BMI 39 ABGs revealed metabolic alkalosis with CO2 retention Would benefit from sleep study as outpatient Normocytic anemia hemoglobin stable Continue Lovenox for PE HTN CAD continue metoprolol, Lasix. spironolactone held due to hyponatremia Continue JOSH inhibitor Cardiology consulted, appreciate recs T2DM with hyperglycemia sliding scale insulin Hyponatremia Hypokalemia hypomagnesemia Continue to monitor and replace electrolytes as needed Debility critical illness myopathy PT/OT Awaiting insurance approval for acute rehabilitation - Discussed with October on IRU and she will reach out to insurance again DVT prophylaxis: Already receiving therapeutic anticoagulation Diagnosis/Problems Diagnosis/Problems (1) Cardiac arrest Status: Acute (2) Acute respiratory failure Status: Acute Qualifiers: Respiratory failure complication: hypoxia Qualified Codes: J96.01 - Acute respiratory failure with hypoxia (3) COPD (chronic obstructive pulmonary disease) Qualifiers: COPD type: unspecified COPD Qualified Codes: J44.9 - Chronic obstructive pulmonary disease, unspecified (4) CAD (coronary artery disease) Status: Chronic Qualifiers: Coronary Disease-Associated Artery/Lesion type: [place] artery [place] vs. transplanted heart: [place] heart Associated angina: without angina Qualified Codes: I25.10 - Atherosclerotic heart disease of [place] coronary artery without angina pectoris (5) Non-insulin dependent type 2 diabetes mellitus Status: Chronic Clinical Quality Measures DVT/VTE Risk/Contraindication: Risk Factor Score Per Nursin RFS Level Per Nursing on Admit: 4+=Very High ASHLYN EDDY MD November 22, 2019 10:46
--- NOTE | 2019-11-22 11:46 | Physical Therapy Daily Note ---
PT Daily Note-Current Subjective Patient reluctantly agrees to PT. Patient has increase c/o cervical pain with nursing issuing Tylenol. Pain Numeric Pain Scale: 8 Location: Soft Tissue Location Body Site: Neck Pain Description: Ache Mental Status Patient Orientation: Confused Attachments: Oxygen Transfers SCALE: Activities may be completed with or without assistive devices. 1-Nicrfvwrym-nfucumb completes the activity by him/herself with no assistance from a helper. 5-Set-up or Clean-up Assistance-helper sets up or cleans up; patient completes activity. [place] assists only prior to or following the activity. 4-Supervision or Touching Assistance-helper provides verbal cues and/or touching/steadying and/or contact guard assistance as patient completes activity. Assistance may be provided throughout the activity or intermittently. 3-Partial/Moderate Assistance-helper does LESS THAN HALF the effort. [place] lifts, holds or supports trunk or limbs, but provides less than half the effort. 2-Substantial/Maximal Assistance-helper does MORE THAN HALF the effort. [place] lifts or holds trunk or limbs and provides more than half the effort. 8-Zcrqscbpg-oncwnl does ALL the effort. Patient does none of the effort to complete the activity. Or, the assistance of 2 or more helpers is required for the patient to complete the activity. If activity was not attempted, code reason: 7-Patient Refused. 9-Not Applicable-not attempted and the patient did not perform the activity before the current illness, exacerbation or injury. 10-Not Attempted due to Environmental Limitations-(lack of equipment, weather restraints, etc.). 88-Not Attempted due to Medical Conditions or Safety Concerns. Roll Left & Right (QC): 5 Lying to Sitting/Side of Bed(Q: 5 Sit to Stand (QC): 4 Chair/Mqs-tg-Szuon Xfer(QC): 4 Weight Bearing Right Lower Extremity: Right Weight Bearing/Tolerated Left Lower Extremity: Left Weight Bearing/Tolerated Gait Training Does the Patient Walk?: Yes Distance: 25' x 2 Walk 10 feet (QC): 4 Gait Assistive Device: FWW safe and functional gait sequence with increase SOA with minimal activity Exercises Seated Therapy Exercises: Ankle pumps, Long arc quads, Hip flexion Seated Reps: 15 Assessment Patient tolerates minimal activity and has increase c/o neck pain. Patient is up in recliner with needs met. PT to increase activity as tolerated by patient. PT Short Term Goals Short Term Goals Time Frame: December 04, 2019 Roll Left & Right: 2 Sit to lyin Lying to sitting on side of be: 2 Sit to stand: 2 Chair/xdc-ne-kmubd transfer: 2 PT [employer] Operations Specialist Goals A[employer] Operations Specialist Goals PT Senior Living Goals Time Frame: Dec 18, 2019 Roll Left & Right (QC): 4 Sit to Lying (QC): 4 Lying-Sitting on Side/Bed(QC): 4 Sit to Stand (QC): 4 Chair/Szf-rn-Kcvvw Xfer(QC): 4 Toilet Transfer (QC): 4 Does the Patient Walk: No and Walking Goal IS indicated Walk 10 feet (QC): 3 PT Plan Treatment/Plan Treatment Plan: Continue Plan of Care Treatment Plan: Bed Mobility, Education, Functional Activity Narendra, Functional Strength, Gait, Safety, Therapeutic Exercise, Transfers Treatment Duration: Dec 18, 2019 Frequency: 6 times per week Estimated Hrs Per Day: .25 hour per day (to .5) Patient and/or Family Agrees t: Yes Time/GCodes Time In: 1123 Time Out: 1135 Total Billed Treatment Time: 13 Total Billed Treatment 1 visit FA 13 min MARA CELIS PT November 22, 2019 11:46
[2019-11-22 12:17] VITALS: BP 106/63
--- NOTE | 2019-11-22 13:58 | Speech Therapy Daily Note ---
Speech Daily Progress Note Subjective Date Seen by Provider: November 22, 2019 Time Seen by Provider: 00:15 Patient states she's had a lot of back pain today. Objective Patient utilizes compensatory strategies as trained for safe oral intake including: alternating food:drink of 2:1, sitting up with all oral intake and small size bites/sips at 80% with minimal verbal cuing. Assessment Assessment Current Status: Good Progress Treatment Plan Continue Plan of Care Speech Short Term Goals Short Term Goals Short Term Goals 1) Patient will tolerate least restrictive diet level without s/s of aspiration at 90%. 2) Patient/caregiver will utilize compensatory strategies as trained at 90-100% with minimal cues. Speech Shelter Goals Carpenter Repair Goals Patient will maintain adequate nutrition/hydration via safe, effective swallow function. Speech-Plan Patient/Family Goals Patient/Family Goals: Patient plans on returning home with her upon hospital discharge. Treatment Plan Speech Therapy Treatment Plan: Continue Plan of Care Treatment Duration: November 17, 2019 Frequency: 3 times per week Estimated Hrs Per Day: .25 hour per day Rehab Potential: Fair Barriers to Learning: Patient's recent medical status Pt/Family Agrees to Plan: Yes Safety Risks/Education Teaching Recipient: Patient Teaching Methods: Demonstration, Discussion Response to Teaching: Verbalize Understanding, Return Demonstration Education Topics Provided: Continued safety with oral intake Time Speech Therapy Time In: 13:45 Speech Therapy Time Out: 14:00 Total Billed Time: 15 Billed Treatment Time ARMANDO Harding [address] November 22, 2019 13:58
--- NOTE | 2019-11-22 14:29 | Occupational Ther Daily Note ---
OT Current Status-Daily Note Subjective Pt. reports that her bottom is sore in her current position. Does not give a pain level. Appearance Pt. in bed with HOB elevated. Lunch tray is in front of her, but she has not initiated eating at this time. Mental Status/Objective Patient Orientation: Person ADL-Treatment Therapy Code Descriptions/Definitions Functional [place] Measure: 0=Not Assessed/NA 4=Minimal Assistance 1=Total Assistance 5=Supervision or Setup 2=Maximal Assistance 6=Modified [place] 3=Moderate Assistance 7=Complete IndependenceSCALE: Activities may be completed with or without assistive devices. 8-Onlllggnqy-bmoweis completes the activity by him/herself with no assistance from a helper. 5-Set-up or Clean-up Assistance-helper sets up or cleans up; patient completes activity. [place] assists only prior to or following the activity. 4-Supervision or Touching Assistance-helper provides verbal cues and/or touchin g/steadying and/or contact guard assistance as patient completes activity. Assistance may be provided throughout the activity or intermittently. 3-Partial/Moderate Assistance-helper does LESS THAN HALF the effort. [place] lifts, holds or supports trunk or limbs, but provides less than half the effort. 2-Substantial/Maximal Assistance-helper does MORE THAN HALF the effort. [place] lifts or holds trunk or limbs and provides more than half the effort. 3-Uwpwgwdea-sknlyw does ALL the effort. Patient does none of the effort to complete the activity. Or, the assistance of 2 or more helpers is required for the patient to complete the activity. If activity was not attempted, code reason: 7-Patient Refused. 9-Not Applicable-not attempted and the patient did not perform the activity before the current illness, exacerbation or injury. 10-Not Attempted due to Environmental Limitations-(lack of equipment, weather restraints, etc.). 88-Not Attempted due to Medical Conditions or Safety Concerns. Eating (QC): 4 (SBA. Please see note below.) Lunch tray is in front of pt. She has not moved anything, taken lids off, or initiating eating. Pt. is laying and looking at it. Pt. is asked if she is hungry. Pt. would like her salad. OT encourages pt. to set her tray up for easier access. Pt. is handed dressing and salad is placed in front of her. Pt. is able to open dressing, and pour on salad. Pt. reports that she does not need built up foam handles to eat. Pt. is able to fork salad into mouth. Pt. is shown different items on her tray, as she does not automatically eat them. Pt. requests for OT to cut up chicken pot pie. OT does but pt. continues to feed self salad slowly. Pt. does not want to eat broccoli and so OT removes this and positions items for easier access. All needs are met and lunch is set up for pt. to feed self. Pt. states that she needs to move. OT encourages pt. to re- position self, but she is unable to do so. OT repositions her and shifts her onto other side. Pillow placed. All needs met and pt. reports she is comfortable now. Education OT Patient Education: Correct positioning, Modified ADL techniques, Purpose of tx/functional activities, Reviewed precautions, Rehab process, Transfer t robina Teaching Recipient: Patient Teaching Methods: Demonstration, Discussion Response to Teaching: Verbalize Understanding, Return Demonstration OT Short Term Goals Short Term Goals Time Frame: November 29, 2019 Eatin Oral hygiene: 3 Toileting hygiene: 2 Upper body dressin OT [facility] Goals Legal Technician Goals Time Frame: Dec 13, 2019 Eating (QC): 4 Oral Hygiene (QC): 4 Toileting Hygiene (QC): 3 Shower/Bathe Self (QC): 3 Upper Body Dressing (QC): 4 Lower Body Dressing (QC): 3 On/Off Footwear (QC): 3 Additional Goals: 1-Demonstrate ADL Tasks, 2-Verbalize Understanding, 3-ImproveStrength/Narendra 1=Demonstrate adherence to instructed precautions during ADL tasks. 2=Patient will verbalize/demonstrate understanding of assistive devices/modifications for ADL. 3=Patient will improve strength/tolerance for activity to enable patient to perform ADL's. OT Education/Plan Problem List/Assessment Assessment: Decreased Activ Tolerance, Impaired Cognition, Impaired I ADL's, Impaired Self-Care Skills Discharge Recommendations Plan/Recommendations: Continue POC Therapy Discharge Recommendati: Post Acute OT Treatment Plan/Plan of Care Treatment,Training & Education: Yes Patient would benefit from OT for education, treatment and training to promote independence in ADL's, mobility, safety and/or upper extremity function for ADL's. Plan of Care: ADL Retraining, Functional Mobility, UE Funct Exercise/Act Treatment Duration: Dec 13, 2019 Frequency: 5 times per week Estimated Hrs Per Day: .25 hour per day Agreement: Yes Rehab Potential: Fair Time/GCodes Start Time: 13:20 Stop Time: 13:30 Total Time Billed (hr/min): 10 Billed Treatment Time 1, ADL MALACHI FAROOQ OT November 22, 2019 14:29
[2019-11-22 16:00] VITALS: BP 97/49
[2019-11-22] MEDS: KCL 10 MEQ TAB (MICRO K) PO SCH (18:04)
[2019-11-22 20:52] VITALS: BP 108/30
[2019-11-23 00:25] VITALS: BP 106/53
[2019-11-23] MEDS: RT-ALBUTEROL/IPRATROPIUM 3 ML (DUONEB) VIAL INH SCH ×5 (02:02→21:19)
[2019-11-23 03:30] VITALS: BP 101/49
[2019-11-23 05:15] LABS: HEMOGLOBIN 8.6 G/DL (11.5-16.0); MEAN PLATELET VOLUME 10.3 FL (7.4-10.4); RED CELL DISTRIBUTION WIDTH 14.9 % (10.0-14.5); WHITE BLOOD COUNT 10.6 10^3/uL (4.3-11.0)
[2019-11-23 05:40] LABS: BILIRUBIN,TOTAL 0.6 MG/DL (0.1-1.0); CALCIUM 8.6 MG/DL (8.5-10.1); CREATININE SERUM 1.05 MG/DL (0.60-1.30); MAGNESIUM 1.5 MG/DL (1.6-2.4); POTASSIUM 4.2 MMOL/L (3.6-5.0); TOTAL PROTEIN 6.5 GM/DL (6.4-8.2)
[2019-11-23] MEDS: inSUlin ASPART (NovoLOG) 1 UNIT/0.01 ML (CHARGE PER UNIT) SC SCH ×4 (06:07→21:40)
[2019-11-23] MEDS: KCL 10 MEQ TAB (MICRO K) PO SCH ×2 (06:28→17:32)
[2019-11-23] MEDS: FUROSEMIDE 40 MG/4 ML INJ (LASIX) IVP SCH ×2 (06:29→17:32)
--- NOTE | 2019-11-23 06:53 | Pulmonary Progress Note ---
Subjective Time Seen by a Provider: 06:53 Sepsis Event Evaluation Height, Weight, BMI Height: '" Weight: lbs. oz. kg; 33.00 BMI Method: Exam Exam Vital Signs Date Time Temp Pulse Resp B/P (MAP) Pulse Ox O2 Delivery O2 Flow Rate FiO2 11/23/19 06:35 88 Nasal Cannula 5.00 11/23/19 03:30 36.8 85 16 101/49 (66) 92 Nasal Cannula 5.00 11/23/19 00:25 36.5 68 16 106/53 (70) 98 Nasal Cannula 4.00 11/22/19 21:49 92 Nasal Cannula 4.00 11/22/19 20:52 36.6 81 20 108/30 (56) 95 Nasal Cannula 4.00 11/22/19 20:15 Nasal Cannula 4.00 11/22/19 18:14 91 Nasal Cannula 4.00 11/22/19 16:00 36.4 75 18 97/49 (65) 98 Nasal Cannula 4.00 11/22/19 14:06 92 Nasal Cannula 4.00 11/22/19 12:17 36.5 71 20 106/63 (77) 95 Nasal Cannula 4.00 11/22/19 09:54 92 Nasal Cannula 6.00 11/22/19 08:00 Nasal Cannula 4.00 11/22/19 07:29 36.4 75 20 91/47 (62) 96 Nasal Cannula 4.00 I & O 11/23/19 07:00 Intake Total 2020 ml Balance 2020 ml Height & Weight Height: '" Weight: lbs. oz. kg; 33.00 BMI Method: General Appearance: No Apparent Distress, Chronically ill HEENT: PERRL/EOMI, TMs Normal, Normal ENT Inspection, Pharynx Normal, Moist Mucous Membranes, Other Neck: Normal Inspection, Supple Respiratory: Lungs Clear, No Respiratory Distress Cardiovascular: Regular Rate, Rhythm, No Murmur Capillary Refill: Less Than 3 Seconds Gastrointestinal: normal bowel sounds, non tender, soft Extremity: Normal Inspection, Non Tender, Pedal Edema Neurologic/Psychiatric: Alert, Oriented x3 Skin: Normal Color, Warm/Dry Results Lab Laboratory Tests 11/22/19 05:05 11/22/19 05:10 11/23/19 04:50 Assessment/Plan Assessment/Plan s/p cardiac arrest -s/p theraputic hypothermia Probable PE on admission - s/p TPA -Vic -Will plan on treating with anticogulation for at least 3mo PTX per CT -- is very small and appears to be stable despite being on vent. -Continue to monitor Sternal fracture Leukocytosis -Gracia culture COPDAE -Duoneb - CAD [place] home meds for hypotension and TPA admin Cardiology consulted, appreciate recs NIDDMII GORDON MCMANUS DO November 23, 2019 06:53
[2019-11-23 07:27] VITALS: BP 115/66
[2019-11-23] MEDS: GABAPENTIN 100 MG (NEURONTIN) CAP PO SCH ×2 (08:02→21:47)
[2019-11-23] MEDS: lisINopril 40 MG (PRINIVIL) TABLET PO SCH (08:02)
[2019-11-23] MEDS: APIXABAN 5 MG (ELIQUIS) TABLET PO SCH ×2 (08:02→21:47)
[2019-11-23] MEDS: ASPIRIN 81 MG CHEW (CHILDREN'S ASA) PO SCH (08:02)
[2019-11-23] MEDS: PANTOPRAZOLE 40 MG (PROTONIX) TAB PO SCH (08:02)
[2019-11-23] MEDS: MICONAZOLE 2% POWDER (DESENEX AF) 90 GM TOP SCH ×2 (08:03→21:48)
[2019-11-23] MEDS: meTOprolol TARTRATE 25 MG (LOPRESSOR) TABLET PO SCH ×2 (08:03→21:47)
--- NOTE | 2019-11-23 09:00 | Physical Therapy Daily Note ---
PT Daily Note-Current Subjective Patient sitting EOB pre tx, agrees to PT, states she has 10/10 pain in her neck and would like to know what she can do about it. Patient is seated in a very slumped position with neck just hanging forward. Patient instructed on correct posture and chin tucks. Appearance Patient in bed post tx with nurse call, phone, tray, all needs met. Mental Status Patient Orientation: Person, Place, Situation Attachments: Oxygen Transfers SCALE: Activities may be completed with or without assistive devices. 9-Kyksgjwdcv-vzbodnh completes the activity by him/herself with no assistance from a helper. 5-Set-up or Clean-up Assistance-helper sets up or cleans up; patient completes activity. [place] assists only prior to or following the activity. 4-Supervision or Touching Assistance-helper provides verbal cues and/or touching/steadying and/or contact guard assistance as patient completes activity. Assistance may be provided throughout the activity or intermittently. 3-Partial/Moderate Assistance-helper does LESS THAN HALF the effort. [place] lifts, holds or supports trunk or limbs, but provides less than half the effort. 2-Substantial/Maximal Assistance-helper does MORE THAN HALF the effort. [place] lifts or holds trunk or limbs and provides more than half the effort. 2-Uumcjglgi-amucay does ALL the effort. Patient does none of the effort to c omplete the activity. Or, the assistance of 2 or more helpers is required for the patient to complete the activity. If activity was not attempted, code reason: 7-Patient Refused. 9-Not Applicable-not attempted and the patient did not perform the activity before the current illness, exacerbation or injury. 10-Not Attempted due to Environmental Limitations-(lack of equipment, weather restraints, etc.). 88-Not Attempted due to Medical Conditions or Safety Concerns. Roll Left & Right (QC): 6 Sit to Lying (QC): 3 Sit to Stand (QC): 4 Chair/Ljs-qx-Ogyic Xfer(QC): 4 mod assist to help with both legs getting into bed, CGA for standing and transfers Weight Bearing Right Lower Extremity: Right Weight Bearing/Tolerated Left Lower Extremity: Left Weight Bearing/Tolerated Gait Training Distance: 80' Walk 10 feet (QC): 4 Walk 50 ft with 2 Turns(QC): 4 Gait Persons Needed: 1 Gait Assistive Device: FWW CGA, slow but steady ambulation, one standing rest break, patient instructed on purse lip breathing Exercises Seated Therapy Exercises: Ankle pumps, Long arc quads Seated Reps: 20 Treatments bed mobility and transfers, ambulation, functional strengthening Assessment Current Status: Fair Progress slowly improving endurance PT Short Term Goals Short Term Goals Time Frame: December 04, 2019 Roll Left & Right: 2 Sit to lyin Lying to sitting on side of be: 2 Sit to stand: 2 Chair/gyf-cz-uatst transfer: 2 PT Target Man Goals Nursing Home Goals PT Nursing Home Goals Time Frame: Dec 18, 2019 Roll Left & Right (QC): 4 Sit to Lying (QC): 4 Lying-Sitting on Side/Bed(QC): 4 Sit to Stand (QC): 4 Chair/Wtr-jy-Aakja Xfer(QC): 4 Toilet Transfer (QC): 4 Does the Patient Walk: No and Walking Goal IS indicated Walk 10 feet (QC): 3 PT Plan Problem List Problem List: Activity Tolerance, Functional Strength, Safety, Balance, Gait, Transfer, Bed Mobility, ROM Treatment/Plan Treatment Plan: Continue Plan of Care Treatment Plan: Bed Mobility, Education, Functional Activity Narendra, Functional Strength, Gait, Safety, Therapeutic Exercise, Transfers Treatment Duration: Dec 18, 2019 Frequency: 6 times per week Estimated Hrs Per Day: .25 hour per day (to .5) Patient and/or Family Agrees t: Yes Safety Risks/Education Patient Education: Gait Training, Transfer Techniques, Correct Positioning, Safety Issues Teaching Recipient: Patient Teaching Methods: Demonstration, Discussion Response to Teaching: Reinforcement Needed Time/GCodes Time In: 0837 Time Out: 0854 Total Billed Treatment Time: 17 Total Billed Treatment 1 visit FA AUBREY MARCOS PT November 23, 2019 08:59
--- NOTE | 2019-11-23 10:42 | Progress Note - Cardiology ---
Cardiology SOAP Progress Note Subjective: Sitting up on the side of the bed. More alert this morning. No c/o CP. Reports "rib pain" with movement and palpation of the chest wall. Feels breathing is unchanged from yesterday. No c/o palpitations, syncope or near syncope. Objective: I&O/Vital Signs 11/23/19 11/23/19 11/23/19 11/24/19 21:19 21:20 21:30 00:00 Temp 36.6 Pulse 81 73 Resp 20 B/P (MAP) 107/63 (78) 87/40 (56) Pulse Ox 90 96 O2 Delivery Nasal Cannula Nasal Cannula Nasal Cannula O2 Flow Rate 6.00 5.00 6.00 11/24/19 11/24/19 11/24/19 11/24/19 01:16 01:44 04:00 06:38 Temp 36.4 Pulse 71 Resp 20 B/P (MAP) 98/64 (75) 94/46 (62) Pulse Ox 93 95 88 O2 Delivery Nasal Cannula Nasal Cannula Nasal Cannula O2 Flow Rate 6.00 6.00 4.00 11/24/19 08:00 Temp 35.9 Pulse 87 Resp 20 B/P (MAP) 90/58 (69) Pulse Ox 91 O2 Delivery Nasal Cannula O2 Flow Rate 4.00 11/24/19 00:00 Intake Total 918 ml Output Total 300 ml Balance 618 ml Constitutional: AAO x 3 (Drowsy), well-developed, well-nourished Respiratory: other (good air entry) Cardiovascular: regular rate-rhythm, systolic murmur (soft SUREKHA at card base) Gastrointestional: soft, distended, audible bowel sounds Extremities: other (bilat pitting edema); No clubbing, No cyanosis Neurologic/Psychiatric: other (moves all limbs); No grossly intact Skin: warm/dry; No rash on exposed areas, No ulcerations on exposed areas Results/Procedures: Labs Laboratory Tests 11/23/19 11:01: Glucometer 166H 11/23/19 16:29: Glucometer 168H 11/23/19 20:08: Glucometer 199H 11/24/19 04:55: White Blood Count 7.8, Red Blood Count 2.93L, Hemoglobin 8.1L, Hematocrit 26L, Mean Corpuscular Volume 90, Mean Corpuscular Hemoglobin 28, Mean Corpuscular Hemoglobin Concent 31L, Red Cell Distribution Width 15.3H, Platelet Count 342, Mean Platelet Volume 10.8H, Neutrophils (%) (Auto) 74, Lymphocytes (%) (Auto) 14, Monocytes (%) (Auto) 10, Eosinophils (%) (Auto) 2, Basophils (%) (Auto) 1, Neutrophils # (Auto) 5.8, Lymphocytes # (Auto) 1.1, Monocytes # (Auto) 0.8, Eosinophils # (Auto) 0.1, Basophils # (Auto) 0.0, Sodium Level 129L, Potassium Level 4.3, Chloride Level 86L, Carbon Dioxide Level 35H, Anion Gap 8, Blood Urea Nitrogen 15, Creatinine 0.95, Estimat Glomerular Filtration Rate 60, BUN/Creatinine Ratio 16, Glucose Level 148H, Calcium Level 8.5, Corrected Calcium 9.4, Magnesium Level 1.8, Total Bilirubin 0.4, Aspartate Amino Transf (AST/SGOT) 44H, Alanine Aminotransferase (ALT/SGPT) 20, Alkaline Phosphatase 65, B-Type Natriuretic Peptide 113.3H, Total Protein 6.1L, Albumin 2.9L 11/24/19 05:03: Glucometer 174H Microbiology 11/15/19 Gram Stain - Final, Complete 11/15/19 Sputum Culture - Final, Complete YEAST 11/09/19 Blood Culture - Final, Complete Staphylococcus hominis A/P: Assessment: Ac resp arrest and cardiac arrest (PEA) in setting of profound hypoxia and hypotension, PE suspected clinically and being treated by the Hospitalist service Acute CHF, systolic (LV systolic function at lower limit of normal to mildly impaired) and diastolic Hyponatremia of unclear etiology, probably partly related to CHF - worsening H/o CAD (reportedly has had 3 stents, none recent) -cardiac cath report of Apr [address] Malcolm shows stenting to the mid-RCA with a 3.0 x 18 mm stent (exact details unknown) - cardiac cath report from Aug by Dr. Escalante at [facility] - showed widely patent previously placed stent to the mid- RCA (Mar [address] Levine, a 3.5 x 22 Taxus stent placed proximally to the previous mid-RCA stent place in 2001) and a stent was placed to the OM -1 (exact details unavailable) Mild troponin elevation likely due to type 2 [place] due to hypoxia Echo of 11/09/19: LVEF approx 50%, study difficult and not suitable for wall motion analysis, cannot exclude apical hypokinesis ECG: NSR, PACs, LAFB vs old IMI Plan: * Continue iv diuretics * Continue to hold spironolactone (due to hyponatremia) * Monitor electrolytes closely * Hyponatremia - slightly better today * Continue ASA due a h/o cor stents * Management of anemia per Medical services JOSE ALBERTO GOODEN SHOE STITCHER November 23, 2019 10:42
--- NOTE | 2019-11-23 12:19 | Progress Note - Hospitalist ---
Subjective HPI/CC On Admission Date Seen by Provider: November 23, 2019 Time Seen by Provider: 12:14 Subjective/Events-last exam Pt reports doing well. Requesting a catheter because she is having some leakage. Discussed risks of catheter and will use catheters or purewick instead. Objective Exam Vital Signs Vital Signs Date Time Temp Pulse Resp B/P (MAP) Pulse Ox O2 Delivery O2 Flow Rate FiO2 11/23/19 11:39 90 Nasal Cannula 6.00 11/23/19 07:27 36.4 80 16 115/66 (82) 11/17/19 23:59 30 Capillary Refill : Less Than 3 SecondsLess Than 3 Seconds General Appearance: No Apparent Distress, Chronically ill, Obese Respiratory: Lungs Clear, No Respiratory Distress Cardiovascular: Regular Rate, Rhythm, No Murmur Neurologic/Psychiatric: Alert, Oriented x3 Results/Procedures Lab Laboratory Tests 11/23/19 04:50 Patient resulted labs reviewed. Imaging: Reviewed Imaging Report Assessment/Plan Assessment and Plan Assess & Plan/Chief Complaint s/p cardiac arrest Acute respiratory failure with hypoxia, resolved Elevated d-dimer, presumed pulmonary embolism COPD Small left pneumothorax and sternal and rib fracture extubated 11/14 Pulmonology consulted, appreciate assistance s/p hypothermia protocol and rewarming s/p TPA in the ER for presumed PE on 11/08 COVID19 negative Procalcitonin normalized, antibiotics discontinued Continue Eliquis Obesity Likely obesity hypoventilation syndrome BMI 39 ABGs revealed metabolic alkalosis with CO2 retention Would benefit from sleep study as outpatient Normocytic anemia hemoglobin stable Continue Lovenox for PE HTN CAD continue metoprolol, Lasix; spironolactone held due to hyponatremia Continue JOSH inhibitor Cardiology consulted, appreciate recs T2DM with hyperglycemia sliding scale insulin Hyponatremia Hypokalemia hypomagnesemia Continue to monitor and replace electrolytes as needed Debility critical illness myopathy PT/OT Awaiting insurance approval for acute rehabilitation still - SW to reach out to them again today DVT prophylaxis: Already receiving therapeutic anticoagulation Diagnosis/Problems Diagnosis/Problems (1) Cardiac arrest Status: Acute (2) Acute respiratory failure Status: Acute Qualifiers: Respiratory failure complication: hypoxia Qualified Codes: J96.01 - Acute respiratory failure with hypoxia (3) COPD (chronic obstructive pulmonary disease) Qualifiers: COPD type: unspecified COPD Qualified Codes: J44.9 - Chronic obstructive pulmonary disease, unspecified (4) CAD (coronary artery disease) Status: Chronic Qualifiers: Coronary Disease-Associated Artery/Lesion type: [place] artery [place] vs. transplanted heart: [place] heart Associated angina: without angina Qualified Codes: I25.10 - Atherosclerotic heart disease of [place] coronary artery without angina pectoris (5) Non-insulin dependent type 2 diabetes mellitus Status: Chronic Clinical Quality Measures DVT/VTE Risk/Contraindication: Risk Factor Score Per Nursin RFS Level Per Nursing on Admit: 4+=Very High ASHLYN EDDY MD November 23, 2019 12:19
[2019-11-23] MEDS: MAGNESIUM 1 GM/100 ML IVPB 100 ML IV SCH ×2 (13:47→14:49)
--- NOTE | 2019-11-23 14:42 | Occupational Ther Daily Note ---
OT Current Status-Daily Note Subjective No pain reported Appearance Pt. up in chair. Agrees to work with OT. Mental Status/Objective Patient Orientation: Person, Place ADL-Treatment Therapy Code Descriptions/Definitions Functional [place] Measure: 0=Not Assessed/NA 4=Minimal Assistance 1=Total Assistance 5=Supervision or Setup 2=Maximal Assistance 6=Modified [place] 3=Moderate Assistance 7=Complete IndependenceSCALE: Activities may be completed with or without assistive devices. 1-Majbmnduex-uavjzrl completes the activity by him/herself with no assistance from a helper. 5-Set-up or Clean-up Assistance-helper sets up or cleans up; patient completes activity. [place] assists only prior to or following the activity. 4-Supervision or Touching Assistance-helper provides verbal cues and/or touching/steadying and/or contact guard assistance as patient completes activity. Assistance may be provided throughout the activity or intermittently. 3-Partial/Moderate Assistance-helper does LESS THAN HALF the effort. [place] lifts, holds or supports trunk or limbs, but provides less than half the effort. 2-Substantial/Maximal Assistance-helper does MORE THAN HALF the effort. [place] l ifts or holds trunk or limbs and provides more than half the effort. 3-Wstqqejrh-myisga does ALL the effort. Patient does none of the effort to complete the activity. Or, the assistance of 2 or more helpers is required for the patient to complete the activity. If activity was not attempted, code reason: 7-Patient Refused. 9-Not Applicable-not attempted and the patient did not perform the activity before the current illness, exacerbation or injury. 10-Not Attempted due to Environmental Limitations-(lack of equipment, weather restraints, etc.). 88-Not Attempted due to Medical Conditions or Safety Concerns. Oral Hygiene (QC): 4 (SBA to brush dentures.) Shower/Bathe Self (QC): 7 (OT offers to assist pt. with cleansing self. Pt. declines and states that she has a bath pack if she needs it later.) Lower Body Dressing (QC): 3 (Pt. requires max assist to don brief over feet. Pt. is able to stand at walker with min assist and don over hips.) On/Off Footwear: 1 Other Treatment Pt. sitting up in chair. Pt. takes dentures out of mouth and OT rinses them in sink. Pt. is set up with equipment needs and is able to brush dentures up in chair. Requires increased time. OT rinses them in sink and pt. is able to put them back in mouth. Pt. declines bathing but agrees to don brief. After assist with this, OT encouraged pt. to practice footwear. Pt. states that she does not wear socks at home, and only wears slip on shoes. OT found her shoes but they would not fit on pt's feet, as she has swelling. OT elevated bilateral LE in reclining chair and all needs were met. Education OT Patient Education: Correct positioning, Modified ADL techniques, Progress toward Goal/Update tx plan, Purpose of tx/functional activities, Reviewed precautions, Rehab process, Transfer techniques Teaching Recipient: Patient Teaching Methods: Demonstration, Discussion Response to Teaching: Verbalize Understanding, Return Demonstration OT Short Term Goals Short Term Goals Time Frame: November 29, 2019 Eatin Oral hygiene: 3 Toileting hygiene: 2 Upper body dressin OT Half-Way Goals Half-Way Goals Time Frame: Dec 13, 2019 Eating (QC): 4 Oral Hygiene (QC): 4 Toileting Hygiene (QC): 3 Shower/Bathe Self (QC): 3 Upper Body Dressing (QC): 4 Lower Body Dressing (QC): 3 On/Off Footwear (QC): 3 Additional Goals: 1-Demonstrate ADL Tasks, 2-Verbalize Understanding, 3-ImproveStrength/Narendra 1=Demonstrate adherence to instructed precautions during ADL tasks. 2=Patient will verbalize/demonstrate understanding of assistive devices/modifications for ADL. 3=Patient will improve strength/tolerance for activity to enable patient to perform ADL's. OT Education/Plan Problem List/Assessment Assessment: Decreased Activ Tolerance, Edema, Impaired I ADL's, Impaired Self- Care Skills Discharge Recommendations Plan/Recommendations: Continue POC Therapy Discharge Recommendati: Post Acute OT Treatment Plan/Plan of Care Treatment,Training & Education: Yes Patient would benefit from OT for education, treatment and training to promote independence in ADL's, mobility, safety and/or upper extremity function for ADL's. Plan of Care: ADL Retraining, Functional Mobility, UE Funct Exercise/Act Treatment Duration: Dec 13, 2019 Frequency: 5 times per week Estimated Hrs Per Day: .25 hour per day Agreement: Yes Rehab Potential: Fair Time/GCodes Start Time: 11:30 Stop Time: 11:55 Total Time Billed (hr/min): 25 Billed Treatment Time 1, ADL x 2 MALACHI FAROOQ OT November 23, 2019 14:42
--- NOTE | 2019-11-23 15:10 | Progress Note - Cardiology ---
Cardiology SOAP Progress Note Subjective: Gen weakness and malaise No focal weakness Shortness of breath with mild to mod exertion Chronic, intermittent, bilat leg swelling No cp or palp or syncope No n/v/d Objective: I&O/Vital Signs 11/23/19 11/23/19 11/23/19 11/23/19 03:30 06:35 07:27 08:00 Temp 36.8 36.4 Pulse 85 80 Resp 16 16 B/P (MAP) 101/49 (66) 115/66 (82) Pulse Ox 92 88 94 O2 Delivery Nasal Cannula Nasal Cannula Nasal Cannula Nasal Cannula O2 Flow Rate 5.00 5.00 6.00 5.00 11/23/19 11:39 Pulse Ox 90 O2 Delivery Nasal Cannula O2 Flow Rate 6.00 11/23/19 00:00 Intake Total 2020 ml Balance 2020 ml Constitutional: AAO x 3 (Drowsy), well-developed, well-nourished Respiratory: other (good air entry) Cardiovascular: regular rate-rhythm, systolic murmur (soft SUREKHA at card base) Gastrointestional: soft, distended, audible bowel sounds Extremities: other (bilat pitting edema); No clubbing, No cyanosis Neurologic/Psychiatric: other (moves all limbs); No grossly intact Skin: warm/dry; No rash on exposed areas, No ulcerations on exposed areas Results/Procedures: Labs Laboratory Tests 11/22/19 16:41: Glucometer 192H 11/22/19 20:29: Glucometer 190H 11/23/19 04:50: White Blood Count 10.6, Red Blood Count 3.07L, Hemoglobin 8.6L, Hematocrit 28L, Mean Corpuscular Volume 90, Mean Corpuscular Hemoglobin 28, Mean Corpuscular Hemoglobin Concent 31L, Red Cell Distribution Width 14.9H, Platelet Count 360, Mean Platelet Volume 10.3, Sodium Level 129L, Potassium Level 4.2, Chloride Level 85L, Carbon Dioxide Level 36H, Anion Gap 8, Blood Urea Nitrogen 17, Creatinine 1.05, Estimat Glomerular Filtration Rate 53, BUN/Creatinine Ratio 16, Glucose Level 155H, Calcium Level 8.6, Corrected Calcium 9.4, Magnesium Level 1.5L, Total Bilirubin 0.6, Aspartate Amino Transf (AST/SGOT) 51H, Alanine Aminotransferase (ALT/SGPT) 19, Alkaline Phosphatase 71, Total Protein 6.5, Albumin 3.0L 11/23/19 11:01: Glucometer 166H Microbiology 11/15/19 Gram Stain - Final, Complete 11/15/19 Sputum Culture - Final, Complete YEAST 11/09/19 Blood Culture - Final, Complete Staphylococcus hominis Laboratory Tests 11/22/19 05:05 11/22/19 05:10 11/23/19 04:50 A/P: Assessment: Ac resp arrest and cardiac arrest (PEA) in setting of profound hypoxia and hyp otension, PE suspected clinically and being treated by the Hospitalist service Acute CHF, systolic (LV systolic function at lower limit of normal to mildly impaired) and diastolic Hyponatremia of unclear etiology, probably partly related to CHF (hypervolemic hypernatremia) H/o CAD (reportedly has had 3 stents, none recent) -cardiac cath report of Apr [address] Malcolm shows stenting to the mid-RCA with a 3.0 x 18 mm stent (exact details unknown) - cardiac cath report from Aug by Dr. Escalante at [facility] - showed widely patent previously placed stent to the mid- RCA (Mar [address] Levine, a 3.5 x 22 Taxus stent placed proximally to the previous mid-RCA stent place in 2001) and a stent was placed to the OM -1 (exact details unavailable) Mild troponin elevation likely due to type 2 DE due to hypoxia Echo of 11/09/19: LVEF approx 50%, study difficult and not suitable for wall motion analysis, cannot exclude apical hypokinesis ECG: NSR, PACs, LAFB vs old IMI Plan: * Continue iv diuretics * Continue to hold spironolactone (due to hyponatremia) * Monitor electrolytes closely. Hyponatremia - slightly better today * Continue ASA due a h/o cor stents * Management of anemia per Medical services * I discussed her CV issues with her and answered CV-related questions RAFAT MONTANA MD FACP FAC CCDS November 23, 2019 15:09
--- NOTE | 2019-11-23 15:29 | NUR ---
CM/SS visited with patient for discharge planning. The patient is being assessed for IRF at this hospital; however, there have been hold ups with the patients [place] Medicaid and not having a contract at the hospital. CM/SS spoke with Arielle to get an update on status and it is still unclear at this time. CM/SS visited with the patient to discuss different options if needed. The patient was provided with a patient preference form. She chose [facility]. CM/SS will fax referral when needed. The patient states she is currently living with her . Previous to this hospital stay she was independent and only used a Cane. Her oxygen at home was 3L during the night. At this point she is using a walker, and oxygen continuously. CM/SS will continue to follow for discharge planning.
[2019-11-23 15:42] VITALS: BP 90/55
--- NOTE | 2019-11-23 16:22 | NUR ---
Pastoral care visit.
[2019-11-23 21:20] VITALS: BP 107/63
[2019-11-24] VITALS (7 sets, daily range): BP systolic 87–128; BP diastolic 40–72
[2019-11-24] MEDS: RT-ALBUTEROL/IPRATROPIUM 3 ML (DUONEB) VIAL INH SCH ×6 (01:44→22:27)
[2019-11-24] MEDS: inSUlin ASPART (NovoLOG) 1 UNIT/0.01 ML (CHARGE PER UNIT) SC SCH ×4 (05:25→21:23)
[2019-11-24] MEDS: KCL 10 MEQ TAB (MICRO K) PO SCH ×2 (06:36→18:30)
[2019-11-24] MEDS: FUROSEMIDE 40 MG/4 ML INJ (LASIX) IVP SCH ×2 (06:36→18:30)
--- NOTE | 2019-11-24 07:25 | NUR ---
pt requiring 5L of O2 compared to 2.5L 6 days ago. when this nurse attempt to titrate O2 down to 4L, pt O2 stat dropped to 87%. Dr. Alvarado and Dr. Gonzales notified. New orders received from Dr. Gonzales, see order Hx.
[2019-11-24 07:35] LABS: BASOPHILS % (AUTO) 1 % (0-10); EOSINOPHILS # (AUTO) 0.1 10^3/uL (0.0-0.3); EOSINOPHILS % (AUTO) 2 % (0-10); HEMATOCRIT 26 % (35-52); HEMOGLOBIN 8.1 G/DL (11.5-16.0); LYMPHOCYTES # (AUTO) 1.1 X 10^3 (1.0-4.0); LYMPHOCYTES % (AUTO) 14 % (12-44); MEAN CORPUSCULAR HEMOGLOBIN 28 PG (25-34); MEAN CORPUSCULAR HGB CONC 31 G/DL (32-36); MEAN CORPUSCULAR VOLUME 90 FL (80-99); MEAN PLATELET VOLUME 10.8 FL (7.4-10.4); MONOCYTES # (AUTO) 0.8 X 10^3 (0.0-1.0); MONOCYTES % (AUTO) 10 % (0-12); NEUTROPHILS # (AUTO) 5.8 X 10^3 (1.8-7.8); NEUTROPHILS % (AUTO) 74 % (42-75); PLATELET COUNT 342 10^3/uL (130-400); RED CELL DISTRIBUTION WIDTH 15.3 % (10.0-14.5); WHITE BLOOD COUNT 7.8 10^3/uL (4.3-11.0)
[2019-11-24 07:39] LABS: ALBUMIN 2.9 GM/DL (3.2-4.5)
[2019-11-24 07:40] LABS: POTASSIUM 4.3 MMOL/L (3.6-5.0)
[2019-11-24 07:41] LABS: CALCIUM 8.5 MG/DL (8.5-10.1)
--- NOTE | 2019-11-24 07:41 | Pulmonary Progress Note ---
Subjective Time Seen by a Provider: 07:39 Subjective/Events-last exam Still requiring a lot of oxygen. Sepsis Event Evaluation Height, Weight, BMI Height: '" Weight: lbs. oz. kg; 33.00 BMI Method: Exam Exam Vital Signs Date Time Temp Pulse Resp B/P (MAP) Pulse Ox O2 Delivery O2 Flow Rate FiO2 11/24/19 06:38 88 Nasal Cannula 4.00 11/24/19 04:00 36.4 71 20 94/46 (62) 95 Nasal Cannula 6.00 11/24/19 01:44 93 Nasal Cannula 6.00 11/24/19 01:16 98/64 (75) 11/24/19 00:00 36.6 73 20 87/40 (56) 96 Nasal Cannula 6.00 11/23/19 21:30 Nasal Cannula 5.00 11/23/19 21:20 81 107/63 (78) 11/23/19 21:19 90 Nasal Cannula 6.00 11/23/19 18:10 90 Nasal Cannula 6.00 11/23/19 15:42 36.7 75 20 90/55 (67) 97 Nasal Cannula 6.00 11/23/19 11:39 90 Nasal Cannula 6.00 11/23/19 08:00 Nasal Cannula 5.00 I & O 11/24/19 07:00 Intake Total 1618 ml Output Total 300 ml Balance 1318 ml Height & Weight Height: '" Weight: lbs. oz. kg; 33.00 BMI Method: General Appearance: No Apparent Distress, Chronically ill, Obese HEENT: PERRL/EOMI, TMs Normal, Normal ENT Inspection, Pharynx Normal, Moist Mucous Membranes, Other Neck: Normal Inspection, Supple Respiratory: Lungs Clear, No Respiratory Distress Cardiovascular: Regular Rate, Rhythm, No Murmur Capillary Refill: Less Than 3 Seconds Gastrointestinal: normal bowel sounds, non tender, soft Extremity: Normal Inspection, Non Tender, Pedal Edema Neurologic/Psychiatric: Alert, Oriented x3 Skin: Normal Color, Warm/Dry Results Lab Laboratory Tests 11/23/19 04:50 11/24/19 04:55 Assessment/Plan Assessment/Plan Persistent hypoxiemia -Titrate oxygen -repeat labs and CXR Probable PE on admission - s/p TPA -Eliquis -Will plan on treating with anticogulation for at least 3mo PTX per CT -- is very small and appears to be stable despite being on vent. -Continue to monitor Sternal fracture Leukocytosis -Gracia culture COPDAE -Duoneb - s/p cardiac arrest -s/p theraputic hypothermia CAD Hole home meds for hypotension and TPA admin Cardiology consulted, appreciate recs NIDDMII GORDON MCMANUS DO November 24, 2019 07:41
[2019-11-24 07:42] LABS: TOTAL PROTEIN 6.1 GM/DL (6.4-8.2)
[2019-11-24 07:44] LABS: BILIRUBIN,TOTAL 0.4 MG/DL (0.1-1.0)
[2019-11-24 07:46] LABS: CREATININE SERUM 0.95 MG/DL (0.60-1.30)
--- NOTE | 2019-11-24 08:51 | Progress Note - Cardiology ---
Cardiology SOAP Progress Note Subjective: Sitting up in recliner at the bedside. States she feels her breathing is "pretty good". C/O ACW pain with movement and deep breathing. No c/o palpitations, syncope or near syncope. Answers questions, but drifted off to sleep frequently during exam. Objective: I&O/Vital Signs 11/24/19 11/24/19 11/24/19 11/24/19 01:16 01:44 04:00 06:38 Temp 36.4 Pulse 71 Resp 20 B/P (MAP) 98/64 (75) 94/46 (62) Pulse Ox 93 95 88 O2 Delivery Nasal Cannula Nasal Cannula Nasal Cannula O2 Flow Rate 6.00 6.00 4.00 11/24/19 11/24/19 11/24/19 11/24/19 08:00 08:00 10:41 12:00 Temp 35.9 36.5 Pulse 87 69 Resp 20 20 B/P (MAP) 90/58 (69) 128/72 (90) Pulse Ox 91 92 95 O2 Delivery Nasal Cannula Nasal Cannula Nasal Cannula Nasal Cannula O2 Flow Rate 4.00 5.00 5.00 4.00 11/24/19 00:00 Intake Total 918 ml Output Total 300 ml Balance 618 ml Constitutional: AAO x 3, well-developed, well-nourished Respiratory: other (fair air entry; poor inspiratory effort) Cardiovascular: regular rate-rhythm, systolic murmur Gastrointestional: soft, distended, audible bowel sounds Extremities: other (bilat pitting LE swelling) Neurologic/Psychiatric: other (moves all extremities) Skin: warm/dry Results/Procedures: Labs Laboratory Tests 11/23/19 16:29: Glucometer 168H 11/23/19 20:08: Glucometer 199H 11/24/19 04:55: White Blood Count 7.8, Red Blood Count 2.93L, Hemoglobin 8.1L, Hematocrit 26L, Mean Corpuscular Volume 90, Mean Corpuscular Hemoglobin 28, Mean Corpuscular Hemoglobin Concent 31L, Red Cell Distribution Width 15.3H, Platelet Count 342, Mean Platelet Volume 10.8H, Neutrophils (%) (Auto) 74, Lymphocytes (%) (Auto) 14, Monocytes (%) (Auto) 10, Eosinophils (%) (Auto) 2, Basophils (%) (Auto) 1, Neutrophils # (Auto) 5.8, Lymphocytes # (Auto) 1.1, Monocytes # (Auto) 0.8, Eosinophils # (Auto) 0.1, Basophils # (Auto) 0.0, Sodium Level 129L, Potassium Level 4.3, Chloride Level 86L, Carbon Dioxide Level 35H, Anion Gap 8, Blood Urea Nitrogen 15, Creatinine 0.95, Estimat Glomerular Filtration Rate 60, BUN/Creatinine Ratio 16, Glucose Level 148H, Calcium Level 8.5, Corrected Calcium 9.4, Magnesium Level 1.8, Total Bilirubin 0.4, Aspartate Amino Transf (AST/SGOT) 44H, Alanine Aminotransferase (ALT/SGPT) 20, Alkaline Phosphatase 65, B-Type Natriuretic Peptide 113.3H, Total Protein 6.1L, Albumin 2.9L 11/24/19 05:03: Glucometer 174H 11/24/19 11:11: Glucometer 405*H Microbiology 11/15/19 Gram Stain - Final, Complete 11/15/19 Sputum Culture - Final, Complete YEAST 11/09/19 Blood Culture - Final, Complete Staphylococcus hominis A/P: Assessment: Ac resp arrest and cardiac arrest (PEA) in setting of profound hypoxia and hypotension, PE suspected clinically and being treated by the Hospitalist service Acute CHF, systolic (LV systolic function at lower limit of normal to mildly impaired) and diastolic Hyponatremia of unclear etiology, probably partly related to CHF (hypervolemic hypernatremia) H/o CAD (reportedly has had 3 stents, none recent) -cardiac cath report of Apr [address] Malcolm shows stenting to the mid-RCA with a 3.0 x 18 mm stent (exact details unknown) - cardiac cath report from Aug by Dr. Escalante at [facility] - showed widely patent previously placed stent to the mid- RCA (Mar [address] Levine, a 3.5 x 22 Taxus stent placed proximally to the previous mid-RCA stent place in 2001) and a stent was placed to the OM -1 (exact details unavailable) Mild troponin elevation likely due to type 2 VT due to hypoxia Echo of 11/09/19: LVEF approx 50%, study difficult and not suitable for wall motion analysis, cannot exclude apical hypokinesis ECG: NSR, PACs, LAFB vs old IMI Anemia of undetermined etiology - medical services managing Plan: * Continue iv diuretics * Monitor electrolytes closely * Elevated AST of undetermined etiology, possibly secondary to hepatobiliary congestion - improved * Continue ASA due a h/o cor stents * OAC with Eliquis d/t suspected PE at time of admission * Management of anemia per Medical services - H/H falling * Hypotensive today - reduce anti-hypertensive regimen * I discussed her CV issues with her and answered CV-related questions JOSE ALBERTO GOODEN November 24, 2019 08:51
[2019-11-24] MEDS: GABAPENTIN 100 MG (NEURONTIN) CAP PO SCH ×2 (09:49→21:20)
[2019-11-24] MEDS: PANTOPRAZOLE 40 MG (PROTONIX) TAB PO SCH (09:49)
[2019-11-24] MEDS: meTOprolol TARTRATE 25 MG (LOPRESSOR) TABLET PO SCH ×2 (09:50→21:20)
[2019-11-24] MEDS: ASPIRIN 81 MG CHEW (CHILDREN'S ASA) PO SCH (09:50)
[2019-11-24] MEDS: APIXABAN 5 MG (ELIQUIS) TABLET PO SCH ×2 (09:50→21:20)
[2019-11-24] MEDS: MICONAZOLE 2% POWDER (DESENEX AF) 90 GM TOP SCH ×2 (09:50→21:26)
--- NOTE | 2019-11-24 09:58 | Diagnostic Imaging Report ---
INDICATION: Increasing oxygen requirement. Time of exam 9:26 AM Correlation is made with prior chest from 11/21/2019. Bibasilar infiltrates and bilateral effusions persist. Appearance is similar to prior exam. Mid and upper lung marin are clear. The pulmonary vascularity is normal. There is no pneumothorax. Heart size is stable. Right-sided line has been removed. IMPRESSION: Persistent bibasilar infiltrates and bilateral effusions. Dictated by: Dictated on workstation # [id number]
--- NOTE | 2019-11-24 12:27 | Progress Note - Cardiology ---
Cardiology SOAP Progress Note Subjective: Shortness of breath better Malaise improving Swelling unchanged No cp or palp or syncope No n/v/d Objective: I&O/Vital Signs 11/24/19 11/24/19 11/24/19 11/24/19 01:16 01:44 04:00 06:38 Temp 36.4 Pulse 71 Resp 20 B/P (MAP) 98/64 (75) 94/46 (62) Pulse Ox 93 95 88 O2 Delivery Nasal Cannula Nasal Cannula Nasal Cannula O2 Flow Rate 6.00 6.00 4.00 11/24/19 11/24/19 11/24/19 08:00 08:00 10:41 Temp 35.9 Pulse 87 Resp 20 B/P (MAP) 90/58 (69) Pulse Ox 91 92 O2 Delivery Nasal Cannula Nasal Cannula Nasal Cannula O2 Flow Rate 4.00 5.00 5.00 11/24/19 00:00 Intake Total 918 ml Output Total 300 ml Balance 618 ml Constitutional: AAO x 3, well-developed, well-nourished Respiratory: other (fair air entry; poor inspiratory effort) Cardiovascular: regular rate-rhythm, systolic murmur Gastrointestional: soft, distended, audible bowel sounds Extremities: other (bilat pitting LE swelling) Neurologic/Psychiatric: other (moves all extremities) Skin: warm/dry Results/Procedures: Labs Laboratory Tests 11/23/19 16:29: Glucometer 168H 11/23/19 20:08: Glucometer 199H 11/24/19 04:55: White Blood Count 7.8, Red Blood Count 2.93L, Hemoglobin 8.1L, Hematocrit 26L, Mean Corpuscular Volume 90, Mean Corpuscular Hemoglobin 28, Mean Corpuscular Hemoglobin Concent 31L, Red Cell Distribution Width 15.3H, Platelet Count 342, Mean Platelet Volume 10.8H, Neutrophils (%) (Auto) 74, Lymphocytes (%) (Auto) 14, Monocytes (%) (Auto) 10, Eosinophils (%) (Auto) 2, Basophils (%) (Auto) 1, Neutrophils # (Auto) 5.8, Lymphocytes # (Auto) 1.1, Monocytes # (Auto) 0.8, Eosinophils # (Auto) 0.1, Basophils # (Auto) 0.0, Sodium Level 129L, Potassium Level 4.3, Chloride Level 86L, Carbon Dioxide Level 35H, Anion Gap 8, Blood Urea Nitrogen 15, Creatinine 0.95, Estimat Glomerular Filtration Rate 60, BUN/Creatinine Ratio 16, Glucose Level 148H, Calcium Level 8.5, Corrected Calcium 9.4, Magnesium Level 1.8, Total Bilirubin 0.4, Aspartate Amino Transf (AST/SGOT) 44H, Alanine Aminotransferase (ALT/SGPT) 20, Alkaline Phosphatase 65, B-Type Natriuretic Peptide 113.3H, Total Protein 6.1L, Albumin 2.9L 11/24/19 05:03: Glucometer 174H 11/24/19 11:11: Glucometer 405*H Microbiology 11/15/19 Gram Stain - Final, Complete 11/15/19 Sputum Culture - Final, Complete YEAST 11/09/19 Blood Culture - Final, Complete Staphylococcus hominis Laboratory Tests 11/23/19 04:50 11/24/19 04:55 A/P: Assessment: Ac resp arrest and cardiac arrest (PEA) in the setting of profound hypoxia and hypotension, PE suspected clinically and being treated by the Hospitalist service Acute CHF, systolic (LV systolic function at lower limit of normal to mildly impaired) and diastolic Hyponatremia of unclear etiology, probably partly related to CHF (hypervolemic hypernatremia) H/o CAD (reportedly has had 3 stents, none recent) -cardiac cath report of Apr [address] Malcolm shows stenting to the mid-RCA with a 3.0 x 18 mm stent (exact details unknown) - cardiac cath report from Aug by Dr. Escalante at [facility] - showed widely patent previously placed stent to the mid- RCA (Mar [address] Levine, a 3.5 x 22 Taxus stent placed proximally to the previous mid-RCA stent place in 2001) and a stent was placed to the OM -1 (exact details unavailable) Mild troponin elevation likely due to type 2 MO due to hypoxia Echo of 11/09/19: LVEF approx 50%, study difficult and not suitable for wall motion analysis, cannot exclude apical hypokinesis ECG: NSR, PACs, LAFB vs old IMI Anemia of undetermined etiology - Medical services managing Plan: * Continue iv diuretics * Monitor electrolytes closely * Elevated AST of undetermined etiology, possibly secondary to hepatobiliary congestion - improved * Continue ASA due a h/o cor stents * OAC with Eliquis d/t suspected PE at time of admission * Management of anemia per Medical services - H/H falling * Hypotensive today - reduce anti-hypertensive regimen RAFAT MONTANA MD FACP FACC CCDS November 24, 2019 12:27
--- NOTE | 2019-11-24 12:35 | Progress Note - Hospitalist ---
Subjective HPI/CC On Admission Date Seen by Provider: November 24, 2019 Time Seen by Provider: 12:27 Subjective/Events-last exam Pt reports feeling well. Was up with therapy and thinks she did even better today than yesterday (no notes available yet). Discussed discharge plan. Unable to go to rehab. Requests DC home with home health instead. on phone and agreeable to this plan. Objective Exam Vital Signs Vital Signs Date Time Temp Pulse Resp B/P (MAP) Pulse Ox O2 Delivery O2 Flow Rate FiO2 11/24/19 10:41 92 Nasal Cannula 5.00 11/24/19 08:00 35.9 87 20 90/58 (69) Capillary Refill : Less Than 3 SecondsLess Than 3 Seconds General Appearance: No Apparent Distress, Chronically ill, Obese Respiratory: Lungs Clear, No Respiratory Distress Cardiovascular: Regular Rate, Rhythm, No Murmur Gastrointestinal: Normal Bowel Sounds, Soft Neurologic/Psychiatric: Alert, Oriented x3 Results/Procedures Lab Laboratory Tests 11/24/19 04:55 Patient resulted labs reviewed. Imaging: Reviewed Imaging Report Assessment/Plan Assessment and Plan Assess & Plan/Chief Complaint s/p cardiac arrest Acute respiratory failure with hypoxia, resolved Elevated d-dimer, presumed pulmonary embolism COPD Small left pneumothorax and sternal and rib fracture extubated 11/14 Pulmonology consulted, appreciate assistance s/p hypothermia protocol and rewarming s/p TPA in the ER for presumed PE on 11/08 COVID19 negative Procalcitonin normalized, antibiotics discontinued Continue Eliquis Debility critical illness myopathy PT/OT Unable to DC to IRU - Discussed options of SNF vs home with HH. Patient would prefer not to go to a SNF. Will follow up with Obesity Likely obesity hypoventilation syndrome BMI 39 ABGs revealed metabolic alkalosis with CO2 retention Would benefit from sleep study as outpatient Normocytic anemia hemoglobin stable Continue Lovenox for PE HTN CAD continue metoprolol, Lasix; spironolactone held due to hyponatremia Continue JOSH inhibitor Cardiology consulted, appreciate recs T2DM with hyperglycemia sliding scale insulin Hyponatremia Hypokalemia hypomagnesemia Continue to monitor and replace electrolytes as needed DVT prophylaxis: Already receiving therapeutic anticoagulation Diagnosis/Problems Diagnosis/Problems (1) Cardiac arrest Status: Acute (2) Acute respiratory failure Status: Acute Qualifiers: Respiratory failure complication: hypoxia Qualified Codes: J96.01 - Acute respiratory failure with hypoxia (3) COPD (chronic obstructive pulmonary disease) Qualifiers: COPD type: unspecified COPD Qualified Codes: J44.9 - Chronic obstructive pulmonary disease, unspecified (4) CAD (coronary artery disease) Status: Chronic Qualifiers: Coronary Disease-Associated Artery/Lesion type: [place] artery [place] vs. transplanted heart: [place] heart Associated angina: without angina Qualified Codes: I25.10 - Atherosclerotic heart disease of [place] coronary artery without angina pectoris (5) Non-insulin dependent type 2 diabetes mellitus Status: Chronic Clinical Quality Measures DVT/VTE Risk/Contraindication: Risk Factor Score Per Nursin RFS Level Per Nursing on Admit: 4+=Very High ASHLYN EDDY MD November 24, 2019 12:35
--- NOTE | 2019-11-24 13:24 | Occupational Ther Daily Note ---
OT Current Status-Daily Note Subjective No pain reported. Appearance Pt. up in chair. Agrees to work with therapy. Mental Status/Objective Patient Orientation: Person, Place Attachments: Oxygen ADL-Treatment Therapy Code Descriptions/Definitions Functional [place] Measure: 0=Not Assessed/NA 4=Minimal Assistance 1=Total Assistance 5=Supervision or Setup 2=Maximal Assistance 6=Modified [place] 3=Moderate Assistance 7=Complete IndependenceSCALE: Activities may be completed with or without assistive devices. 8-Metvcqufyk-rnvoyog completes the activity by him/herself with no assistance from a helper. 5-Set-up or Clean-up Assistance-helper sets up or cleans up; patient completes activity. [place] assists only prior to or following the activity. 4-Supervision or Touching Assistance-helper provides verbal cues and/or touching/steadying and/or contact guard assistance as patient completes activity. Assistance may be provided throughout the activity or intermittently. 3-Partial/Moderate Assistance-helper does LESS THAN HALF the effort. [place] lifts, holds or supports trunk or limbs, but provides less than half the effort. 2-Substantial/Maximal Assistance-helper does MORE THAN HALF the effort. [place] lifts or holds trunk or limbs and provides more than half the effort. 8-Mfazvpxew-ajxbgd does ALL the effort. Patient does none of the effort to complete the activity. Or, the assistance of 2 or more helpers is required for the patient to complete the activity. If activity was not attempted, code reason: 7-Patient Refused. 9-Not Applicable-not attempted and the patient did not perform the activity before the current illness, exacerbation or injury. 10-Not Attempted due to Environmental Limitations-(lack of equipment, weather restraints, etc.). 88-Not Attempted due to Medical Conditions or Safety Concerns. Lower Body Dressing (QC): 2 On/Off Footwear: 1 Pt. up in chair. Participated in treatment with OT/PT due to need of skilled assistance x 2. Pt. has t-shirt on, but does not have pants or slipper socks. OT assisted with ADL skills while PT facilitated mobility. Pt. has swelling in bilateral LE. Required max assist to don pants over feet. Min assist to stand at walker and then pt. able to don pants over hips with min assist. Pt. sat back down and OT donned slipper socks, as pt. unable to reach feet. Pt. on 5 L 02. Sats taken before ambulation and were 98%. Pt. ambulated with OT/PT with min assist with walker and oxygen. Pt. ambulated approximately 150 feet, with one rest break at window area. Increased time needed and pt. requires cues to initiate tasks. Pt. back in room and transfers to chair. OT encouraged to elevate feet but pt. does not want to elevate with reclining chair. Pt. able to elevate on corresponding chair. Sats taken again and at 82%. Pt. still on 5 L and is encouraged to breathe deep in through nose, out through mouth. All needs met. Education OT Patient Education: Correct positioning, Modified ADL techniques, Progress toward Goal/Update tx plan, Purpose of tx/functional activities, Reviewed precautions, Rehab process, Transfer techniques Teaching Recipient: Patient Teaching Methods: Demonstration, Discussion Response to Teaching: Verbalize Understanding, Return Demonstration, Reinforcement Needed OT Short Term Goals Short Term Goals Time Frame: November 29, 2019 Eatin Oral hygiene: 3 Toileting hygiene: 2 Upper body dressin OT Care Home Goals Care Home Goals Time Frame: Dec 13, 2019 Eating (QC): 4 Oral Hygiene (QC): 4 Toileting Hygiene (QC): 3 Shower/Bathe Self (QC): 3 Upper Body Dressing (QC): 4 Lower Body Dressing (QC): 3 On/Off Footwear (QC): 3 Additional Goals: 1-Demonstrate ADL Tasks, 2-Verbalize Understanding, 3- ImproveStrength/Narendra 1=Demonstrate adherence to instructed precautions during ADL tasks. 2=Patient will verbalize/demonstrate understanding of assistive devices/modifications for ADL. 3=Patient will improve strength/tolerance for activity to enable patient to perform ADL's. OT Education/Plan Problem List/Assessment Assessment: Decreased Activ Tolerance, Dependent Transfers, Impaired Funct Balance, Impaired I ADL's, Impaired Self-Care Skills Discharge Recommendations Plan/Recommendations: Continue POC Therapy Discharge Recommendati: Scheduled Assistance, Home & Family, Post Acute OT Treatment Plan/Plan of Care Treatment,Training & Education: Yes Patient would benefit from OT for education, treatment and training to promote independence in ADL's, mobility, safety and/or upper extremity function for ADL's. Plan of Care: ADL Retraining, Functional Mobility, UE Funct Exercise/Act Treatment Duration: Dec 13, 2019 Frequency: 5 times per week Estimated Hrs Per Day: .25 hour per day Agreement: Yes Rehab Potential: Fair Time/GCodes Start Time: 09:15 Stop Time: 09:40 Total Time Billed (hr/min): 25 Billed Treatment Time 1, ADL x 25minutes- 1 unit x 13minutes Co-treatment with PT Please see above note for designated roles. MALACHI FAROOQ OT November 24, 2019 13:24
--- NOTE | 2019-11-24 13:50 | Physical Therapy Daily Note ---
PT Daily Note-Current Subjective Pt sitting in recliner upon arrival. Pt agrees to PT/OT co-treat. Pain Location: No Pain Reported Mental Status Patient Orientation: Person, Place Attachments: Oxygen Transfers SCALE: Activities may be completed with or without assistive devices. 9-Taobqshilw-ujktcmx completes the activity by him/herself with no assistance from a helper. 5-Set-up or Clean-up Assistance-helper sets up or cleans up; patient completes activity. [place] assists only prior to or following the activity. 4-Supervision or Touching Assistance-helper provides verbal cues and/or touching/steadying and/or contact guard assistance as patient completes activity. Assistance may be provided throughout the activity or intermittently. 3-Partial/Moderate Assistance-helper does LESS THAN HALF the effort. [place] lifts, holds or supports trunk or limbs, but provides less than half the effort. 2-Substantial/Maximal Assistance-helper does MORE THAN HALF the effort. [place] lifts or holds trunk or limbs and provides more than half the effort. 4-Fkyimywan-grmhbn does ALL the effort. Patient does none of the effort to complete the activity. Or, the assistance of 2 or more helpers is required for the patient to complete the activity. If activity was not attempted, code reason: 7-Patient Refused. 9-Not Applicable-not attempted and the patient did not perform the activity before the current illness, exacerbation or injury. 10-Not Attempted due to Environmental Limitations-(lack of equipment, weather restraints, etc.). 88-Not Attempted due to Medical Conditions or Safety Concerns. Sit to Stand (QC): 4 Weight Bearing Right Lower Extremity: Right Weight Bearing/Tolerated Left Lower Extremity: Left Weight Bearing/Tolerated Gait Training Does the Patient Walk?: Yes Distance: 150' Walk 10 feet (QC): 4 Walk 50 ft with 2 Turns(QC): 4 Walk 150 ft (QC): 4 Gait Persons Needed: 1 Gait Assistive Device: FWW Treatments Pt. up in chair. Participated in treatment with OT/PT due to need of skilled assistance x 2. Pt. has t-shirt on, but does not have pants or slipper socks. OT assisted with ADL skills while PT facilitated mobility. Pt. has swelling in bilateral LE. Required max assist to don pants over feet. Min assist to stand at walker and then pt. able to don pants over hips with min assist. Pt. sat back down and OT donned slipper socks, as pt. unable to reach feet. Pt. on 5 L 02. Sats taken before ambulation and were 98%. Pt. ambulated with OT/PT with min assist with walker and oxygen. Pt. ambulated approximately 150 feet, with one rest break at window area. Increased time needed and pt. requires cues to initiate tasks. Pt. back in room and transfers to chair. OT encouraged to elevate feet but pt. does not want to elevate with reclining chair. Pt. able to elevate on corresponding chair. Sats taken again and at 82%. Pt. still on 5 L and is encouraged to breathe deep in through nose, out through mouth. All needs met. Assessment Current Status: Fair Progress Pt fatigues and needs RB during Rx. PT Short Term Goals Short Term Goals Time Frame: December 04, 2019 Roll Left & Right: 2 Sit to lyin Lying to sitting on side of be: 2 Sit to stand: 2 Chair/yjc-ql-difza transfer: 2 PT Dietetics Professor Goals Dietetics Professor Goals PT Dietetics Professor Goals Time Frame: Dec 18, 2019 Roll Left & Right (QC): 4 Sit to Lying (QC): 4 Lying-Sitting on Side/Bed(QC): 4 Sit to Stand (QC): 4 Chair/Szu-ke-Zuven Xfer(QC): 4 Toilet Transfer (QC): 4 Does the Patient Walk: No and Walking Goal IS indicated Walk 10 feet (QC): 3 PT Plan Problem List Problem List: Activity Tolerance, Functional Strength, Safety Treatment/Plan Treatment Plan: Continue Plan of Care Treatment Plan: Bed Mobility, Education, Functional Activity Narendra, Functional Strength, Gait, Safety, Therapeutic Exercise, Transfers Treatment Duration: Dec 18, 2019 Frequency: 6 times per week Estimated Hrs Per Day: .25 hour per day (to .5) Patient and/or Family Agrees t: Yes Safety Risks/Education Patient Education: Gait Training, Transfer Techniques, Correct Positioning, Safety Issues Teaching Recipient: Patient Teaching Methods: Discussion Response to Teaching: Verbalize Understanding Time/GCodes Time In: 915 Time Out: 940 Total Billed Treatment Time: 25 Total Billed Treatment 1, GT (12m) Co-treat with OT (12m) LEANDRO RODRIGUEZ [employer] IN[employer]ORY CONTROL CLERK November 24, 2019 13:50
--- NOTE | 2019-11-24 14:24 | NUR ---
CM/SS follow up. CM/SS visited with the patient. She appeared to be doing well and stated she did well with therapy today. Per the physician, the patient may be able to discharge home with home health or outpatient physical therapy by the end of this week. Therefore, CM/SS cancelled the referral that was sent to [facility] and rehab. CM/SS attempted to set up home health through [facility], [facility], and [facility] who all denied the patient due to Medicaid only. They stated that she does not have therapy benefits through Medicaid. The patient does not have any skilled benefits. CM/SS will attempt to set up outpatient physical therapy for patient. Will continue to follow to assist with discharge planning. Addendum: 11/24/19 at 1508 by [facility]SS attempted to set up outpatient physial therapy for the patient at [facility]. Medicaid does not pay for the therapy and the patient would be responsible for paying $25 up front and be billed for the rest. The patient and her were on the phone to discuss this. The patient and her stated they would not be able to afford that and would rather not have any physical therapy at all. CM/SS discussed the risk and safety issues with not having physical therapy. They verbalized understanding. CM/SS left a message for the [facility] director of social services to assist with setting up services.
[2019-11-25 00:05] VITALS: BP 99/46
[2019-11-25] MEDS: RT-ALBUTEROL/IPRATROPIUM 3 ML (DUONEB) VIAL INH SCH ×3 (03:45→10:34)
[2019-11-25 04:45] VITALS: BP 114/51
--- NOTE | 2019-11-25 05:53 | Pulmonary Progress Note ---
Subjective Time Seen by a Provider: 05:52 Subjective/Events-last exam Pt appears to be improving. Sepsis Event Evaluation Height, Weight, BMI Height: '" Weight: lbs. oz. kg; 33.00 BMI Method: Exam Exam Vital Signs Date Time Temp Pulse Resp B/P (MAP) Pulse Ox O2 Delivery O2 Flow Rate FiO2 11/25/19 04:45 36.8 80 18 114/51 (72) 96 Nasal Cannula 3.00 11/25/19 00:05 36.8 66 16 99/46 (63) 96 Room Air 3.50 11/24/19 23:00 36.8 11/24/19 20:59 Nasal Cannula 4.50 11/24/19 19:25 35.8 84 15 119/65 (83) 98 Nasal Cannula 4.00 11/24/19 18:59 97 Nasal Cannula 4.00 11/24/19 15:52 36.0 76 15 117/66 (83) 97 Room Air 4.00 11/24/19 14:27 90 Nasal Cannula 5.00 11/24/19 12:00 36.5 69 20 128/72 (90) 95 Nasal Cannula 4.00 11/24/19 10:41 92 Nasal Cannula 5.00 11/24/19 08:00 Nasal Cannula 5.00 11/24/19 08:00 35.9 87 20 90/58 (69) 91 Nasal Cannula 4.00 11/24/19 06:38 88 Nasal Cannula 4.00 I & O 11/25/19 07:00 Intake Total 1600 ml Balance 1600 ml Height & Weight Height: '" Weight: lbs. oz. kg; 33.00 BMI Method: General Appearance: No Apparent Distress, Chronically ill, Obese HEENT: PERRL/EOMI, TMs Normal, Normal ENT Inspection, Pharynx Normal, Moist Mucous Membranes, Other Neck: Normal Inspection, Supple Respiratory: Lungs Clear, No Respiratory Distress Cardiovascular: Regular Rate, Rhythm, No Murmur Capillary Refill: Less Than 3 Seconds Gastrointestinal: normal bowel sounds, non tender, soft Extremity: Normal Inspection, Non Tender, Pedal Edema Neurologic/Psychiatric: Alert, Oriented x3 Skin: Normal Color, Warm/Dry Results Lab Laboratory Tests 11/24/19 04:55 Assessment/Plan Assessment/Plan Persistent hypoxiemia -Titrate oxygen to D/C Probable PE on admission - s/p TPA -Eliquis -Will plan on treating with anticogulation for at least 3mo PTX per CT -- is very small and appears to be stable despite being on vent. -Continue to monitor Sternal fracture COPDAE -Duoneb - s/p cardiac arrest -s/p theraputic hypothermia CAD Cardiology consulted NIDDMII SSI GORDON CONNOLLY DO November 25, 2019 05:53
[2019-11-25] MEDS: inSUlin ASPART (NovoLOG) 1 UNIT/0.01 ML (CHARGE PER UNIT) SC SCH ×2 (06:44→11:00)
[2019-11-25] MEDS: KCL 10 MEQ TAB (MICRO K) PO SCH (06:44)
[2019-11-25] MEDS: FUROSEMIDE 40 MG/4 ML INJ (LASIX) IVP SCH (06:44)
[2019-11-25 08:11] VITALS: BP 154/88
[2019-11-25 08:11] LABS: HEMOGLOBIN 8.1 G/DL (11.5-16.0); MEAN PLATELET VOLUME 10.1 FL (7.4-10.4); RED CELL DISTRIBUTION WIDTH 15.7 % (10.0-14.5); WHITE BLOOD COUNT 6.5 10^3/uL (4.3-11.0)
[2019-11-25] MEDS: APIXABAN 5 MG (ELIQUIS) TABLET PO SCH (08:30)
[2019-11-25] MEDS: PANTOPRAZOLE 40 MG (PROTONIX) TAB PO SCH (08:30)
[2019-11-25] MEDS: ASPIRIN 81 MG CHEW (CHILDREN'S ASA) PO SCH (08:30)
[2019-11-25] MEDS: meTOprolol TARTRATE 25 MG (LOPRESSOR) TABLET PO SCH (08:30)
[2019-11-25] MEDS: GABAPENTIN 100 MG (NEURONTIN) CAP PO SCH (08:31)
[2019-11-25] MEDS: MICONAZOLE 2% POWDER (DESENEX AF) 90 GM TOP SCH (08:32)
[2019-11-25 08:34] LABS: POTASSIUM 4.1 MMOL/L (3.6-5.0)
--- NOTE | 2019-11-25 08:55 | Progress Note - Cardiology ---
Cardiology SOAP Progress Note Subjective: Sitting up in a chair at the bedside. States she feels her breathing is good today. LE swelling she states is chronic and typically better in the morning and worse at the end of the day. C/O discomfort to her left leg with palpation. Objective: I&O/Vital Signs 11/24/19 11/25/19 11/25/19 11/25/19 23:00 00:05 04:45 06:36 Temp 36.8 36.8 36.8 Pulse 66 80 Resp 16 18 B/P (MAP) 99/46 (63) 114/51 (72) Pulse Ox 96 96 92 O2 Delivery Room Air Nasal Cannula Nasal Cannula O2 Flow Rate 3.50 3.00 4.00 11/25/19 08:11 Temp 37.8 Pulse 105 Resp 19 B/P (MAP) 154/88 (110) Pulse Ox 97 O2 Delivery Nasal Cannula O2 Flow Rate 3.00 11/25/19 00:00 Intake Total 1600 ml Balance 1600 ml Constitutional: AAO x 3, well-developed, well-nourished Respiratory: other (fair air entry; poor inspiratory effort) Cardiovascular: regular rate-rhythm, systolic murmur Gastrointestional: soft, distended, audible bowel sounds Extremities: inflammation (LLE with redness and warmth to touch), other (bilat pitting LE swelling) Neurologic/Psychiatric: other (moves all extremities) Skin: warm/dry Results/Procedures: Labs Laboratory Tests 11/24/19 11:11: Glucometer 405*H 11/24/19 15:55: Glucometer 177H 11/24/19 19:33: Glucometer 232H 11/25/19 05:11: Glucometer 157H 11/25/19 08:04: White Blood Count 6.5, Red Blood Count 2.96L, Hemoglobin 8.1L, Hematocrit 26L, Mean Corpuscular Volume 89, Mean Corpuscular Hemoglobin 27, Mean Corpuscular Hemoglobin Concent 31L, Red Cell Distribution Width 15.7H, Platelet Count 356, Mean Platelet Volume 10.1, Sodium Level 129L, Potassium Level 4.1, Chloride Level 84L, Carbon Dioxide Level 33H, Anion Gap 12, Blood Urea Nitrogen 14, Creatinine 1.00, Estimat Glomerular Filtration Rate 56, BUN/Creatinine Ratio 14, Glucose Level 219H, Calcium Level 9.0 Microbiology 5/11/20 Gram Stain - Final, Complete 11/15/19 Sputum Culture - Final, Complete YEAST 11/09/19 Blood Culture - Final, Complete Staphylococcus hominis A/P: Assessment: Ac resp arrest and cardiac arrest (PEA) in the setting of profound hypoxia and hypotension, PE suspected clinically and being treated by the Hospitalist service Suspected cellulitis of LLE - management per medical services Acute CHF, systolic (LV systolic function at lower limit of normal to mildly impaired) and diastolic Hyponatremia of unclear etiology, probably partly related to CHF (hypervolemic hypernatremia) H/o CAD (reportedly has had 3 stents, none recent) -cardiac cath report of Apr [address] Malcolm shows stenting to the mid-RCA with a 3.0 x 18 mm stent (exact details unknown) - cardiac cath report from Aug by Dr. Escalante at [facility] - showed widely patent previously placed stent to the mid- RCA (Mar [address] Levine, a 3.5 x 22 Taxus stent placed proximally to the previous mid-RCA stent place in 2001) and a stent was placed to the OM -1 (exact details unavailable) Mild troponin elevation likely due to type 2 [place] due to hypoxia Echo of 11/09/19: LVEF approx 50%, study difficult and not suitable for wall motion analysis, cannot exclude apical hypokinesis ECG: NSR, PACs, LAFB vs old IMI Anemia of undetermined etiology - Medical services managing Plan: * Change IV diuretics to oral * Monitor electrolytes closely * Continue ASA due a h/o cor stents * OAC with Eliquis d/t suspected PE at time of admission * Management of anemia per Medical services - H/H falling * Hypotension improved with reduction of medications * Suspected cellulitis of LLE - management per medical services * Elevated temp this morning possibly secondary to suspected cellulitis * DANIEL del cide on in the morning and off at [facility] November 25, 2019 08:55
--- NOTE | 2019-11-25 09:50 | Progress Note - Cardiology ---
Cardiology SOAP Progress Note Subjective: No cp or palp or swelling or shortness of breath Chronic, bilat leg swelling No n/v/d Weakness has improved States will f/u with her hat blocker when d/c'd Objective: I&O/Vital Signs 11/24/19 11/25/19 11/25/19 11/25/19 23:00 00:05 04:45 06:36 Temp 36.8 36.8 36.8 Pulse 66 80 Resp 16 18 B/P (MAP) 99/46 (63) 114/51 (72) Pulse Ox 96 96 92 O2 Delivery Room Air Nasal Cannula Nasal Cannula O2 Flow Rate 3.50 3.00 4.00 11/25/19 11/25/19 08:00 08:11 Temp 37.8 Pulse 105 Resp 19 B/P (MAP) 154/88 (110) Pulse Ox 97 97 O2 Delivery Nasal Cannula Nasal Cannula O2 Flow Rate 4.00 3.00 11/25/19 00:00 Intake Total 1600 ml Balance 1600 ml Constitutional: AAO x 3, well-developed, well-nourished Respiratory: other (fair air entry; poor inspiratory effort) Cardiovascular: regular rate-rhythm, systolic murmur Gastrointestional: soft, distended, audible bowel sounds Extremities: inflammation (LLE with redness and warmth to touch), other (bilat pitting LE swelling) Neurologic/Psychiatric: other (moves all extremities) Skin: warm/dry Results/Procedures: Labs Laboratory Tests 11/24/19 11:11: Glucometer 405*H 11/24/19 15:55: Glucometer 177H 11/24/19 19:33: Glucometer 232H 11/25/19 05:11: Glucometer 157H 11/25/19 08:04: White Blood Count 6.5, Red Blood Count 2.96L, Hemoglobin 8.1L, Hematocrit 26L, Mean Corpuscular Volume 89, Mean Corpuscular Hemoglobin 27, Mean Corpuscular Hemoglobin Concent 31L, Red Cell Distribution Width 15.7H, Platelet Count 356, Mean Platelet Volume 10.1, Sodium Level 129L, Potassium Level 4.1, Chloride Level 84L, Carbon Dioxide Level 33H, Anion Gap 12, Blood Urea Nitrogen 14, Creatinine 1.00, Estimat Glomerular Filtration Rate 56, BUN/Creatinine Ratio 14, Glucose Level 219H, Calcium Level 9.0 Microbiology 11/15/19 Gram Stain - Final, Complete 11/15/19 Sputum Culture - Final, Complete YEAST 11/09/19 Blood Culture - Final, Complete Staphylococcus hominis Laboratory Tests 11/24/19 04:55 11/25/19 08:04 A/P: Assessment: Ac resp arrest and cardiac arrest (PEA) in the setting of profound hypoxia and hypotension, PE suspected clinically and being treated by the Hospitalist service Suspected cellulitis of LLE - management per medical services Acute CHF, systolic (LV systolic function at lower limit of normal to mildly impaired) and diastolic Hyponatremia of unclear etiology, probably partly related to CHF (hypervolemic hypernatremia) H/o CAD (reportedly has had 3 stents, none recent) -cardiac cath report of Apr [address] Malcolm shows stenting to the mid-RCA with a 3.0 x 18 mm stent (exact details unknown) - cardiac cath report from Aug by Dr. Escalante at [facility] - showed widely patent previously placed stent to the mid- RCA (Mar [address] Levine, a 3.5 x 22 Taxus stent placed proximally to the previous mid-RCA stent place in 2001) and a stent was placed to the OM -1 (exact details unavailable) Mild troponin elevation likely due to type 2 [place] due to hypoxia Echo of 11/09/19: LVEF approx 50%, study difficult and not suitable for wall david on analysis, cannot exclude apical hypokinesis ECG: NSR, PACs, LAFB vs old IMI Anemia of undetermined etiology - Medical services managing Plan: * Change IV diuretics to oral * Monitor electrolytes closely * Continue ASA due a h/o cor stents * OAC with Eliquis d/t suspected PE at time of admission * Management of anemia per Medical services - H/H falling * Hypotension improved with reduction of medications * Suspected cellulitis of LLE - management per Medical services. Elevated temp this morning possibly secondary to suspected cellulitis * I discussed her case with Dr Alvarado on the phone this am RAFAT MONTANA MD FACP [facility] November 25, 2019 09:50
--- NOTE | 2019-11-25 10:11 | Occupational Ther Daily Note ---
OT Current Status-Daily Note Subjective Pt seated in shower, agreed to OT tx. She reports she is hoping she will be able to go home today. ADL-Treatment Therapy Code Descriptions/Definitions Functional [employer] Measure: 0=Not Assessed/NA 4=Minimal Assistance 1=Total Assistance 5=Supervision or Setup 2=Maximal Assistance 6=Modified [employer] 3=Moderate Assistance 7=Complete IndependenceSCALE: Activities may be completed with or without assistive devices. 2-Kaveqtfhek-vuademb completes the activity by him/herself with no assistance from a helper. 5-Set-up or Clean-up Assistance-helper sets up or cleans up; patient completes activity. [place] assists only prior to or following the activity. 4-Supervision or Touching Assistance-helper provides verbal cues and/or touching/steadying and/or contact guard assistance as patient completes activity. Assistance may be provided throughout the activity or intermittently. 3-Partial/Moderate Assistance-helper does LESS THAN HALF the effort. [place] lifts, holds or supports trunk or limbs, but provides less than half the effort. 2-Substantial/Maximal Assistance-helper does MORE THAN HALF the effort. [place] lifts or holds trunk or limbs and provides more than half the effort. 9-Mmplrjvhr-toclir does ALL the effort. Patient does none of the effort to complete the activity. Or, the assistance of 2 or more helpers is required for the patient to complete the activity. If activity was not attempted, code reason: 7-Patient Refused. 9-Not Applicable-not attempted and the patient did not perform the activity before the current illness, exacerbation or injury. 10-Not Attempted due to Environmental Limitations-(lack of equipment, weather restraints, etc.). 88-Not Attempted due to Medical Conditions or Safety Concerns. Bathing Location: L Arm, R Arm, L Upper Leg, R Upper Leg, Chest, Abdomen, Perineal Area Shower/Bathe Self (QC): 3 (Pt required assistance washing/drying her back, BLE feet, and with drying her buttocks. ) Upper Body Dressing (QC): 5 (set up. Pt able to manage O2 tubing) Lower Body Dressing (QC): 2 (Pt required assistance threading BLE into pants/underwear, she then was able to pull them up in stance at FWW with slight assist managing them up the rest of the way in the back. ) On/Off Footwear: 1 (Pt reports she is unable to selwyn socks, but her is able to help her at home. OT dependently donned slipper socks onto BLEs) Toilet Transfer (QC): 4 (SBA on/off during dressing. ) Other Treatment Pt seated in shower, required assistance washing/drying her back and feet. She then transferred to the toilet where she completed dressing. Pt required 1 rest break during task, requiring verbal cue to take deep breaths in through her nose and out through her mouth. She then transferred to the recliner using FWW and SBA as OT managed O2 tubing. Post OT session, pt seated in recliner, call light in reach and all needs met. Education OT Patient Education: Correct positioning, Energy conservation, Modified ADL techniques, Progress toward Goal/Update tx plan, Transfer techniques Teaching Methods: Discussion Response to Teaching: Verbalize Understanding OT Short Term Goals Short Term Goals Time Frame: November 29, 2019 Eatin Oral hygiene: 3 Toileting hygiene: 2 Upper body dressin OT Fdc Goals Chief Deputy Clerk/Bailiff Goals Time Frame: Dec 13, 2019 Eating (QC): 4 Oral Hygiene (QC): 4 Toileting Hygiene (QC): 3 Shower/Bathe Self (QC): 3 Upper Body Dressing (QC): 4 Lower Body Dressing (QC): 3 On/Off Footwear (QC): 3 Additional Goals: 1-Demonstrate ADL Tasks, 2-Verbalize Understanding, 3- ImproveStrength/Narendra 1=Demonstrate adherence to instructed precautions during ADL tasks. 2=Patient will verbalize/demonstrate understanding of assistive devic es/modifications for ADL. 3=Patient will improve strength/tolerance for activity to enable patient to perform ADL's. OT Education/Plan Problem List/Assessment Assessment: Decreased Activ Tolerance, Decreased UE Strength, Impaired I ADL's, Impaired Self-Care Skills Discharge Recommendations Plan/Recommendations: Continue POC Treatment Plan/Plan of Care Patient would benefit from OT for education, treatment and training to promote independence in ADL's, mobility, safety and/or upper extremity function for ADL's. Plan of Care: ADL Retraining, Functional Mobility, UE Funct Exercise/Act Treatment Duration: Dec 13, 2019 Frequency: 5 times per week Estimated Hrs Per Day: .25 hour per day Agreement: Yes Rehab Potential: Fair Time/GCodes Start Time: 09:43 Stop Time: 10:00 Total Time Billed (hr/min): 17 Billed Treatment Time 1, ADL MARVIN NOBLE OT November 25, 2019 10:11
--- NOTE | 2019-11-25 11:16 | Physical Therapy Progress Note ---
Therapy Progress Note Pt sitting up in recliner upon arrival. Pt reports wanting to DC today and feels ready. [employer] reviews & issues written HEP since pt reports not paying for HH or OP PT. [employer] reviewed ambulating stairs properly. Dr Alvarado arrives at end of Rx to discuss DC today. 1 visit, FA (15m) [phone] LEANDRO RODRIGUEZ PTA November 25, 2019 11:16
[2019-11-25] MEDS ORDERED: METO-333 PO (11:19)
[2019-11-25] MEDS ORDERED: APIX5TAB PO (11:19)
[2019-11-25] MEDS ORDERED: FURO20TA4 PO (11:19)
[2019-11-25] MEDS ORDERED: GABA-486 PO (11:19)
[2019-11-25] MEDS ORDERED: ASPI-999 PO (11:19)
[2019-11-25] MEDS ORDERED: POTA10TA6 PO (11:19)
--- NOTE | 2019-11-25 11:22 | NUR ---
"RD ASSESSMENT PMHx: HTN; DM; COPD; JODI; CAD; hypercholesterolemia; PT INTERACTION: Pt was awake and pleasant during nutrition follow-up. Pt states she has been eating well since last assessment. Note avg PO intake 81% x4d, per chart review. Pt states no issues with nausea, vomiting, constipation, or diarrhea since last assessment. Note last BM was 11/24, and pt not currently on bowel regimen per chart review. ABNORMAL NUTRITION-RELATED LAB VALUES LOW: Na 129; Cl 86; Pro 6.1; alb 2.9 HIGH: AST 44; glu 148 Est. kcal needs: 2900-6432 kcal | 15-18 kcal/kg Est. Pro needs: 87-109 g Pro | 0.8-1.0 g Pro/kg PES STATEMENT: Given current PO intake, no nutrition diagnosis at this time (NO-1.1) INTERVENTION: Continue with current diet order of CHO 60g/m 0snack diet. Offered dietary education on DM management again to pt, but pt declined. Will continue to follow and reassess as pt needs, intake, and status change. MONITOR/EVALUATE: PO Intake; Plan of Care; Hydration Status; Weight Status; Lab Values Tristen Rocha, , RD, LD"
--- NOTE | 2019-11-25 11:34 | Discharge Inst-Simple/Standard ---
Discharge Inst-Standard Discharge Medications New, Converted or Re-Newed RX: Transmitted to Pharmacy Patient Instructions/Follow Up Plan of Care/Instructions/FU: Please continue to take your medications as written. Please follow up with Dr Saldivar and Dr Escalante in the next 1-2 weeks. Please continue to take your medications as written and do your therapy. Activity as Tolerated: Yes Discharge Diet: Low Sodium Diet, Cardiac Diet Return to The Hospital For: Fever, shortness of breath, chest pain, cough, confusion, if you feel you are getting worse. Planned Outpatient Orders/Ref. Pneu Vac Indicated: Yes ASHLYN EDDY MD November 25, 2019 11:27
--- NOTE | 2019-11-25 11:36 | Discharge Summary ---
Diagnosis/Chief Complaint Date of Admission November 09, 2019 at 14:04 Date of Discharge Discharge Date: November 25, 2019 Admission Diagnosis Cardiac Arrest Primary Care Discharge Diagnosis (1) Cardiac arrest Status: Acute (2) Acute on chronic respiratory failure with hypoxia and hypercapnia Status: Acute (3) Critical illness myopathy Status: Acute (4) Debility Status: Acute Discharge Summary Discharge Physical Exam Allergies: Coded Allergies: Penicillins (Unverified Allergy, Unknown, 11/09/19) Sulfa (Sulfonamide Antibiotics) (Unverified Allergy, Unknown, 11/09/19) adhesive tape (Unverified Allergy, Unknown, 11/09/19) azithromycin (Unverified Allergy, Unknown, 11/09/19) cephalexin (Unverified Allergy, Unknown, 11/09/19) Vitals & I&Os Vital Signs Date Time Temp Pulse Resp B/P (MAP) Pulse Ox O2 Delivery O2 Flow Rate FiO2 11/25/19 10:34 93 Nasal Cannula 4.00 11/25/19 08:11 37.8 105 19 154/88 (110) General Appearance: No Apparent Distress, Chronically ill, Obese Cardiovascular: Regular Rate, Rhythm, No Murmur Gastrointestinal: Normal Bowel Sounds, Non Tender, Soft Neurologic/Psychiatric: Alert, Oriented x3 Hospital Course Pt is a 64yoCF who was admitted post code from presumed PE. She was treated with TPA in the ER and ROSC was obtained. She underwent therapeutic hypothermia. She completed that protocol was slowly weaned from the ventilator. She did very well and was treated with anticoagulation for presumed PE. Cardiology was consulted along with Pulmonology. She required physical and occupational therapy. It was recommended that she continue with therapy in a supervised setting but her insurance did not cover this and she declined any further assistance with settin g up therapy. I called and discussed the case with her primary care doctor, Dr Saldivar. She is to follow up with him and with with Dr Escalante, her rail car driver, as an outpatient. She is to continue on anticoagulation for at least 3 months following this hospitalization. Labs (last 24 hrs) Laboratory Tests 11/24/19 15:55: Glucometer 177H 11/24/19 19:33: Glucometer 232H 11/25/19 05:11: Glucometer 157H 11/25/19 08:04: White Blood Count 6.5, Red Blood Count 2.96L, Hemoglobin 8.1L, Hematocrit 26L, Mean Corpuscular Volume 89, Mean Corpuscular Hemoglobin 27, Mean Corpuscular Hemoglobin Concent 31L, Red Cell Distribution Width 15.7H, Platelet Count 356, Mean Platelet Volume 10.1, Sodium Level 129L, Potassium Level 4.1, Chloride Level 84L, Carbon Dioxide Level 33H, Anion Gap 12, Blood Urea Nitrogen 14, Creatinine 1.00, Estimat Glomerular Filtration Rate 56, BUN/Creatinine Ratio 14, Glucose Level 219H, Calcium Level 9.0 11/25/19 10:46: Glucometer 143H Microbiology 11/15/19 Gram Stain - Final, Complete 11/15/19 Sputum Culture - Final, Complete YEAST 11/09/19 Blood Culture - Final, Complete Staphylococcus hominis Patient resulted labs reviewed. Pending Labs Laboratory Tests 11/25/19 05:11: Glucometer 157 11/25/19 08:04: White Blood Count 6.5, Red Blood Count 2.96, Hemoglobin 8.1, Hematocrit 26, Mean Corpuscular Volume 89, Mean Corpuscular Hemoglobin 27, Mean Corpuscular Hemoglobin Concent 31, Red Cell Distribution Width 15.7, Platelet Count 356, Mean Platelet Volume 10.1, Sodium Level 129, Potassium Level 4.1, Chloride Level 84, Carbon Dioxide Level 33, Anion Gap 12, Blood Urea Nitrogen 14, Creatinine 1.00, Estimat Glomerular Filtration Rate 56, BUN/Creatinine Ratio 14, Glucose Level 219, Calcium Level 9.0 11/25/19 10:46: Glucometer 143 Imaging: Reviewed Imaging Report Discussion & Recommendations Discharge Planning: >30 minutes discharge planning Discharge Home Medications: Active Scripts Active Doxycycline Hyclate 100 Mg Tablet 100 Mg PO BID Gabapentin 100 Mg Capsule 100 Mg PO BID Klor-Con 10 (Potassium Chloride) 10 Meq Tablet.er 10 Meq PO BID WITH MEALS Aspirin 81 Mg Tab.chew 81 Mg PO DAILY Metoprolol Tartrate 25 Mg Tablet 50 Mg PO BID Eliquis (Apixaban) 5 Mg Tablet 5 Mg PO BID Furosemide 20 Mg Tablet 80 Mg PO BID Reported Miralax (Polyethylene Glycol 3350) 17 Gm Powd.pack 17 Gm PO DAILY Aspirin EC (Aspirin) 325 Mg Tablet.dr 325 Mg PO Q48H Januvia (Sitagliptin Phosphate) 100 Mg Tablet 100 Mg PO DAILY Tizanidine HCl 4 Mg Tablet 4 Mg PO TID Advair 250-50 Diskus (Fluticasone/Salmeterol) 1 Each Blst.w.dev 1 Puff PO BID Proair Hfa (Albuterol Sulfate) 1 Puff Puff 2 Puff PO Q6H PRN Duloxetine HCl 60 Mg Capsule.dr 60 Mg PO DAILY Pantoprazole Sodium 40 Mg Tablet.dr 40 Mg PO DAILY Atenolol 100 Mg Tablet 100 Mg PO DAILY Rosuvastatin Calcium 20 Mg Tablet 20 Mg PO DAILY Metformin HCl 500 Mg Tablet 500 Mg PO BID WITH MEALS Enalapril Maleate 20 Mg Tablet 20 Mg PO BID Instructions to patient/family Please see electronic discharge instructions given to patient. Clinical Quality Measures DVT/VTE Risk/Contraindication: Risk Factor Score Per Nursin RFS Level Per Nursing on Admit: 4+=Very High ASHLYN EDDY MD November 25, 2019 11:36
[2019-11-25] MEDS ORDERED: DOXY100T2 PO (11:41)
[2019-11-25 12:28] VITALS: BP 154/88
--- NOTE | 2019-11-25 13:29 | NUR ---
JUNE/SS finalized discharge plan. Plan: The patient will return home without physical therapy due to the patient not having skilled benefits and unable to pay 25 dollars upfront for [facility]. The patient states that she would rather just not have physical therapy and go home without it. JUNE/LUIS and physician both discussed safety issues with patient. NAN spoke with the pediatric social worker at [facility] to assist options for discharge. She verbalized that with [place] Medicaid they do not have any options for Physical therapy other than their outpatient unit. No other needs at this time.
[2019-11-26] MEDS ORDERED: FUROSEMIDE 40 MG (LASIX) TAB PO SCH (07:00)
== END 2019-11-25 13:28 | disposition home or self-care (01) | DRG 207 ==
LOC: EDUNIT# 12:01 → ER 12:02 → ICU 14:04 → 4TH 11-18 16:15
PROVIDERS: ADMIT Family Medicine; ATTEND Family Medicine
PROC: 5A1955Z Respiratory Ventilation, Greater than 96 Consecutive Hours (ICD-10-PCS; principal; 2019-11-09)
PROC: 3E03317 Introduction of Other Thrombolytic into Peripheral Vein, Percutaneous Approach (ICD-10-PCS; 2019-11-09)
DX: J96.01 Acute respiratory failure with hypoxia (principal); J96.02 Acute respiratory failure with hypercapnia; I46.9 Cardiac arrest, cause unspecified; I26.99 Other pulmonary embolism without acute cor pulmonale; I21.A1 Myocardial infarction type 2; G72.81 Critical illness myopathy; J44.1 Chronic obstructive pulmonary disease with (acute) exacerbation; I50.43 Acute on chronic combined systolic (congestive) and diastolic (congestive) heart failure; E87.1 Hypo-osmolality and hyponatremia; E66.2 Morbid (severe) obesity with alveolar hypoventilation; S22.20XA Unspecified fracture of sternum, initial encounter for closed fracture; S27.0XXA Traumatic pneumothorax, initial encounter; E87.3 Alkalosis; I25.10 Atherosclerotic heart disease of native coronary artery without angina pectoris; I11.0 Hypertensive heart disease with heart failure; K72.90 Hepatic failure, unspecified without coma; E78.00 Pure hypercholesterolemia, unspecified; M54.9 Dorsalgia, unspecified; E03.9 Hypothyroidism, unspecified; E11.65 Type 2 diabetes mellitus with hyperglycemia; F17.200 Nicotine dependence, unspecified, uncomplicated; Z20.828 Contact with and (suspected) exposure to other viral communicable diseases; E87.6 Hypokalemia; E83.39 Other disorders of phosphorus metabolism; E83.42 Hypomagnesemia; D64.9 Anemia, unspecified; I25.2 Old myocardial infarction; Z95.5 Presence of coronary angioplasty implant and graft; Z79.84 Long term (current) use of oral hypoglycemic drugs; Z68.39 Body mass index [BMI] 39.0-39.9, adult
CPT/HCPCS: 31500; 36415; 36556; 36680; 51702; 70470; 71045; 71275; 80048; 80053; 80076; 80202; 80306; 81000; 82140; 82150; 82248; 82271; 82550; 82805; 82962; 83605; 83690; 83735; 83880; 84100; 84132; 84145; 84146; 84478; 84484; 85007; 85014; 85018; 85025; 85027; 85379; 85384; 85610; 85730; 86850; 86900; 86901; 87040; 87070; 87077; 87081; 87186; 87205; 87635; 87804; 93005; 93308; 93970; 94002; 94003; 94640; 94660; 94760; 94799; 96361; 96374; 96375

== ENCOUNTER → 2022-08-13 | Outpatient (CLI) | payer MEDICARE, MEDICAID ==
[~2022-08-13] MED LIST: ALBU8.5H6 PO; APIX5TAB PO; ASPI-999 PO; ASPI325T32 PO; ATEN100T PO; DOXY100T2 PO; DULO60CA59 PO; ENAL20TA16 PO; FLUT1DIS26 PO; FURO20TA4 PO; GABA-486 PO; METF-397 PO; METO-333 PO; PANT40TA52 PO; POLY17PO6 PO; POTA-160 PO; ROSU20TA32 PO; SITA100T12 PO; TIZA-186 PO
== END ==
LOC: ORTHO 17:08
PROVIDERS: ATTEND Orthopaedic Surgery
DX: M17.12 Unilateral primary osteoarthritis, left knee (principal)

== ENCOUNTER → 2022-08-13 | Outpatient (CLI) | payer MEDICARE, MEDICAID | LOC: ORTHO 15:36 | PROVIDERS: ATTEND Orthopaedic Surgery | DX: M17.12 Unilateral primary osteoarthritis, left knee (principal); M25.561 Pain in right knee | CPT/HCPCS: 20610 ==